=== PATIENT | male | born 1965 | race Caucasian/White ===

== ENCOUNTER 2020-01-05 00:41 | Emergency (ER) | payer MEDICARE, SELFPAY ==
[2020-01-05] VITALS (10 sets, daily range): BP systolic 132–162; BP diastolic 71–84; PULSE 100–125; RESP 18–24; TEMP 36.2–36.7; O2SAT 92–97
--- NOTE | ~2020-01-05 | CT_ITS ---
EXAMINATION: CTA chest PE protocol DATE: 01/05/2020 03:03 INDICATION: Dyspnea. TECHNIQUE: Computed tomography angiography (CTA) of the chest was performed with 100 mL Omnipaque-350 intravenous contrast timed to evaluate the pulmonary arteries. Coronal maximum intensity projection 3D-reconstructions were created by the technologist. Automated exposure control and iterative reconst ruction technique were employed. The dose-length product was 808.66 mGy-cm. COMPARISON: Chest CT 06/11/2018 FINDINGS: There are small pleural effusions, right worse than left. There is mild dependent atelectas is bilaterally. There is diffuse smooth septal thickening in the lungs, consistent with mild pulmonar y edema. There is mild emphysema. Cardiomegaly is noted. There is a small pericardial effusion. There is mild mediastinal and bilateral hilar lymphadenopathy. There is no pulmonary embolus. There are br idging endplate osteophytes at multiple levels in the spine, consistent with diffuse idiopathic skele ludwin hyperostosis (DISH). IMPRESSION: 1. No pulmonary embolus. Sensitivity is mildly decreased by motion artifact. 2. Mild pulmonary edema. 3. Mild emphysema. 4. Small pleural effusions. 5. Cardiomegaly. 6. Small pericardial effusion. 7. Chronic mild mediastinal and bilateral hilar lymphadenopathy, likely reactive. Reviewed, dictated and finalized at location A. IMPRESSION: 1. No pulmonary embolus. Sensitivity is mildly decreased by motion artifact. 2. Mild pulmonary edema. 3. Mild emphysema. 4. Small pleural effusions. 5. Cardiomegaly. 6. Small pericardial effusion. 7. Chronic mild mediastinal and bilateral hilar lymphadenopathy, likely reactiv e.
--- NOTE | ~2020-01-05 | XR_ITS ---
EXAMINATION: XR chest 1V portable DATE: 01/05/2020 01:37 INDICATION: Dyspnea. TECHNIQUE: A single frontal view of the chest was obtained on 2 radiographs. COMPARISON: Chest 2 views 06/11/2018, chest CT 01/05/2020 FINDINGS: There is a diffuse interstitial pattern, consistent with mild pulmonary edema. There is a s mall right pleural effusion. No pneumothorax. Cardiomegaly is noted. IMPRESSION: 1. Mild pulmonary edema. 2. Small right pleural effusion. 3. Cardiomegaly. Reviewed, dictated and finalized at location A.
--- NOTE | 2020-01-05 00:56 | ED.SOB ---
HPI - SOB/Dyspnea General Source: patient <Jl Corcoran MD - Last Filed: 01/05/20 04:19> Mode of arrival: EMS <Jl Corcoran MD - Last Filed: 01/05/20 04:19> Limitations: no limitations <Jl Corcoran MD - Last Filed: 01/05/20 04:19> History of Present Illness HPI Narrative: 54-year-old man with a history of cardiomyopathy, CVA, vascular dementia, COPD, and type 2 diabetes brought into the emergency department by EMS after having reported 2 nights where he wakes up short of breath. Patient states he has no chest pain, nausea, vomiting, fever, cough, sputum production or sore throat. He denies any sick exposures because he does not go out. Patient is a poor historian. Given phone numbers and those on the record are all disconnected. <Jl Corcoran MD - Last Filed: 01/05/20 04:19> MD elicited complaint: shortness of breath <Jl Corcoran MD - Last Filed: 01/05/20 04:19> Pertinent past history: COPD, congestive heart failure and diabetes <Jl Corcoran MD - Last Filed: 01/05/20 04:19> Onset (ago): day(s) (2) <Jl Corcoran MD - Last Filed: 01/05/20 04:19> Timing: intermittent and progressively worsening <Jl Corcoran MD - Last Filed: 01/05/20 04:19> Severity: moderate <Jl Corcoran MD - Last Filed: 01/05/20 04:19> Exacerbating factors: lying flat <Jl Corcoran MD - Last Filed: 01/05/20 04:19> Relieving factors: nothing <Jl Corcoran MD - Last Filed: 01/05/20 04:19> Known history of: COPD, congestive heart failure and diabetes <Jl Corcoran MD - Last Filed: 01/05/20 04:19> Associated symptoms: wheezing <Jl Corcoran MD - Last Filed: 01/05/20 04:19> Treatment prior to arrival: oxygen <Jl Corcoran MD - Last Filed: 01/05/20 04:19> Related Data Home oxygen amount: none <Jl Corcoran MD - Last Filed: 01/05/20 04:19> Home Medications: Home Medications Medication Instructions Recorded Confirmed aspirin 81 mg PO DAILY 01/05/20 01/05/20 atorvastatin 80 mg PO DAILY 01/05/20 01/05/20 carvedilol 6.25 mg PO BID 01/05/20 01/05/20 cetirizine 10 mg PO DAILY 01/05/20 01/05/20 clopidogrel 75 mg PO DAILY 01/05/20 01/05/20 furosemide 40 mg PO DAILY 01/05/20 01/05/20 glipizide 10 mg PO BID 01/05/20 01/05/20 lisinopril 10 mg PO DAILY 01/05/20 01/05/20 metformin 500 mg PO BID 01/05/20 01/05/20 potassium chloride 20 meq PO DAILY 01/05/20 01/05/20 spironolactone 25 mg PO DAILY 01/05/20 01/05/20 <Jl Corcoran MD - Last Filed: 01/05/20 04:19> Allergies/Adverse Reactions: Allergies Allergy/AdvReac Type Severity Reaction Status Date / Time cephalexin Allergy Unknown Anaphylactic Verified 06/11/18 17:21 Shock Sulfa (Sulfonamide Allergy Unknown Anaphylactic Verified 06/11/18 17:21 Antibiotics) Shock <Jl Corcoran MD - Last Filed: 01/05/20 04:19> Review of Systems Constitutional: Constitutional: Denies chills, Denies fatigue, Denies fever(s) and Denies weakness <Jl Corcoran MD - Last Filed: 01/05/20 04:19> Eyes: Eyes: Denies change in vision and Denies photophobia <Jl Corcoran MD - Last Filed: 01/05/20 04:19> ENT: Denies dysphagia, Denies nasal congestion and Denies sore throat <Jl Corcoran MD - Last Filed: 01/05/20 04:19> Cardiovascular: Cardiovascular: Denies chest pain, Reports rapid heart rate and Denies radiating jaw, neck or arm pain <Jl Corcoran MD - Last Filed: 01/05/20 04:19> Respiratory: Respiratory: Reports as per HPI, Reports chest congestion, Denies cough, Reports dyspnea and Reports wheezing <Jl Corcoran MD - Last Filed: 01/05/20 04:19> Gastrointestinal: Gastrointestinal: Denies abdominal pain, Denies diarrhea, Denies nausea and Denies vomiting <Jl Corcoran MD - Last Filed: 01/05/20 04:19> Genitourinary: Genitourinary: Denies hematuria, Denies dysuria and Denies urinary f
--- NOTE | 2020-01-05 01:16 | ECG_ITS ---
Measurements Intervals [place] Rate: 116 P: 57 NC: 141 QRS: 47 QRSD: 102 T: 112 QT: 329 QTc: 459 Interpretive Statements SINUS TACHYCARDIA POSSIBLE LEFT ATRIAL ENLARGEMENT NONSPECIFIC ST & T-WAVE ABNORMALITY- LAT/HIGH LAT LEADS BASELINE ARTIFACT- I, III, V4 ABNORMAL ECG Electronically Signed On 01-05-2020 8:40:09 CDT by Raji Martinez D.O.
[2020-01-05] MEDS: ALBUTEROL SULFATE (*SP) INHALER 4 PUFF INHALATION ×2 (01:27→02:40)
[2020-01-05 01:56] LABS: Basophils Absolute Auto 0.05 K/mm3 (0.00-0.10); Basophils Percent Auto 0.4 % (0.0-1.0); Eosinophils Absolute Auto 0.03 K/mm3 (0.02-0.50); Eosinophils Percent Auto 0.2 % (1.0-6.0); Hematocrit 47.6 % (40.0-54.0); Hemoglobin 15.6 g/dL (14.0-18.0); Immature Granulocyte Absolute 0.13 K/mm3 (0.00-0.00); Immature Granulocyte Percent A 1.1 % (0.0-0.0); Lymphocytes Absolute Auto 0.88 K/mm3 (1.10-4.50); Lymphocytes Percent Auto 7.2 % (18.0-42.0); Mean Corpuscular HGB Conc 32.8 g/dL (32.0-36.0); Mean Corpuscular Hemoglobin 31.6 pg (27.0-31.0); Mean Corpuscular Volume 96.4 fL (78.0-102.0); Mean Platelet Volume 11.2 fl (8.7-11.0); Monocytes Absolute Auto 0.63 K/mm3 (0.10-0.90); Monocytes Percent Auto 5.1 % (2.0-11.0); Neutrophils Absolute Auto 10.6 K/mm3 (1.7-7.2); Platelet Count Result 161 K/mm3 (150-420); Red Blood Count 4.94 M/mm3 (4.70-6.10); White Blood Count 12.3 K/mm3 (4.8-10.8)
[2020-01-05 02:10] LABS: Partial Thromboplastin Time 28.1 SEC (22.3-31.6); Prothrombin Time 10.8 Seconds (9.64-11.0)
[2020-01-05 02:13] LABS: Alanine Aminotransferase 11 U/L (16-63); Albumin Level 2.9 g/dL (3.4-5.0); Alkaline Phosphatase 85 U/L (46-116); Anion Gap 11 mmol/L (8-16); Aspartate Amino Transferase 15 U/L (15-37); Bilirubin,Total 0.7 mg/dL (0.00-1.00); Blood Urea Nitrogen 15 mg/dL (7-18); CRP 3.6 mg/dL (0.0-0.9); Calcium 8.4 mg/dL (8.5-10.1); Carbon Dioxide 23 mmol/L (21-32); Chloride 101 mmol/L (98-108); D Dimer 0.82 mg/L (0.19-0.50); Estimated CRCL calculation 98 ml/min; Estimated Glomerular Filt Rate > 60; Glucose 256 mg/dL (70-99); Magnesium 1.8 mg/dL (1.8-2.4); Osmolality Calculated 289 mOsm/kg (285-295); Potassium 3.8 mmol/L (3.5-5.1); Sodium 135 mmol/L (136-145); Total Protein 6.7 g/dL (6.4-8.2); Troponin I 0.05 ng/mL (0.00-0.056)
[2020-01-05 02:21] LABS: Influenza Control Valid (Valid)
[2020-01-05 02:24] LABS: BNP 269 pg/mL (0-100)
[2020-01-05 02:25] LABS: Lactic Acid Reflex 1.3 mmol/L (0.4-2.0)
[2020-01-05] MEDS: methylPREDNISolone SOD SUCC 40 MG VIAL 80 MG IV PUSH (02:38)
[2020-01-05] MEDS: FUROSEMIDE INJ 40 MG/4 ML VIAL IV PUSH (02:46)
[2020-01-05 04:06] LABS: Add Urine Microscopic? YES; Appearance Urine Clear (Clear); Bilirubin Urine Negative (Negative); Blood Urine 1+ (Negative); Color Urine Yellow (Yellow); Glucose Urine UA 2+ (Negative); Ketones Urine Negative (Negative); Leukocyte Esterase Ur Negative LEU/UL (Negative); Nitrate Urine Negative (Negative); Protein Urine 2+ (Negative); Specific Grav Ur 1.015 (1.010-1.020); Urobilinogen Urine 0.2 mg/dL (0.2-1.0); pH Urine 5.5 (5.0-8.0)
[2020-01-05 04:13] LABS: RBC Urine 0-2 /hpf (0-2)
[2020-01-05 04:14] LABS: Bacteria Urine None seen /hpf; Squamous Epithelial Cell Urine None seen /hpf (Few); WBC Urine 0-3 /hpf (0-3)
--- NOTE | 2020-01-05 04:21 | PC.NURSE ---
PTs. contacted and update given on d/c plan of care for home. states no resources to bring pt. back tomorrow for O/P order of an echo. ERP orders to hold pt,.in ER until echo can be done tomorrow. Xray notified of plan for echocardiogram. Pt. speaking on phone c and aware of plan to stay in ER until further testing is done.
--- NOTE | 2020-01-05 04:37 | PC.NURSE ---
Call placed to Xray and unsure when echo will be done today. Pt. to be an ER Hold until testing can be done. Call placed to 2nd floor for bed. Pt. to go to Rm 212 for ER hold.
--- NOTE | 2020-01-05 06:07 | PC.NURSE ---
0506 Pt to 212 as an ER hold. VS are 98.0, 109, 18, 132/76 and 18. Pt given a sandwich, juice and ice cream per his request.
--- NOTE | 2020-01-05 06:09 | PC.NURSE ---
Pt watching TV and doesnt voice any concerns at this time.
--- NOTE | 2020-01-05 06:53 | PC.NURSE ---
Pt given 2 puffs of albuterol inhaler as ordered.
[2020-01-05] MEDS: ALBUTEROL SULFATE (*SP) INHALER 2 PUFF INHALATION (07:04)
[2020-01-05 07:23] LABS: Troponin I 0.06 ng/mL (0.00-0.056)
--- NOTE | 2020-01-05 07:23 | PC.NURSE ---
Lab called to report a critical troponin of 0.06.
--- NOTE | 2020-01-05 07:27 | PC.NURSE ---
Lab called to report critical troponin value of 0.06.
--- NOTE | 2020-01-05 07:28 | PC.NURSE ---
Dr. Cardenas notified of pt's critical troponin of 0.06; No new orders at this time.
--- NOTE | 2020-01-05 08:20 | PC.NURSE ---
Eating breakfast, no distress, occassional loose non productive cough noted
--- NOTE | 2020-01-05 09:30 | ECHO_ITS ---
Patient Info Name: Ellis Gonzales Age: 54 years : 1965 Gender: Male Ht: 66 in Wt: 248 lbs BSA: 2.34 m2 HR: 110 bpm BP: 133 / 75 mmHg Heart Rhythm: Tachycardia, Sinus Rhythm Technical Quality: Good Exam Date: 01/05/2020 9:11 AM Exam Location: [facility] Patient Status: Emergency Admit Date: 01/05/2020 Staff Ordering Physician: Jl Corcoran MD Director Graphics: Isaias Zuniga RDCS Attending Provider: Jl Corcoran MD Referring Physician: Nilo BHAKTA; Exam Type: CA echo doppler color flow Study Info Indications R06.00 - Dyspnea, unspecified Complete two-dimensional, color flow and Doppler transthoracic echocardiogram is performed. Strain analysis performed. History/Risk Factors Dyspnea; cardiomyopathy, CVA, HTN, DM2, SOB, COPD. Summary 1. Complete two-dimensional, color flow and Doppler transthoracic echocardiogram is performed. 2. Left ventricular chamber dimension is severely enlarged. 3. Left ventricular systolic function is severely reduced, estimated at 30-35%. 4. The left ventricular diastolic function is abnormal. 5. E/e' 24 is significantly elevated. 6. Global longitudinal strain is abnormal at -8.3%. 7. Left atrial chamber dimension is moderately enlarged. 8. There is moderate mitral valve regurgitation. 9. There is trace tricuspid valve regurgitation. 10. Moderate pulmonary hypertension, estimated pulmonary arterial systolic pressure is 59 mmHg. 11. Normal inferior vena cava with <50% collapse upon inspiration consistent with elevated right atrial pressure, 10 mmHg. Left Ventricle E/e' 24 is significantly elevated. Global longitudinal strain is abnormal at -8.3%. Left ventricular chamber dimension is severely enlarged. Left ventricular systolic function is severely reduced, estimated at 30-35%. The left ventricular diastolic function is abnormal. Right Ventricle Right ventricular systolic function is normal and with normal TAPSE at 1.8 cm. Right ventricular chamber dimension is normal. Left Atria Left atrial chamber dimension is moderately enlarged. Right Atria Right atrial chamber dimension is normal. Aortic Valve The aortic valve is probable trileaflet. There is no aortic valve stenosis. There is no aortic valve regurgitation. Pulmonic Valve There is no pulmonic regurgitation. Mitral Valve There is no mitral valve stenosis. There is moderate mitral valve regurgitation. Tricuspid Valve There is trace tricuspid valve regurgitation. Moderate pulmonary hypertension, estimated pulmonary arterial systolic pressure is 59 mmHg. Pericardium/Pleural There is no pericardial effusion. Inferior Vena Cava Normal inferior vena cava with <50% collapse upon inspiration consistent with elevated right atrial pressure, 10 mmHg. Aorta The aortic root size at the sinus of Valsalva is normal. Left Ventricular Outflow Tract Name Value Normal LVOT 2D LVOT Diameter 1.9 cm LVOT Doppler LVOT Peak Velocity 120 cm/s LVOT Peak Gradient 6 mmHg LVOT Mean Gradient 3 mmHg
--- NOTE | 2020-01-05 10:00 | PC.NURSE ---
Echo completed, ER notified and will wait for report prior to discharge home, no covid results at this time, patient notified
--- NOTE | 2020-01-05 10:18 | PC.NURSE ---
Echo report to Dr Cardenas
--- NOTE | 2020-01-05 11:04 | PC.NURSE ---
Discharge instructions received from ER, due to PUI for covid, will remain in isolation until family arrives to pick him up,
[2020-01-05 22:31] LABS: SARS-CoV-2 RNA PCR Negative
== END 2020-01-05 11:49 | disposition home or self-care (01) ==
LOC: CHSED 04:20 → CHS2ND 06:38
PROVIDERS: Emergency Provider Emergency Medicine
DX: J44.1 Chronic obstructive pulmonary disease with (acute) exacerbation (principal); J90 Pleural effusion, not elsewhere classified; I31.3 Pericardial effusion (noninflammatory); Z20.828 Contact with and (suspected) exposure to other viral communicable diseases
CPT/HCPCS: 36415; 36600; 71045; 71275; 80053; 81001; 83605; 83735; 83880; 84484; 85025; 85380; 85610; 85730; 86140; 87040; 87635; 87804; 93005; 93306; 94640; 96374; 96375; 99284; A9270; C9803; J1940; J2920; Q9965; U0003

== ENCOUNTER 2020-01-26 12:20 | Emergency (ER) | payer MEDICARE, SELFPAY ==
--- NOTE | ~2020-01-26 | US_ITS ---
EXAMINATION: US venous doppler [facility] DATE: 01/26/2020 15:22 INDICATION: Shortness of breath. TECHNIQUE: Grayscale ultrasound images without and with compression and Doppler ultrasound images of the bilateral lower extremity veins were obtained. COMPARISON: Ultrasound 06/11/2018 FINDINGS: The visualized portions of right common femoral vein, profunda (deep) femoral vein, femoral vein, pop liteal vein, peroneal veins, posterior tibial veins, and greater saphenous vein outflow are patent. The visualized portions of left common femoral vein, profunda femoral vein, femoral vein, popliteal v ein, peroneal veins, posterior tibial veins, and greater saphenous vein outflow are patent. IMPRESSION: 1. No deep venous thrombosis. Reviewed, dictated and finalized at location A. TEGIC COMMUNICATIONS MANAGER
--- NOTE | ~2020-01-26 | CT_ITS ---
EXAMINATION: CTA chest PE protocol EXAM DATE: 01/26/2020 15:32 INDICATION: Elevated Dimer elevated d-dimer, shortness of breath, cough x 3 days . TECHNIQUE: Spiral CTA of the chest (pulmonary arteries) was performed with 100 cc Omnipaque 350 intr avenous contrast injection. Images were acquired during the pulmonary arterial phase. Coronal maxi mum intensity projection 3D-reconstructions were created by the technologist on dedicated workstation . Axial, coronal and sagittal reformatted images were reviewed. The dose-length product (DLP) for t his examination was 1044.85 mGy-cm. The exposure was tailored according to patient size (auto mA ex posure control), and iterative reconstruction (ASIR) was used as additional dose reduction technique. Comparison is made to prior examination from 01/05/2020. FINDINGS: Pulmonary arteries are well opacified and without intraluminal filling defects. There is m ild cardiomegaly. Mildly dilated pulmonary arteries. There may be mild pulmonary edema. No thoracic a ortic dissection. Moderate right, small to moderate left pleural effusions, some interval increase co mpared to previous examination. There is small to moderate pericardial effusion unchanged. Segmental right basilar, subsegmental left basilar atelectasis. There is mild emphysema. Tracheobronchial tree is patent. Several enlarged mediastinal lymph nodes, precarinal node or [place] conglomerate measurin g 1.2 x 2.4 cm, a prevascular lymph node measuring 2.8 x 1.2 cm. There is no pneumothorax. Heart n ormal in size. There is moderate coronary arterial calcification, arterial sclerosis. Adrenal glan d hyperplasia. There is thoracic spondylosis without osteoblastic or osteolytic lesions identified. Thoracic diffuse idiopathic skeletal hyperostosis. IMPRESSION: 1. Mild cardiomegaly, small to moderate pericardial effusion unchanged. 2. Moderate right, small to moderate left pleural effusions with mild increase compared to last norman h. 3. Possible mild pulmonary edema. 4. Dependent atelectasis, segmental on the right. 5. Mild mediastinal lymphadenopathy probably reactive. 6. Mild emphysema. 7. No pulmonary emboli. Reviewed, dictated and finalized at location B. LING FIELD PROFESSIONAL IMPRESSION: 1. Mild cardiomegaly, small to moderate pericardial effusion unchanged. 2. Moderate right, small to moderate left pleural effusions with mild increase compared to last month. 3. Possible mild pulmonary edema. 4. Dependent atelectasis, segmental on the right. 5. Mild mediastinal lymphadenopathy probably reactive. 6. Mild emphysema. 7. No pulmonary emboli.
--- NOTE | ~2020-01-26 | XR_ITS ---
EXAMINATION: XR chest 2V DATE: 01/26/2020 13:27 INDICATION: 3 days of shortness of breath TECHNIQUE: frontal and lateral views of the chest were obtained. COMPARISON: Chest radiograph and CT dated 01/05/2020 FINDINGS: Small bilateral pleural effusions, right greater than left. Increased interstitial opacities in the b ilateral lower lung zones consistent with combination pulmonary edema and bibasilar atelectasis. No p neumothorax. Enlarged cardiac silhouette. There are bridging osteophytes at multiple levels in the sp ine, consistent with diffuse idiopathic skeletal hyperostosis (DISH). IMPRESSION: 1. Mild pulmonary edema with small bilateral pleural effusions and associated basilar atelectasis, ri ght greater than left. 2. Enlarged cardiac silhouette which appears increased since the prior study at which time was due to both cardiomegaly and a now likely enlarging pericardial effusion. Reviewed, dictated and finalized at location A. CLE SALES PROFESSIONAL IMPRESSION: 1. Mild pulmonary edema with small bilateral pleural effusions and associated b asilar atelectasis, right greater than left. 2. Enlarged cardiac silhouette which appears increased since the prior study at which time was due to both cardiomegaly and a now likely enlarging pericardial effusion.
[2020-01-26 12:30] VITALS: BP 144/88; PULSE 101; PULSE 104; RESP 14; TEMP 36.4; O2SAT 98
--- NOTE | 2020-01-26 12:31 | ECG_ITS ---
Measurements Intervals [place] Rate: 97 P: 72 [place]: 137 QRS: 59 QRSD: 100 T: 108 QT: 348 QTc: 444 Interpretive Statements SINUS RHYTHM POSSIBLE LEFT ATRIAL ENLARGEMENT DELAYED PRECORDIAL R/S TRANSITION LOW QRS VOLTAGE IN LIMB LEADS BORDERLINE ST-T WAVE ABNORMALITY- HIGH LATERAL LEADS BORDERLINE ECG Electronically Signed On 01-26-2020 14:44:16 STANDARD MACHINE STITCHER by Raji Martinez D.O.
[2020-01-26] MEDS: FUROSEMIDE INJ 40 MG/4 ML VIAL IV PUSH (13:00)
[2020-01-26 13:01] LABS: Base Excess ABG 0.1 mmol/L (0-2); HCO3 ABG 23.6 mmol/L (23-29); Oxygen Content ABG 19.4 %vol (16.0-22.0); Oxygen Saturation ABG 94.9 % (95-97); Oxyhemoglobin 88.9 % (94-100); PCO2 ABG 35.3 mmHg (35-45); PO2 ABG 68.7 mmHg (80-90); Total Hemoglobin 15.5 g/dL; pH ABG 7.44 (7.35-7.45)
[2020-01-26 13:03] LABS: Device ROOM AIR; Site Drawn RIGHT BRACHIAL
[2020-01-26 13:05] LABS: Basophils Absolute Auto 0.05 K/mm3 (0.00-0.10); Basophils Percent Auto 0.8 % (0.0-1.0); Eosinophils Percent Auto 1.5 % (1.0-6.0); Hemoglobin 14.8 g/dL (14.0-18.0); Immature Granulocyte Absolute 0.02 K/mm3 (0.00-0.00); Immature Granulocyte Percent A 0.3 % (0.0-0.0); Lymphocytes Percent Auto 18.3 % (18.0-42.0); Mean Corpuscular HGB Conc 32.9 g/dL (32.0-36.0); Mean Corpuscular Hemoglobin 32.2 pg (27.0-31.0); Mean Platelet Volume 11.3 fl (8.7-11.0); Monocytes Absolute Auto 0.48 K/mm3 (0.10-0.90); Monocytes Percent Auto 7.3 % (2.0-11.0); Neutrophils Absolute Auto 4.7 K/mm3 (1.7-7.2); Neutrophils Percent Auto 71.8 % (50.0-70.0); Platelet Count Result 175 K/mm3 (150-420); Red Blood Count 4.59 M/mm3 (4.70-6.10); Red Cell Distribution Width 13.2 % (11.6-14.4); White Blood Count 6.6 K/mm3 (4.8-10.8)
[2020-01-26 13:22] LABS: Alanine Aminotransferase 44 U/L (16-63); Albumin Level 2.7 g/dL (3.4-5.0); Alkaline Phosphatase 94 U/L (46-116); Anion Gap 9 mmol/L (8-16); Aspartate Amino Transferase 28 U/L (15-37); Bilirubin,Total 0.5 mg/dL (0.00-1.00); Blood Urea Nitrogen 18 mg/dL (7-18); Calcium 8.2 mg/dL (8.5-10.1); Carbon Dioxide 25 mmol/L (21-32); Chloride 103 mmol/L (98-108); Estimated CRCL calculation 88 ml/min; Estimated Glomerular Filt Rate > 60; Glucose 269 mg/dL (70-99); Osmolality Calculated 294 mOsm/kg (285-295); Partial Thromboplastin Time 28.3 SEC (22.3-31.6); Potassium 4.1 mmol/L (3.5-5.1); Prothrombin Time 10.8 Seconds (9.64-11.0); Sodium 137 mmol/L (136-145); Total Protein 6.6 g/dL (6.4-8.2); Troponin I 0.05 ng/mL (0.00-0.056)
[2020-01-26 13:26] LABS: D Dimer 0.56 mg/L (0.19-0.50)
[2020-01-26 13:29] LABS: BNP 263 pg/mL (0-100)
[2020-01-26 13:37] LABS: Add Urine Microscopic? YES; Appearance Urine Clear (Clear); Bilirubin Urine Negative (Negative); Blood Urine 1+ (Negative); Color Urine Yellow (Yellow); Glucose Urine UA 2+ (Negative); Ketones Urine Negative (Negative); Leukocyte Esterase Ur Negative LEU/UL (Negative); Nitrate Urine Negative (Negative); Protein Urine 2+ (Negative); Specific Grav Ur 1.025 (1.010-1.020); Urobilinogen Urine 0.2 mg/dL (0.2-1.0)
[2020-01-26 13:44] LABS: Bacteria Urine 1+ /hpf; Squamous Epithelial Cell Urine None seen /hpf (Few); WBC Urine 0-3 /hpf (0-3)
[2020-01-26 14:27] LABS: Influenza Control Valid (Valid)
--- NOTE | 2020-01-26 14:44 | ED.SOB ---
HPI - SOB/Dyspnea General Chief Complaint: Shortness of Breath/Dyspnea Stated Complaint: 55 YO male w/ 3 month h/o SOB after he ran out of his meds and his field agent (DR Judd) was unable to fill them. Patient has been eating and drinking as usual but states he has been unable to sleep lying flat for last 2-3 weeks. Here with his who wants his meds restarted. Related Data Allergies Allergy/AdvReac Type Severity Reaction Status Date / Time cephalexin Allergy Unknown Anaphylactic Verified 06/11/18 17:21 Shock Sulfa (Sulfonamide Allergy Unknown Anaphylactic Verified 06/11/18 17:21 Antibiotics) Shock Review of Systems Review of Systems: All systems reviewed & are unremarkable except as noted in HPI and below Constitutional: Constitutional: Reports no additional constitutional complaints and Reports weakness Eyes: Eyes: Reports no additional eye complaints ENT: Reports system reviewed and no additional complaints, except as documented Cardiovascular: Cardiovascular: Reports no additional cardiovascular complaints and Reports rapid heart rate Respiratory: Respiratory: Denies chest congestion, Denies cough, Reports dyspnea and Denies wheezing Gastrointestinal: Gastrointestinal: Reports no additional gastrointestinal complaints Genitourinary: Genitourinary: Reports no additional male genitourinary complaints Musculoskeletal: Musculoskeletal: Reports no additional musculoskeletal complaints Integumentary/Breasts: Skin/Breast: Reports system reviewed and no additional complaints, except as docu Neurologic: Reports system reviewed and no additional complaints, except as documented and Reports weakness Psychiatric: Psychiatric: Reports no additional psychiatric complaints Endocrine: Endocrine: Reports no additional endocrine complaints Hematologic/Lymphatic: Hematologic/Lymphatic: Reports no additional hematologic/lymphatic complaints Allergic/Immunologic: Allergic/Immunologic: Reports no additional allergic/immunologic complaints [facility] Past Medical History Medical History Cardiomyopathy CHF (congestive heart failure) CVA (cerebral vascular accident) Hyperlipidemia Hypertension Peripheral artery disease Type 2 diabetes mellitus Vascular dementia Social History Social History Smoking status: Current every day smoker Alcohol intake: current Substance use: unknown Exam Const: General: no acute distress and alert; No healthy appearing, confusion or ill appearing Orientation/consciousness: patient oriented x3 Limitations: No altered mental status HENMT: Head: normal to inspection Face and sinus: normal facial exam Eyes: Conjunctivae: conjunctivae normal Pupils: Equal, round and reactive pupils present Neck: Neck: normal visual inspection Chest: Chest palpation & inspection: normal inspection of the chest Resp: Effort & Inspection: normal respiratory effort, not labored, no retractions and not tachypneic Auscultation: not clear to auscultation bilaterally, no rales, rhonchi lower bilaterally and no wheezes Cardio: Rate: regular rate and not bradycardic Rhythm: regular rhythm GI: Inspection: non-distended GI Palp: Yes Soft to palpation, No Tenderness to palpation present (GI) and No Guarding due to palpation present (GI) : General: Yes no CVA tenderness Back/Spine/Pelvis: Back: no CVA tenderness Skin: General skin exam: normal color Neuro: General: patient oriented x3, moves all extremities, no meningeal signs, no focal motor deficits and CN's II-XI intact bilaterally Cranial nerves: Yes Nystagmus not present Speech: normal speech Gait exam (Neuro): Normal gait present Extrem: General: edema (3+) bilateral Psych: Mental Status: mental status grossly normal Affect: normal affect Attitude: cooperative Course Course Emergency Course: 14:30 Patient feels taryn
[2020-01-26] MEDS: metOLazone 2.5 MG TABLET 5 MG PO (15:42)
[2020-01-26 15:47] VITALS: BP 134/74; PULSE 92; RESP 14; O2SAT 97
== END 2020-01-26 16:30 | disposition home or self-care (01) ==
PROVIDERS: Emergency Provider Family Medicine
DX: I50.9 Heart failure, unspecified (principal); F17.200 Nicotine dependence, unspecified, uncomplicated; E11.9 Type 2 diabetes mellitus without complications; I11.0 Hypertensive heart disease with heart failure
CPT/HCPCS: 36415; 36600; 71046; 71275; 80053; 81001; 82805; 83880; 84484; 85025; 85380; 85610; 85730; 87804; 93005; 93970; 96374; 99283; 99284; A9270; J1940; Q9965

== ENCOUNTER 2020-01-31 14:17 | Outpatient (CLI) | payer MEDICARE, SELFPAY ==
[2020-01-31 14:43] LABS: Hemoglobin A1C 8.7 % (<5.7)
[2020-01-31 14:47] LABS: Creatinine Urine 47.37 mg/dL (40-278)
[2020-01-31 14:50] LABS: MALB Creatinine Ratio 769.8 mg/g (0-30); Microalbumin Urine Random 364.7 mg/L
== END 2020-01-31 14:18 | disposition home or self-care (01) ==
LOC: CHSLAB 14:19
PROVIDERS: PCP Family Medicine; Visit Provider Family Medicine
DX: E11.9 Type 2 diabetes mellitus without complications (principal)
CPT/HCPCS: 36415; 82043; 83036

== ENCOUNTER 2020-03-16 13:23 | Emergency (ER) | payer MEDICARE, SELFPAY ==
--- NOTE | ~2020-03-16 | XR_ITS ---
XR chest 2V 03/16/2020 14:36 Indication: Dyspnea Procedure: PA and lateral views of the chest Comparison: 01/26/2020 Findings: There is airspace disease of the mid and lower lung zones bilaterally without change. Bilat eral pleural effusions, right greater than left. There is peribronchial thickening. Cardiomegaly. No pneumothorax. Impression: 1: Persistent airspace disease of the mid and lower lung zones which may represent edema or less like ly pneumonia. 2: Small pleural effusions. Reviewed, dictated and finalized at location A. NGUAL TEACHER AIDE Impression: 1: Persistent airspace disease of the mid and lower lung zones which may repres ent edema or less likely pneumonia. 2: Small pleural effusions.
--- NOTE | 2020-03-16 13:29 | ECG_ITS ---
Measurements Intervals [place] Rate: 109 P: 52 [place]: 137 QRS: 28 QRSD: 97 T: 102 QT: 323 QTc: 435 Interpretive Statements SINUS TACHYCARDIA BORDERLINE ST-T WAVE ABNORMALITY- INF/HIGH LAT LEADS BASELINE ARTIFACT- I, II, III, AVR, AVL, AVF ABNORMAL ECG Electronically Signed On 03-17-2020 7:49:34 CREDIT COORDINATOR by Raji Martinez D.O.
[2020-03-16 13:30] VITALS: BP 147/85; PULSE 110; RESP 20; TEMP 36.6; O2SAT 96
--- NOTE | 2020-03-16 13:32 | ED.CHESTPAIN ---
HPI - Chest Pain General Chief Complaint: Chest Pain Stated Complaint: chest pain, feet swelling, SOB in supine Time Seen by Provider: 03/16/20 13:32 Source: patient and family Mode of arrival: ambulatory Limitations: dementia History of Present Illness HPI narrative: 55-year-old man with a history of congestive heart failure,, COPD, type 2 diabetes, hypertension and dyslipidemia comes in today complaining of shortness of breath. He states that this morning he felt like he had been exerting himself and had chest congestion. His states that he was complaining of chest heaviness. He denies sweating, nausea, lightheadedness, palpitations, vomiting. He was seen here on January 25, treated for CHF, and given prescriptions for 30 days of medication but has not followed up with his primary care doctor so he is currently out of his CHF medications. MD complaint: chest heaviness Pertinent past history: coronary artery disease and other (CHF) Onset (ago): hour(s) (8) Timing of current episode: still present Prior episodes: Yes Onset: awoke with symptoms Pain location: substernal Pain radiation: none Severity: moderate Quality: heaviness Relieving factors: nothing Exacerbating factors: nothing Associated symptoms: leg swelling Treatment prior to arrival: none Risk Factors Coronary artery disease risk factors: diabetes, smoking history, hyperlipidemia and hypertension Related Data Allergies Allergy/AdvReac Type Severity Reaction Status Date / Time cephalexin Allergy Unknown Anaphylactic Verified 01/31/20 08:18 Shock Sulfa (Sulfonamide Allergy Unknown Anaphylactic Verified 01/31/20 08:18 Antibiotics) Shock Review of Systems Constitutional: Constitutional: Denies chills, Denies fever(s) and Denies weakness Eyes: Eyes: Denies change in vision and Denies photophobia ENT: Denies dysphagia, Denies nasal congestion and Denies sore throat Cardiovascular: Cardiovascular: Reports chest pain and Denies radiating jaw, neck or arm pain Respiratory: Respiratory: Reports cough ( He states he always coughs because of smoking.), Reports dyspnea and Denies wheezing Gastrointestinal: Gastrointestinal: Denies abdominal pain, Denies diarrhea, Denies nausea and Denies vomiting Genitourinary: Genitourinary: Denies dysuria and Denies urinary frequency Musculoskeletal: Musculoskeletal: Denies arthralgias and Denies joint swelling Integumentary/Breasts: Skin/Breast: Denies pruritus, Denies erythema and Denies rash Neurologic: Denies vertigo, Denies dizziness and Denies syncope Hematologic/Lymphatic: Hematologic/Lymphatic: Denies easy bleeding and Denies easy bruising Allergic/Immunologic: Allergic/Immunologic: Denies lip swelling and Denies tongue swelling [facility] Past Medical History Medical History Cardiomyopathy CHF (congestive heart failure) COPD (chronic obstructive pulmonary disease) CVA (cerebral vascular accident) Hyperlipidemia Hypertension Peripheral artery disease Type 2 diabetes mellitus Vascular dementia Social History Social History Smoking packs per day: 1 Smoking cigarettes per day: 20.0 Years smoked: 30 Smoking pack-years: 30.00 Smoking status: Current every day smoker Alcohol intake: current Substance use: unknown Additional living arrangements comments: Exam Const: General: no acute distress and alert Nutritional Appearance: obese HENMT: Head: normal to inspection Ears: external ears normal, TM's normal bilaterally and EAC's normal Face and sinus: normal facial exam Mouth: Yes moist mucous membranes Throat: posterior oropharynx normal Eyes: Conjunctivae: conjunctivae normal Pupils: Equal, round and reactive pupils present EOM: EOMs intact bilaterally Resp: Effort & Inspection: normal respiratory effort and not labored Auscultation: clear to auscultation bi
[2020-03-16 13:57] LABS: Basophils Absolute Auto 0.04 K/mm3 (0.00-0.10); Basophils Percent Auto 0.7 % (0.0-1.0); Eosinophils Absolute Auto 0.11 K/mm3 (0.02-0.50); Eosinophils Percent Auto 1.8 % (1.0-6.0); Hematocrit 39.6 % (40.0-54.0); Hemoglobin 12.9 g/dL (14.0-18.0); Immature Granulocyte Absolute 0.01 K/mm3 (0.00-0.00); Immature Granulocyte Percent A 0.2 % (0.0-0.0); Lymphocytes Absolute Auto 1.24 K/mm3 (1.10-4.50); Lymphocytes Percent Auto 20.2 % (18.0-42.0); Mean Corpuscular HGB Conc 32.6 g/dL (32.0-36.0); Mean Corpuscular Hemoglobin 32.3 pg (27.0-31.0); Mean Platelet Volume 10.2 fl (8.7-11.0); Monocytes Absolute Auto 0.41 K/mm3 (0.10-0.90); Monocytes Percent Auto 6.7 % (2.0-11.0); Neutrophils Absolute Auto 4.3 K/mm3 (1.7-7.2); Neutrophils Percent Auto 70.4 % (50.0-70.0); Platelet Count Result 189 K/mm3 (150-420); Red Cell Distribution Width 12.9 % (11.6-14.4); White Blood Count 6.2 K/mm3 (4.8-10.8)
[2020-03-16] MEDS: FUROSEMIDE INJ 40 MG/4 ML VIAL IV PUSH (14:00)
[2020-03-16 14:06] LABS: Add Urine Microscopic? YES; Appearance Urine Clear (Clear); Bilirubin Urine Negative (Negative); Blood Urine 2+ (Negative); Color Urine Yellow (Yellow); Glucose Urine UA Negative (Negative); Ketones Urine Negative (Negative); Leukocyte Esterase Ur Negative LEU/UL (Negative); Nitrate Urine Negative (Negative); Protein Urine 2+ (Negative); Specific Grav Ur >= 1.030 (1.010-1.020); pH Urine 5.5 (5.0-8.0)
[2020-03-16 14:10] LABS: Bacteria Urine None seen /hpf; WBC Urine 0-3 /hpf (0-3)
[2020-03-16 14:12] LABS: Partial Thromboplastin Time 27.1 SEC (23.90-30.70); Prothrombin Time 11.5 Seconds (9.50-12.10)
[2020-03-16 14:14] LABS: D Dimer 0.63 mg/L (0.19-0.50)
[2020-03-16 14:15] LABS: Alanine Aminotransferase 17 U/L (16-63); Alkaline Phosphatase 78 U/L (46-116); Anion Gap 9 mmol/L (8-16); Aspartate Amino Transferase 10 U/L (15-37); Bilirubin,Total 0.4 mg/dL (0.00-1.00); Blood Urea Nitrogen 25 mg/dL (7-18); Calcium 8.4 mg/dL (8.5-10.1); Carbon Dioxide 26 mmol/L (21-32); Chloride 105 mmol/L (98-108); Estimated Glomerular Filt Rate 59; Glucose 97 mg/dL (70-99); Osmolality Calculated 294 mOsm/kg (285-295); Potassium 4.2 mmol/L (3.5-5.1); Sodium 140 mmol/L (136-145); Total Protein 6.9 g/dL (6.4-8.2)
[2020-03-16 14:16] LABS: BNP 487 pg/mL (0-100)
[2020-03-16 15:02] VITALS: BP 133/76; PULSE 101; O2SAT 95
== END 2020-03-16 15:14 | disposition home or self-care (01) ==
PROVIDERS: Emergency Provider Emergency Medicine; PCP Family Medicine
DX: I50.9 Heart failure, unspecified (principal); F17.200 Nicotine dependence, unspecified, uncomplicated
CPT/HCPCS: 36415; 71046; 80053; 81001; 83880; 84484; 85025; 85380; 85610; 85730; 93005; 96374; 99284; J1940

== ENCOUNTER 2020-05-29 12:06 | Outpatient (CLI) | payer MEDICARE, SELFPAY ==
--- NOTE | ~2020-05-29 | XR_ITS ---
EXAMINATION: XR heel LT min 2V EXAM DATE: 05/29/2020 12:34 INDICATION: Type 2 diabetes mellitus, foot ulcer at plantar heel 2wks. TECHNIQUE: Left heel at the plantar, lateral projections. There is no prior study for comparison. FINDINGS: Left calcaneus has small posterior and inferior spurs. There are mild vascular calcificati ons. There is soft tissue ulceration identified over the heel. There is still at least a centimeter o f fat pad between the ulceration on the calcaneus, and no adjacent erosion. Probably some soft tissue swelling, edema. There are no acute fractures identified. IMPRESSION: 1. Soft tissue ulceration. 2. Small left calcaneal spurs. Reviewed, dictated and finalized at location B. RY DECORATOR
== END 2020-05-29 12:07 | disposition home or self-care (01) ==
LOC: CHSIMG 12:09
PROVIDERS: PCP Family Medicine; Visit Provider Nurse Practitioner Family
DX: E11.621 Type 2 diabetes mellitus with foot ulcer (principal); L97.409 Non-pressure chronic ulcer of unspecified heel and midfoot with unspecified severity
CPT/HCPCS: 73650

== ENCOUNTER 2020-07-02 07:44 | Outpatient (RCR) | payer MEDICARE, SELFPAY ==
[2020-06-17 13:00] VITALS: BMI 31.9
--- NOTE | 2020-06-24 13:18 | PCWOUND ---
WOCN NOTE patient's spouse called and left a voicemail cancelling appointment for today. Call was returned to spouse, no answer, left message to call wound clinic back to reschedule.
--- NOTE | 2020-07-11 14:25 | PCWOUND ---
WOCN Note: Patient left message cancelling today's appointment and stated he'll call back to reschedule.
== END 2020-08-28 10:51 | disposition home or self-care (01) ==
LOC: ANHWOC 07:44
PROVIDERS: PCP Family Medicine; Visit Provider Family Medicine
DX: E11.621 Type 2 diabetes mellitus with foot ulcer (principal); L97.409 Non-pressure chronic ulcer of unspecified heel and midfoot with unspecified severity
CPT/HCPCS: 99213; G0463

== ENCOUNTER 2020-08-05 18:40 | Emergency (ER) | payer MEDICARE, SELFPAY ==
--- NOTE | ~2020-08-05 | XR_ITS ---
EXAMINATION: XR foot LT min 3V DATE: 08/05/2020 20:10 INDICATION: Left foot pain TECHNIQUE: Dorsoplantar, lateral, and 2 oblique views of the left foot were obtained. COMPARISON: None. FINDINGS: Four nonstandard views of the left foot are obtained. No fracture is identified. The joint spaces appear normal. There is diffuse soft tissue swelling of the foot. Calcified atherosclerosis is noted. A dorsal calcaneal enthesophyte is noted. There is an ulceration overlying the dorsal/posteri or aspect of the calcaneus with slight worsening since the comparison examination. IMPRESSION: 1. Soft tissue ulceration near the calcaneus with slight worsening since the prior examination. Reviewed, dictated and finalized at location A. IMPRESSION: 1. Soft tissue ulceration near the calcaneus with slight worsening since the pr ior examination.
--- NOTE | ~2020-08-05 | XR_ITS ---
EXAMINATION: XR chest 1V portable DATE: 08/06/2020 00:37 INDICATION: Central line placement. TECHNIQUE: A single frontal view of the chest was obtained. COMPARISON: Chest 2 views 08/05/2020 FINDINGS: There are airspace opacities in the perihilar regions and lower lung zones. No pleural effu nichole or pneumothorax. Cardiomegaly is noted. A right internal jugular central venous catheter is seen with tip at the superior cavoatrial junction. IMPRESSION: 1. Central line tip at superior cavoatrial junction. 2. Airspace opacities in the perihilar regions and lower lung zones, consistent with mild pulmonary e pawel versus pneumonia. 3. Cardiomegaly. Reviewed, dictated and finalized at location A. IMPRESSION: 1. Central line tip at superior cavoatrial junction. 2. Airspace opacities in the perihilar regions and lower lung zones, consistent with mild pulmonary edema versus pneumonia. 3. Cardiomegaly.
--- NOTE | ~2020-08-05 | XR_ITS ---
EXAMINATION: XR chest 2V DATE: 08/05/2020 19:37 INDICATION: Shortness of breath TECHNIQUE: AP and lateral views of the chest are obtained. COMPARISON: 03/16/2020 FINDINGS: There are airspace opacities of the lung bases. There is no pleural effusion or pneumothora x. The heart size is upper limits of normal for technique. There are bridging osteophytes at multiple levels in the spine, consistent with diffuse idiopathic skeletal hyperostosis (DISH). IMPRESSION: 1. Bibasilar airspace opacities, consistent with atelectasis versus pneumonia. Reviewed, dictated and finalized at location A.
[2020-08-05 18:40] VITALS: BP 103/60; PULSE 125; RESP 20; TEMP 37.3; O2SAT 97
--- NOTE | 2020-08-05 18:54 | ECG_ITS ---
Measurements Intervals [place] Rate: 126 P: 75 MI: 125 QRS: 63 QRSD: 92 T: 90 QT: 291 QTc: 423 Interpretive Statements SINUS TACHYCARDIA VENTRICULAR PREMATURE COMPLEX BORDERLINE ST-T WAVE ABNORMALITY- LAT/HIGH LAT LEADS BASELINE ARTIFACT- I, II, III, AVL, AVF, V5-V6 ABNORMAL ECG Electronically Signed On 08-05-2020 19:19:02 CDT by Raji Martinez D.O.
[2020-08-05 19:17] LABS: Hematocrit 34.4 % (40.0-54.0); Hemoglobin 11.8 g/dL (14.0-18.0); Mean Corpuscular HGB Conc 34.3 g/dL (32.0-36.0); Mean Corpuscular Hemoglobin 31.8 pg (27.0-31.0); Mean Corpuscular Volume 92.7 fL (78.0-102.0); Mean Platelet Volume 9.3 fl (8.7-11.0); Platelet Count Result 364 K/mm3 (150-420); Red Blood Count 3.71 M/mm3 (4.70-6.10); Red Cell Distribution Width 13.6 % (11.6-14.4)
[2020-08-05 19:23] LABS: White Blood Count 25.6 K/mm3 (4.8-10.8)
[2020-08-05 19:33] LABS: INR 1.1; Partial Thromboplastin Time 28.8 SEC (23.90-30.70); Prothrombin Time 11.9 Seconds (9.50-12.10)
[2020-08-05 19:36] LABS: Band Neutrophils Percent 0 % (0-6); Basophils Percent Manual 0 % (0-1); Eosinophils Percent Manual 0 % (1-6); Lymphocytes Absolute Manual 0.76 K/mm3 (1.1-4.5); Lymphocytes Percent Manual 3 % (18-44); Monocytes Absolute Manual 0.76 K/mm3 (0.1-0.90); Monocytes Percent Manual 3 % (3-9); Neutrophils Absolute Manual 24.06 K/mm3 (1.3-6.7); Neutrophils Percent Manual 94 % (46-73); Platelet Estimate Adequate (Adequate); Total Cells Counted 100
[2020-08-05 19:38] LABS: Lactic Acid Reflex 3.3 mmol/L (0.4-2.0)
[2020-08-05 19:41] LABS: Alanine Aminotransferase 46 U/L (16-63); Albumin Level 2.2 g/dL (3.4-5.0); Alkaline Phosphatase 76 U/L (46-116); Anion Gap 14 mmol/L (8-16); Aspartate Amino Transferase 94 U/L (15-37); Bilirubin,Total 0.4 mg/dL (0.00-1.00); Blood Urea Nitrogen 74 mg/dL (7-18); Carbon Dioxide 23 mmol/L (21-32); Chloride 93 mmol/L (98-108); Estimated Glomerular Filt Rate 33; Glucose 140 mg/dL (70-99); NT Pro B Type Natriuretic Pept 2077 pg/mL (0-125); Osmolality Calculated 293 mOsm/kg (285-295); Sodium 130 mmol/L (136-145); Total Protein 7.5 g/dL (6.4-8.2)
[2020-08-05 19:47] LABS: CRP > 25.0 mg/dL (0.0-0.9); Troponin I 246.2 ng/L (0.00-60.4)
[2020-08-05] MEDS: ASPIRIN 81 MG CHEWABLE TABLET 324 MG PO (19:56)
--- NOTE | 2020-08-05 20:03 | PC.NURSE ---
CALL TO [facility] FOR TRANSFER, SPOKE WITH ALEM. AWAITING CALL BACK
--- NOTE | 2020-08-05 20:07 | ED.LOWEXIN ---
HPI - Extremity Injury (Lower) General Chief Complaint: Extremity Injury, Lower Stated Complaint: AMB Time Seen by Provider: 08/05/20 18:40 Source: patient and EMS Mode of arrival: EMS Limitations: no limitations History of Present Illness HPI Narrative: 55-year-old man with a history of smoking, type 2 diabetes, congestive heart failure, COPD, and vascular dementia brought to the emergency department today because he is unable to sleep and has left leg pain. Patient states that he has not slept for 3 days and his pain is getting worse. He denies fever, vomiting, chest pain, shortness of breath, dysuria, hematuria, abdominal pain or diarrhea. he states his has been changing the dressings on the wounds on his left foot. Records show that he was seen on July 02 where he was noted to have 1.9 x 2 cm left plantar foot ulcer that was draining as well as a left heel ulcer that was 1.5 x 2 cm that was draining. MD complaint: other ( Left foot and leg pain) Onset (ago): day(s) (3) Severity: severe Relieving factors: rest Exacerbating factors: weight bearing, movement and palpation Context: other ( chronic) Associated symptoms: swelling and unable to bear weight Treatments prior to arrival: bandage Related Data Home Medications Medication Instructions Recorded Confirmed atorvastatin 80 mg PO DAILY 08/05/20 08/05/20 furosemide 20 mg PO DAILY 08/05/20 08/05/20 metformin 1,000 mg PO DAILY 08/05/20 08/05/20 Allergies Allergy/AdvReac Type Severity Reaction Status Date / Time cephalexin Allergy Unknown Anaphylactic Verified 06/19/20 11:24 Shock clindamycin Allergy Unknown Unknown Verified 06/19/20 11:24 Sulfa (Sulfonamide Allergy Unknown Anaphylactic Verified 06/19/20 11:24 Antibiotics) Shock Review of Systems Review of Systems: All systems reviewed & are unremarkable except as noted in HPI and below Constitutional: Constitutional: Denies chills and Denies fever(s) Eyes: Eyes: Denies change in vision and Denies photophobia ENT: Denies dysphagia, Denies nasal congestion and Denies sore throat Cardiovascular: Cardiovascular: Denies chest pain and Denies radiating jaw, neck or arm pain Respiratory: Respiratory: Denies cough and Denies dyspnea Gastrointestinal: Gastrointestinal: Denies abdominal pain, Denies diarrhea, Denies nausea and Denies vomiting Genitourinary: Genitourinary: Denies dysuria and Denies urinary frequency Musculoskeletal: Musculoskeletal: Denies back pain, Denies arthralgias and Reports joint swelling Integumentary/Breasts: Skin/Breast: Denies pruritus, Denies rash and Reports skin ulcer Neurologic: Denies vertigo, Denies dizziness and Denies syncope Hematologic/Lymphatic: Hematologic/Lymphatic: Denies easy bleeding and Denies easy bruising Allergic/Immunologic: Allergic/Immunologic: Denies lip swelling and Denies throat swelling PMFSH Past Medical History Medical History Cardiomyopathy CHF (congestive heart failure) COPD (chronic obstructive pulmonary disease) CVA (cerebral vascular accident) Hyperlipidemia Hypertension Peripheral artery disease Type 2 diabetes mellitus Vascular dementia Family History Family History Father Diabetes mellitus Family history of cardiovascular disease Mother Family history of malignant neoplasm Social History Social History Smoking packs per day: 1 Smoking cigarettes per day: 20.0 Years smoked: 30 Smoking pack-years: 30.00 Smoking status: Current every day smoker Alcohol intake: current Substance use: unknown Additional living arrangements comments: Gender identity (if verbalized by the patient): Male Exam Const: General: healthy appearing, no acute distress and alert Nutritional Appearance: obese Other: Oriented to place
[2020-08-05 20:28] LABS: Add Urine Microscopic? YES; Appearance Urine Clear (Clear); Bilirubin Urine Negative (Negative); Blood Urine Negative (Negative); Color Urine Yellow (Yellow); Glucose Urine UA Negative (Negative); Ketones Urine Negative (Negative); Leukocyte Esterase Ur Negative LEU/UL (Negative); Nitrate Urine Negative (Negative); Protein Urine 1+ (Negative); Urobilinogen Urine 0.2 mg/dL (0.2-1.0); pH Urine 5.5 (5.0-8.0)
[2020-08-05] MEDS: SODIUM CHLORIDE 0.9% IV 500 ML 999 ML IV CONT ×2 (20:34→21:05)
[2020-08-05 20:35] LABS: Amorphous Sediment Urine Few; Bacteria Urine 1+ /hpf; RBC Urine 0-2 /hpf (0-2); WBC Urine 0-3 /hpf (0-3)
[2020-08-05 20:45] VITALS: BP 111/56; PULSE 118; RESP 20; TEMP 38.8; O2SAT 98
--- NOTE | 2020-08-05 21:00 | PC.NURSE ---
PEDAL PULSE PRESENT PER DOPPLER WITH DR VILLARREAL, DR VILLARREAL SPOKE WITH DR CREWS. AWAITING CALL BACK FROM HOSPITALIST
[2020-08-05 21:01] LABS: SARS-CoV-2 Ag Negative (Negative)
[2020-08-05] MEDS: ACETAMINOPHEN 500 MG TABLET 1000 MG PO (21:19)
--- NOTE | 2020-08-05 21:52 | PC.NURSE ---
REPORT TO CARLOS PEDROZA
[2020-08-05 21:58] VITALS: TEMP 37.7
[2020-08-05 22:12] LABS: Reflex Lactic Acid Yes or No Add Lactic
--- NOTE | 2020-08-05 22:32 | PC.NURSE ---
Call back from hospitalist, spoke to ERP and accepting for trtansfer. awaiting call back c bed assignment.
[2020-08-05] MEDS: SODIUM CHLORIDE 0.9% IV 1,000 ML 999 ML IV CONT (22:41)
[2020-08-05 22:46] LABS: Lactic Acid 1.1 mmol/L (0.4-2.0)
[2020-08-05 22:49] LABS: Troponin I 252.2 ng/L (0.00-60.4)
--- NOTE | 2020-08-06 00:01 | PC.NURSE ---
Consent signed verbal consent, for cental line insertion. Pt. prepped using sterile field and protocols for insertion of line per Romulo request prior to transfer.
[2020-08-06 00:42] VITALS: BP 110/67; PULSE 107; RESP 20; TEMP 37.1; O2SAT 97
--- NOTE | 2020-08-06 00:51 | PC.NURSE ---
Report called to Marcelino DONG and GBAAS paged for transfer. Pt stable and resting at this time. VSS.
--- NOTE | 2020-08-06 01:11 | PC.NURSE ---
Report given to mushtaq PEREZ. loaded for transfer.
== END 2020-08-06 01:12 | disposition short-term general hospital (02) ==
PROVIDERS: Emergency Provider Emergency Medicine; PCP Family Medicine
DX: R79.9 Abnormal finding of blood chemistry, unspecified (principal); I96 Gangrene, not elsewhere classified; A41.9 Sepsis, unspecified organism; I50.9 Heart failure, unspecified; J44.9 Chronic obstructive pulmonary disease, unspecified; E11.9 Type 2 diabetes mellitus without complications; F17.200 Nicotine dependence, unspecified, uncomplicated; Z20.822 Contact with and (suspected) exposure to COVID-19
CPT/HCPCS: 36415; 36556; 71045; 71046; 73630; 80053; 81001; 83605; 83880; 84484; 85025; 85610; 85730; 86140; 87040; 87077; 87086; 87426; 93005; 96361; 96365; 96367; 99285; 99291; A9270; C1751; C9803; J0743; J3370; J7030; J7040

== ENCOUNTER 2020-08-06 02:21 | Inpatient (IN) | payer MEDICARE, SELFPAY ==
[2020-08-06] VITALS (14 sets, daily range): BP systolic 117–139; BP diastolic 59–74; PULSE 85–115; RESP 12–20; TEMP 36.1–38.8; O2SAT 94–97; BMI 32.3
--- NOTE | 2020-08-06 | ECHO_ITS ---
Patient Info Name: Ellis Gonzales Age: 55 years : 1965 Gender: Male Ht: 69 in Wt: 219 lbs BSA: 2.23 m2 HR: 105 bpm BP: 124 / 74 mmHg Heart Rhythm: Tachycardia Technical Quality: Good Exam Date: 08/06/2020 1:13 PM Exam Location: [facility] Patient Status: Inpatient Admit Date: 08/06/2020 Staff Ordering Physician: Josh Germain MD Maitre D': Lila Mcgovern RDCS Attending Provider: Josh Germain MD Referring Physician: Jessa SMITH; Exam Type: CA echo doppler color flow Study Info Indications - nectrotic ulcer Complete two-dimensional, color flow and Doppler transthoracic echocardiogram is performed. Summary 1. Complete two-dimensional, color flow and Doppler transthoracic echocardiogram is performed. 2. Left ventricular systolic function is mildly reduced, estimated at 45-50% with akinesis of the mid inferior and inferolateral juarez with relative sparing of the apex and mild hypokinesis at the bases.. 3. Left ventricular chamber dimension is severely enlarged. 4. There is no aortic valve stenosis. 5. There is mild mitral valve regurgitation. Left Ventricle Left ventricular chamber dimension is severely enlarged. Left ventricular systolic function is mildly reduced, estimated at 45-50% with akinesis of the mid inferior and inferolateral juarez with relative sparing of the apex and mild hypokinesis at the bases.. There is no increased left ventricular wall thickness. The left ventricular diastolic function is grade I diastolic dysfunction. Global longitudinal strain is moderately elevated at -10 %. Right Ventricle Right ventricular chamber dimension is normal. Right ventricular systolic function is normal. Left Atria Left atrial chamber dimension is mildly enlarged. Right Atria Right atrial chamber dimension is normal. Aortic Valve The aortic valve is not well visualized. There is no aortic valve stenosis. There is no aortic valve regurgitation. Pulmonic Valve The pulmonic valve is not well visualized. There is trace pulmonic regurgitation. Mitral Valve The mitral valve has thickened leaflets. There is mild mitral valve regurgitation. The mitral valve annulus is moderately calcified. Tricuspid Valve The tricuspid valve leaflets are normal. There is trace tricuspid valve regurgitation. No pulmonary hypertension, estimated pulmonary arterial systolic pressure is 14 mmHg. Pericardium/Pleural The pericardium appears not well visualized. There is small pericardial effusion. Inferior Vena Cava Normal inferior vena cava with >50% collapse upon inspiration consistent with normal right atrial pressure, 5 mmHg. Aorta The aortic root size at the sinus of Valsalva is normal. Left Ventricular Outflow Tract Name Value Normal LVOT 2D LVOT Diameter 1.9 cm LVOT Doppler LVOT Peak Gradient 8 mmHg LVOT Mean Gradient 5 mmHg LVOT VTI 22 cm LVOT VTI/AV VTI Ratio 0.8 LVOT Stroke Volume 66 ml LVOT CO
--- NOTE | ~2020-08-06 | XR_ITS ---
EXAMINATION: XR chest 1V portable DATE: 08/06/2020 05:37 INDICATION: Sepsis. TECHNIQUE: A single frontal view of the chest was obtained on 2 radiographs. COMPARISON: Chest single view at 12:37 AM FINDINGS: There are airspace opacities in the perihilar regions bilaterally. No pleural effusion or p neumothorax. Cardiomegaly is noted. A right internal jugular central venous catheter is seen with tip in the superior vena cava. IMPRESSION: 1. Stable airspace opacities in the perihilar regions, consistent with mild pulmonary edema versus pn eumonia. 2. Cardiomegaly. Reviewed, dictated and finalized at location A. IMPRESSION: 1. Stable airspace opacities in the perihilar regions, consistent with mild pul monary edema versus pneumonia. 2. Cardiomegaly.
--- NOTE | ~2020-08-06 | US_ITS ---
EXAMINATION: US art doppler w gin HERNANDEZ EXAM DATE: 08/06/2020 09:36 INDICATION: Necrotic left foot. TECHNIQUE: Segmental pressures and plethysmographic and Doppler waveforms of the brachial and lower e xtremity arteries were obtained. There is no prior study for comparison. FINDINGS: Right and left brachial artery pressures of 136 mm Hg and 156 mm Hg, respectively, are concordant (no rmal difference <= 30 mmHg). Notation was made by technologist that unable to do high thigh pressure is due to catheter placement lock. RIGHT LEG: The ankle-brachial index (IRAJ) is 0.75 (normal >= 0.9-1). The great toe-brachial index (TBI) is 0.17 (normal >= 0.65). The lower extremity ratios, segmental pressure gradients as follows; Proximal superficial femoral artery:- Could not obtain ( mmHg). Distal superficial femoral artery: ----- 0.60 (94 mmHg). Popliteal: 0.62 (96 mmHg). Dorsalis pedis: 0.44 (69 mmHg). Posterior tibial: 0.75 (117 mmHg). (Normal gradients <= 20-30 mmHg between adjacent levels on the same leg or the same levels on the two legs). Arterial waveforms are diminished and monophasic. LEFT LEG: The ankle-brachial index (IRAJ) is 0.30 (normal >= 0.9-1). The great toe-brachial waveform is absent. The lower extremity ratios, segmental pressure gradients as follows; Proximal superficial femoral artery:- Could not obtain ( mmHg). Distal superficial femoral artery: ----- 0.44 (69 mmHg). Popliteal: 0.37 (57 mmHg). Dorsalis pedis: 0.30 (47 mmHg). Posterior tibial: 0.26 (41 mmHg). (Normal gradients <= 20-30 mmHg between adjacent levels on the same leg or the same levels on the two legs). Arterial waveforms are diminished and monophasic through th e popliteal. Barely discernible posterior tibial waveform, and no waveform identified in the left toe . IMPRESSION: 1. Right ankle-brachial index 0.75, mildly decreased. 2. Left ankle-brachial index 0.30, moderate to severely decreased. 3. No left toe waveform could be identified. Diminished, monophasic waveforms of the arteries. Reviewed, dictated and finalized at location A.
--- NOTE | 2020-08-06 02:25 | ECG_ITS ---
Measurements Intervals Switchback Rate: 108 P: 55 VA: 132 QRS: 29 QRSD: 99 T: 121 QT: 324 QTc: 435 Interpretive Statements SINUS TACHYCARDIA DELAYED PRECORDIAL R/S TRANSITION BORDERLINE ST-T WAVE ABNORMALITY- HIGH LATERAL LEADS BASELINE ARTIFACT- I, II, III, AVR, AVL, AVF, V1 ABNORMAL ECG Electronically Signed On 08-06-2020 10:32:54 CDT by Raji Martinez D.O.
--- NOTE | 2020-08-06 02:40 | PM.IMHP ---
H&P: HPI History of Present Illness Date/Time: 08/06/20 02:40 Chief Complaint: Necrotic ulcer Narrative: This is a 55-year-old male with past medical history significant for type 2 diabetes mellitus, hypertension, dyslipidemia, coronary artery disease, congestive heart failure, chronic left foot diabetic ulcer. The patient came as a transfer from a [facility] DUE TO NECROTIC LEFT 5TH TOE AND NECROTIC LEFT FOOT HEEL ULCER. PATIENT CAN TELL HOW ON THAT THIS HAS BEEN GOING ON HE IS A VERY AVOIDANT NOD COOPERATING WITH QUESTION GIVES SHORT ANSWERS HE HAD A FEVER IN EMERGENCY ROOM OF 103 HOWEVER HE DENIED HAVING ANY FEVERS PATIENT STATES YES TO WEIGHT LOSS BUT CAN'T QUANTIFY CAN'T IN WHAT APPEARED OF TIME. HISTORY STOP TAKING IT IS VERY DIFFICULT PATIENT UNWILLINGNESS TO COOPERATE WITH HISTORY TAKING WHEN ASKED IF HE SMOKES HIS STATES EVERY TIME HE GETS A CHANCE. PATIENT STATES THAT HIS APPETITE HAS BEEN GOOD DENIES ANY NAUSEA OR VOMITING. Review of Systems Review of Systems: Narrative: PATIENT IS A POOR HISTORIAN VERY AVOIDANT AND UNWILLING TO COOPERATE WITH HISTORY TAKING PATIENT PRESENTED [facility] EMERGENCY ROOM AND WAS TRANSFERRED TO OUR [facility]OS[facility]. ROS unobtainable: Yes unobtainable due to medical condition [facility] Past Medical History Medical History Cardiomyopathy CHF (congestive heart failure) COPD (chronic obstructive pulmonary disease) CVA (cerebral vascular accident) Hyperlipidemia Hypertension Peripheral artery disease Type 2 diabetes mellitus Vascular dementia Family History Family History Father Diabetes mellitus Family history of cardiovascular disease Mother Family history of malignant neoplasm Social History Social History Smoking packs per day: 1 Smoking cigarettes per day: 20.0 Years smoked: 30 Smoking pack-years: 30.00 Smoking status: Current every day smoker Tobacco type: cigarettes Alcohol intake: current Drinks per week: 14 Substance use: unknown Substance use type: does not use Additional living arrangements comments: Gender identity (if verbalized by the patient): Male Spiritual care concerns: No Meds Home Medications and Allergies Home Medications Medication Instructions Recorded Confirmed Type glipizide 10 mg tablet 10 mg PO BID #180 tablet 04/09/20 08/06/20 Rx lisinopril 10 mg tablet 10 mg PO DAILY #90 tablet 04/09/20 08/06/20 Rx carvedilol 6.25 mg tablet 6.25 mg PO BID #60 tablet 04/22/20 08/06/20 Rx clopidogrel 75 mg tablet 75 mg PO DAILY #30 tablet 04/22/20 08/06/20 Rx metolazone 5 mg tablet 5 mg PO DAILY #30 tablet 04/22/20 08/06/20 Rx spironolactone 25 mg tablet 25 mg PO DAILY #30 tablet 04/22/20 08/06/20 Rx hydrocodone 5 mg-acetaminophen 325 1 tablet PO Q8H PRN #20 tablet 06/19/20 08/06/20 Rx mg tablet trazodone 100 mg tablet See Rx Instructions .ROUTE 07/23/20 08/06/20 Rx .COMPLEX #90 tablet atorvastatin 80 mg PO DAILY 08/05/20 08/06/20 History furosemide 20 mg PO DAILY 08/05/20 08/06/20 History metformin 1,000 mg PO BID 08/05/20 08/06/20 History Aspir-81 81 mg BYMOUTH DAILY 08/06/20 08/06/20 History cetirizine 10 mg BYMOUTH DAILY 08/06/20 08/06/20 History Allergies Allergy/AdvReac Type Severity Reaction Status Date / Time cephalexin Allergy Unknown Anaphylactic Verified 06/19/20 11:24 Shock clindamycin Allergy Unknown Unknown Verified 06/19/20 11:24 Sulfa (Sulfonamide Allergy Unknown Anaphylactic Verified 06/19/20 11:24 Antibiotics) Shock Vital Signs Vital Signs - 24 hr 08/06/20 02:06 Temperature 97 F L Pulse Rate 85 Respiratory Rate 20 Blood Pressure 117/59 L Pulse Oximetry 94 Exam Narrative: Exam Narrative: PATIENT IS LAYING IN BED IN NO ACUTE DISTRESS Const: General: comfortable, no acute distress, well
[2020-08-06 03:40] LABS: Basophils Absolute Auto 0.1 K/mm3 (0.0-0.1); Basophils Percent Auto 0.3 % (0.2-1.2); Eosinophils Percent Auto 0.1 % (0-4.4); Hemoglobin 10.2 g/dL (14.0-18.0); Immature Granulocyte Absolute 0.31 K/mm3 (0.00-0.031); Immature Granulocyte Percent A 1.2 % (0-0.5); Lymphocytes Percent Auto 3.1 % (18.3-44.2); Mean Corpuscular Hemoglobin 31.9 pg (26-34); Mean Corpuscular Volume 93.8 fl (80-100); Mean Platelet Volume 9.4 fl (7.4-10.4); Monocytes Absolute Auto 1.1 K/mm3 (0.1-0.6); Monocytes Percent Auto 4.3 % (2.6-8.5); Neutrophils Absolute Auto 23.2 K/mm3 (1.3-6.7); Platelet Count Result 314 k/mm3 (150-375); Red Cell Distribution Width 13.6 % (11.5-14.5); White Blood Count 25.6 K/mm3 (4.5-10.0)
[2020-08-06 03:52] LABS: Alanine Aminotransferase 39 U/L (4-50); Alkaline Phosphatase 69 U/L (38-126); Anion Gap 6 mmol/L (8-16); Aspartate Amino Transferase 91 U/L (17-59); Bilirubin,Total 0.4 mg/dL (0.2-1.3); Blood Urea Nitrogen 67 mg/dL (9-20); Calcium 8.4 mg/dL (8.4-10.2); Carbon Dioxide 23 mmol/L (22-30); Chloride 100 mmol/L (98-107); Estimated CRCL calculation 55 ml/min; Estimated Glomerular Filt Rate 45; Glucose 178 mg/dL (75-110); INR 1.2; Magnesium 1.7 mg/dL (1.6-2.3); Phosphorus 3.4 mg/dL (2.5-4.5); Potassium 3.5 mmol/L (3.4-5.0); Prothrombin Time 15.3 Seconds (11.1-14.7); Sodium 129 mmol/L (137-145)
[2020-08-06 03:53] LABS: Lactic Acid Reflex 0.8 mmol/L (0.7-2.1); Partial Thromboplastin Time 37.1 SECONDS (22.3-36.8)
[2020-08-06 04:44] LABS: Hemoglobin A1C 6.4 % (<5.7)
[2020-08-06] MEDS: SODIUM CHLORIDE 0.9% IV 1,000 ML 100 ML IV CONT ×2 (04:55→15:29)
--- NOTE | 2020-08-06 09:17 | PM.CNGS ---
Assessment and Plan Assessment and plan (1) Gangrene of left foot: Code(s): I96 - Gangrene, not elsewhere classified Status: Acute Assessment and Plan: Patient has a gangrenous left 5th toe and left heel ulcer that is likely the source of his sepsis. This is multifactorial with a vascular component due to his peripheral arterial disease. Bilateral arterial dopplers showed moderate to severely decreased left IRAJ of 0.30 and no left toe waveform. The patient ultimately needs to be evaluated by a vascular surgeon urgently, which we do not have at this facility. This would give him the best chance to see if they are able to have vascular intervention to salvage as much of the left lower extremity as possible and promote better inflow for healing. We would be able to offer a below the knee amputation here but this would still have the potential complications of poor wound healing, but would control the infection. Therefore, we would recommend transfer today to a facility that has vascular surgery. I have attempted to discuss this with the Hospitalist as well as relayed this to the nurse. Dr. Darby will also be evaluating the patient separately and speaking with family regarding his care. With the patient's multiple co-morbidities and non-compliance, he is a very high risk surgical candidate but ultimately needs intervention. Keep the patient NPO in case of transfer and possible surgical intervention today by outside facility. Thank you for allowing us to see the patient in consultation and we will continue to follow along with you. (2) Sepsis: Qualifiers: Acute renal failure type: with other specified pathological lesion Sepsis acute organ dysfunction status: with acute organ dysfunction Sepsis type: sepsis due to unspecified organism Severe sepsis acute organ dysfunction type: acute renal failure Severe sepsis shock status: without septic shock Qualified Code(s): A41.9 - Sepsis, unspecified organism; R65.20 - Severe sepsis without septic shock; N17.8 - Other acute kidney failure Code(s): A41.9 - Sepsis, unspecified organism Status: Acute Assessment and Plan: Sepsis criteria met on admission with tachycardia, fever, and leukocytosis. Likely secondary to gangrenous left foot ulcers. Lactic acid 3.3 initially and trending down. Continue broad-spectrum IV antibiotics and IV fluids. Blood cultures pending. See plan above regarding source control. (3) Elevated troponin: Code(s): R77.8 - Other specified abnormalities of plasma proteins Status: Acute Assessment and Plan: Elevated troponin on admission. Could be secondary to sepsis. Trend labs. EKG ordered today. Management per Hospitalist. (4) CHF (congestive heart failure): Qualifiers: Heart failure chronicity: acute on chronic Heart failure type: combined systolic and diastolic Qualified Code(s): I50.43 - Acute on chronic combined systolic (congestive) and diastolic (congestive) heart failure Code(s): I50.9 - Heart failure, unspecified Status: Acute Assessment and Plan: Increases risks for surgery. Last echocardiogram in December 2019 showed EF 30-35%, LV diastolic dysfunction, moderate mitral valve regurg., trace tricuspid valve regurg., and moderate pulm. hypertension. (5) COPD (chronic obstructive pulmonary disease): Code(s): J44.9 - Chronic obstructive pulmonary disease, unspecified Status: Acute Assessment and Plan: Increases risks for surgery. (6) Type 2 diabetes mellitus: Code(s): E11.9 - Type 2 diabetes mellitus without complications Status: Acute Assessment and Plan: Hgb A1C 6.4 on this admission. Needs to continue to have adequate glycemic control for more long-term wound healing. (7) Tobacco abuse: Code(s): Z72.0 - Tobacco use Status: Acute Assessment and Plan: Encouraged cessation, which he is not interested in. (8) Hypertension:
[2020-08-06] MEDS: CENTRAL LINE FLUSH 10 ML IV PUSH ×2 (13:33→20:44)
[2020-08-06] MEDS: HEPARIN SODIUM 5,000 UNITS/ML VIAL 5000 UNITS SUB-Q ×2 (13:38→20:43)
--- NOTE | 2020-08-06 17:16 | PM.TDS ---
Transfer Discharge Sum: Prov Provider Date of admission: 08/06/20 02:21 Primary care physician: Abiel Bean DO Admitting clinician: Josh Germain MD Consults: 08/06/20 Care Coordination Consult Routine Comment: Reason for Consult:: Other Consult to Physician Routine Comment: Consulting Provider: Ellis Stapleton mixer wet pour/MD group to consult: Surgery general. ID Reason for consultation: Necrotic ulcer L foot. Has provider been notified: Yes Consult to Physician Routine Comment: DR STAPLETON NOTIFIED Consulting Provider: Luis Darby mixer wet pour/MD group to consult: Dr. Darby Reason for consultation: gangrenous ulcers left heel, 5th toe Has provider been notified: Yes 08/06/20 07:38 Wound/ET Consult Routine Reason for Consult:: lt necrotic foot wound DS: Admitting Diagnosis Admitting Diagnosis Admitting Diagnosis: Necrotic ulcer DS: Discharge Diagnosis Discharge Diagnosis (1) Sepsis: Qualifiers: Acute renal failure type: with other specified pathological lesion Sepsis acute organ dysfunction status: with acute organ dysfunction Sepsis type: sepsis due to unspecified organism Severe sepsis acute organ dysfunction type: acute renal failure Severe sepsis shock status: without septic shock Qualified Code(s): A41.9 - Sepsis, unspecified organism; R65.20 - Severe sepsis without septic shock; N17.8 - Other acute kidney failure Code(s): A41.9 - Sepsis, unspecified organism Status: Inactive Assessment and Plan: SECONDARY TO DRY GANGRENE OF THE LEFT HEEL AND LEFT 5TH TOE PT STARTED ON VANCOMYCIN AND IMIPENEM BLOOD CULTURES AWAITING IRAJ is 0.3 in the left leg urgent transfer to vascular services [facility] Pt is informed informed of transfer. (2) 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: Code(s): L97.423 - Non-pressure chronic ulcer of left heel and midfoot with necrosis of muscle Status: Acute Assessment and Plan: GENERAL SURGERY CONSULT MRI BILATERAL LOWER EXTREMITY FEET BILATERAL LOWER EXTREMITY VENOUS DOPPLER SEGMEMNTAL IRAJ (3) Necrosis of toe: Code(s): I96 - Gangrene, not elsewhere classified Status: Acute Assessment and Plan: LOCAL CARE BROAD-SPECTRUM ANTIBIOTIC VANCOMYCIN AND IMIPENEM (4) Elevated troponin: Code(s): R77.8 - Other specified abnormalities of plasma proteins Status: Inactive Assessment and Plan: LIKELY SECONDARY TO BE NONISCHEMIC MYOCARDIAL INJURY SECONDARY TO SEPSIS (5) COPD (chronic obstructive pulmonary disease): Code(s): J44.9 - Chronic obstructive pulmonary disease, unspecified Status: Acute Assessment and Plan: PATIENT ACTIVELY WHEEZING ON NO MEDS NON COMPLIANCE (6) CHF (congestive heart failure): Qualifiers: Heart failure chronicity: acute on chronic Heart failure type: combined systolic and diastolic Qualified Code(s): I50.43 - Acute on chronic combined systolic (congestive) and diastolic (congestive) heart failure Code(s): I50.9 - Heart failure, unspecified Status: Acute Assessment and Plan: PATIENT APPEARS EUVOLEMIC HOWEVER HAS BILATERAL LOWER EXTREMITY EDEMA (7) Type 2 diabetes mellitus: Code(s): E11.9 - Type 2 diabetes mellitus without complications Status: Acute Assessment and Plan: NPO CURRENTLY ACCU-CHEKS Q. 6 HOURS INSULIN SLIDING SCALE NEEDED (8) Hypertension: Code(s): I10 - Essential (primary) hypertension Status: Chronic Assessment and Plan: BP CHRONIC AND STABLE (9) Tobacco abuse: Code(s): Z72.0 - Tobacco use Status: Acute Assessment and Plan: NICOTINE PATCH NEEDED Transfer Discharge Sum: Med Medications Active and Home Medications: Home Medications glipizide 10 mg tablet 10 mg PO BID #180 tablet
[2020-08-06] MEDS: TOLNAFTATE 1% POWDER 45 GM BTL 1 APPLIC TOPICAL (20:43)
--- NOTE | 2020-08-06 22:03 | PCNEURO ---
waiting on [facility] to transfer to [facility]. new time is [id number]
--- NOTE | 2020-08-06 23:05 | PC.NURSE ---
still waiting on di[facility] to transfer patient to [facility]. nichole henson at [facility] updated on patients condition and the situation. will inform her when he is picked up.
--- NOTE | 2020-08-06 23:41 | PC.NURSE ---
[facility] here to take patient to [facility]. nichole henson was notified of patients departure.
== END 2020-08-06 23:49 | disposition short-term general hospital (02) | DRG 871 ==
PROVIDERS: Admitting Provider Internal Medicine; PCP Family Medicine; Visit Provider Family Medicine
DX: A41.9 Sepsis, unspecified organism (principal); I50.43 Acute on chronic combined systolic (congestive) and diastolic (congestive) heart failure; N17.8 Other acute kidney failure; L97.423 Non-pressure chronic ulcer of left heel and midfoot with necrosis of muscle; I96 Gangrene, not elsewhere classified; I42.9 Cardiomyopathy, unspecified; R65.20 Severe sepsis without septic shock; E11.621 Type 2 diabetes mellitus with foot ulcer; E11.51 Type 2 diabetes mellitus with diabetic peripheral angiopathy without gangrene; I11.0 Hypertensive heart disease with heart failure; R77.8 Other specified abnormalities of plasma proteins; I25.10 Atherosclerotic heart disease of native coronary artery without angina pectoris; E78.5 Hyperlipidemia, unspecified; J44.9 Chronic obstructive pulmonary disease, unspecified; F01.50 Vascular dementia, unspecified severity, without behavioral disturbance, psychotic disturbance, mood disturbance, and anxiety; F17.210 Nicotine dependence, cigarettes, uncomplicated; Z79.84 Long term (current) use of oral hypoglycemic drugs; Z79.82 Long term (current) use of aspirin; Z79.899 Other long term (current) drug therapy; Z86.73 Personal history of transient ischemic attack (TIA), and cerebral infarction without residual deficits; Z88.1 Allergy status to other antibiotic agents; Z88.2 Allergy status to sulfonamides; Z88.3 Allergy status to other anti-infective agents; Z91.14 Patient's other noncompliance with medication regimen
CPT/HCPCS: 36415; 71045; 80053; 83036; 83605; 83735; 84100; 85025; 85610; 85730; 87040; 93005; 93306; 93923; A9270; J0743; J1644; J3370; J7030

== ENCOUNTER 2020-08-16 20:17 | Inpatient (IN) | payer MEDICARE, SELFPAY ==
[2020-08-16 20:10] VITALS: BP 143/66; PULSE 98; RESP 20; TEMP 36.8; O2SAT 99
--- NOTE | 2020-08-16 21:51 | PM.IMHP ---
H&P: HPI History of Present Illness Date/Time: 08/16/20 21:51 Chief Complaint: Weakness/rehab after L BKA Narrative: 55-year-old man with a history of type 2 diabetes, congestive heart failure, COPD, vascular dementia and peripheral vascular disease admitted to the swing bed today for rehabilitation after a left BKA. Patient presented on August 05 complaining of left leg pain for 3 days that was keeping him awake. Patient was found to be septic and have ischemic necrosis of his left small toe and a diabetic ulcer on his left heel. He states he had fallen few days beforehand. Patient was transferred [facility] for debridement where he was found have insufficient perfusion and sent to [facility] for vascular evaluation. On 08/07 he underwent AIF, amputation of his left 5th toe, debridement of a plantar space abscess, and debridement of the left heel eschar. He underwent a left BKA on 08/09. He completed vancomycin and meropenem on 08/11. On 08/[address] of his right foot showed nondisplaced intra-articular fractures of the right 4th and 5th toe proximal phalanges bases and hematoma without evidence of osteomyelitis. Review of Systems Review of Systems: All systems reviewed & are unremarkable except as noted in HPI and below ROS unobtainable: Yes other ( Poor historian due to dementia) Constitutional: Constitutional: Denies chills, Denies fever(s) and Denies night sweats Eyes: Eyes: Denies change in vision and Denies diplopia ENT: Denies otalgia, Denies nasal congestion, Denies nasal discharge and Denies sore throat Cardiovascular: Cardiovascular: Denies chest pain, Denies chest pain at rest and Denies radiating jaw, neck or arm pain Respiratory: Respiratory: Denies chest congestion, Denies cough and Denies dyspnea Gastrointestinal: Gastrointestinal: Denies abdominal pain, Denies diarrhea, Denies nausea and Denies vomiting Genitourinary: Genitourinary: Denies dysuria and Denies urinary frequency Musculoskeletal: Musculoskeletal: Denies arthralgias and Denies joint swelling Integumentary/Breasts: Skin/Breast: Denies pruritus, Denies erythema and Denies rash Neurologic: Denies vertigo, Denies dizziness, Denies syncope and Denies headache(s) Hematologic/Lymphatic: Hematologic/Lymphatic: Denies easy bleeding and Denies easy bruising Allergic/Immunologic: Allergic/Immunologic: Denies urticaria, Denies throat swelling and Denies tongue swelling [facility] Past Medical History Medical History (Updated 08/16/20 @ 22:22 by Jl Corcoran MD) Cardiomyopathy CHF (congestive heart failure) Last echo in 01/05/20 showed an EF 30-35%, severe LVE, diastolic dysfunction (E/e' 24), mod LAE, mod MR, trace TR, RVSP 59 mmHg. 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 COPD (chronic obstructive pulmonary disease) CVA (cerebral vascular accident) Multiple strokes in the past Gangrene of left foot Heel ulcer due to DM Hyperlipidemia Hypertension Necrosis of toe Peripheral artery disease Toe fracture, right Type 2 diabetes mellitus Vascular dementia Surgical History Surgical History (Updated 08/16/20 @ 22:21 by Jl Corcoran MD) History of left below knee amputation Family History Family History Father Diabetes mellitus Family history of cardiovascular disease Mother Family history of malignant neoplasm Social History Social History Smoking packs per day: 1 Smoking cigarettes per day: 20.0 Years smoked: 30 Smoking pack-years: 30.00 Smoking status: Current every day smoker Tobacco type: cigarettes Alcohol intake: current Drinks per week: 14 Substance use: unknown Substance use type: does not use Additional living arrangements comments: Gender identity (if verbalized by the patient): Male Spiritual care concerns: No Meds Home Medications and Mike
[2020-08-16 23:42] VITALS: PULSE 78
[2020-08-16] MEDS: carvediloL 3.125 MG TABLET PO (23:42)
[2020-08-16] MEDS: DOXYCYCLINE HYCLATE 100 MG TABLET PO (23:42)
[2020-08-17] VITALS: BP 136/67; PULSE 78; RESP 18; TEMP 36.7; O2SAT 97
--- NOTE | 2020-08-17 01:09 | ADMGEN ---
This patient, Ellis Gonzales Jr., was admitted to 2nd Floor Room 207-2. Patient oriented to hospital policies and general routines including ID bracelet, bed and alarms, visiting hours, pain management, procedures, bathroom and other care routines, personal items, smoking policy, room service/diet, call light and visiting hours. Information on how to activate the Rapid Response Team has been discussed. Patient are encouraged to report perceived risks to care and to ask questions if they do not understand what they are told or what they should do. Patient alert and oriented x2 on arrival. Patient pleasant and cooperative. Speech clear. Dressing CDI to left BKA. Patient noted to have multiple wounds to RLE and to buttocks. Areas noted in integumentary section of assessment.
[2020-08-17 01:19] VITALS: BMI 28.7
[2020-08-17 05:26] LABS: Basophils Absolute Auto 0.07 K/mm3 (0.00-0.10); Basophils Percent Auto 0.8 % (0.0-1.0); Eosinophils Absolute Auto 0.19 K/mm3 (0.02-0.50); Eosinophils Percent Auto 2.2 % (1.0-6.0); Hematocrit 27.7 % (40.0-54.0); Hemoglobin 9.1 g/dL (14.0-18.0); Immature Granulocyte Absolute 0.08 K/mm3 (0.00-0.00); Immature Granulocyte Percent A 0.9 % (0.0-0.0); Lymphocytes Absolute Auto 1.23 K/mm3 (1.10-4.50); Lymphocytes Percent Auto 14.5 % (18.0-42.0); Mean Corpuscular HGB Conc 32.9 g/dL (32.0-36.0); Mean Corpuscular Hemoglobin 31.9 pg (27.0-31.0); Mean Corpuscular Volume 97.2 fL (78.0-102.0); Mean Platelet Volume 9.4 fl (8.7-11.0); Monocytes Percent Auto 7.1 % (2.0-11.0); Neutrophils Absolute Auto 6.3 K/mm3 (1.7-7.2); Neutrophils Percent Auto 74.5 % (50.0-70.0); Platelet Count Result 405 K/mm3 (150-420); Red Blood Count 2.85 M/mm3 (4.70-6.10); Red Cell Distribution Width 13.8 % (11.6-14.4); White Blood Count 8.5 K/mm3 (4.8-10.8)
[2020-08-17 05:44] LABS: Alanine Aminotransferase 36 U/L (16-63); Alkaline Phosphatase 83 U/L (46-116); Anion Gap 9 mmol/L (8-16); Aspartate Amino Transferase 17 U/L (15-37); Bilirubin,Total 0.4 mg/dL (0.00-1.00); Blood Urea Nitrogen 30 mg/dL (7-18); Calcium 8.4 mg/dL (8.5-10.1); Carbon Dioxide 27 mmol/L (21-32); Chloride 98 mmol/L (98-108); Estimated CRCL calculation 73 ml/min; Estimated Glomerular Filt Rate > 60; Glucose 178 mg/dL (70-99); Osmolality Calculated 288 mOsm/kg (285-295); Potassium 4.4 mmol/L (3.5-5.1); Sodium 134 mmol/L (136-145); Total Protein 6.5 g/dL (6.4-8.2)
[2020-08-17 05:52] LABS: Lactic Acid Reflex 0.6 mmol/L (0.4-2.0)
[2020-08-17 07:47] LABS: Glucose Point of Care 182 mg/dl (65-105)
[2020-08-17 08:00] VITALS: BP 146/70; PULSE 83; RESP 18; TEMP 36.9; O2SAT 98
[2020-08-17] MEDS: CLOPIDOGREL BISULFATE 75 MG TABLET PO (08:27)
[2020-08-17] MEDS: ATORVASTATIN 40 MG TABLET 80 MG PO (08:27)
[2020-08-17] MEDS: ASPIRIN 81 MG ENTERIC TABLET PO (08:27)
[2020-08-17 08:28] VITALS: PULSE 83
[2020-08-17] MEDS: carvediloL 3.125 MG TABLET PO ×2 (08:28→20:56)
[2020-08-17] MEDS: FUROSEMIDE 20 MG TABLET PO (08:28)
[2020-08-17] MEDS: SPIRONOLACTONE 25 MG TABLET PO (08:28)
[2020-08-17] MEDS: LORATADINE 10 MG TABLET PO (08:28)
[2020-08-17] MEDS: DOXYCYCLINE HYCLATE 100 MG TABLET PO ×2 (08:28→20:55)
[2020-08-17] MEDS: INSULIN GLARGINE (*BKC) 100 UNITS/ML 14 UNITS SUB-Q (08:29)
[2020-08-17] MEDS: HYDROcodone/acetaminophen (*CRX) 5-325 MG TABLET 1 TAB PO ×2 (09:56→18:52)
[2020-08-17 11:53] LABS: Glucose Point of Care 132 mg/dl (65-105)
[2020-08-17 16:00] VITALS: BP 139/70; PULSE 87; RESP 18; TEMP 36.5; O2SAT 98
[2020-08-17 16:55] LABS: Glucose Point of Care 136 mg/dl (65-105)
[2020-08-17 21:12] LABS: Glucose Point of Care 91 mg/dl (65-105)
[2020-08-18] VITALS: BP 132/70; PULSE 84; RESP 18; TEMP 35.9; O2SAT 98
[2020-08-18 07:35] LABS: Glucose Point of Care 151 mg/dl (65-105)
[2020-08-18 08:00] VITALS: BP 133/75; PULSE 90; RESP 16; TEMP 36.8; O2SAT 99
[2020-08-18 08:49] VITALS: PULSE 84
[2020-08-18] MEDS: SPIRONOLACTONE 25 MG TABLET PO (08:49)
[2020-08-18] MEDS: carvediloL 3.125 MG TABLET PO ×2 (08:49→20:52)
[2020-08-18] MEDS: LORATADINE 10 MG TABLET PO (08:49)
[2020-08-18] MEDS: ATORVASTATIN 40 MG TABLET 80 MG PO (08:49)
[2020-08-18] MEDS: FUROSEMIDE 20 MG TABLET PO (08:50)
[2020-08-18] MEDS: DOXYCYCLINE HYCLATE 100 MG TABLET PO ×2 (08:50→20:52)
[2020-08-18] MEDS: ASPIRIN 81 MG ENTERIC TABLET PO (08:50)
[2020-08-18] MEDS: CLOPIDOGREL BISULFATE 75 MG TABLET PO (08:50)
[2020-08-18] MEDS: INSULIN GLARGINE (*BKC) 100 UNITS/ML 14 UNITS SUB-Q (08:50)
[2020-08-18 12:00] LABS: Glucose Point of Care 175 mg/dl (65-105)
[2020-08-18] MEDS: HYDROcodone/acetaminophen (*CRX) 5-325 MG TABLET 1 TAB PO ×2 (12:04→18:29)
[2020-08-18 16:00] VITALS: BP 121/69; PULSE 86; RESP 16; TEMP 36.6; O2SAT 98
[2020-08-18 20:52] VITALS: PULSE 83
[2020-08-18 21:15] LABS: Glucose Point of Care 136 mg/dl (65-105)
[2020-08-18 21:36] LABS: Glucose Point of Care 143 mg/dl (65-105)
[2020-08-19] VITALS: BP 123/62; PULSE 83; RESP 20; TEMP 36.6; O2SAT 99
--- NOTE | 2020-08-19 00:19 | PC.NURSE ---
Stump elevated on one pillow; awake, disoriented to place.
[2020-08-19 08:00] VITALS: BP 134/71; PULSE 88; RESP 18; TEMP 36.7; O2SAT 96
[2020-08-19 08:10] LABS: Glucose Point of Care 161 mg/dl (65-105)
[2020-08-19] MEDS: INSULIN GLARGINE (*BKC) 100 UNITS/ML 14 UNITS SUB-Q (08:54)
[2020-08-19] MEDS: ATORVASTATIN 40 MG TABLET 80 MG PO (09:00)
[2020-08-19] MEDS: ASPIRIN 81 MG ENTERIC TABLET PO (09:00)
[2020-08-19] MEDS: SPIRONOLACTONE 25 MG TABLET PO (09:01)
[2020-08-19] MEDS: DOXYCYCLINE HYCLATE 100 MG TABLET PO ×2 (09:01→20:07)
[2020-08-19] MEDS: FUROSEMIDE 20 MG TABLET PO (09:01)
[2020-08-19] MEDS: carvediloL 3.125 MG TABLET PO ×2 (09:01→20:07)
[2020-08-19] MEDS: CLOPIDOGREL BISULFATE 75 MG TABLET PO (09:01)
[2020-08-19] MEDS: LORATADINE 10 MG TABLET PO (09:01)
[2020-08-19 11:37] LABS: Glucose Point of Care 233 mg/dl (65-105)
[2020-08-19] MEDS: HYDROcodone/acetaminophen (*CRX) 5-325 MG TABLET 1 TAB PO ×2 (14:16→20:06)
[2020-08-19 15:49] VITALS: BP 127/67; PULSE 93; RESP 16; TEMP 36.6; O2SAT 99
[2020-08-19 20:26] LABS: Glucose Point of Care 180 mg/dl (65-105)
[2020-08-19 20:29] LABS: Glucose Point of Care 167 mg/dl (65-105)
[2020-08-20] VITALS: BP 127/60; PULSE 84; RESP 20; TEMP 36.7; O2SAT 100
--- NOTE | 2020-08-20 00:01 | PC.NURSE ---
Pt resting quietly in bed and doesnt voice any c/o discomfort.
--- NOTE | 2020-08-20 01:52 | PC.NURSE ---
Pt resting quietly in bed and watching TV. Stump remains elevated on a pillow and pt doesnt voice any c/o discomfort.
--- NOTE | 2020-08-20 02:20 | PC.NURSE ---
Pt asleep and no signs of discomfort noted.
--- NOTE | 2020-08-20 04:30 | PC.NURSE ---
Pt asleep and no signs of discomfort noted.
--- NOTE | 2020-08-20 06:01 | PC.NURSE ---
Pt voided 325 ml of clear, yellow urine in urinal.
[2020-08-20 07:50] LABS: Glucose Point of Care 184 mg/dl (65-105)
[2020-08-20 08:00] VITALS: BP 132/72; PULSE 105; RESP 16; TEMP 36.6; O2SAT 99
[2020-08-20 08:56] VITALS: PULSE 105
[2020-08-20] MEDS: carvediloL 3.125 MG TABLET PO ×2 (08:56→21:25)
[2020-08-20] MEDS: ATORVASTATIN 40 MG TABLET 80 MG PO (08:56)
[2020-08-20] MEDS: ASPIRIN 81 MG ENTERIC TABLET PO (08:57)
[2020-08-20] MEDS: CLOPIDOGREL BISULFATE 75 MG TABLET PO (08:58)
[2020-08-20] MEDS: FUROSEMIDE 20 MG TABLET PO (08:58)
[2020-08-20] MEDS: LORATADINE 10 MG TABLET PO (08:58)
[2020-08-20] MEDS: DOXYCYCLINE HYCLATE 100 MG TABLET PO ×2 (08:58→21:26)
[2020-08-20] MEDS: SPIRONOLACTONE 25 MG TABLET PO (08:58)
[2020-08-20] MEDS: INSULIN GLARGINE (*BKC) 100 UNITS/ML 14 UNITS SUB-Q (09:30)
[2020-08-20 11:48] LABS: Glucose Point of Care 243 mg/dl (65-105)
[2020-08-20] MEDS: HYDROcodone/acetaminophen (*CRX) 5-325 MG TABLET 1 TAB PO (15:15)
[2020-08-20 15:43] VITALS: BP 128/63; PULSE 98; RESP 16; TEMP 37.1; O2SAT 98
--- NOTE | 2020-08-20 16:45 | PC.NURSE ---
PT WORKING WITH PHYSICAL AND OCCUPATIONAL THERAPY AT THIS TIME.
[2020-08-20 16:46] LABS: Glucose Point of Care 199 mg/dl (65-105)
--- NOTE | 2020-08-20 17:25 | PC.NURSE ---
PT REPORTS THAT PAIN IS INCREASING AGAIN, 11/29, NORCO WAS GIVEN AT APPROX 1515, SEE MAR. UNABLE TO HAVE ADDITIONAL DOSE FOR ANOTHER 2 HOURS. NOTIFIED CHARGE NURSE TO REQUEST ANALGESIC FOR BREAK THROUGH PAIN. DR. SUH ORDERED NORCO 7.5/325 X1 STAT AND THEN Q4-6 HOURS PRN. NORCO 5/325 DISCONTINUED. SEE MAR.
[2020-08-20] MEDS: HYDROcodone/acetaminophen (*CRX) 7.5-325 MG TABLET 1 TAB PO ×2 (17:39→21:26)
[2020-08-20 20:00] VITALS: PULSE 83; RESP 16; O2SAT 97
[2020-08-20 20:54] LABS: Glucose Point of Care 203 mg/dl (65-105)
[2020-08-20 21:25] VITALS: PULSE 95
[2020-08-21] VITALS: BP 119/46; PULSE 84; RESP 20; TEMP 36.6; O2SAT 98
[2020-08-21] MEDS: HYDROcodone/acetaminophen (*CRX) 7.5-325 MG TABLET 1 TAB PO (05:37)
--- NOTE | 2020-08-21 06:34 | PC.NURSE ---
Patient now reports pain level to left leg as 2 on 0-10 scale. Unable to do follow-up on MAY.
[2020-08-21 08:00] VITALS: BP 160/65; PULSE 78; RESP 20; TEMP 36.4; O2SAT 98
[2020-08-21 08:04] LABS: Glucose Point of Care 188 mg/dl (65-105)
[2020-08-21] MEDS: INSULIN GLARGINE (*BKC) 100 UNITS/ML 14 UNITS SUB-Q (08:42)
[2020-08-21] MEDS: ASPIRIN 81 MG ENTERIC TABLET PO (08:43)
[2020-08-21] MEDS: CLOPIDOGREL BISULFATE 75 MG TABLET PO (08:44)
[2020-08-21] MEDS: SPIRONOLACTONE 25 MG TABLET PO (08:45)
[2020-08-21] MEDS: ATORVASTATIN 40 MG TABLET 80 MG PO (08:45)
[2020-08-21] MEDS: carvediloL 3.125 MG TABLET PO ×2 (08:46→20:19)
[2020-08-21] MEDS: LORATADINE 10 MG TABLET PO (08:46)
[2020-08-21] MEDS: DOXYCYCLINE HYCLATE 100 MG TABLET PO ×2 (08:46→20:42)
[2020-08-21] MEDS: FUROSEMIDE 20 MG TABLET PO (08:46)
[2020-08-21 11:30] LABS: Glucose Point of Care 212 mg/dl (65-105)
--- NOTE | 2020-08-21 12:17 | PM.EVENT ---
Event Note Event Note Event Note: Patient notes that his pain medication is not effective and not strong enough adjust his pain medication. He also notes that he did not sleep well overnight. Order labs for tomorrow we will do a full assessment and progress note on 08/24 or 08/25. No obvious distress noted. Wound with clean dry intact dressing
[2020-08-21] MEDS: HYDROcodone/acetaminophen (*CRX) 10-325 MG TABLET 1 TAB PO ×2 (15:05→20:47)
[2020-08-21 16:00] VITALS: BP 130/73; PULSE 85; RESP 18; TEMP 36.9; O2SAT 98
[2020-08-21 16:28] LABS: Glucose Point of Care 99 mg/dl (65-105)
[2020-08-21 20:19] VITALS: PULSE 87
[2020-08-21 20:25] LABS: Glucose Point of Care 192 mg/dl (65-105)
[2020-08-21] MEDS: traZODone HCL 50 MG TABLET PO (22:36)
[2020-08-22 00:30] VITALS: BP 134/73; PULSE 87; RESP 20; TEMP 37.1; O2SAT 94
[2020-08-22 05:29] LABS: Hematocrit 33.3 % (40.0-54.0); Hemoglobin 10.7 g/dL (14.0-18.0); Mean Corpuscular HGB Conc 32.1 g/dL (32.0-36.0); Mean Corpuscular Hemoglobin 31.1 pg (27.0-31.0); Mean Corpuscular Volume 96.8 fL (78.0-102.0); Mean Platelet Volume 9.7 fl (8.7-11.0); Platelet Count Result 346 K/mm3 (150-420); Red Blood Count 3.44 M/mm3 (4.70-6.10); Red Cell Distribution Width 13.7 % (11.6-14.4)
[2020-08-22 05:43] LABS: Alanine Aminotransferase 28 U/L (16-63); Albumin Level 2.6 g/dL (3.4-5.0); Alkaline Phosphatase 103 U/L (46-116); Anion Gap 8 mmol/L (8-16); Aspartate Amino Transferase 17 U/L (15-37); Bilirubin,Total 0.4 mg/dL (0.00-1.00); Blood Urea Nitrogen 39 mg/dL (7-18); Carbon Dioxide 27 mmol/L (21-32); Chloride 100 mmol/L (98-108); Estimated CRCL calculation 59 ml/min; Estimated Glomerular Filt Rate 59; Glucose 150 mg/dL (70-99); Osmolality Calculated 292 mOsm/kg (285-295); Potassium 4.7 mmol/L (3.5-5.1); Sodium 135 mmol/L (136-145); Total Protein 7.4 g/dL (6.4-8.2)
[2020-08-22 07:40] VITALS: BP 127/66; PULSE 99; RESP 18; TEMP 36.5; O2SAT 99
[2020-08-22] MEDS: ASPIRIN 81 MG ENTERIC TABLET PO (08:42)
[2020-08-22] MEDS: FUROSEMIDE 20 MG TABLET PO (08:42)
[2020-08-22] MEDS: SPIRONOLACTONE 25 MG TABLET PO (08:42)
[2020-08-22] MEDS: LORATADINE 10 MG TABLET PO (08:42)
[2020-08-22] MEDS: DOXYCYCLINE HYCLATE 100 MG TABLET PO ×2 (08:43→21:04)
[2020-08-22] MEDS: ATORVASTATIN 40 MG TABLET 80 MG PO (08:43)
[2020-08-22 08:44] VITALS: PULSE 99
[2020-08-22] MEDS: CLOPIDOGREL BISULFATE 75 MG TABLET PO (08:44)
[2020-08-22] MEDS: HYDROcodone/acetaminophen (*CRX) 10-325 MG TABLET 1 TAB PO ×3 (08:44→18:59)
[2020-08-22] MEDS: carvediloL 3.125 MG TABLET PO ×2 (08:44→20:56)
[2020-08-22] MEDS: INSULIN GLARGINE (*BKC) 100 UNITS/ML 14 UNITS SUB-Q (09:04)
--- NOTE | 2020-08-22 09:30 | WPDPN ---
Progress Note: A&P Assessment and Plan (1) Toe fracture, right: Qualifiers: Encounter type: subsequent encounter Toe: lesser toe Fracture type: closed Phalanx: proximal Fracture alignment: nondisplaced Fracture healing: with routine healing Qualified Code(s): S92.514D - Nondisplaced fracture of proximal phalanx of right lesser toe(s), subsequent encounter for fracture with routine healing Code(s): S92.911A - Unspecified fracture of right toe(s), initial encounter for closed fracture Status: Acute Assessment and Plan: CT from outside hospital indicate nondisplaced intra articular fracture of the right fourth and fifth toe proximal phalangeal bases. Dorsal skin thickening with high attenuating collections in the subcutaneous tissue likely representing hematoma. According to notes Dr. Pate from outside hospital indicates no surgical plan. Continue to treat pain Continue PT OT (2) CHF (congestive heart failure): Qualifiers: Heart failure chronicity: acute on chronic Heart failure type: combined systolic and diastolic Qualified Code(s): I50.43 - Acute on chronic combined systolic (congestive) and diastolic (congestive) heart failure Code(s): I50.9 - Heart failure, unspecified Status: Acute Assessment and Plan: Compensated Continue carvedilol and statin with p.o. Lasix and aldactone (3) Vascular dementia: Code(s): F01.50 - Vascular dementia without behavioral disturbance Status: Inactive Assessment and Plan: History of CVA Continue aspirin and statins (4) Type 2 diabetes mellitus: Code(s): E11.9 - Type 2 diabetes mellitus without complications Status: Acute Assessment and Plan: Blood sugar below 200 Continue Accu-Cheks with sliding scale hypoglycemic protocol and home insulin Continue diabetic diet Will adjust medication as needed (5) COPD (chronic obstructive pulmonary disease): Code(s): J44.9 - Chronic obstructive pulmonary disease, unspecified Status: Acute Assessment and Plan: Stable Continue inhalers (6) Tobacco dependence: Code(s): F17.200 - Nicotine dependence, unspecified, uncomplicated Status: Acute Assessment and Plan: Started nicotine patch (7) Below-knee amputation of left lower extremity: Code(s): S88.112A - Complete traumatic amputation at level between knee and ankle, left lower leg, initial encounter Status: Acute Assessment and Plan: Left BKA completed on 08/09 abscess culture with GPO ID recommended the patient complete vancomycin and meropenem Completed on 08/11 Case coordination will contact patient's surgeon to determine when ashlie should be removed and when his follow-up visit will be. (8) Cellulitis of right foot: Code(s): L03.115 - Cellulitis of right lower limb Status: Acute Assessment and Plan: Continue Levaquin until 08/24/2020 Imaging from outside hospital does not indicate osteomyelitis Review of Systems Review of Systems: Narrative: A 14 organ system Review of Systems was performed and pertinent positives included in the HPI, otherwise remaining ROS is negative. Exam Narrative: Exam Narrative: GENERAL: This is a well-nourished, well-developed patient, in no apparent distress. HEAD: normocephalic, atraumatic. EYES: PERRL. Sclera clear/white. Vision is grossly intact. EARS: External ears normal, auditory canals clear and without drainage, TMs normal without perforation. Hearing grossly intact. NOSE: External nose normal with no obvious nasal discharge, nares without redness, no rhinorrhea. THROAT: Mucous membranes moist, posterior pharynx clear. NECK: Neck supple, non-tender without lymphadenopathy, masses or thyromegaly. CARDIOVASCULAR: Regular rate and rhythm without murmurs, gallops, or rubs. RESPIRATORY: Clear to auscultation. Breath sounds equal bilaterally. No wheezes, rales, or rhonchi.
[2020-08-22 11:56] LABS: Glucose Point of Care 197 mg/dl (65-105)
--- NOTE | 2020-08-22 12:54 | PC.NURSE ---
Left stump sutures CD&I. No s/s infection. Well approximated. 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
[2020-08-22 16:00] VITALS: BP 115/66; PULSE 85; RESP 18; TEMP 36.1; O2SAT 99
[2020-08-22 16:26] LABS: Glucose Point of Care 108 mg/dl (65-105)
[2020-08-22 20:56] VITALS: PULSE 87
[2020-08-22] MEDS: traZODone HCL 50 MG TABLET PO (20:56)
[2020-08-22 21:16] LABS: Glucose Point of Care 186 mg/dl (65-105)
[2020-08-23 00:04] VITALS: BP 136/73; PULSE 87; RESP 20; TEMP 36.3; O2SAT 98
[2020-08-23 07:23] LABS: Glucose Point of Care 151 mg/dl (65-105)
[2020-08-23 07:36] VITALS: BP 129/64; PULSE 90; RESP 18; TEMP 37.1; O2SAT 99
[2020-08-23] MEDS: ASPIRIN 81 MG ENTERIC TABLET PO (08:22)
[2020-08-23] MEDS: FUROSEMIDE 20 MG TABLET PO (08:23)
[2020-08-23] MEDS: ATORVASTATIN 40 MG TABLET 80 MG PO (08:23)
[2020-08-23] MEDS: CLOPIDOGREL BISULFATE 75 MG TABLET PO (08:23)
[2020-08-23] MEDS: LORATADINE 10 MG TABLET PO (08:23)
[2020-08-23] MEDS: DOXYCYCLINE HYCLATE 100 MG TABLET PO ×2 (08:24→21:01)
[2020-08-23] MEDS: carvediloL 3.125 MG TABLET PO ×2 (08:24→21:01)
[2020-08-23] MEDS: INSULIN GLARGINE (*BKC) 100 UNITS/ML 14 UNITS SUB-Q (08:24)
[2020-08-23] MEDS: SPIRONOLACTONE 25 MG TABLET PO (08:24)
[2020-08-23] MEDS: HYDROcodone/acetaminophen (*CRX) 10-325 MG TABLET 1 TAB PO ×3 (08:25→21:04)
[2020-08-23 11:23] LABS: Glucose Point of Care 164 mg/dl (65-105)
--- NOTE | 2020-08-23 14:36 | PC.NURSE ---
pt getting cleaned up with therapy, clothes and linen changed
[2020-08-23 16:00] VITALS: BP 126/76; PULSE 76; RESP 18; TEMP 36.6; O2SAT 98
[2020-08-23 17:09] LABS: Glucose Point of Care 134 mg/dl (65-105)
[2020-08-23] MEDS: traZODone HCL 50 MG TABLET PO (21:01)
[2020-08-24] VITALS: BP 125/57; PULSE 80; RESP 18; TEMP 36.5; O2SAT 98
[2020-08-24 04:35] LABS: Glucose Point of Care 81 mg/dl (65-105)
[2020-08-24 07:33] VITALS: BP 107/65; PULSE 97; RESP 16; TEMP 36.7; O2SAT 97
[2020-08-24 07:34] LABS: Glucose Point of Care 154 mg/dl (65-105)
[2020-08-24] MEDS: ATORVASTATIN 40 MG TABLET 80 MG PO (08:26)
[2020-08-24 08:27] VITALS: PULSE 91
[2020-08-24] MEDS: SPIRONOLACTONE 25 MG TABLET PO (08:27)
[2020-08-24] MEDS: ASPIRIN 81 MG ENTERIC TABLET PO (08:27)
[2020-08-24] MEDS: FUROSEMIDE 20 MG TABLET PO (08:27)
[2020-08-24] MEDS: CLOPIDOGREL BISULFATE 75 MG TABLET PO (08:27)
[2020-08-24] MEDS: LORATADINE 10 MG TABLET PO (08:27)
[2020-08-24] MEDS: carvediloL 3.125 MG TABLET PO ×2 (08:27→21:19)
[2020-08-24] MEDS: DOXYCYCLINE HYCLATE 100 MG TABLET PO ×2 (08:27→21:19)
[2020-08-24] MEDS: INSULIN GLARGINE (*BKC) 100 UNITS/ML 14 UNITS SUB-Q (08:31)
[2020-08-24] MEDS: HYDROcodone/acetaminophen (*CRX) 10-325 MG TABLET 1 TAB PO ×2 (08:35→17:13)
[2020-08-24 11:28] LABS: Glucose Point of Care 193 mg/dl (65-105)
[2020-08-24] MEDS: BISACODYL 5 MG TABLET EC 10 MG PO (14:47)
[2020-08-24 16:15] VITALS: BP 128/71; PULSE 87; RESP 16; TEMP 36.4; O2SAT 100
[2020-08-24 17:06] LABS: Glucose Point of Care 150 mg/dl (65-105)
[2020-08-24 21:14] LABS: Glucose Point of Care 120 mg/dl (65-105)
[2020-08-24 21:19] VITALS: PULSE 85
[2020-08-24] MEDS: traZODone HCL 50 MG TABLET PO (21:20)
[2020-08-25] VITALS: BP 114/55; PULSE 85; RESP 20; TEMP 36.4; O2SAT 98
[2020-08-25 07:33] VITALS: BP 115/59; PULSE 89; RESP 18; TEMP 36.4; O2SAT 96
[2020-08-25 07:34] LABS: Glucose Point of Care 152 mg/dl (65-105)
[2020-08-25] MEDS: INSULIN GLARGINE (*BKC) 100 UNITS/ML 14 UNITS SUB-Q (08:15)
[2020-08-25] MEDS: LORATADINE 10 MG TABLET PO (08:18)
[2020-08-25] MEDS: FUROSEMIDE 20 MG TABLET PO (08:18)
[2020-08-25] MEDS: SPIRONOLACTONE 25 MG TABLET PO (08:18)
[2020-08-25] MEDS: ATORVASTATIN 40 MG TABLET 80 MG PO (08:18)
[2020-08-25] MEDS: CLOPIDOGREL BISULFATE 75 MG TABLET PO (08:18)
[2020-08-25 08:19] VITALS: PULSE 89
[2020-08-25] MEDS: ASPIRIN 81 MG ENTERIC TABLET PO (08:19)
[2020-08-25] MEDS: carvediloL 3.125 MG TABLET PO ×2 (08:19→21:46)
[2020-08-25 11:30] LABS: Glucose Point of Care 208 mg/dl (65-105)
[2020-08-25] MEDS: HYDROcodone/acetaminophen (*CRX) 10-325 MG TABLET 1 TAB PO (12:52)
[2020-08-25 16:00] VITALS: BP 132/65; PULSE 86; RESP 18; TEMP 36.6; O2SAT 99
[2020-08-25 16:54] LABS: Glucose Point of Care 131 mg/dl (65-105)
[2020-08-25 20:37] LABS: Glucose Point of Care 155 mg/dl (65-105)
[2020-08-25 21:46] VITALS: PULSE 86
[2020-08-25] MEDS: traZODone HCL 50 MG TABLET PO (21:47)
[2020-08-26] VITALS: BP 126/64; PULSE 86; RESP 18; TEMP 36.4; O2SAT 97
[2020-08-26 07:30] VITALS: BP 126/64; PULSE 86; RESP 18; O2SAT 97
[2020-08-26 07:37] LABS: Glucose Point of Care 142 mg/dl (65-105)
[2020-08-26 08:30] VITALS: BP 132/71; PULSE 82; RESP 16; TEMP 36.6; O2SAT 98
[2020-08-26] MEDS: ASPIRIN 81 MG ENTERIC TABLET PO (09:12)
[2020-08-26] MEDS: ATORVASTATIN 40 MG TABLET 80 MG PO (09:12)
[2020-08-26] MEDS: SPIRONOLACTONE 25 MG TABLET PO (09:13)
[2020-08-26] MEDS: carvediloL 3.125 MG TABLET PO ×2 (09:13→21:23)
[2020-08-26] MEDS: FUROSEMIDE 20 MG TABLET PO (09:13)
[2020-08-26] MEDS: CLOPIDOGREL BISULFATE 75 MG TABLET PO (09:13)
[2020-08-26] MEDS: LORATADINE 10 MG TABLET PO (09:13)
[2020-08-26] MEDS: INSULIN GLARGINE (*BKC) 100 UNITS/ML 14 UNITS SUB-Q (09:14)
[2020-08-26 11:43] LABS: Glucose Point of Care 126 mg/dl (65-105)
[2020-08-26 16:00] VITALS: BP 120/64; PULSE 76; RESP 18; TEMP 36.6; O2SAT 96
[2020-08-26 17:20] LABS: Glucose Point of Care 101 mg/dl (65-105)
[2020-08-26 21:23] VITALS: PULSE 90
[2020-08-26] MEDS: traZODone HCL 50 MG TABLET PO (21:23)
[2020-08-26 21:30] LABS: Glucose Point of Care 110 mg/dl (65-105)
[2020-08-27] VITALS: BP 122/68; PULSE 68; RESP 20; TEMP 36.9; O2SAT 95
[2020-08-27 07:57] LABS: Glucose Point of Care 130 mg/dl (65-105)
[2020-08-27 08:00] VITALS: BP 124/65; PULSE 54; RESP 18; TEMP 36.7; O2SAT 100
[2020-08-27] MEDS: INSULIN GLARGINE (*BKC) 100 UNITS/ML 14 UNITS SUB-Q (08:17)
[2020-08-27 08:18] VITALS: PULSE 54
[2020-08-27] MEDS: ASPIRIN 81 MG ENTERIC TABLET PO (08:18)
[2020-08-27] MEDS: CLOPIDOGREL BISULFATE 75 MG TABLET PO (08:18)
[2020-08-27] MEDS: FUROSEMIDE 20 MG TABLET PO (08:18)
[2020-08-27] MEDS: ATORVASTATIN 40 MG TABLET 80 MG PO (08:18)
[2020-08-27] MEDS: carvediloL 3.125 MG TABLET PO ×2 (08:18→20:40)
[2020-08-27] MEDS: SPIRONOLACTONE 25 MG TABLET PO (08:19)
[2020-08-27] MEDS: LORATADINE 10 MG TABLET PO (08:19)
[2020-08-27] MEDS: HYDROcodone/acetaminophen (*CRX) 10-325 MG TABLET 1 TAB PO ×3 (10:00→19:34)
[2020-08-27 11:34] LABS: Glucose Point of Care 210 mg/dl (65-105)
--- NOTE | 2020-08-27 11:54 | PCOTNOTE ---
On 08/27/20, the student, [ Sharon Juárez], provided care and completed [facility] documentation on this patient. I have reviewed the student's documentation and agree with the findings.
[2020-08-27 16:00] VITALS: BP 120/74; PULSE 64; RESP 64; TEMP 36.8; O2SAT 97
[2020-08-27 16:59] LABS: Glucose Point of Care 79 mg/dl (65-105)
[2020-08-27] MEDS: traZODone HCL 50 MG TABLET PO (20:40)
[2020-08-27 20:46] LABS: Glucose Point of Care 135 mg/dl (65-105)
[2020-08-28] VITALS: BP 123/66; PULSE 76; RESP 18; TEMP 36.6; O2SAT 97
[2020-08-28 08:00] VITALS: BP 140/66; PULSE 78; RESP 18; TEMP 36.9; O2SAT 98
[2020-08-28] MEDS: HYDROcodone/acetaminophen (*CRX) 10-325 MG TABLET 1 TAB PO ×3 (08:01→16:21)
[2020-08-28 08:06] LABS: Hematocrit 31.8 % (40.0-54.0); Hemoglobin 10.6 g/dL (14.0-18.0); Mean Corpuscular HGB Conc 33.3 g/dL (32.0-36.0); Mean Corpuscular Hemoglobin 31.9 pg (27.0-31.0); Mean Corpuscular Volume 95.8 fL (78.0-102.0); Mean Platelet Volume 9.5 fl (8.7-11.0); Platelet Count Result 235 K/mm3 (150-420); Red Blood Count 3.32 M/mm3 (4.70-6.10); Red Cell Distribution Width 13.2 % (11.6-14.4); White Blood Count 8.4 K/mm3 (4.8-10.8)
[2020-08-28 08:08] LABS: Glucose Point of Care 136 mg/dl (65-105)
[2020-08-28 08:15] LABS: Anion Gap 8 mmol/L (8-16); Blood Urea Nitrogen 29 mg/dL (7-18); Calcium 8.9 mg/dL (8.5-10.1); Carbon Dioxide 27 mmol/L (21-32); Chloride 98 mmol/L (98-108); Estimated CRCL calculation 76 ml/min; Estimated Glomerular Filt Rate > 60; Glucose 126 mg/dL (70-99); Osmolality Calculated 283 mOsm/kg (285-295); Potassium 4.7 mmol/L (3.5-5.1); Sodium 133 mmol/L (136-145)
--- NOTE | 2020-08-28 08:24 | P.PNIM_ITS ---
Progress Note: A&P Assessment and Plan (1) Toe fracture, right: Qualifiers: Encounter type: subsequent encounter Fracture alignment: nondisplaced Fracture healing: with routine healing Fracture type: closed Phalanx: proximal Toe: lesser toe Qualified Code(s): S92.514D - Nondisplaced fracture of proximal phalanx of right lesser toe(s), subsequent encounter for fracture with routine healing <Luis ChrissLIA LawlerC - Last Filed: 08/28/20 10:16> Code(s): S92.911A - Unspecified fracture of right toe(s), initial encounter for closed fracture <Luis ChrissSaulo An APN-C - Last Filed: 08/28/20 10:16> Status: Acute <Luis ChrissREGULO Lawler - Last Filed: 08/28/20 10:16> Assessment and Plan: * CT from outside hospital indicate nondisplaced intra articular fracture of the right fourth and fifth toe proximal phalangeal bases. Dorsal skin thickening with high attenuating collections in the subcutaneous tissue likely representing hematoma. * According to notes Dr. Pate from outside hospital indicates no surgical plan. * Continue to treat pain * Continue PT OT 08/28/2020 Pt has normal sensation in his toes, no c/o pain <REGULO Simmons - Last Filed: 08/28/20 10:16> (2) CHF (congestive heart failure): Qualifiers: Heart failure chronicity: acute on chronic Heart failure type: combined systolic and diastolic Qualified Code(s): I50.43 - Acute on chronic combined systolic (congestive) and diastolic (congestive) heart failure <LIA SimmonsC - Last Filed: 08/28/20 10:16> Code(s): I50.9 - Heart failure, unspecified <Luis An APN-C - Last Filed: 08/28/20 10:16> Status: Acute <Luis ChrissREGULO Lawler - Last Filed: 08/28/20 10:16> Assessment and Plan: * Compensated * Continue carvedilol and statin with p.o. Lasix and aldactone 08/28/2020 No SOB or increased WOB, lungs clear, no edema <Luis An APN- C - Last Filed: 08/28/20 10:16> (3) Vascular dementia: Code(s): F01.50 - Vascular dementia without behavioral disturbance <Luis An APN-C - Last Filed: 08/28/20 10:16> Status: Inactive <Luis nA APN-C - Last Filed: 08/28/20 10:16> Assessment and Plan: History of CVA Continue aspirin and statins <Luis An APN-C - Last Filed: 08/28/20 10:16> (4) Type 2 diabetes mellitus: Code(s): E11.9 - Type 2 diabetes mellitus without complications <Luis An APN-C - Last Filed: 08/28/20 10:16> Status: Acute <Luis An APN-C - Last Filed: 08/28/20 10:16> Assessment and Plan: * Blood sugar below 200 * Continue Accu-Cheks with sliding scale hypoglycemic protocol and home insulin * Continue diabetic diet * Will adjust medication as needed 08/28/2020 Glucose levels stable, no need to make changes at this time <Luis An APN-C - Last Filed: 08/28/20 10:16> (5) COPD (chronic obstructive pulmonary disease): Code(s): J44.9 - Chronic obstructive pulmonary disease, unspecified <DAVID SimmonsN-C - Last Filed: 08/28/20 10:16> Status: Acute <Luis An APN-C - Last Filed: 08/28/20 10:16> Assessment and Plan: * Stable * Continue inhalers <Luis An APN-C - Last Filed: 08/28/20 10:16> (6) Tobacco dependence: Code(s): F17.200 - Nicotine dependence, unspecified, uncomplicated <Luis An APN-C - Last Filed: 08/28/20 10:16> Status: Acute <Luis An SLATE SPLITTER-C - Last Filed: 08/28/20 10:16> Assessment and Plan: * Started nicotine patch
--- NOTE | 2020-08-28 08:24 | PM.IMPN ---
Progress Note: A&P Assessment and Plan (1) Toe fracture, right: Qualifiers: Encounter type: subsequent encounter Fracture alignment: nondisplaced Fracture healing: with routine healing Fracture type: closed Phalanx: proximal Toe: lesser toe Qualified Code(s): S92.514D - Nondisplaced fracture of proximal phalanx of right lesser toe(s), subsequent encounter for fracture with routine healing <REGULO Simmons - Last Filed: 08/28/20 10:16> Code(s): S92.911A - Unspecified fracture of right toe(s), initial encounter for closed fracture <LIA SimmonsC - Last Filed: 08/28/20 10:16> Status: Acute <REGULO Simmons - Last Filed: 08/28/20 10:16> Assessment and Plan: CT from outside hospital indicate nondisplaced intra articular fracture of the right fourth and fifth toe proximal phalangeal bases. Dorsal skin thickening with high attenuating collections in the subcutaneous tissue likely representing hematoma. According to notes Dr. Pate from outside hospital indicates no surgical plan. Continue to treat pain Continue PT OT 08/28/2020 Pt has normal sensation in his toes, no c/o pain <REGULO Simmons - Last Filed: 08/28/20 10:16> (2) CHF (congestive heart failure): Qualifiers: Heart failure chronicity: acute on chronic Heart failure type: combined systolic and diastolic Qualified Code(s): I50.43 - Acute on chronic combined systolic (congestive) and diastolic (congestive) heart failure <REGULO Simmons - Last Filed: 08/28/20 10:16> Code(s): I50.9 - Heart failure, unspecified <LIA SimmonsC - Last Filed: 08/28/20 10:16> Status: Acute <REGULO Simmons - Last Filed: 08/28/20 10:16> Assessment and Plan: Compensated Continue carvedilol and statin with p.o. Lasix and aldactone 08/28/2020 No SOB or increased WOB, lungs clear, no edema <LIA SimmonsC - Last Filed: 08/28/20 10:16> (3) Vascular dementia: Code(s): F01.50 - Vascular dementia without behavioral disturbance <Luis AnINGRID-C - Last Filed: 08/28/20 10:16> Status: Inactive <DAVID SimmonsN-C - Last Filed: 08/28/20 10:16> Assessment and Plan: History of CVA Continue aspirin and statins <Luis An STRATEGIC MARKETING MANAGER-C - Last Filed: 08/28/20 10:16> (4) Type 2 diabetes mellitus: Code(s): E11.9 - Type 2 diabetes mellitus without complications <Luis An STRATEGIC MARKETING MANAGER-C - Last Filed: 08/28/20 10:16> Status: Acute <DAVID SimmonsN-C - Last Filed: 08/28/20 10:16> Assessment and Plan: Blood sugar below 200 Continue Accu-Cheks with sliding scale hypoglycemic protocol and home insulin Continue diabetic diet Will adjust medication as needed 08/28/2020 Glucose levels stable, no need to make changes at this time <Luis An STRATEGIC MARKETING MANAGER-C - Last Filed: 08/28/20 10:16> (5) COPD (chronic obstructive pulmonary disease): Code(s): J44.9 - Chronic obstructive pulmonary disease, unspecified <Luis An STRATEGIC MARKETING MANAGER-C - Last Filed: 08/28/20 10:16> Status: Acute <Luis AnINGRID-C - Last Filed: 08/28/20 10:16> Assessment and Plan: Stable Continue inhalers <Luis AnINGRID-C - Last Filed: 08/28/20 10:16> (6) Tobacco dependence: Code(s): F17.200 - Nicotine dependence, unspecified, uncomplicated <Luis AnINGRID-C - Last Filed: 08/28/20 10:16> Status: Acute <Luis AnINGRID-C - Last Filed: 08/28/20 10:16> Assessment and Plan: Started nicotine patch <Luis AnINGRID-C - Last Filed: 08/28/20 10:16> (7) Below-knee amputation of left lower extremity: Code(s): S88.112A - Complete traumatic amputation at level between knee and ankle, left lower leg, initial encounter <REGULO Simmons - Last Filed: 08/28/20 10:16> Status: Acute <Luis
[2020-08-28] MEDS: ATORVASTATIN 40 MG TABLET 80 MG PO (08:41)
[2020-08-28 08:42] VITALS: PULSE 75
[2020-08-28] MEDS: carvediloL 3.125 MG TABLET PO ×2 (08:42→21:21)
[2020-08-28] MEDS: ASPIRIN 81 MG ENTERIC TABLET PO (08:42)
[2020-08-28] MEDS: CLOPIDOGREL BISULFATE 75 MG TABLET PO (08:42)
[2020-08-28] MEDS: LORATADINE 10 MG TABLET PO (08:42)
[2020-08-28] MEDS: FUROSEMIDE 20 MG TABLET PO (08:43)
[2020-08-28] MEDS: INSULIN GLARGINE (*BKC) 100 UNITS/ML 14 UNITS SUB-Q (08:48)
[2020-08-28] MEDS: SPIRONOLACTONE 25 MG TABLET PO (08:59)
[2020-08-28 11:36] LABS: Glucose Point of Care 154 mg/dl (65-105)
--- NOTE | 2020-08-28 11:44 | PCOTNOTE ---
On 08/28/20, the student, [ Sharon Juárez ], provided care and completed [facility] documentation on this patient. I have reviewed the student's documentation and agree with the findings.
[2020-08-28 16:00] VITALS: BP 130/70; PULSE 84; RESP 20; TEMP 36.6; O2SAT 95
[2020-08-28 16:31] LABS: Glucose Point of Care 95 mg/dl (65-105)
[2020-08-28 20:39] LABS: Glucose Point of Care 133 mg/dl (65-105)
[2020-08-28 21:21] VITALS: PULSE 77
[2020-08-28] MEDS: traZODone HCL 50 MG TABLET PO (21:21)
[2020-08-28] MEDS: PREGABALIN (*CRX) 25 MG CAPSULE 75 MG PO (21:22)
[2020-08-29] VITALS: BP 138/69; PULSE 77; RESP 20; TEMP 36.3; O2SAT 100
[2020-08-29] MEDS: HYDROcodone/acetaminophen (*CRX) 10-325 MG TABLET 1 TAB PO ×3 (07:50→16:25)
[2020-08-29 07:55] LABS: Glucose Point of Care 147 mg/dl (65-105)
[2020-08-29 07:57] VITALS: BP 139/88; PULSE 91; RESP 18; TEMP 36.7; O2SAT 100
[2020-08-29] MEDS: INSULIN GLARGINE (*BKC) 100 UNITS/ML 14 UNITS SUB-Q (09:00)
[2020-08-29] MEDS: LORATADINE 10 MG TABLET PO (09:02)
[2020-08-29] MEDS: PREGABALIN (*CRX) 25 MG CAPSULE 75 MG PO ×2 (09:02→21:25)
[2020-08-29] MEDS: CLOPIDOGREL BISULFATE 75 MG TABLET PO (09:03)
[2020-08-29] MEDS: FUROSEMIDE 20 MG TABLET PO (09:03)
[2020-08-29] MEDS: carvediloL 3.125 MG TABLET PO ×2 (09:03→21:25)
[2020-08-29] MEDS: ATORVASTATIN 40 MG TABLET 80 MG PO (09:03)
[2020-08-29] MEDS: SPIRONOLACTONE 25 MG TABLET PO (09:03)
[2020-08-29] MEDS: ASPIRIN 81 MG ENTERIC TABLET PO (09:04)
[2020-08-29 11:32] LABS: Glucose Point of Care 119 mg/dl (65-105)
[2020-08-29 16:00] VITALS: BP 128/80; PULSE 88; RESP 16; TEMP 37.1; O2SAT 99
[2020-08-29 17:10] LABS: Glucose Point of Care 85 mg/dl (65-105)
[2020-08-29 21:25] VITALS: PULSE 76
[2020-08-29] MEDS: traZODone HCL 50 MG TABLET PO (21:25)
[2020-08-29 21:32] LABS: Glucose Point of Care 162 mg/dl (65-105)
[2020-08-30] VITALS: BP 128/64; PULSE 76; RESP 16; TEMP 36.4; O2SAT 99
[2020-08-30 07:49] LABS: Glucose Point of Care 137 mg/dl (65-105)
[2020-08-30 07:58] VITALS: BP 135/70; PULSE 78; RESP 18; TEMP 36.8; O2SAT 99
[2020-08-30] MEDS: PREGABALIN (*CRX) 25 MG CAPSULE 75 MG PO ×2 (08:48→20:06)
[2020-08-30] MEDS: FUROSEMIDE 20 MG TABLET PO (08:48)
[2020-08-30] MEDS: ATORVASTATIN 40 MG TABLET 80 MG PO (08:48)
[2020-08-30] MEDS: carvediloL 3.125 MG TABLET PO ×2 (08:49→20:06)
[2020-08-30] MEDS: SPIRONOLACTONE 25 MG TABLET PO (08:49)
[2020-08-30] MEDS: LORATADINE 10 MG TABLET PO (08:49)
[2020-08-30] MEDS: CLOPIDOGREL BISULFATE 75 MG TABLET PO (08:49)
[2020-08-30] MEDS: INSULIN GLARGINE (*BKC) 100 UNITS/ML 14 UNITS SUB-Q (08:55)
[2020-08-30] MEDS: HYDROcodone/acetaminophen (*CRX) 10-325 MG TABLET 1 TAB PO ×3 (08:57→20:07)
[2020-08-30] MEDS: ASPIRIN 81 MG ENTERIC TABLET PO (09:52)
[2020-08-30 11:33] LABS: Glucose Point of Care 144 mg/dl (65-105)
--- NOTE | 2020-08-30 14:49 | PCOTNOTE ---
On 08/30/20, the student, [ Sharon Juárez], provided care and completed [facility] documentation on this patient. I have reviewed the student's documentation and agree with the findings.
[2020-08-30 16:00] VITALS: BP 134/63; PULSE 73; RESP 18; TEMP 35.7; O2SAT 98
--- NOTE | 2020-08-30 16:15 | PC.NURSE ---
pt in bed, very sleepy and diaphoretic, vital signs obtained and blood sugar
[2020-08-30] MEDS: GLUCOSE ORAL GEL 15 GM OF GLUCSE IN 37.5 GM TUBE PO (16:23)
[2020-08-30 16:28] LABS: Glucose Point of Care < 33 mg/dl (65-105)
--- NOTE | 2020-08-30 16:28 | PC.NURSE ---
MD notified that patient's bedside glucose is <32, patient is sweating, and very tired. Oral glucose given, orange juice given, lab here to draw a blood glucose level.
[2020-08-30 16:41] LABS: Glucose Point of Care < 33 mg/dl (65-105)
[2020-08-30] MEDS: GLUCAGON FOR INJ 1 MG VIAL IM (16:45)
[2020-08-30 16:47] LABS: Glucose 34 mg/dL (70-99)
--- NOTE | 2020-08-30 17:00 | PC.NURSE ---
blood glucose re-taken and within normal limits, meal tray at bedside
[2020-08-30 17:03] LABS: Glucose Point of Care 89 mg/dl (65-105)
[2020-08-30 19:22] LABS: Glucose Point of Care 261 mg/dl (65-105)
[2020-08-30] MEDS: traZODone HCL 50 MG TABLET PO (20:06)
--- NOTE | 2020-08-30 22:00 | PC.NURSE ---
Resting quietly, denies needs, resp non labored, personal items in reach of patient, call light in reach for safety, bed in low locked position
[2020-08-30 22:16] LABS: Glucose Point of Care 325 mg/dl (65-105)
[2020-08-30 23:39] VITALS: BP 130/64; PULSE 81; RESP 20; TEMP 36; O2SAT 98
[2020-08-31 08:00] VITALS: BP 130/58; PULSE 81; RESP 20; TEMP 36.6; O2SAT 100
[2020-08-31 08:00] LABS: Glucose Point of Care 109 mg/dl (65-105)
--- NOTE | 2020-08-31 08:03 | PM.EVENT ---
Event Note Event Note Event Note: Pt had a hypoglycemic event yesterday at approximately 1645 hours. Prior to this the Pt's glucose was controlled. He was started on Lyrica 2 days earlier. According to UpTo[employer] there is a 2-3% chance of Lyrica causing hypoglycemia. Lyrica was DC'ed and Gabapentin ordered for the Pts neuropathy and has a <1% chance of causing hypoglycemia.
[2020-08-31 08:43] VITALS: PULSE 81
[2020-08-31] MEDS: LORATADINE 10 MG TABLET PO (08:43)
[2020-08-31] MEDS: INSULIN GLARGINE (*BKC) 100 UNITS/ML 14 UNITS SUB-Q (08:43)
[2020-08-31] MEDS: ATORVASTATIN 40 MG TABLET 80 MG PO (08:43)
[2020-08-31] MEDS: carvediloL 3.125 MG TABLET PO ×2 (08:43→20:47)
[2020-08-31] MEDS: FUROSEMIDE 20 MG TABLET PO (08:43)
[2020-08-31] MEDS: GABAPENTIN 100 MG CAPSULE PO ×3 (08:43→17:04)
[2020-08-31] MEDS: ASPIRIN 81 MG ENTERIC TABLET PO (08:43)
[2020-08-31] MEDS: CLOPIDOGREL BISULFATE 75 MG TABLET PO (08:43)
[2020-08-31] MEDS: SPIRONOLACTONE 25 MG TABLET PO (08:43)
[2020-08-31] MEDS: HYDROcodone/acetaminophen (*CRX) 10-325 MG TABLET 1 TAB PO ×3 (08:46→21:52)
[2020-08-31 11:58] LABS: Glucose Point of Care 200 mg/dl (65-105)
[2020-08-31] MEDS: traMADol HCL (*CRX) 50 MG TABLET PO (13:40)
[2020-08-31 16:00] VITALS: BP 116/59; PULSE 81; RESP 18; TEMP 36.9; O2SAT 100
[2020-08-31 17:00] LABS: Glucose Point of Care 141 mg/dl (65-105)
[2020-08-31] MEDS: traZODone HCL 50 MG TABLET PO (20:47)
--- NOTE | 2020-08-31 20:48 | PC.NURSE ---
Patients BG this evening was 85. Asymptomatic. Snack and juice were given to patient.
[2020-08-31 20:51] LABS: Glucose Point of Care 85 mg/dl (65-105)
[2020-09-01] VITALS: BP 105/59; PULSE 70; RESP 18; TEMP 35.9; O2SAT 98
[2020-09-01 08:00] VITALS: BP 138/76; PULSE 78; RESP 16; TEMP 36.3; O2SAT 100
[2020-09-01 08:12] LABS: Glucose Point of Care 128 mg/dl (65-105)
[2020-09-01 09:16] VITALS: PULSE 78
[2020-09-01] MEDS: ASPIRIN 81 MG ENTERIC TABLET PO (09:16)
[2020-09-01] MEDS: LORATADINE 10 MG TABLET PO (09:16)
[2020-09-01] MEDS: carvediloL 3.125 MG TABLET PO ×2 (09:16→20:26)
[2020-09-01] MEDS: HYDROcodone/acetaminophen (*CRX) 10-325 MG TABLET 1 TAB PO ×3 (09:17→21:24)
[2020-09-01] MEDS: FUROSEMIDE 20 MG TABLET PO (09:17)
[2020-09-01] MEDS: SPIRONOLACTONE 25 MG TABLET PO (09:17)
[2020-09-01] MEDS: GABAPENTIN 100 MG CAPSULE PO ×3 (09:17→16:52)
[2020-09-01] MEDS: CLOPIDOGREL BISULFATE 75 MG TABLET PO (09:17)
[2020-09-01] MEDS: ATORVASTATIN 40 MG TABLET 80 MG PO (09:17)
[2020-09-01] MEDS: INSULIN GLARGINE (*BKC) 100 UNITS/ML 14 UNITS SUB-Q (09:18)
[2020-09-01 12:07] LABS: Glucose Point of Care 164 mg/dl (65-105)
[2020-09-01] MEDS: traMADol HCL (*CRX) 50 MG TABLET PO (13:12)
[2020-09-01 16:00] VITALS: BP 128/61; PULSE 86; RESP 20; TEMP 36.6; O2SAT 100
[2020-09-01 17:05] LABS: Glucose Point of Care 86 mg/dl (65-105)
[2020-09-01] MEDS: traZODone HCL 50 MG TABLET PO (20:26)
--- NOTE | 2020-09-01 20:28 | PC.NURSE ---
Patient BG was checked at HS and 101. HS snack and drink given.
[2020-09-01 20:31] LABS: Glucose Point of Care 101 mg/dl (65-105)
[2020-09-02] VITALS: BP 116/63; PULSE 76; RESP 18; TEMP 35.7; O2SAT 98
[2020-09-02 05:31] LABS: Hematocrit 29.3 % (40.0-54.0); Hemoglobin 9.9 g/dL (14.0-18.0); Mean Corpuscular HGB Conc 33.8 g/dL (32.0-36.0); Mean Corpuscular Hemoglobin 32.4 pg (27.0-31.0); Mean Corpuscular Volume 95.8 fL (78.0-102.0); Mean Platelet Volume 9.8 fl (8.7-11.0); Platelet Count Result 186 K/mm3 (150-420); Red Blood Count 3.06 M/mm3 (4.70-6.10); Red Cell Distribution Width 13.1 % (11.6-14.4); White Blood Count 5.8 K/mm3 (4.8-10.8)
[2020-09-02 05:43] LABS: Anion Gap 7 mmol/L (8-16); Blood Urea Nitrogen 23 mg/dL (7-18); Calcium 8.6 mg/dL (8.5-10.1); Carbon Dioxide 24 mmol/L (21-32); Chloride 98 mmol/L (98-108); Estimated CRCL calculation 87 ml/min; Estimated Glomerular Filt Rate > 60; Glucose 110 mg/dL (70-99); Osmolality Calculated 272 mOsm/kg (285-295); Potassium 4.6 mmol/L (3.5-5.1); Sodium 129 mmol/L (136-145)
[2020-09-02 08:00] VITALS: BP 125/74; PULSE 96; RESP 18; TEMP 36.6; O2SAT 100
[2020-09-02 08:00] LABS: Glucose Point of Care 139 mg/dl (65-105)
--- NOTE | 2020-09-02 08:04 | PCOTNOTE ---
On 09/02/20, the student, [Sharon Juárez ], provided care and completed [facility] documentation on this patient. I have reviewed the student's documentation and agree with the findings.
[2020-09-02] MEDS: INSULIN GLARGINE (*BKC) 100 UNITS/ML 14 UNITS SUB-Q (08:12)
[2020-09-02 08:30] VITALS: PULSE 78
[2020-09-02] MEDS: SPIRONOLACTONE 25 MG TABLET PO (08:30)
[2020-09-02] MEDS: CLOPIDOGREL BISULFATE 75 MG TABLET PO (08:30)
[2020-09-02] MEDS: HYDROcodone/acetaminophen (*CRX) 10-325 MG TABLET 1 TAB PO ×2 (08:30→17:50)
[2020-09-02] MEDS: GABAPENTIN 100 MG CAPSULE PO ×3 (08:30→17:50)
[2020-09-02] MEDS: FUROSEMIDE 20 MG TABLET PO (08:30)
[2020-09-02] MEDS: ASPIRIN 81 MG ENTERIC TABLET PO (08:30)
[2020-09-02] MEDS: ATORVASTATIN 40 MG TABLET 80 MG PO (08:30)
[2020-09-02] MEDS: carvediloL 3.125 MG TABLET PO ×2 (08:30→20:37)
[2020-09-02] MEDS: LORATADINE 10 MG TABLET PO (08:30)
--- NOTE | 2020-09-02 09:31 | PM.IMPN ---
Progress Note: A&P Assessment and Plan (1) Toe fracture, right: Qualifiers: Encounter type: subsequent encounter Toe: lesser toe Fracture type: closed Phalanx: proximal Fracture alignment: nondisplaced Fracture healing: with routine healing Qualified Code(s): S92.514D - Nondisplaced fracture of proximal phalanx of right lesser toe(s), subsequent encounter for fracture with routine healing Code(s): S92.911A - Unspecified fracture of right toe(s), initial encounter for closed fracture Status: Acute Assessment and Plan: CT from outside hospital indicate nondisplaced intra articular fracture of the right fourth and fifth toe proximal phalangeal bases. Dorsal skin thickening with high attenuating collections in the subcutaneous tissue likely representing hematoma. According to notes Dr. Pate from outside hospital indicates no surgical plan. Continue to treat pain Continue PT OT 08/28/2020 Pt has normal sensation in his toes, no c/o pain 09/02/2020 No pain, normal sensation in toes (2) CHF (congestive heart failure): Qualifiers: Heart failure chronicity: acute on chronic Heart failure type: combined systolic and diastolic Qualified Code(s): I50.43 - Acute on chronic combined systolic (congestive) and diastolic (congestive) heart failure Code(s): I50.9 - Heart failure, unspecified Status: Acute Assessment and Plan: Compensated Continue carvedilol and statin with p.o. Lasix and Aldactone 08/28/2020 No SOB or increased WOB, lungs clear, no edema 09/02/2020 Lungs remain clear, no complaints of SOB, no swelling noticed (3) Vascular dementia: Code(s): F01.50 - Vascular dementia without behavioral disturbance Status: Inactive Assessment and Plan: History of CVA Continue aspirin and statins (4) Type 2 diabetes mellitus: Code(s): E11.9 - Type 2 diabetes mellitus without complications Status: Acute Assessment and Plan: Blood sugar below 200 Continue Accu-Cheks with sliding scale hypoglycemic protocol and home insulin Continue diabetic diet Will adjust medication as needed 08/28/2020 Glucose levels stable, no need to make changes at this time 09/02/2020 Glucose levels stable, Lyrica may have caused a hypoglycemic event, glucose has been good since discontinuing Lyrica (5) COPD (chronic obstructive pulmonary disease): Code(s): J44.9 - Chronic obstructive pulmonary disease, unspecified Status: Acute Assessment and Plan: Stable Continue inhalers (6) Tobacco dependence: Code(s): F17.200 - Nicotine dependence, unspecified, uncomplicated Status: Acute Assessment and Plan: Started nicotine patch (7) Below-knee amputation of left lower extremity: Code(s): S88.112A - Complete traumatic amputation at level between knee and ankle, left lower leg, initial encounter Status: Acute Assessment and Plan: Left BKA completed on 08/09 abscess culture with GPO ID recommended the patient complete vancomycin and meropenem Completed on 08/11 Case coordination will contact patient's surgeon to determine when ashlie should be removed and when his follow-up visit will be. 08/28/2020 Surgical site appears to be healing well, Pt does c/o some phantom pain for which Lyrica 75 mg BID has been started. 09/02/2020 Lyrica DC'ed as noted above, Gabapentin started a couple days ago, Pt does not have any complaints of phantom pain today, surgical site looks good, no drainage, swelling, slight redness without warmth (8) Cellulitis of right foot: Code(s): L03.115 - Cellulitis of right lower limb Status: Acute Assessment and Plan: Continue Levaquin until 08/24/2020 Imaging from outside hospital does not indicate osteomyelitis 08/28/2020 Site appears to be improving. 09/02/2020 Redness at the foot is resolved, no swelling, scab intact without drainage Subjective Date/time seen: 09/02/20 09:31 Pt is e
[2020-09-02 12:03] LABS: Glucose Point of Care 184 mg/dl (65-105)
[2020-09-02] MEDS: traMADol HCL (*CRX) 50 MG TABLET PO (12:07)
[2020-09-02 16:00] VITALS: BP 122/70; PULSE 86; RESP 18; TEMP 36.3; O2SAT 100
[2020-09-02 17:07] LABS: Glucose Point of Care 94 mg/dl (65-105)
[2020-09-02 20:37] VITALS: PULSE 77
[2020-09-02] MEDS: traZODone HCL 50 MG TABLET PO (20:38)
[2020-09-02 20:41] LABS: Glucose Point of Care 99 mg/dl (65-105)
[2020-09-02 23:48] VITALS: BP 122/56; PULSE 77; RESP 20; TEMP 36; O2SAT 100
[2020-09-03 06:17] LABS: Hematocrit 32.1 % (40.0-54.0); Hemoglobin 10.6 g/dL (14.0-18.0); Mean Corpuscular Hemoglobin 31.5 pg (27.0-31.0); Mean Corpuscular Volume 95.5 fL (78.0-102.0); Mean Platelet Volume 10.1 fl (8.7-11.0); Platelet Count Result 207 K/mm3 (150-420); Red Blood Count 3.36 M/mm3 (4.70-6.10); Red Cell Distribution Width 13.2 % (11.6-14.4); White Blood Count 6.7 K/mm3 (4.8-10.8)
[2020-09-03 06:29] LABS: Alanine Aminotransferase 24 U/L (16-63); Albumin Level 2.7 g/dL (3.4-5.0); Alkaline Phosphatase 90 U/L (46-116); Anion Gap 6 mmol/L (8-16); Aspartate Amino Transferase 16 U/L (15-37); Bilirubin,Total 0.4 mg/dL (0.00-1.00); Blood Urea Nitrogen 24 mg/dL (7-18); Calcium 8.9 mg/dL (8.5-10.1); Carbon Dioxide 29 mmol/L (21-32); Chloride 96 mmol/L (98-108); Estimated CRCL calculation 88 ml/min; Estimated Glomerular Filt Rate > 60; Glucose 112 mg/dL (70-99); Osmolality Calculated 277 mOsm/kg (285-295); Potassium 4.6 mmol/L (3.5-5.1); Sodium 131 mmol/L (136-145); Total Protein 6.8 g/dL (6.4-8.2)
[2020-09-03 07:37] LABS: Glucose Point of Care 136 mg/dl (65-105)
[2020-09-03 08:00] VITALS: BP 125/62; PULSE 82; RESP 18; TEMP 36.1; O2SAT 99
[2020-09-03] MEDS: HYDROcodone/acetaminophen (*CRX) 10-325 MG TABLET 1 TAB PO (08:50)
[2020-09-03] MEDS: ATORVASTATIN 40 MG TABLET 80 MG PO (08:51)
[2020-09-03] MEDS: INSULIN GLARGINE (*BKC) 100 UNITS/ML 14 UNITS SUB-Q (08:51)
[2020-09-03] MEDS: GABAPENTIN 100 MG CAPSULE PO (08:51)
[2020-09-03] MEDS: FUROSEMIDE 20 MG TABLET PO (08:51)
[2020-09-03] MEDS: ASPIRIN 81 MG ENTERIC TABLET PO (08:51)
[2020-09-03] MEDS: LORATADINE 10 MG TABLET PO (08:52)
[2020-09-03] MEDS: SPIRONOLACTONE 25 MG TABLET PO (08:52)
[2020-09-03] MEDS: carvediloL 3.125 MG TABLET PO (08:52)
[2020-09-03] MEDS: CLOPIDOGREL BISULFATE 75 MG TABLET PO (08:52)
--- NOTE | 2020-09-03 09:02 | PM.DS ---
DS: Admitting Diagnosis Admitting Diagnosis Admitting Diagnosis: Rehab <WEST Rodriguez - Last Filed: 09/03/20 11:31> DS: Discharge Diagnosis Discharge Diagnosis (1) Toe fracture, right: Qualifiers: Encounter type: subsequent encounter Fracture alignment: nondisplaced Fracture healing: with routine healing Fracture type: closed Phalanx: proximal Toe: lesser toe Qualified Code(s): S92.514D - Nondisplaced fracture of proximal phalanx of right lesser toe(s), subsequent encounter for fracture with routine healing <WEST Rodriguez - Last Filed: 09/03/20 11:31> Code(s): S92.911A - Unspecified fracture of right toe(s), initial encounter for closed fracture <WEST Rodriguez - Last Filed: 09/03/20 11:31> Status: Acute <WEST Rodriguez - Last Filed: 09/03/20 11:31> Assessment and Plan: CT from outside hospital indicate nondisplaced intra articular fracture of the right fourth and fifth toe proximal phalangeal bases. Dorsal skin thickening with high attenuating collections in the subcutaneous tissue likely representing hematoma. According to notes Dr. Pate from outside hospital indicates no surgical plan. Patient will discharge home with outpatient PT OT and <WEST Rodriguez - Last Filed: 09/03/20 11:31> (2) CHF (congestive heart failure): Qualifiers: Heart failure chronicity: acute on chronic Heart failure type: combined systolic and diastolic Qualified Code(s): I50.43 - Acute on chronic combined systolic (congestive) and diastolic (congestive) heart failure <WEST Rodriguez - Last Filed: 09/03/20 11:31> Code(s): I50.9 - Heart failure, unspecified <WEST Rodriguez - Last Filed: 09/03/20 11:31> Status: Acute <WEST Rodriguez - Last Filed: 09/03/20 11:31> Assessment and Plan: Compensated Continue carvedilol and statin with p.o. Lasix and aldactone <WEST Rodriguez - Last Filed: 09/03/20 11:31> (3) Vascular dementia: Code(s): F01.50 - Vascular dementia without behavioral disturbance <Layne GarciaWEST - Last Filed: 09/03/20 11:31> Status: Inactive <Layne GarciaJUSTOC - Last Filed: 09/03/20 11:31> Assessment and Plan: History of CVA Continue aspirin and statins <Timmychristian JessicaWEST Daniels - Last Filed: 09/03/20 11:31> (4) Type 2 diabetes mellitus: Code(s): E11.9 - Type 2 diabetes mellitus without complications <Layne LopezWEST Daniels - Last Filed: 09/03/20 11:31> Status: Acute <Layne GarciaWEST - Last Filed: 09/03/20 11:31> Assessment and Plan: Blood sugar below 200 Patient will discharge home with insulin and instructions to check his blood sugar 3 times a day. Primary care physician will determine whether or not patient will discontinue insulin and start glipizide Continue diabetic diet Will adjust medication as needed <Layne LopezWEST Daniels - Last Filed: 09/03/20 11:31> (5) COPD (chronic obstructive pulmonary disease): Code(s): J44.9 - Chronic obstructive pulmonary disease, unspecified <Layne GarciaJUSTOC - Last Filed: 09/03/20 11:31> Status: Acute <Layne JessicaWEST Daniels - Last Filed: 09/03/20 11:31> Assessment and Plan: Stable Continue inhalers <Layne LopezWEST Daniels - Last Filed: 09/03/20 11:31> (6) Tobacco dependence: Code(s): F17.200 - Nicotine dependence, unspecified, uncomplicated <Timmychristian JessicaWEST Daniels - Last Filed: 09/03/20 11:31> Status: Acute <Layne JessicaWEST Daniels - Last Filed: 09/03/20 11:31> Assessment and Plan: Started nicotine patch <WEST Rodriguez - Last Filed: 09/03/20 11:31> (7) Below-knee amputation of left lower extremity: Code(s): S88.112A - Complete traumatic amputation at level between knee and ankle, left l
--- NOTE | 2020-09-03 10:13 | PC.NURSE ---
OT in with patient getting him cleaned up and dressed
[2020-09-03 11:32] LABS: Glucose Point of Care 148 mg/dl (65-105)
--- NOTE | 2020-09-03 11:50 | PC.NURSE ---
pt assisted to home wheelchair via benja 5 Minutes, pt given discharge instructions verbalized understanding and paper instructions given with notes and highlighted sections for pt family. pt taken downstairs via wheelchair in stable condition to waiting [facility] for transportation home.
--- NOTE | 2020-09-03 13:50 | PCOTNOTE ---
On 09/03/20, the student, [ Sharon Juárez ], provided care and completed [facility] documentation on this patient. I have reviewed the student's documentation and agree with the findings.
--- NOTE | 2020-09-04 09:47 | PC.NURSE ---
Spouse states they received and understood the discharge instructions. Spouse also states thanks the nurses for us, they did a great job .
== END 2020-09-03 11:50 | disposition home health service (06) | DRG 559 ==
PROVIDERS: Emergency Medicine; Nurse Practitioner; Nurse Practitioner Family; Admitting Provider Emergency Medicine; PCP Family Medicine; Visit Provider Emergency Medicine
DX: Z47.81 Encounter for orthopedic aftercare following surgical amputation (principal); A41.9 Sepsis, unspecified organism; I50.20 Unspecified systolic (congestive) heart failure; L03.115 Cellulitis of right lower limb; I42.9 Cardiomyopathy, unspecified; I11.0 Hypertensive heart disease with heart failure; I73.9 Peripheral vascular disease, unspecified; E11.51 Type 2 diabetes mellitus with diabetic peripheral angiopathy without gangrene; E11.649 Type 2 diabetes mellitus with hypoglycemia without coma; E78.5 Hyperlipidemia, unspecified; J44.9 Chronic obstructive pulmonary disease, unspecified; F01.50 Vascular dementia, unspecified severity, without behavioral disturbance, psychotic disturbance, mood disturbance, and anxiety; F17.210 Nicotine dependence, cigarettes, uncomplicated; S92.514D Nondisplaced fracture of proximal phalanx of right lesser toe(s), subsequent encounter for fracture with routine healing; Z89.512 Acquired absence of left leg below knee; Z86.73 Personal history of transient ischemic attack (TIA), and cerebral infarction without residual deficits
CPT/HCPCS: 36415; 80048; 80053; 82947; 82948; 83605; 85025; 85027; 97110; 97162; 97166; 97530; 97535; A9270; J1610; J1815

== ENCOUNTER 2020-10-18 17:05 | Outpatient (NON) | payer MEDICARE, SELFPAY ==
[2020-10-18 17:14] LABS: Basophils Absolute Auto 0.03 K/mm3 (0.00-0.10); Basophils Percent Auto 0.2 % (0.0-1.0); Eosinophils Absolute Auto 0.07 K/mm3 (0.02-0.50); Eosinophils Percent Auto 0.4 % (1.0-6.0); Hematocrit 31.7 % (40.0-54.0); Hemoglobin 10.8 g/dL (14.0-18.0); Immature Granulocyte Absolute 0.09 K/mm3 (0.00-0.00); Immature Granulocyte Percent A 0.5 % (0.0-0.0); Lymphocytes Absolute Auto 0.59 K/mm3 (1.10-4.50); Lymphocytes Percent Auto 3.5 % (18.0-42.0); Mean Corpuscular HGB Conc 34.1 g/dL (32.0-36.0); Mean Corpuscular Hemoglobin 32.1 pg (27.0-31.0); Mean Corpuscular Volume 94.3 fL (78.0-102.0); Mean Platelet Volume 10.6 fl (8.7-11.0); Monocytes Absolute Auto 1.14 K/mm3 (0.10-0.90); Monocytes Percent Auto 6.7 % (2.0-11.0); Neutrophils Absolute Auto 15.1 K/mm3 (1.7-7.2); Neutrophils Percent Auto 88.7 % (50.0-70.0); Platelet Count Result 265 K/mm3 (150-420); Red Blood Count 3.36 M/mm3 (4.70-6.10); Red Cell Distribution Width 12.5 % (11.6-14.4)
[2020-10-18 17:24] LABS: Alanine Aminotransferase 65 U/L (16-63); Albumin Level 2.2 g/dL (3.4-5.0); Alkaline Phosphatase 116 U/L (46-116); Anion Gap 14 mmol/L (8-16); Aspartate Amino Transferase 51 U/L (15-37); Bilirubin,Total 0.3 mg/dL (0.00-1.00); Blood Urea Nitrogen 119 mg/dL (7-18); Carbon Dioxide 23 mmol/L (21-32); Chloride 91 mmol/L (98-108); Estimated Glomerular Filt Rate 33; Glucose 226 mg/dL (70-99); Osmolality Calculated 311 mOsm/kg (285-295); Potassium 3.6 mmol/L (3.5-5.1); Sodium 128 mmol/L (136-145); Total Protein 6.1 g/dL (6.4-8.2)
== END 2020-10-18 17:06 | disposition home or self-care (01) ==
LOC: CHSLAB 17:07
PROVIDERS: PCP Family Medicine; Visit Provider Family Medicine
DX: R19.7 Diarrhea, unspecified (principal)
CPT/HCPCS: 36415; 80053; 85025

== ENCOUNTER 2020-10-21 11:32 | Inpatient (IN) | payer MEDICARE, SELFPAY ==
[2020-10-21] VITALS (7 sets, daily range): BP systolic 86–122; BP diastolic 48–60; PULSE 76–88; RESP 16–20; TEMP 36.6–36.8; O2SAT 96–100; BMI 27.4
--- NOTE | ~2020-10-21 | XR_ITS ---
EXAMINATION: XR chest 1V portable INDICATION: Altered mental status and shortness of breath TECHNIQUE: Portable AP chest at 1229 hours COMPARISON: 08/06/2020 FINDINGS: The lungs are free of acute opacities. There is no pleural effusion or pneumothorax. The ca rdiomediastinal silhouette is normal. Osteoarthritis is noted in the shoulders. IMPRESSION: 1. No acute cardiopulmonary abnormality. Reviewed, dictated and finalized at location A.
--- NOTE | ~2020-10-21 | CT_ITS ---
EXAMINATION: CT knee LT wo con DATE: 10/22/2020 12:05 INDICATION: Infection of a left kdpiq-vrw-esom amputation TECHNIQUE: High resolution computed tomography (CT) of the left knee was performed without intravenou s contrast. Additional sagittal and coronal reconstructions were performed. Automated exposure contro l and iterative reconstruction technique were employed. The dose-length product was 621.48 mGy-cm. COMPARISON: None FINDINGS: There is a left hequz-uka-vvfr amputation. The osteotomy appears sharply delineated thin smooth with no evident osteolysis to suggest ostomy myelitis. Similar there is a sharp distal boundary to the int ramedullary marrow fat attenuation with no high soft tissue or fluid attenuation extending into the b one to suggest ostomy myelitis. There is a large still relatively shallow skin ulceration along the a nteromedial aspect of the stump which remain superficial to the superficial fascia and encroaches no closed and 7 mm from the margin of the bone. No abscess or soft tissue gas to suggest a deeper necrot izing fasciitis. Small marginal osteophytes in all 3 components of the knee without significant joint space narrowing consistent with likely mild tricompartmental osteoarthritis although severity of cabrera nt space narrowing can be on underestimated nonweightbearing imaging. No left knee joint effusion. IMPRESSION: 1. Both a shallow skin ulceration at the anteromedial aspect of the stump of a left xcjmk-mpf-uxdk am putation without evident abscess or osteolysis. Reviewed, dictated and finalized at location A. IMPRESSION: 1. Both a shallow skin ulceration at the anteromedial aspect of the stump of a left xsoqb-qiw-ghks amputation without evident abscess or osteolysis.
--- NOTE | ~2020-10-21 | CT_ITS ---
EXAMINATION: CT brain wo con DATE: 10/22/2020 12:05 INDICATION: Altered mental status TECHNIQUE: Computed tomography (CT) of the head was performed without intravenous contrast. Sagittal and coronal reconstructions were performed. The mA was adjusted according to patient size. Iterative reconstruction technique was employed. The dose-length product was 681.00 mGy-cm. COMPARISON: None FINDINGS: Large region of encephalomalacia in the left middle cerebral artery vascular distribution involving t he left frontal and parietal lobes as well as the anterior insula and caudate nucleus cyst with chron ic infarct. Additional small old lacunar infarct versus prominent perivascular space at the inferior right basal ganglia. No acute intracranial hemorrhage, acute infarction or abnormal extra axial fluid collection. Increased prominence of the sulci and ventricles consistent with mild diffuse volume los s. Additional ex vacuo dilation of the left lateral ventricle resulting from the adjacent infarct. No mass/mass effect. Mild mucosal thickening the left maxillary sinus. Chronic blowout fracture involvi ng a small portion of the medial wall of the right orbit. The orbits are otherwise normal. The mastoi d air cells and middle ear cavities are clear. Intracranial calcified cerebral atherosclerosis is not ed. IMPRESSION: 1. No acute intracranial process. 2. 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 3. Possible additional small old lacunar infarct versus prominent perivascular space at the inferior right basal ganglia. Reviewed, dictated and finalized at location A. IMPRESSION: 1. No acute intracranial process. 2. Large infarct involving the vascular distribution of the middle cerebral art shahram including portions of the left frontal and parietal lobes and left basal ga nglia. 3. Possible additional small old lacunar infarct versus prominent perivascular space at the inferior right basal ganglia.
--- NOTE | 2020-10-21 11:37 | ECG_ITS ---
Measurements Intervals [place] Rate: 78 P: 55 FL: 147 QRS: 32 QRSD: 110 T: 121 QT: 397 QTc: 455 Interpretive Statements SINUS RHYTHM FREQUENT VENTRICULAR PREMATURE COMPLEXES INTRAVENTRICULAR CONDUCTION DELAY MIINIMAL Q WAVES- INFERIOR LEADS BORDERLINE ST-T WAVE ABNORMALITY- HIGH LATERAL LEADS ABNORMAL ECG Electronically Signed On 10-21-2020 12:44:15 CDT by Raji Martinez D.O.
--- NOTE | 2020-10-21 11:42 | ED.AMS ---
HPI - Altered Mental Status General Chief Complaint: Altered Mental Status Stated Complaint: altered mental status Time Seen by Provider: 10/21/20 11:42 History of Present Illness HPI narrative: 55-year-old male patient was brought to the ER by EMS from his home for altered mental status. Apparently patient has had a recent below-knee amputation of the left leg and has been at home recuperating. The patient was initially advised by primary care physician to come in for some abnormal labs but the EMS found the patient to be completely altered. The patient is unable to provide history. He is not unresponsive however he knows that he is at [facility] but is not sure of his age, date and time. He is unable to provide any information about his routine medications. He does not even off of any specific complaints at this time Related Data Home Medications Medication Instructions Recorded Confirmed atorvastatin 80 mg PO DAILY 08/05/20 10/21/20 aspirin 81 mg PO DAILY 08/16/20 10/21/20 carvedilol 6.25 mg PO BID 08/16/20 10/21/20 clopidogrel [Plavix] 75 mg PO DAILY 10/21/20 10/21/20 furosemide 40 mg PO DAILY 10/21/20 10/21/20 metolazone 5 mg PO DAILY 10/21/20 10/21/20 spironolactone 25 mg PO DAILY 10/21/20 10/21/20 Allergies Allergy/AdvReac Type Severity Reaction Status Date / Time cephalexin Allergy Unknown Anaphylactic Verified 09/24/20 07:18 Shock clindamycin Allergy Unknown Unknown Verified 09/24/20 07:18 Sulfa (Sulfonamide Allergy Unknown Anaphylactic Verified 09/24/20 07:18 Antibiotics) Shock Review of Systems Review of Systems: ROS unobtainable: Yes unobtainable due to medical condition and unobtainable due to mental status PMFSH Past Medical History Medical History Cardiomyopathy CHF (congestive heart failure) Last echo in 01/05/20 showed an EF 30-35%, severe LVE, diastolic dysfunction (E/e' 24), mod LAE, mod MR, trace TR, RVSP 59 mmHg. 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 COPD (chronic obstructive pulmonary disease) CVA (cerebral vascular accident) Multiple strokes in the past Gangrene of left foot Heel ulcer due to DM Hyperlipidemia Hypertension Necrosis of toe Peripheral artery disease Toe fracture, right Type 2 diabetes mellitus Vascular dementia Surgical History Surgical History History of left below knee amputation Family History Family History Father Diabetes mellitus Family history of cardiovascular disease Mother Family history of malignant neoplasm Social History Social History Smoking packs per day: 1 Smoking cigarettes per day: 20.0 Years smoked: 48 Smoking pack-years: 48.00 Smoking status: Current every day smoker Tobacco type: cigarettes Second hand tobacco smoke exposure: Yes Alcohol intake: former Drinks per week: 14 Alcohol use details: occasional social drink Substance use: never Substance use type: does not use Additional living arrangements comments: Gender identity (if verbalized by the patient): Male Spiritual care concerns: No Exam Narrative: Patient is alert but appears ill. He is also confused vital signs are noted and the blood pressure is low At 80/60. Pulse rate has been 78. patient is afebrile. SpO2 is 96% on room air and 100% with 2 L of oxygen. HEENT is atraumatic. Tongue is dry and coated. Pupils are midsize and equal and reactive to light. EOMs are intact. Neck is supple. Breath sounds are audible bilaterally. There are no associated rales rhonchi or wheezing. No intercostal retractions are noted. Heart tones are regular. Abdomen is soft and nontender . There is some pressure areas noted on his buttocks as well as the lumbar 0 sacral area bu
[2020-10-21 12:04] LABS: Basophils Absolute Auto 0.04 K/mm3 (0.00-0.10); Basophils Percent Auto 0.3 % (0.0-1.0); Eosinophils Absolute Auto 0.18 K/mm3 (0.02-0.50); Eosinophils Percent Auto 1.2 % (1.0-6.0); Immature Granulocyte Absolute 0.28 K/mm3 (0.00-0.00); Immature Granulocyte Percent A 1.8 % (0.0-0.0); Lymphocytes Absolute Auto 0.97 K/mm3 (1.10-4.50); Lymphocytes Percent Auto 6.4 % (18.0-42.0); Mean Corpuscular HGB Conc 33.3 g/dL (32.0-36.0); Mean Corpuscular Hemoglobin 31.6 pg (27.0-31.0); Mean Corpuscular Volume 94.9 fL (78.0-102.0); Mean Platelet Volume 9.9 fl (8.7-11.0); Monocytes Absolute Auto 1.02 K/mm3 (0.10-0.90); Monocytes Percent Auto 6.7 % (2.0-11.0); Neutrophils Absolute Auto 12.8 K/mm3 (1.7-7.2); Neutrophils Percent Auto 83.6 % (50.0-70.0); Platelet Count Result 363 K/mm3 (150-420); Red Blood Count 3.16 M/mm3 (4.70-6.10); Red Cell Distribution Width 12.6 % (11.6-14.4); White Blood Count 15.3 K/mm3 (4.8-10.8)
[2020-10-21 12:05] LABS: Add Urine Microscopic? NO; Appearance Urine Clear (Clear); Bilirubin Urine Negative (Negative); Blood Urine Negative (Negative); Color Urine Light Yellow (Yellow); Glucose Urine UA Negative (Negative); Ketones Urine Negative (Negative); Leukocyte Esterase Ur Negative LEU/UL (Negative); Nitrate Urine Negative (Negative); Protein Urine Negative (Negative); Specific Grav Ur 1.015 (1.010-1.020); Urobilinogen Urine 0.2 mg/dL (0.2-1.0); pH Urine 5.5 (5.0-8.0)
[2020-10-21 12:18] LABS: Glucose Point of Care 198 mg/dl (65-105)
[2020-10-21 12:19] LABS: Acetone Small (Negative)
[2020-10-21 12:22] LABS: Alanine Aminotransferase 40 U/L (16-63); Alkaline Phosphatase 127 U/L (46-116); Anion Gap 15 mmol/L (8-16); Aspartate Amino Transferase 29 U/L (15-37); Bilirubin,Total 0.3 mg/dL (0.00-1.00); Blood Urea Nitrogen 114 mg/dL (7-18); Calcium 8.6 mg/dL (8.5-10.1); Carbon Dioxide 21 mmol/L (21-32); Chloride 94 mmol/L (98-108); Estimated Glomerular Filt Rate 26; Glucose 205 mg/dL (70-99); Osmolality Calculated 312 mOsm/kg (285-295); Potassium 3.3 mmol/L (3.5-5.1); Sodium 130 mmol/L (136-145); Total Protein 6.8 g/dL (6.4-8.2); Troponin I 38.8 ng/L (0.00-60.4)
[2020-10-21] MEDS: SODIUM CHLORIDE 0.9% IV 1,000 ML 999 ML (12:33)
--- NOTE | 2020-10-21 12:33 | PC.NURSE ---
1ST L NS INFUSED
--- NOTE | 2020-10-21 13:00 | PC.NURSE ---
OPEN INCISION TO LEFT STUMP COVERED WITH GAUZE
[2020-10-21 13:55] LABS: NT Pro B Type Natriuretic Pept 2419 pg/mL (0-125)
--- NOTE | 2020-10-21 14:01 | PM.IMHP ---
H&P: HPI History of Present Illness Date/Time: 10/21/20 14:01 this is a 55-year-old male presented to ED with altered mental status. Patient has a past medical history of cardiomyopathy, congestive heart failure, recent left BKA, COPD, CVA, gangrene of the left foot, heel ulcer due to diabetes, hyperlipidemia, hypertension, necrotic of toe, peripheral artery disease. Patient is a poor historian all information obtained through medical records patient is alert to self only. Blood pressure 92/52, pulse 88, oxygen 99 on 2 L nasal cannula, sodium 130, potassium 3.3, BUN 114, creatinine 2.58, glucose 205, lactic acid 1.0, AST 29, ALT 40, troponin 38.8, BNP 2419, chest x-ray unremarkable, EKG sinus rhythm with a heart rate of 78. Patient being admitted for sepsis encephalopathy/altered mental status/dehydration/acute on chronic kidney injury. Chief Complaint: AMS Review of Systems Review of Systems: ROS unobtainable: Yes unobtainable due to mental status PMFSH Past Medical History Medical History Cardiomyopathy CHF (congestive heart failure) Last echo in 01/05/20 showed an EF 30-35%, severe LVE, diastolic dysfunction (E/e' 24), mod LAE, mod MR, trace TR, RVSP 59 mmHg. 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 COPD (chronic obstructive pulmonary disease) CVA (cerebral vascular accident) Multiple strokes in the past Gangrene of left foot Heel ulcer due to DM Hyperlipidemia Hypertension Necrosis of toe Peripheral artery disease Toe fracture, right Type 2 diabetes mellitus Vascular dementia Surgical History Surgical History History of left below knee amputation Family History Family History Father Diabetes mellitus Family history of cardiovascular disease Mother Family history of malignant neoplasm Social History Social History Smoking packs per day: 1 Smoking cigarettes per day: 20.0 Years smoked: 48 Smoking pack-years: 48.00 Smoking status: Current every day smoker Tobacco type: cigarettes Second hand tobacco smoke exposure: Yes Alcohol intake: never Drinks per week: 14 Alcohol use details: occasional social drink Substance use: never Substance use type: does not use Additional living arrangements comments: Gender identity (if verbalized by the patient): Male Sexual Orientation (if Verbalized by the Patient): Straight or Heterosexual Spiritual care concerns: No Meds Home Medications and Allergies Home Medications Medication Instructions Recorded Confirmed Type atorvastatin 80 mg PO DAILY 08/05/20 10/21/20 History aspirin 81 mg PO DAILY 08/16/20 10/21/20 History carvedilol 6.25 mg PO BID 08/16/20 10/21/20 History blood sugar diagnostic [Blood #100 ea 09/03/20 10/21/20 Rx Glucose Test] blood-glucose meter [Blood Glucose #1 each 09/03/20 10/21/20 Rx Monitoring] insulin syringe-needle U-100 #100 ea 09/03/20 10/21/20 Rx gabapentin 300 mg capsule 600 mg PO TID 90 Days #540 cap 09/24/20 10/21/20 Rx lisinopril 5 mg tablet 5 mg PO DAILY #90 tablet 09/24/20 10/21/20 Rx clopidogrel [Plavix] 75 mg PO DAILY 10/21/20 10/21/20 History furosemide 40 mg PO DAILY 10/21/20 10/21/20 History metolazone 5 mg PO DAILY 10/21/20 10/21/20 History spironolactone 25 mg PO DAILY 10/21/20 10/21/20 History Allergies Allergy/AdvReac Type Severity Reaction Status Date / Time cephalexin Allergy Unknown Anaphylactic Verified 09/24/20 07:18 Shock clindamycin Allergy Unknown Unknown Verified 09/24/20 07:18 Sulfa (Sulfonamide Allergy Unknown Anaphylactic Verified 09/24/20 07:18 Antibiotics) Shock Vital Signs Vital Signs - 24 hr 10/21/20 11:35 10/21/20 13:07 10/21/20 13:43 Temperature 97.9 F Pulse Rate 78 77 88 Respiratory Rate 16 Blood
[2020-10-21] MEDS: KCL 20 MEQ/SW 100 ML 100 ML 50 MEQ IVPB ×2 (14:10→16:10)
[2020-10-21] MEDS: SODIUM CHLORIDE 0.9% IV 1,000 ML 75 ML IV CONT (14:10)
--- NOTE | 2020-10-21 14:55 | PC.NURSE ---
Pt admitted to room 203 from the ER. Pt brought medications to hospital . Medications stored in medication room. Pt is A/O x 3. Pt has several open areas on both cheeks of the buttocks, Left knee stump was necrotic areas and open areas. Photos taken and added to the chart. Pt refuses hopkins catheter at this time. RO
[2020-10-21 15:09] LABS: SARS-CoV-2 RNA PCR Negative (Negative)
[2020-10-21 16:59] LABS: Glucose Point of Care 308 mg/dl (65-105)
[2020-10-21] MEDS: PHARMACIST COMMUNICATION ORDER 1 EACH XX (17:18)
[2020-10-21] MEDS: GABAPENTIN 300 MG CAPSULE 600 MG PO (17:32)
[2020-10-21] MEDS: BUDESONIDE/FORMOTEROL (*SP) 160-4.5 MCG 6 GM INH 2 PUFF INHALATION (17:33)
[2020-10-21] MEDS: COLLAGENASE OINT 30 GM TUBE 1 APPLIC TOPICAL (21:46)
[2020-10-22] VITALS (8 sets, daily range): BP systolic 84–124; BP diastolic 47–66; PULSE 80–98; RESP 18–20; TEMP 36.4–37.6; O2SAT 95–100
[2020-10-22] MEDS: SODIUM CHLORIDE 0.9% IV 1,000 ML 75 ML IV CONT ×2 (00:21→16:14)
--- NOTE | 2020-10-22 04:00 | PC.NURSE ---
Patient's bed drenched with urine and he was also incontinent of a large loose bm. Incontinence care provided with creams applied. Spoke with patient again about hopkins catheter and he agreed to have it put in. Hopkins catheter inserted with 1600ml clear yellow urine returned. IV fluids infusing without difficulty to site in LFA. O2 continues @ 2 lpm/nc. Patient denies pain/complaints/needs @ this time. No distress noted. Call light in reach.
[2020-10-22 05:28] LABS: Hemoglobin 9.7 g/dL (14.0-18.0); Mean Corpuscular HGB Conc 33.4 g/dL (32.0-36.0); Mean Corpuscular Hemoglobin 31.6 pg (27.0-31.0); Mean Corpuscular Volume 94.5 fL (78.0-102.0); Mean Platelet Volume 10.1 fl (8.7-11.0); Platelet Count Result 413 K/mm3 (150-420); Red Blood Count 3.07 M/mm3 (4.70-6.10); Red Cell Distribution Width 12.6 % (11.6-14.4)
[2020-10-22 06:01] LABS: Alanine Aminotransferase 37 U/L (16-63); Albumin Level 1.9 g/dL (3.4-5.0); Alkaline Phosphatase 121 U/L (46-116); Aspartate Amino Transferase 30 U/L (15-37); Bilirubin,Total 0.2 mg/dL (0.00-1.00); Blood Urea Nitrogen 91 mg/dL (7-18); Calcium 8.1 mg/dL (8.5-10.1); Chloride 98 mmol/L (98-108); Estimated CRCL calculation 56 ml/min; Estimated Glomerular Filt Rate 46; Glucose 183 mg/dL (70-99); Hemoglobin A1C 7.6 % (<5.7); Magnesium 1.9 mg/dL (1.8-2.4); NT Pro B Type Natriuretic Pept 1400 pg/mL (0-125); Osmolality Calculated 307 mOsm/kg (285-295); Potassium 3.6 mmol/L (3.5-5.1); Sodium 132 mmol/L (136-145); Total Protein 6.3 g/dL (6.4-8.2)
[2020-10-22] MEDS: BUDESONIDE/FORMOTEROL (*SP) 160-4.5 MCG 6 GM INH 2 PUFF INHALATION ×2 (06:03→18:12)
[2020-10-22 06:05] LABS: Anion Gap 14 mmol/L (8-16); Carbon Dioxide 20 mmol/L (21-32)
[2020-10-22 08:16] LABS: Glucose Point of Care 197 mg/dl (65-105)
[2020-10-22] MEDS: ASPIRIN 81 MG ENTERIC TABLET PO (10:22)
[2020-10-22] MEDS: GABAPENTIN 300 MG CAPSULE 600 MG PO ×2 (10:22→16:36)
[2020-10-22] MEDS: COLLAGENASE OINT 30 GM TUBE 1 APPLIC TOPICAL ×2 (10:23→21:27)
[2020-10-22] MEDS: ATORVASTATIN 40 MG TABLET 80 MG PO (10:23)
[2020-10-22] MEDS: ENOXAPARIN 40 MG/0.4 ML SYRINGE SUB-Q (10:23)
[2020-10-22] MEDS: DOCUSATE SODIUM 100 MG CAPSULE PO ×2 (10:23→16:36)
[2020-10-22] MEDS: CLOPIDOGREL BISULFATE 75 MG TABLET PO (10:23)
[2020-10-22] MEDS: NEOMYCIN/POLYMYXIN/BACITRACIN OINTMENT 15 GM TUBE 1 APPLIC TOPICAL (10:24)
--- NOTE | 2020-10-22 11:34 | P.PNIM_ITS ---
Progress Note: A&P Assessment and Plan (1) Sepsis: Qualifiers: Sepsis acute organ dysfunction status: with acute organ dysfunction Sepsis type: sepsis due to unspecified organism Severe sepsis acute organ dysfunction type: encephalopathy Severe sepsis shock status: unspecified Qualified Code(s): A41.9 - Sepsis, unspecified organism; R65.20 - Severe sepsis without septic shock; G93.40 - Encephalopathy, unspecified <Luis An APN-C - Last Filed: 10/22/20 14:22> Code(s): A41.9 - Sepsis, unspecified organism <Luis ChrissSaulo An APN-C - Last Filed: 10/22/20 14:22> Status: Acute <Luis ChrissSaulo An APN-C - Last Filed: 10/22/20 14:22> Assessment and Plan: * Possibly secondary to wound infection * As evidence of hypotension and leukocytosis * Blood culture pending * Light IV hydration will cautiously administer due to patient's history of congestive heart failure * Lactic acid 1.0 10/22/2020 Currently on Vancomycin, Stool negative for C Diff, Wound Gram Positive Cocci and mixed lyudmila, Blood Cxs NGTD, Pt still with AMS this AM, VSS with low grade tamp at 99.2`F, IVF NS @ 75/h, obtaining CT of left knee r/o osteomyelitis <Luis An APN-C - Last Filed: 10/22/20 14:22> (2) Acute alteration in mental status: Code(s): R41.82 - Altered mental status, unspecified <Luis An APN-C - Last Filed: 10/22/20 14:22> Status: Acute <Luis An APN-C - Last Filed: 10/22/20 14:22> Assessment and Plan: * Possibly secondary to infection versus dementia * Patient is well-known to this facility he is known for his confusion * Will continue neurochecks 10/22/2020 Pt continues to be A&OX1, continue treating with Vancomycin, awaiting Sensitivity, CT Head Radiology IMPRESSION: 1. No acute intracranial process. 2. 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 3. Possible additional small old lacunar infarct versus prominent perivascular space at the inferior right basal ganglia. <LIA SimmonsC - Last Filed: 10/22/20 14:22> (3) Acute dehydration: Code(s): E86.0 - Dehydration <LIA SimmonsC - Last Filed: 10/22/20 14:22> Status: Acute <LIA SimmonsC - Last Filed: 10/22/20 14:22> Assessment and Plan: * Continue IV hydration due to his history of congestive heart failure 10/22/2020 Received 2 L NS in ER and currently NS @ 75/h with PO fluids, renal function improving, BNP coming down <REGULO Simmons - Last Filed: 10/22 14:22> (4) Chronic renal insufficiency: Code(s): N18.9 - Chronic kidney disease, unspecified <LIA SimmonsC - Last Filed: 10/22/20 14:22> Status: Acute <REGULO Simmons - Last Filed: 10/22/20 14:22> Assessment and Plan: * Acute on chronic * Patient's creatinine 2.58 baseline appears to be within normal limits * Possibly secondary to infection versus dehydration * Will cautiously complete a fluid challenge to see if his renal function improves * Renal dose all medication * Avoid nephrotoxic agent 10/22/2020 Vancomycin with pharmacy dosing and following, BNP coming down, Renal function improving <REGULO Simmons - Last Filed: 10/22/20 14:22> (5) Below-knee amputation of left lower extremity: Code(s): S88.112A - Complete traumatic amputation at level between knee and ankle, left lower leg, initial encounter <REGULO Simmons - Last Filed: 10/22/20 14:22> Status: Acute <DAVID Simmons
--- NOTE | 2020-10-22 11:34 | PM.IMPN ---
Progress Note: A&P Assessment and Plan (1) Sepsis: Qualifiers: Sepsis acute organ dysfunction status: with acute organ dysfunction Sepsis type: sepsis due to unspecified organism Severe sepsis acute organ dysfunction type: encephalopathy Severe sepsis shock status: unspecified Qualified Code(s): A41.9 - Sepsis, unspecified organism; R65.20 - Severe sepsis without septic shock; G93.40 - Encephalopathy, unspecified <REGULO Simmons - Last Filed: 10/22/20 14:22> Code(s): A41.9 - Sepsis, unspecified organism <Luis An APN-C - Last Filed: 10/22/20 14:22> Status: Acute <Luis An APN-Paulo - Last Filed: 10/22/20 14:22> Assessment and Plan: Possibly secondary to wound infection As evidence of hypotension and leukocytosis Blood culture pending Light IV hydration will cautiously administer due to patient's history of congestive heart failure Lactic acid 1.0 10/22/2020 Currently on Vancomycin, Stool negative for C Diff, Wound Gram Positive Cocci and mixed lyudmila, Blood Cxs NGTD, Pt still with AMS this AM, VSS with low grade tamp at 99.2`F, IVF NS @ 75/h, obtaining CT of left knee r/o osteomyelitis <REGULO Simmons - Last Filed: 10/22/20 14:22> (2) Acute alteration in mental status: Code(s): R41.82 - Altered mental status, unspecified <REGULO Simmons - Last Filed: 10/22/20 14:22> Status: Acute <Luis An APN-C - Last Filed: 10/22/20 14:22> Assessment and Plan: Possibly secondary to infection versus dementia Patient is well-known to this facility he is known for his confusion Will continue neurochecks 10/22/2020 Pt continues to be A&OX1, continue treating with Vancomycin, awaiting Sensitivity, CT Head Radiology IMPRESSION: 1. No acute intracranial process. 2. 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 3. Possible additional small old lacunar infarct versus prominent perivascular space at the inferior right basal ganglia. <Luis PeacockINGRID martinez-C - Last Filed: 10/22/20 14:22> (3) Acute dehydration: Code(s): E86.0 - Dehydration <Luis AnINGRID-C - Last Filed: 10/22/20 14:22> Status: Acute <Luis AnDAVIDN-C - Last Filed: 10/22/20 14:22> Assessment and Plan: Continue IV hydration due to his history of congestive heart failure 10/22/2020 Received 2 L NS in ER and currently NS @ 75/h with PO fluids, renal function improving, BNP coming down <Luis PeacockINGRID martinez-C - Last Filed: 10/22/20 14:22> (4) Chronic renal insufficiency: Code(s): N18.9 - Chronic kidney disease, unspecified <Luis PeacockINGRID martinez-C - Last Filed: 10/22/20 14:22> Status: Acute <Luis AnINGRID-C - Last Filed: 10/22/20 14:22> Assessment and Plan: Acute on chronic Patient's creatinine 2.58 baseline appears to be within normal limits Possibly secondary to infection versus dehydration Will cautiously complete a fluid challenge to see if his renal function improves Renal dose all medication Avoid nephrotoxic agent 10/22/2020 Vancomycin with pharmacy dosing and following, BNP coming down, Renal function improving <Luis PeacockINGRID martinez-C - Last Filed: 10/22/20 14:22> (5) Below-knee amputation of left lower extremity: Code(s): S88.112A - Complete traumatic amputation at level between knee and ankle, left lower leg, initial encounter <Luis PeacockINGRID martinez-C - Last Filed: 10/22/20 14:22> Status: Acute <Luis PeacockINGRID martinez-C - Last Filed: 10/22/20 14:22> Assessment and Plan: Surgical site with open area in eschar to site area affected Will continue IV antibiotics CT to rule out osteomyelitis 10/22/2020 <Luis BanerjeeSaulo An APN-C - Last Filed: 10/22/20 14:22> (6) Systolic heart failure: Qualifiers:
[2020-10-22 12:04] LABS: Glucose Point of Care 330 mg/dl (65-105)
--- NOTE | 2020-10-22 12:41 | PC.NURSE ---
1200 down and back from xray. use of slide sheets to getinto bed.
--- NOTE | 2020-10-22 16:03 | PC.NURSE ---
zehra doll aware of +blood cult and new ivabt.
[2020-10-22 16:24] LABS: Glucose Point of Care 333 mg/dl (65-105)
[2020-10-22] MEDS: levoFLOXacin 500 MG/D5W 100 ML 500 MG/100 ML BAG 100 MG IVPB (16:38)
[2020-10-22 20:59] LABS: Glucose Point of Care 291 mg/dl (65-105)
[2020-10-23] VITALS (10 sets, daily range): BP systolic 111–123; BP diastolic 58–80; PULSE 76–96; RESP 16–20; TEMP 36.4–36.8; O2SAT 96–98
[2020-10-23 05:14] LABS: Hematocrit 27.3 % (40.0-54.0); Hemoglobin 8.9 g/dL (14.0-18.0); Mean Corpuscular HGB Conc 32.6 g/dL (32.0-36.0); Mean Corpuscular Hemoglobin 31.2 pg (27.0-31.0); Mean Corpuscular Volume 95.8 fL (78.0-102.0); Mean Platelet Volume 9.7 fl (8.7-11.0); Platelet Count Result 438 K/mm3 (150-420); Red Blood Count 2.85 M/mm3 (4.70-6.10); Red Cell Distribution Width 12.7 % (11.6-14.4)
[2020-10-23 05:25] LABS: Anion Gap 13 mmol/L (8-16); Blood Urea Nitrogen 67 mg/dL (7-18); Calcium 8.2 mg/dL (8.5-10.1); Carbon Dioxide 21 mmol/L (21-32); Chloride 100 mmol/L (98-108); Estimated CRCL calculation 63 ml/min; Estimated Glomerular Filt Rate > 60; Glucose 172 mg/dL (70-99); Osmolality Calculated 301 mOsm/kg (285-295); Potassium 3.4 mmol/L (3.5-5.1); Sodium 134 mmol/L (136-145)
[2020-10-23] MEDS: BUDESONIDE/FORMOTEROL (*SP) 160-4.5 MCG 6 GM INH 2 PUFF INHALATION ×2 (05:54→09:39)
[2020-10-23 07:55] LABS: Glucose Point of Care 218 mg/dl (65-105)
--- NOTE | 2020-10-23 08:26 | P.PNIM_ITS ---
Progress Note: A&P Assessment and Plan (1) Sepsis: Qualifiers: Sepsis acute organ dysfunction status: with acute organ dysfunction Sepsis type: sepsis due to unspecified organism Severe sepsis acute organ dysfunction type: encephalopathy Severe sepsis shock status: unspecified Qualified Code(s): A41.9 - Sepsis, unspecified organism; R65.20 - Severe sepsis without septic shock; G93.40 - Encephalopathy, unspecified <Luis BanerjeeSaulo An APN-C - Last Filed: 10/23/20 12:39> Code(s): A41.9 - Sepsis, unspecified organism <Luis BanerjeeSaulo An REFUSE DRIVER-C - Last Filed: 10/23/20 12:39> Status: Acute <Luis BanerjeeSaulo An REFUSE DRIVER-C - Last Filed: 10/23/20 12:39> Assessment and Plan: * Possibly secondary to wound infection * As evidence of hypotension and leukocytosis * Blood culture pending * Light IV hydration will cautiously administer due to patient's history of congestive heart failure * Lactic acid 1.0 10/22/2020 Currently on Vancomycin, Stool negative for C Diff, Wound Gram Positive Cocci and mixed lyudmila, Blood Cxs NGTD, Pt still with AMS this AM, VSS with low grade tamp at 99.2`F, IVF NS @ 75/h, obtaining CT of left knee r/o osteomyelitis 10/23/2020 CT of knee: no osteolysis, abscess, small ulceration, continue with Vancomycin, Levaquin was added yesterday after noticing the Gram Positive Cocci, VSS, normothermic <Luis BanerjeeSaulo An APN-C - Last Filed: 10/23/20 12:39> (2) Acute alteration in mental status: Code(s): R41.82 - Altered mental status, unspecified <Luis BanerjeeSaulo An REFUSE DRIVER-C - Last Filed: 10/23/20 12:39> Status: Acute <Luis BanerjeeSaulo An APN-C - Last Filed: 10/23/20 12:39> Assessment and Plan: * Possibly secondary to infection versus dementia * Patient is well-known to this facility he is known for his confusion * Will continue neurochecks 10/22/2020 Pt continues to be A&OX1, continue treating with Vancomycin, awaiting Sensitivity, CT Head Radiology IMPRESSION: 1. No acute intracranial process. 2. 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 3. Possible additional small old lacunar infarct versus prominent perivascular space at the inferior right basal ganglia. 10/23/2020 No change, started Levaquin yesterday d/t wound Cx results, will continue to monitor mental status, though this Pt is usually confused <REGULO Simmons - Last Filed: 10/23/20 12:39> (3) Acute dehydration: Code(s): E86.0 - Dehydration <REGULO Simmons - Last Filed: 10/23/20 12:39> Status: Acute <Luis Jailene REGULO An - Last Filed: 10/23/20 12:39> Assessment and Plan: * Continue IV hydration due to his history of congestive heart failure 10/22/2020 Received 2 L NS in ER and currently NS @ 75/h with PO fluids, renal function improving, BNP coming down 10/23/2020 Renal function is good, making good amount of urine 2.02 ml/kg/h, DC'ing IVF <REGULO Simmons - Last Filed: 10/23/20 12:39> (4) Chronic renal insufficiency: Code(s): N18.9 - Chronic kidney disease, unspecified <REGULO Simmons - Last Filed: 10/23/20 12:39> Status: Acute <REGULO Simmons - Last Filed: 10/23/20 12:39> Assessment and Plan: * Acute on chronic * Patient's creatinine 2.58 baseline appears to be within normal limits * Possibly secondary to infection versus dehydration * Will cautiously complete a fluid challenge to see if his renal function improves * Renal dose all medication * Avoid nephrotoxic agent 10/22/2020 Vancomycin with pharmacy
--- NOTE | 2020-10-23 08:26 | PM.IMPN ---
Progress Note: A&P Assessment and Plan (1) Sepsis: Qualifiers: Sepsis acute organ dysfunction status: with acute organ dysfunction Sepsis type: sepsis due to unspecified organism Severe sepsis acute organ dysfunction type: encephalopathy Severe sepsis shock status: unspecified Qualified Code(s): A41.9 - Sepsis, unspecified organism; R65.20 - Severe sepsis without septic shock; G93.40 - Encephalopathy, unspecified <Luis An APN-C - Last Filed: 10/23/20 12:39> Code(s): A41.9 - Sepsis, unspecified organism <Luis An APN-C - Last Filed: 10/23/20 12:39> Status: Acute <Luis An APN-C - Last Filed: 10/23/20 12:39> Assessment and Plan: Possibly secondary to wound infection As evidence of hypotension and leukocytosis Blood culture pending Light IV hydration will cautiously administer due to patient's history of congestive heart failure Lactic acid 1.0 10/22/2020 Currently on Vancomycin, Stool negative for C Diff, Wound Gram Positive Cocci and mixed lyudmila, Blood Cxs NGTD, Pt still with AMS this AM, VSS with low grade tamp at 99.2`F, IVF NS @ 75/h, obtaining CT of left knee r/o osteomyelitis 10/23/2020 CT of knee: no osteolysis, abscess, small ulceration, continue with Vancomycin, Levaquin was added yesterday after noticing the Gram Positive Cocci, VSS, normothermic <Luis An APN-C - Last Filed: 10/23/20 12:39> (2) Acute alteration in mental status: Code(s): R41.82 - Altered mental status, unspecified <Luis An APN-C - Last Filed: 10/23/20 12:39> Status: Acute <Luis An APN-C - Last Filed: 10/23/20 12:39> Assessment and Plan: Possibly secondary to infection versus dementia Patient is well-known to this facility he is known for his confusion Will continue neurochecks 10/22/2020 Pt continues to be A&OX1, continue treating with Vancomycin, awaiting Sensitivity, CT Head Radiology IMPRESSION: 1. No acute intracranial process. 2. 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 3. Possible additional small old lacunar infarct versus prominent perivascular space at the inferior right basal ganglia. 10/23/2020 No change, started Levaquin yesterday d/t wound Cx results, will continue to monitor mental status, though this Pt is usually confused <REGULO Simmons - Last Filed: 10/23/20 12:39> (3) Acute dehydration: Code(s): E86.0 - Dehydration <Luis Dent INGRID An-C - Last Filed: 10/23/20 12:39> Status: Acute <Luis Dent REGULO An - Last Filed: 10/23/20 12:39> Assessment and Plan: Continue IV hydration due to his history of congestive heart failure 10/22/2020 Received 2 L NS in ER and currently NS @ 75/h with PO fluids, renal function improving, BNP coming down 10/23/2020 Renal function is good, making good amount of urine 2.02 ml/kg/h, DC'ing IVF <Luis ChrissSaulo An APN-C - Last Filed: 10/23/20 12:39> (4) Chronic renal insufficiency: Code(s): N18.9 - Chronic kidney disease, unspecified <Luis ChrissSaulo An APN-C - Last Filed: 10/23/20 12:39> Status: Acute <Luis BanerjeeREGULO Lawler - Last Filed: 10/23/20 12:39> Assessment and Plan: Acute on chronic Patient's creatinine 2.58 baseline appears to be within normal limits Possibly secondary to infection versus dehydration Will cautiously complete a fluid challenge to see if his renal function improves Renal dose all medication Avoid nephrotoxic agent 10/22/2020 Vancomycin with pharmacy dosing and following, BNP coming down, Renal function improving 10/23/2020 Renal function is good, BUN 67, Cr 1.19, eCrCL 63, cGFR > 60, DC'ing IVF <Luis ChrissSaulo nA APN-C - Last Filed: 10/23/20 12:39> (5) Below-knee amputation of left lower extremity: Code(s): S88.112A - Complete traumatic amputation a
[2020-10-23] MEDS: NEOMYCIN/POLYMYXIN/BACITRACIN OINTMENT 15 GM TUBE 1 APPLIC TOPICAL (09:00)
[2020-10-23] MEDS: ENOXAPARIN 40 MG/0.4 ML SYRINGE SUB-Q (09:36)
[2020-10-23] MEDS: CLOPIDOGREL BISULFATE 75 MG TABLET PO (09:37)
[2020-10-23] MEDS: GABAPENTIN 300 MG CAPSULE 600 MG PO ×2 (09:37→16:52)
[2020-10-23] MEDS: ASPIRIN 81 MG ENTERIC TABLET PO (09:37)
[2020-10-23] MEDS: ATORVASTATIN 40 MG TABLET 80 MG PO (09:38)
[2020-10-23] MEDS: DOCUSATE SODIUM 100 MG CAPSULE PO ×2 (09:39→16:52)
[2020-10-23 11:44] LABS: Glucose Point of Care 269 mg/dl (65-105)
[2020-10-23] MEDS: COLLAGENASE OINT 30 GM TUBE 1 APPLIC TOPICAL ×2 (13:22→22:10)
[2020-10-23] MEDS: traMADol HCL (*CRX) 25 MG TABLET PO (13:24)
[2020-10-23] MEDS: levoFLOXacin 500 MG/D5W 100 ML 500 MG/100 ML BAG 100 MG IVPB (16:53)
[2020-10-23 17:04] LABS: Glucose Point of Care 263 mg/dl (65-105)
[2020-10-23 21:13] LABS: Glucose Point of Care 327 mg/dl (65-105)
[2020-10-24] VITALS: BP 118/71; PULSE 77; RESP 20; TEMP 36.1; O2SAT 97
[2020-10-24 04:20] VITALS: BP 115/69; PULSE 83; PULSE 97; RESP 18; TEMP 36.1; O2SAT 92
[2020-10-24 05:44] LABS: Hematocrit 29.4 % (40.0-54.0); Hemoglobin 9.4 g/dL (14.0-18.0); Mean Corpuscular Hemoglobin 30.7 pg (27.0-31.0); Mean Corpuscular Volume 96.1 fL (78.0-102.0); Mean Platelet Volume 9.2 fl (8.7-11.0); Platelet Count Result 439 K/mm3 (150-420); Red Blood Count 3.06 M/mm3 (4.70-6.10); Red Cell Distribution Width 12.6 % (11.6-14.4); White Blood Count 18.2 K/mm3 (4.8-10.8)
[2020-10-24] MEDS: BUDESONIDE/FORMOTEROL (*SP) 160-4.5 MCG 6 GM INH 2 PUFF INHALATION ×2 (05:45→17:08)
[2020-10-24 06:03] LABS: Anion Gap 10 mmol/L (8-16); Blood Urea Nitrogen 46 mg/dL (7-18); Calcium 8.3 mg/dL (8.5-10.1); Carbon Dioxide 24 mmol/L (21-32); Chloride 100 mmol/L (98-108); Estimated CRCL calculation 73 ml/min; Estimated Glomerular Filt Rate > 60; Glucose 193 mg/dL (70-99); Osmolality Calculated 294 mOsm/kg (285-295); Potassium 4.1 mmol/L (3.5-5.1); Sodium 134 mmol/L (136-145)
[2020-10-24 07:44] LABS: Glucose Point of Care 209 mg/dl (65-105)
[2020-10-24 08:00] VITALS: BP 118/65; PULSE 79; PULSE 83; RESP 18; TEMP 36.9; O2SAT 97
--- NOTE | 2020-10-24 08:18 | PM.IMPN ---
Progress Note: A&P Assessment and Plan (1) Sepsis: Qualifiers: Sepsis acute organ dysfunction status: with acute organ dysfunction Sepsis type: sepsis due to unspecified organism Severe sepsis acute organ dysfunction type: encephalopathy Severe sepsis shock status: unspecified Qualified Code(s): A41.9 - Sepsis, unspecified organism; R65.20 - Severe sepsis without septic shock; G93.40 - Encephalopathy, unspecified Code(s): A41.9 - Sepsis, unspecified organism Status: Acute Assessment and Plan: Possibly secondary to wound infection As evidence of hypotension and leukocytosis Blood culture pending Light IV hydration will cautiously administer due to patient's history of congestive heart failure Lactic acid 1.0 10/22/2020 Currently on Vancomycin, Stool negative for C Diff, Wound Gram Positive Cocci and mixed lyudmila, Blood Cxs NGTD, Pt still with AMS this AM, VSS with low grade tamp at 99.2`F, IVF NS @ 75/h, obtaining CT of left knee r/o osteomyelitis 10/23/2020 CT of knee: no osteolysis, abscess, small ulceration, continue with Vancomycin, Levaquin was added yesterday after noticing the Gram Positive Cocci, VSS, normothermic 10/24/2020 continue with antibiotics, VSS, WBC ^18.2, will debride as much of the eschar as tolerable by the Pt tomorrow. (2) Acute alteration in mental status: Code(s): R41.82 - Altered mental status, unspecified Status: Acute Assessment and Plan: Possibly secondary to infection versus dementia Patient is well-known to this facility he is known for his confusion Will continue neurochecks 10/22/2020 Pt continues to be A&OX1, continue treating with Vancomycin, awaiting Sensitivity, CT Head Radiology IMPRESSION: 1. No acute intracranial process. 2. 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 3. Possible additional small old lacunar infarct versus prominent perivascular space at the inferior right basal ganglia. 10/23/2020 No change, started Levaquin yesterday d/t wound Cx results, will continue to monitor mental status, though this Pt is usually confused 10/24/2020 Pt is at his baseline after talking with staff who know this Pt well (3) Acute dehydration: Code(s): E86.0 - Dehydration Status: Acute Assessment and Plan: Continue IV hydration due to his history of congestive heart failure 10/22/2020 Received 2 L NS in ER and currently NS @ 75/h with PO fluids, renal function improving, BNP coming down 10/23/2020 Renal function is good, making good amount of urine 2.02 ml/kg/h, DC'ing IVF 10/24/2020 taking PO fluids well, 2.75 ml/kg/h (4) Chronic renal insufficiency: Code(s): N18.9 - Chronic kidney disease, unspecified Status: Acute Assessment and Plan: Acute on chronic Patient's creatinine 2.58 baseline appears to be within normal limits Possibly secondary to infection versus dehydration Will cautiously complete a fluid challenge to see if his renal function improves Renal dose all medication Avoid nephrotoxic agent 10/22/2020 Vancomycin with pharmacy dosing and following, BNP coming down, Renal function improving 10/23/2020 Renal function is good, BUN 67, Cr 1.19, eCrCL 63, cGFR > 60, DC'ing IVF 10/24/2020 Cr 1.03, making good urine (5) Below-knee amputation of left lower extremity: Code(s): S88.112A - Complete traumatic amputation at level between knee and ankle, left lower leg, initial encounter Status: Acute Assessment and Plan: Surgical site with open area in eschar to site area affected Will continue IV antibiotics CT to rule out osteomyelitis 10/23/2020 Santyl for wound, added Levaquin 10/24/2020 will debride wounds as much as tolerable by the Pt tomorrow (6) Systolic heart failure: Qualifiers: Heart failure chronicity: acute on chronic Qualified Code(s): I50.23 - Acute on chronic systolic (congestive) h
[2020-10-24] MEDS: NEOMYCIN/POLYMYXIN/BACITRACIN OINTMENT 15 GM TUBE 1 APPLIC TOPICAL (09:06)
[2020-10-24] MEDS: ENOXAPARIN 40 MG/0.4 ML SYRINGE SUB-Q (09:06)
[2020-10-24] MEDS: ATORVASTATIN 40 MG TABLET 80 MG PO (09:07)
[2020-10-24] MEDS: CLOPIDOGREL BISULFATE 75 MG TABLET PO (09:07)
[2020-10-24] MEDS: DOCUSATE SODIUM 100 MG CAPSULE PO ×2 (09:07→17:03)
[2020-10-24] MEDS: GABAPENTIN 300 MG CAPSULE 600 MG PO ×2 (09:07→17:03)
[2020-10-24] MEDS: ASPIRIN 81 MG ENTERIC TABLET PO (09:07)
[2020-10-24] MEDS: COLLAGENASE OINT 30 GM TUBE 1 APPLIC TOPICAL ×2 (09:10→20:19)
[2020-10-24 12:00] VITALS: BP 118/70; PULSE 81; PULSE 84; RESP 18; TEMP 36.6; O2SAT 97
[2020-10-24 12:42] LABS: Glucose Point of Care 254 mg/dl (65-105)
[2020-10-24] MEDS: SACCHAROMYCES BOULARDII 250 MG CAPSULE PO ×2 (12:52→17:16)
[2020-10-24 15:41] VITALS: BP 134/61; PULSE 74; PULSE 77; RESP 18; TEMP 37.1; O2SAT 95
[2020-10-24] MEDS: levoFLOXacin 500 MG/D5W 100 ML 500 MG/100 ML BAG 100 MG IVPB (17:02)
[2020-10-24 17:13] LABS: Glucose Point of Care 196 mg/dl (65-105)
[2020-10-24 17:25] LABS: Vancomycin Trough 11.2 ug/mL (10.0-15.0)
[2020-10-24 20:00] VITALS: BP 122/61; PULSE 76; RESP 18; TEMP 36.9; O2SAT 97
[2020-10-24 20:37] LABS: Glucose Point of Care 326 mg/dl (65-105)
[2020-10-25] VITALS: BP 129/66; PULSE 77; RESP 18; TEMP 37.1; O2SAT 97
[2020-10-25 04:00] VITALS: BP 133/70; PULSE 81; RESP 18; TEMP 36.7; O2SAT 98
[2020-10-25 05:26] LABS: Hematocrit 29.2 % (40.0-54.0); Hemoglobin 9.5 g/dL (14.0-18.0); Mean Corpuscular HGB Conc 32.5 g/dL (32.0-36.0); Mean Corpuscular Hemoglobin 31.3 pg (27.0-31.0); Mean Corpuscular Volume 96.1 fL (78.0-102.0); Platelet Count Result 457 K/mm3 (150-420); Red Blood Count 3.04 M/mm3 (4.70-6.10); Red Cell Distribution Width 12.5 % (11.6-14.4); White Blood Count 15.1 K/mm3 (4.8-10.8)
[2020-10-25] MEDS: BUDESONIDE/FORMOTEROL (*SP) 160-4.5 MCG 6 GM INH 2 PUFF INHALATION ×2 (05:36→17:52)
[2020-10-25 05:38] LABS: Anion Gap 10 mmol/L (8-16); Blood Urea Nitrogen 34 mg/dL (7-18); Calcium 8.4 mg/dL (8.5-10.1); Carbon Dioxide 25 mmol/L (21-32); Chloride 101 mmol/L (98-108); Estimated CRCL calculation 84 ml/min; Estimated Glomerular Filt Rate > 60; Glucose 214 mg/dL (70-99); Osmolality Calculated 295 mOsm/kg (285-295); Potassium 4.3 mmol/L (3.5-5.1); Sodium 136 mmol/L (136-145)
[2020-10-25 08:00] VITALS: BP 133/72; PULSE 85; PULSE 86; RESP 18; TEMP 36.6; O2SAT 96
[2020-10-25 08:26] LABS: Glucose Point of Care 254 mg/dl (65-105)
[2020-10-25] MEDS: ENOXAPARIN 40 MG/0.4 ML SYRINGE SUB-Q (09:11)
[2020-10-25] MEDS: ASPIRIN 81 MG ENTERIC TABLET PO (09:11)
[2020-10-25] MEDS: GABAPENTIN 300 MG CAPSULE 600 MG PO ×2 (09:12→17:48)
[2020-10-25] MEDS: ATORVASTATIN 40 MG TABLET 80 MG PO (09:12)
[2020-10-25] MEDS: DOCUSATE SODIUM 100 MG CAPSULE PO ×2 (09:12→17:48)
[2020-10-25] MEDS: SACCHAROMYCES BOULARDII 250 MG CAPSULE PO ×3 (09:12→17:48)
[2020-10-25] MEDS: CLOPIDOGREL BISULFATE 75 MG TABLET PO (09:12)
[2020-10-25] MEDS: NEOMYCIN/POLYMYXIN/BACITRACIN OINTMENT 15 GM TUBE 1 APPLIC TOPICAL (09:13)
[2020-10-25] MEDS: COLLAGENASE OINT 30 GM TUBE 1 APPLIC TOPICAL (09:18)
[2020-10-25 11:58] LABS: Glucose Point of Care 300 mg/dl (65-105)
[2020-10-25 12:00] VITALS: BP 119/57; PULSE 84; PULSE 89; RESP 18; TEMP 36.6; O2SAT 97
--- NOTE | 2020-10-25 14:50 | PM.IMPN ---
Progress Note: A&P Assessment and Plan (1) Sepsis: Qualifiers: Sepsis acute organ dysfunction status: with acute organ dysfunction Sepsis type: sepsis due to unspecified organism Severe sepsis acute organ dysfunction type: encephalopathy Severe sepsis shock status: unspecified Qualified Code(s): A41.9 - Sepsis, unspecified organism; R65.20 - Severe sepsis without septic shock; G93.40 - Encephalopathy, unspecified <Luis An ACTIVITIES COORDINATOR-C - Last Filed: 10/25/20 15:09> Code(s): A41.9 - Sepsis, unspecified organism <Luis SSaulo An ACTIVITIES COORDINATOR-C - Last Filed: 10/25/20 15:09> Status: Acute <Luis SSaulo An ACTIVITIES COORDINATOR-C - Last Filed: 10/25/20 15:09> Assessment and Plan: Possibly secondary to wound infection As evidence of hypotension and leukocytosis Blood culture pending Light IV hydration will cautiously administer due to patient's history of congestive heart failure Lactic acid 1.0 10/22/2020 Currently on Vancomycin, Stool negative for C Diff, Wound Gram Positive Cocci and mixed lyudmila, Blood Cxs NGTD, Pt still with AMS this AM, VSS with low grade tamp at 99.2`F, IVF NS @ 75/h, obtaining CT of left knee r/o osteomyelitis 10/23/2020 CT of knee: no osteolysis, abscess, small ulceration, continue with Vancomycin, Levaquin was added yesterday after noticing the Gram Positive Cocci, VSS, normothermic 10/24/2020 continue with antibiotics, VSS, WBC ^18.2, will debride as much of the eschar as tolerable by the Pt tomorrow. 10/25/2020 continue Ab, WBC v 15.1, staff unable to get consent from for debridement, will try again later, VSS, afebrile <Luis An ACTIVITIES COORDINATOR-C - Last Filed: 10/25/20 15:09> (2) Acute alteration in mental status: Code(s): R41.82 - Altered mental status, unspecified <Luis An ACTIVITIES COORDINATOR-C - Last Filed: 10/25/20 15:09> Status: Acute <Luis Jailene An ACTIVITIES COORDINATOR-C - Last Filed: 10/25/20 15:09> Assessment and Plan: Possibly secondary to infection versus dementia Patient is well-known to this facility he is known for his confusion Will continue neurochecks 10/22/2020 Pt continues to be A&OX1, continue treating with Vancomycin, awaiting Sensitivity, CT Head Radiology IMPRESSION: 1. No acute intracranial process. 2. 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 3. Possible additional small old lacunar infarct versus prominent perivascular space at the inferior right basal ganglia. 10/23/2020 No change, started Levaquin yesterday d/t wound Cx results, will continue to monitor mental status, though this Pt is usually confused 10/24/2020 Pt is at his baseline after talking with staff who know this Pt well 10/25/2020 No change <REGULO Simmons - Last Filed: 10/25/20 15:09> (3) Acute dehydration: Code(s): E86.0 - Dehydration <REGULO Simmons - Last Filed: 10/25/20 15:09> Status: Acute <REGULO Simmons - Last Filed: 10/25/20 15:09> Assessment and Plan: Continue IV hydration due to his history of congestive heart failure 10/22/2020 Received 2 L NS in ER and currently NS @ 75/h with PO fluids, renal function improving, BNP coming down 10/23/2020 Renal function is good, making good amount of urine 2.02 ml/kg/h, DC'ing IVF 10/24/2020 taking PO fluids well, 2.75 ml/kg/h 10/25/2020 Urinary output 2.52 ml/kg/h, resolved <REGULO Simmons - Last Filed: 10/25/20 15:09> (4) Acute renal failure: Qualifiers: Acute renal failure type: unspecified Qualified Code(s): N17.9 - Acute kidney failure, unspecified <REGULO Simmons - Last Filed: 10/25/20 15:09> Code(s): N17.9 - Acute kidney failure, unspecified <REGULO Simmons - Last Filed: 10/25/20 15:09> Status: Acute <REGULO Simmons - Last Filed: 10/25/20 15:09> Assessment and Plan: 10/22/2020 [facility]
[2020-10-25 16:00] VITALS: BP 121/58; PULSE 75; PULSE 76; RESP 18; TEMP 36.9; O2SAT 99
[2020-10-25 17:35] LABS: Glucose Point of Care 247 mg/dl (65-105)
[2020-10-25] MEDS: levoFLOXacin 500 MG/D5W 100 ML 500 MG/100 ML BAG 100 MG IVPB (17:50)
[2020-10-26] VITALS: BP 127/62; PULSE 74; RESP 18; TEMP 36.3; O2SAT 97
[2020-10-26 00:26] LABS: Glucose Point of Care 214 mg/dl (65-105)
[2020-10-26 05:14] LABS: Hematocrit 29.2 % (40.0-54.0); Hemoglobin 9.8 g/dL (14.0-18.0); Mean Corpuscular HGB Conc 33.6 g/dL (32.0-36.0); Mean Corpuscular Hemoglobin 32.3 pg (27.0-31.0); Mean Corpuscular Volume 96.4 fL (78.0-102.0); Mean Platelet Volume 9.1 fl (8.7-11.0); Platelet Count Result 457 K/mm3 (150-420); Red Blood Count 3.03 M/mm3 (4.70-6.10); Red Cell Distribution Width 12.4 % (11.6-14.4); White Blood Count 13.8 K/mm3 (4.8-10.8)
[2020-10-26 05:26] LABS: Anion Gap 12 mmol/L (8-16); Blood Urea Nitrogen 29 mg/dL (7-18); Calcium 8.3 mg/dL (8.5-10.1); Carbon Dioxide 25 mmol/L (21-32); Chloride 99 mmol/L (98-108); Estimated CRCL calculation 87 ml/min; Estimated Glomerular Filt Rate > 60; Glucose 203 mg/dL (70-99); Osmolality Calculated 293 mOsm/kg (285-295); Potassium 4.3 mmol/L (3.5-5.1); Sodium 136 mmol/L (136-145)
[2020-10-26] MEDS: BUDESONIDE/FORMOTEROL (*SP) 160-4.5 MCG 6 GM INH 2 PUFF INHALATION ×2 (06:05→19:04)
[2020-10-26 07:56] LABS: Glucose Point of Care 224 mg/dl (65-105)
[2020-10-26 08:00] VITALS: BP 125/60; PULSE 75; RESP 20; TEMP 36.6; O2SAT 96
[2020-10-26] MEDS: ENOXAPARIN 40 MG/0.4 ML SYRINGE SUB-Q (09:19)
[2020-10-26] MEDS: SACCHAROMYCES BOULARDII 250 MG CAPSULE PO ×3 (09:20→17:04)
[2020-10-26] MEDS: ATORVASTATIN 40 MG TABLET 80 MG PO (09:20)
[2020-10-26] MEDS: COLLAGENASE OINT 30 GM TUBE 1 APPLIC TOPICAL (09:20)
[2020-10-26] MEDS: CLOPIDOGREL BISULFATE 75 MG TABLET PO (09:20)
[2020-10-26] MEDS: ASPIRIN 81 MG ENTERIC TABLET PO (09:20)
[2020-10-26] MEDS: NEOMYCIN/POLYMYXIN/BACITRACIN OINTMENT 15 GM TUBE 1 APPLIC TOPICAL (09:20)
[2020-10-26] MEDS: GABAPENTIN 300 MG CAPSULE 600 MG PO ×2 (09:20→17:04)
[2020-10-26 12:16] LABS: Glucose Point of Care 328 mg/dl (65-105)
--- NOTE | 2020-10-26 14:55 | WPDPROCEDUR ---
Procedures Other Procedures Procedure 1: Other Procedure: Debridement Left Stump Wound: 1422 hours. Using a number 15 blade the Eschar tissue was removed as much as tolerable for the Pt. A small amount of eschar tissues remains to the medial aspect of the stump wound. Depth approximately 0.4 cm. Less than 1cc blood loss. Sight was then dressed by the bedside nurse. Pt tolerated this well. Debridement of Right Dorsum Foot Wound: 1440 hours. Using a number 15 blade the Eschar tissue was removed from the dorsum of the right foot. Pt tolerated this very well. Depth approximately 0.7cm. Less than 1cc blood loss. Sight was then dressed by the bedside nurse.
[2020-10-26] MEDS: traMADol HCL (*CRX) 25 MG TABLET PO (15:15)
[2020-10-26 16:00] VITALS: BP 114/61; PULSE 91; RESP 16; TEMP 37.1; O2SAT 96
[2020-10-26 16:43] LABS: Glucose Point of Care 253 mg/dl (65-105)
[2020-10-26] MEDS: DOCUSATE SODIUM 100 MG CAPSULE PO (17:04)
[2020-10-26] MEDS: levoFLOXacin 500 MG/D5W 100 ML 500 MG/100 ML BAG 100 MG IVPB (17:47)
[2020-10-26] MEDS: ACETAMINOPHEN 325 MG TABLET 650 MG PO (20:32)
[2020-10-26] MEDS: traZODone HCL 50 MG TABLET PO (20:33)
[2020-10-26 20:46] LABS: Glucose Point of Care 283 mg/dl (65-105)
[2020-10-27] VITALS: BP 116/63; PULSE 66; RESP 18; TEMP 36.2; O2SAT 97
[2020-10-27 05:52] LABS: Hematocrit 29.8 % (40.0-54.0); Hemoglobin 9.6 g/dL (14.0-18.0); Mean Corpuscular HGB Conc 32.2 g/dL (32.0-36.0); Mean Corpuscular Hemoglobin 31.6 pg (27.0-31.0); Mean Platelet Volume 8.9 fl (8.7-11.0); Platelet Count Result 462 K/mm3 (150-420); Red Blood Count 3.04 M/mm3 (4.70-6.10); Red Cell Distribution Width 12.5 % (11.6-14.4); White Blood Count 11.5 K/mm3 (4.8-10.8)
[2020-10-27] MEDS: BUDESONIDE/FORMOTEROL (*SP) 160-4.5 MCG 6 GM INH 2 PUFF INHALATION ×2 (05:57→19:37)
[2020-10-27 08:00] VITALS: BP 108/86; PULSE 110; RESP 22; TEMP 36.8; O2SAT 100
[2020-10-27 08:05] LABS: Glucose Point of Care 205 mg/dl (65-105)
[2020-10-27 09:12] LABS: Potassium 4.4 mmol/L (3.5-5.1); Sodium 131 mmol/L (136-145)
[2020-10-27 09:13] LABS: Anion Gap 5 mmol/L (8-16); Blood Urea Nitrogen 31 mg/dL (7-18); Calcium 8.5 mg/dL (8.5-10.1); Carbon Dioxide 27 mmol/L (21-32); Chloride 99 mmol/L (98-108); Estimated CRCL calculation 92 ml/min; Estimated Glomerular Filt Rate > 60; Glucose 174 mg/dL (70-99); Osmolality Calculated 282 mOsm/kg (285-295)
[2020-10-27] MEDS: COLLAGENASE OINT 30 GM TUBE 1 APPLIC TOPICAL ×3 (09:49→21:01)
[2020-10-27] MEDS: ENOXAPARIN 40 MG/0.4 ML SYRINGE SUB-Q (09:51)
[2020-10-27] MEDS: SACCHAROMYCES BOULARDII 250 MG CAPSULE PO ×3 (09:51→17:04)
[2020-10-27] MEDS: NEOMYCIN/POLYMYXIN/BACITRACIN OINTMENT 15 GM TUBE 1 APPLIC TOPICAL (09:52)
[2020-10-27] MEDS: ASPIRIN 81 MG ENTERIC TABLET PO (09:52)
[2020-10-27] MEDS: CLOPIDOGREL BISULFATE 75 MG TABLET PO (09:52)
[2020-10-27] MEDS: ATORVASTATIN 40 MG TABLET 80 MG PO (09:52)
[2020-10-27] MEDS: GABAPENTIN 300 MG CAPSULE 600 MG PO ×2 (09:52→17:03)
[2020-10-27 11:56] LABS: Glucose Point of Care 284 mg/dl (65-105)
--- NOTE | 2020-10-27 14:19 | PM.IMPN ---
Progress Note: A&P Assessment and Plan (1) Sepsis: Qualifiers: Sepsis acute organ dysfunction status: with acute organ dysfunction Sepsis type: sepsis due to unspecified organism Severe sepsis acute organ dysfunction type: encephalopathy Severe sepsis shock status: unspecified Qualified Code(s): A41.9 - Sepsis, unspecified organism; R65.20 - Severe sepsis without septic shock; G93.40 - Encephalopathy, unspecified <Luis An APN-C - Last Filed: 10/27/20 14:55> Code(s): A41.9 - Sepsis, unspecified organism <Luis An APN-C - Last Filed: 10/27/20 14:55> Status: Acute <Luis An APN-C - Last Filed: 10/27/20 14:55> Assessment and Plan: Possibly secondary to wound infection As evidence of hypotension and leukocytosis Blood culture pending Light IV hydration will cautiously administer due to patient's history of congestive heart failure Lactic acid 1.0 10/22/2020 Currently on Vancomycin, Stool negative for C Diff, Wound Gram Positive Cocci and mixed lyudmila, Blood Cxs NGTD, Pt still with AMS this AM, VSS with low grade tamp at 99.2`F, IVF NS @ 75/h, obtaining CT of left knee r/o osteomyelitis 10/23/2020 CT of knee: no osteolysis, abscess, small ulceration, continue with Vancomycin, Levaquin was added yesterday after noticing the Gram Positive Cocci, VSS, normothermic 10/24/2020 continue with antibiotics, VSS, WBC ^18.2, will debride as much of the eschar as tolerable by the Pt tomorrow. 10/25/2020 continue Ab, WBC v 15.1, staff unable to get consent from for debridement, will try again later, VSS, afebrile 10/26/2020 Continue Levaquin and Vancomycin, WBC v13.8, H/H 9.8/29.2, Consent from for Debridement obtained, VSS, Afebrile 10/27/2020 Continue with Ab, WBC v11.5, H/H 9.6/29.8, VSS, Afebrile <Luis An APN-C - Last Filed: 10/27/20 14:55> (2) Acute alteration in mental status: Code(s): R41.82 - Altered mental status, unspecified <REGULO Simmons - Last Filed: 10/27/20 14:55> Status: Acute <REGULO Simmons - Last Filed: 10/27/20 14:55> Assessment and Plan: Possibly secondary to infection versus dementia Patient is well-known to this facility he is known for his confusion Will continue neurochecks 10/22/2020 Pt continues to be A&OX1, continue treating with Vancomycin, awaiting Sensitivity, CT Head Radiology IMPRESSION: 1. No acute intracranial process. 2. 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 3. Possible additional small old lacunar infarct versus prominent perivascular space at the inferior right basal ganglia. 10/23/2020 No change, started Levaquin yesterday d/t wound Cx results, will continue to monitor mental status, though this Pt is usually confused 10/24/2020 Pt is at his baseline after talking with staff who know this Pt well 10/25/2020 No change 10/26/2020 Pt at baseline 10/27/2020 ... <REGULO Simmons - Last Filed: 10/27/20 14:55> (3) Acute dehydration: Code(s): E86.0 - Dehydration <REGULO Simmons - Last Filed: 10/27/20 14:55> Status: Acute <REGULO Simmons - Last Filed: 10/27/20 14:55> Assessment and Plan: Continue IV hydration due to his history of congestive heart failure 10/22/2020 Received 2 L NS in ER and currently NS @ 75/h with PO fluids, renal function improving, BNP coming down 10/23/2020 Renal function is good, making good amount of urine 2.02 ml/kg/h, DC'ing IVF 10/24/2020 taking PO fluids well, 2.75 ml/kg/h 10/25/2020 Urinary output 2.52 ml/kg/h, resolved 10/26/2020 ... <REGULO Simmons - Last Filed: 10/27/20 14:55> (4) Acute renal failure: Qualifiers: Acute renal failure type: unspecified Qualified Code(s): N17.9 - Acute kidney failure, unspecified <REGULO Simmons - Last Filed: 10/27/20 14:55> Code(s):
--- NOTE | 2020-10-27 14:29 | PM.IMPN ---
Progress Note: A&P Assessment and Plan (1) Sepsis: Qualifiers: Sepsis type: sepsis due to unspecified organism Sepsis acute organ dysfunction status: with acute organ dysfunction Severe sepsis acute organ dysfunction type: encephalopathy Severe sepsis shock status: unspecified Qualified Code(s): A41.9 - Sepsis, unspecified organism; R65.20 - Severe sepsis without septic shock; G93.40 - Encephalopathy, unspecified Code(s): A41.9 - Sepsis, unspecified organism Status: Acute Assessment and Plan: Possibly secondary to wound infection As evidence of hypotension and leukocytosis Blood culture pending Light IV hydration will cautiously administer due to patient's history of congestive heart failure Lactic acid 1.0 10/22/2020 Currently on Vancomycin, Stool negative for C Diff, Wound Gram Positive Cocci and mixed lyudmila, Blood Cxs NGTD, Pt still with AMS this AM, VSS with low grade tamp at 99.2`F, IVF NS @ 75/h, obtaining CT of left knee r/o osteomyelitis 10/23/2020 CT of knee: no osteolysis, abscess, small ulceration, continue with Vancomycin, Levaquin was added yesterday after noticing the Gram Positive Cocci, VSS, normothermic 10/24/2020 continue with antibiotics, VSS, WBC ^18.2, will debride as much of the eschar as tolerable by the Pt tomorrow. 10/25/2020 continue Ab, WBC v 15.1, staff unable to get consent from for debridement, will try again later, VSS, afebrile 10/26/2020 Continue Levaquin and Vancomycin, WBC v13.8, H/H 9.8/29.2, Consent from for Debridement obtained, VSS, Afebrile (2) Acute alteration in mental status: Code(s): R41.82 - Altered mental status, unspecified Status: Acute Assessment and Plan: Possibly secondary to infection versus dementia Patient is well-known to this facility he is known for his confusion Will continue neurochecks 10/22/2020 Pt continues to be A&OX1, continue treating with Vancomycin, awaiting Sensitivity, CT Head Radiology IMPRESSION: 1. No acute intracranial process. 2. 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 3. Possible additional small old lacunar infarct versus prominent perivascular space at the inferior right basal ganglia. 10/23/2020 No change, started Levaquin yesterday d/t wound Cx results, will continue to monitor mental status, though this Pt is usually confused 10/24/2020 Pt is at his baseline after talking with staff who know this Pt well 10/25/2020 No change 10/26/2020 Pt at baseline (3) Acute dehydration: Code(s): E86.0 - Dehydration Status: Acute Assessment and Plan: Continue IV hydration due to his history of congestive heart failure 10/22/2020 Received 2 L NS in ER and currently NS @ 75/h with PO fluids, renal function improving, BNP coming down 10/23/2020 Renal function is good, making good amount of urine 2.02 ml/kg/h, DC'ing IVF 10/24/2020 taking PO fluids well, 2.75 ml/kg/h 10/25/2020 Urinary output 2.52 ml/kg/h, resolved 10/26/2020 ... (4) Acute renal failure: Qualifiers: Acute renal failure type: unspecified Qualified Code(s): N17.9 - Acute kidney failure, unspecified Code(s): N17.9 - Acute kidney failure, unspecified Status: Acute Assessment and Plan: 10/22/2020 Vancomycin with pharmacy dosing and following, BNP coming down, Renal function improving 10/23/2020 Renal function is good, BUN 67, Cr 1.19, eCrCL 63, cGFR > 60, DC'ing IVF 10/24/2020 Cr 1.03, making good urine 10/25/2020 Cr 0.88, very good urinary output, initially this section was under Chronic Renal Failure however this is truely Acute Renal Failure after looking at historical labs, Resolved 10/26/2020 ... (5) Below-knee amputation of left lower extremity: Code(s): S88.112A - Complete traumatic amputation at level between knee and ankle, left lower leg, initial encounter Status: Acute Assessment and Plan: Surgical
[2020-10-27 15:57] VITALS: BP 115/59; PULSE 85; RESP 16; TEMP 36.5; O2SAT 98
[2020-10-27 16:34] LABS: Glucose Point of Care 295 mg/dl (65-105)
[2020-10-27] MEDS: levoFLOXacin 500 MG/D5W 100 ML 500 MG/100 ML BAG 100 MG IVPB (17:04)
[2020-10-27] MEDS: DOCUSATE SODIUM 100 MG CAPSULE PO (17:04)
[2020-10-27] MEDS: ACETAMINOPHEN 325 MG TABLET 650 MG PO (21:00)
[2020-10-27 21:13] LABS: Glucose Point of Care 253 mg/dl (65-105)
[2020-10-28] VITALS: BP 129/68; PULSE 79; RESP 18; TEMP 36.9; O2SAT 98
[2020-10-28] MEDS: BUDESONIDE/FORMOTEROL (*SP) 160-4.5 MCG 6 GM INH 2 PUFF INHALATION ×2 (05:46→19:44)
[2020-10-28 08:00] VITALS: BP 107/60; PULSE 120; RESP 20; TEMP 36.6; O2SAT 99
[2020-10-28 08:01] LABS: Glucose Point of Care 251 mg/dl (65-105)
[2020-10-28] MEDS: COLLAGENASE OINT 30 GM TUBE 1 APPLIC TOPICAL ×2 (08:31→21:55)
[2020-10-28] MEDS: SACCHAROMYCES BOULARDII 250 MG CAPSULE PO ×3 (08:31→17:22)
[2020-10-28] MEDS: ENOXAPARIN 40 MG/0.4 ML SYRINGE SUB-Q (08:31)
[2020-10-28] MEDS: CLOPIDOGREL BISULFATE 75 MG TABLET PO (08:32)
[2020-10-28] MEDS: ATORVASTATIN 40 MG TABLET 80 MG PO (08:32)
[2020-10-28] MEDS: DOCUSATE SODIUM 100 MG CAPSULE PO ×2 (08:32→17:23)
[2020-10-28] MEDS: traMADol HCL (*CRX) 25 MG TABLET PO (08:32)
[2020-10-28] MEDS: ASPIRIN 81 MG ENTERIC TABLET PO (08:32)
[2020-10-28] MEDS: GABAPENTIN 300 MG CAPSULE 600 MG PO ×2 (08:32→17:22)
[2020-10-28] MEDS: NEOMYCIN/POLYMYXIN/BACITRACIN OINTMENT 15 GM TUBE 1 APPLIC TOPICAL (08:35)
[2020-10-28 10:05] LABS: Mean Corpuscular HGB Conc 31.3 g/dL (32.0-36.0); Mean Corpuscular Hemoglobin 31.3 pg (27.0-31.0); Mean Platelet Volume 9.3 fl (8.7-11.0); Platelet Count Result 432 K/mm3 (150-420); Red Cell Distribution Width 12.3 % (11.6-14.4); White Blood Count 18.2 K/mm3 (4.8-10.8)
[2020-10-28 10:46] LABS: Anion Gap 11 mmol/L (8-16); Blood Urea Nitrogen 30 mg/dL (7-18); Calcium 8.3 mg/dL (8.5-10.1); Carbon Dioxide 25 mmol/L (21-32); Chloride 100 mmol/L (98-108); Estimated CRCL calculation 66 ml/min; Estimated Glomerular Filt Rate > 60; Glucose 353 mg/dL (70-99); Osmolality Calculated 302 mOsm/kg (285-295); Potassium 5.5 mmol/L (3.5-5.1); Sodium 136 mmol/L (136-145)
[2020-10-28 10:59] LABS: Estimated CRCL calculation 82 ml/min; Estimated Glomerular Filt Rate > 60
[2020-10-28] MEDS: SODIUM POLYSTYRENE SULFONONATE 15 GM/60 ML BTL PO (12:07)
[2020-10-28 12:17] LABS: Glucose Point of Care 279 mg/dl (65-105)
--- NOTE | 2020-10-28 14:12 | PM.IMPN ---
Progress Note: A&P Assessment and Plan (1) Sepsis: Qualifiers: Sepsis type: sepsis due to unspecified organism Sepsis acute organ dysfunction status: with acute organ dysfunction Severe sepsis acute organ dysfunction type: encephalopathy Severe sepsis shock status: unspecified Qualified Code(s): A41.9 - Sepsis, unspecified organism; R65.20 - Severe sepsis without septic shock; G93.40 - Encephalopathy, unspecified Code(s): A41.9 - Sepsis, unspecified organism Status: Acute Assessment and Plan: Possibly secondary to wound infection As evidence of hypotension and leukocytosis Blood culture pending Light IV hydration will cautiously administer due to patient's history of congestive heart failure Lactic acid 1.0 10/22/2020 Currently on Vancomycin, Stool negative for C Diff, Wound Gram Positive Cocci and mixed lyudmila, Blood Cxs NGTD, Pt still with AMS this AM, VSS with low grade tamp at 99.2`F, IVF NS @ 75/h, obtaining CT of left knee r/o osteomyelitis 10/23/2020 CT of knee: no osteolysis, abscess, small ulceration, continue with Vancomycin, Levaquin was added yesterday after noticing the Gram Positive Cocci, VSS, normothermic 10/24/2020 continue with antibiotics, VSS, WBC ^18.2, will debride as much of the eschar as tolerable by the Pt tomorrow. 10/25/2020 continue Ab, WBC v 15.1, staff unable to get consent from for debridement, will try again later, VSS, afebrile 10/26/2020 Continue Levaquin and Vancomycin, WBC v13.8, H/H 9.8/29.2, Consent from for Debridement obtained, VSS, Afebrile 10/27/2020 Continue with Ab, WBC v11.5, H/H 9.6/29.8, VSS, Afebrile 10/28/2020 Increase in white count 18.2, H/H 10/10, vital signs stable remains afebrile (2) Acute alteration in mental status: Code(s): R41.82 - Altered mental status, unspecified Status: Acute Assessment and Plan: Possibly secondary to infection versus dementia Patient is well-known to this facility he is known for his confusion Will continue neurochecks 10/22/2020 Pt continues to be A&OX1, continue treating with Vancomycin, awaiting Sensitivity, CT Head Radiology IMPRESSION: 1. No acute intracranial process. 2. 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 3. Possible additional small old lacunar infarct versus prominent perivascular space at the inferior right basal ganglia. 10/23/2020 No change, started Levaquin yesterday d/t wound Cx results, will continue to monitor mental status, though this Pt is usually confused 10/24/2020 Pt is at his baseline after talking with staff who know this Pt well 10/25/2020 No change 10/26/2020 Pt at baseline 10/27/2020 ... (3) Acute dehydration: Code(s): E86.0 - Dehydration Status: Acute Assessment and Plan: Continue IV hydration due to his history of congestive heart failure 10/22/2020 Received 2 L NS in ER and currently NS @ 75/h with PO fluids, renal function improving, BNP coming down 10/23/2020 Renal function is good, making good amount of urine 2.02 ml/kg/h, DC'ing IVF 10/24/2020 taking PO fluids well, 2.75 ml/kg/h 10/25/2020 Urinary output 2.52 ml/kg/h, resolved 10/26/2020 ... (4) Acute renal failure: Qualifiers: Acute renal failure type: unspecified Qualified Code(s): N17.9 - Acute kidney failure, unspecified Code(s): N17.9 - Acute kidney failure, unspecified Status: Acute Assessment and Plan: 10/22/2020 Vancomycin with pharmacy dosing and following, BNP coming down, Renal function improving 10/23/2020 Renal function is good, BUN 67, Cr 1.19, eCrCL 63, cGFR > 60, DC'ing IVF 10/24/2020 Cr 1.03, making good urine 10/25/2020 Cr 0.88, very good urinary output, initially this section was under Chronic Renal Failure however this is truely Acute Renal Failure after looking at historical labs, Resolved 10/26/2020 ... (5) Below-knee amputation of left lower extremity: Code(s):
[2020-10-28 16:00] VITALS: BP 113/60; PULSE 87; RESP 16; TEMP 36.9; O2SAT 99
[2020-10-28 17:01] LABS: Glucose Point of Care 246 mg/dl (65-105)
[2020-10-28] MEDS: levoFLOXacin 500 MG/D5W 100 ML 500 MG/100 ML BAG 100 MG IVPB (17:18)
[2020-10-28 17:21] LABS: Vancomycin Trough 11.6 ug/mL (10.0-15.0)
[2020-10-28 22:00] LABS: Glucose Point of Care 255 mg/dl (65-105)
--- NOTE | 2020-10-28 22:56 | PC.NURSE ---
Dr. Corcoran notified that patient has had no urine output since hopkins cath removed earlier today.
[2020-10-29] VITALS: BP 124/65; PULSE 87; RESP 16; TEMP 37.2; O2SAT 98
--- NOTE | 2020-10-29 01:20 | PC.NURSE ---
Patient had BM and urinated on toilet but unable to collect a clean sample for UA
[2020-10-29 02:41] LABS: Add Urine Microscopic? YES; Appearance Urine Clear (Clear); Bilirubin Urine Negative (Negative); Blood Urine 2+ (Negative); Color Urine Light Yellow (Yellow); Glucose Urine UA 1+ (Negative); Ketones Urine Negative (Negative); Leukocyte Esterase Ur Negative (Negative); Nitrate Urine Negative (Negative); Protein Urine Negative (Negative); Specific Grav Ur 1.015 (1.010-1.020); Urobilinogen Urine 0.2 mg/dL (0.2-1.0); pH Urine 5.5 (5.0-8.0)
[2020-10-29 02:46] LABS: Bacteria Urine Trace /hpf; WBC Urine 0-3 /hpf (0-3)
[2020-10-29 05:48] LABS: Hematocrit 26.5 % (40.0-54.0); Hemoglobin 8.2 g/dL (14.0-18.0); Mean Corpuscular HGB Conc 30.9 g/dL (32.0-36.0); Mean Corpuscular Hemoglobin 30.9 pg (27.0-31.0); Mean Platelet Volume 9.6 fl (8.7-11.0); Platelet Count Result 360 K/mm3 (150-420); Red Blood Count 2.65 M/mm3 (4.70-6.10); Red Cell Distribution Width 12.6 % (11.6-14.4); White Blood Count 11.6 K/mm3 (4.8-10.8)
[2020-10-29] MEDS: BUDESONIDE/FORMOTEROL (*SP) 160-4.5 MCG 6 GM INH 2 PUFF INHALATION (05:52)
[2020-10-29 05:57] LABS: Anion Gap 7 mmol/L (8-16); Blood Urea Nitrogen 46 mg/dL (7-18); Calcium 8.2 mg/dL (8.5-10.1); Carbon Dioxide 27 mmol/L (21-32); Chloride 101 mmol/L (98-108); Estimated CRCL calculation 73 ml/min; Estimated Glomerular Filt Rate > 60; Glucose 170 mg/dL (70-99); Osmolality Calculated 295 mOsm/kg (285-295); Potassium 4.7 mmol/L (3.5-5.1); Sodium 135 mmol/L (136-145)
[2020-10-29 08:00] VITALS: BP 120/64; PULSE 98; RESP 18; TEMP 36.6; O2SAT 99
[2020-10-29 08:42] LABS: Glucose Point of Care 230 mg/dl (65-105)
[2020-10-29] MEDS: ATORVASTATIN 40 MG TABLET 80 MG PO (09:08)
[2020-10-29] MEDS: CLOPIDOGREL BISULFATE 75 MG TABLET PO (09:09)
[2020-10-29] MEDS: DOCUSATE SODIUM 100 MG CAPSULE PO (09:09)
[2020-10-29] MEDS: ASPIRIN 81 MG ENTERIC TABLET PO (09:09)
[2020-10-29] MEDS: GABAPENTIN 300 MG CAPSULE 600 MG PO (09:09)
[2020-10-29] MEDS: NEOMYCIN/POLYMYXIN/BACITRACIN OINTMENT 15 GM TUBE 1 APPLIC TOPICAL (09:12)
[2020-10-29] MEDS: COLLAGENASE OINT 30 GM TUBE 1 APPLIC TOPICAL (09:12)
[2020-10-29] MEDS: SACCHAROMYCES BOULARDII 250 MG CAPSULE PO (09:12)
--- NOTE | 2020-10-29 12:05 | PM.DS ---
DS: Admitting Diagnosis Admitting Diagnosis Sepsis, altered mental status, acute on chronic kidney injury <Layne LopezSaulo Garcia STRADDLE BUG-C - Last Filed: 10/29/20 12:18> DS: Discharge Diagnosis Discharge Diagnosis (1) Sepsis: Qualifiers: Sepsis acute organ dysfunction status: with acute organ dysfunction Sepsis type: sepsis due to unspecified organism Severe sepsis acute organ dysfunction type: encephalopathy Severe sepsis shock status: unspecified Qualified Code(s): A41.9 - Sepsis, unspecified organism; R65.20 - Severe sepsis without septic shock; G93.40 - Encephalopathy, unspecified <Layne LopezSaulo Garcia [employer]ADDLE BUG-C - Last Filed: 10/29/20 12:18> Code(s): A41.9 - Sepsis, unspecified organism <Layne LopezSaulo Garcia [employer]ADDLE BUG-C - Last Filed: 10/29/20 12:18> Status: Acute <Layne LopezSaulo Garcia [employer]ADDLE BUG-C - Last Filed: 10/29/20 12:18> Assessment and Plan: Resolved Possibly secondary to wound infection As evidence of hypotension and leukocytosis Blood culture pending Light IV hydration will cautiously administer due to patient's history of congestive heart failure Lactic acid 1.0 10/22/2020 Currently on Vancomycin, Stool negative for C Diff, Wound Gram Positive Cocci and mixed lyudmila, Blood Cxs NGTD, Pt still with AMS this AM, VSS with low grade tamp at 99.2`F, IVF NS @ 75/h, obtaining CT of left knee r/o osteomyelitis 10/23/2020 CT of knee: no osteolysis, abscess, small ulceration, continue with Vancomycin, Levaquin was added yesterday after noticing the Gram Positive Cocci, VSS, normothermic 10/24/2020 continue with antibiotics, VSS, WBC ^18.2, will debride as much of the eschar as tolerable by the Pt tomorrow. 10/25/2020 continue Ab, WBC v 15.1, staff unable to get consent from for debridement, will try again later, VSS, afebrile 10/26/2020 Continue Levaquin and Vancomycin, WBC v13.8, H/H 9.8/29.2, Consent from for Debridement obtained, VSS, Afebrile 10/27/2020 Continue with Ab, WBC v11.5, H/H 9.6/29.8, VSS, Afebrile 10/28/2020 Increase in white count 18.2, H/H 1010, vital signs stable remains afebrile Patient will discharge home with Levaquin 500 mg x 10 days <WEST Rodriguez - Last Filed: 10/29/20 12:18> (2) Acute alteration in mental status: Code(s): R41.82 - Altered mental status, unspecified <WEST Rodriguez - Last Filed: 10/29/20 12:18> Status: Acute <WEST Rodriguez - Last Filed: 10/29/20 12:18> Assessment and Plan: Resolved Possibly secondary to infection versus dementia Patient is well-known to this facility he is known for his confusion Will continue neurochecks 10/22/2020 Pt continues to be A&OX1, continue treating with Vancomycin, awaiting Sensitivity, CT Head Radiology IMPRESSION: 1. No acute intracranial process. 2. 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 3. Possible additional small old lacunar infarct versus prominent perivascular space at the inferior right basal ganglia. 10/23/2020 No change, started Levaquin yesterday d/t wound Cx results, will continue to monitor mental status, though this Pt is usually confused 10/24/2020 Pt is at his baseline after talking with staff who know this Pt well 10/25/2020 No change 10/26/2020 Pt at baseline 10/27/2020 ... Patient is a baseline is day of discharge <WEST Rodriguez - Last Filed: 10/29/20 12:18> (3) Acute dehydration: Code(s): E86.0 - Dehydration <WEST Rodriguez - Last Filed: 10/29/20 12:18> Status: Acute <WEST Rodriguez - Last Filed: 10/29/20 12:18> Assessment and Plan: Resolved Continue IV hydration due to his history of congestive heart failure 10/22/2020 Received 2 L NS in ER and currently NS @ 75/h with PO fluids, renal function improving, BNP coming down 10/23/2020 Renal function is good, making good amount of urine
[2020-10-29 12:06] LABS: Glucose Point of Care 221 mg/dl (65-105)
--- NOTE | 2020-10-29 13:00 | PC.NURSE ---
Patient was discharged home with home health. His family transported him via private vehicle. Patient was medically stable, and was transferred from the wheelchair to the car using the benja steady. Patient was given his home medications, dressing supplies, and the shirt he wore when he was admitted.
== END 2020-10-29 13:00 | disposition home health service (06) | DRG 564 ==
LOC: CHSED 13:25 → CHS2ND 13:28
PROVIDERS: Nurse Practitioner; Nurse Practitioner Family; Admitting Provider Emergency Medicine; Emergency Provider Emergency Medicine; PCP Internal Medicine; Visit Provider Emergency Medicine
DX: T87.44 Infection of amputation stump, left lower extremity (principal); I13.10 Hypertensive heart and chronic kidney disease without heart failure, with stage 1 through stage 4 chronic kidney disease, or unspecified chronic kidney disease; A41.9 Sepsis, unspecified organism; I73.9 Peripheral vascular disease, unspecified; I50.23 Acute on chronic systolic (congestive) heart failure; G93.41 Metabolic encephalopathy; R65.20 Severe sepsis without septic shock; I42.9 Cardiomyopathy, unspecified; N17.9 Acute kidney failure, unspecified; G93.40 Encephalopathy, unspecified; I13.0 Hypertensive heart and chronic kidney disease with heart failure and stage 1 through stage 4 chronic kidney disease, or unspecified chronic kidney disease; I95.9 Hypotension, unspecified; J44.9 Chronic obstructive pulmonary disease, unspecified; N18.9 Chronic kidney disease, unspecified; L89.512 Pressure ulcer of right ankle, stage 2; E87.6 Hypokalemia; E86.0 Dehydration; E11.22 Type 2 diabetes mellitus with diabetic chronic kidney disease; E11.51 Type 2 diabetes mellitus with diabetic peripheral angiopathy without gangrene; E78.5 Hyperlipidemia, unspecified; F01.50 Vascular dementia, unspecified severity, without behavioral disturbance, psychotic disturbance, mood disturbance, and anxiety; F17.210 Nicotine dependence, cigarettes, uncomplicated; Y83.5 Amputation of limb(s) as the cause of abnormal reaction of the patient, or of later complication, without mention of misadventure at the time of the procedure; Z20.822 Contact with and (suspected) exposure to COVID-19; I50.30 Unspecified diastolic (congestive) heart failure; Z86.73 Personal history of transient ischemic attack (TIA), and cerebral infarction without residual deficits; Z89.512 Acquired absence of left leg below knee
CPT/HCPCS: 36415; 51701; 70450; 71045; 73700; 80048; 80053; 80202; 81001; 81003; 82010; 82565; 82948; 83036; 83605; 83735; 83880; 84484; 85025; 85027; 87040; 87070; 87086; 87088; 87147; 87205; 87324; 93005; 96360; 97110; 97162; 97165; 97530; 97535; 99285; A9270; C9803; J1650; J1815; J1956; J3370; J3480; J7030; L1830; U0003; U0005

== ENCOUNTER 2020-11-01 11:35 | Inpatient (IN) | payer MEDICARE, SELFPAY ==
[2020-11-01] VITALS (17 sets, daily range): BP systolic 90–127; BP diastolic 41–112; PULSE 83–108; RESP 18–20; TEMP 36.2–37.3; O2SAT 94–100; BMI 25.2
--- NOTE | ~2020-11-01 | MR_ITS ---
EXAMINATION: MR ankle RT wo con, MR foot RT wo con DATE: 11/06/2020 12:13 INDICATION: Osteomyelitis with remains at the right foot and ankle. TECHNIQUE: 1. Magnetic resonance imaging (MRI) of the right ankle was performed without intravenous contrast. Se quences included sagittal, coronal, and axial PD-weighted FSE and PD-weighted FS FSE. 2. MRI of the right foot was performed. without intravenous contrast. Sequences included sagittal and coronal T1-weighted FSE, coronal PD-weighted FS FSE, coronal PD-weighted FSE and sagittal fluid sens itive FSE STIR. COMPARISON: Radiographs dated 11/01/2020 FINDINGS: Medial ankle ligaments: There is loss of the normally well delineated striated pattern of the deep deltoid ligament with smal l amount of heterotopic ossification along its osseous attachment consistent with scarring related to chronic sprain. Mild thickening of the anterior superficial deltoid ligament without surrounding batool ma also consistent with mild scarring related to chronic sprain. The spring ligament complex is jemal l. Lateral ankle ligaments: The anterior and posterior inferior tibiofibular ligaments are normal. Mild attenuation of the anteri or talofibular ligament with heterotopic ossification at its talar insertion consistent with scarring related to chronic sprain. Calcaneofibular and posterior talofibular ligaments are normal. Tendons: Small Achilles calcaneal spur at the calcaneal insertion of the otherwise normal Achilles tendon. The re is fusiform thickening and mild increased signal of the peroneus longus tendon at the level of the retromalleolar groove consistent with mild tendinopathy without discrete tear. The peroneus brevis t endon is normal. The tibialis anterior and extensor hallucis longus and extensor digitorum longus ten dons are normal. Small amount of fluid surrounding the otherwise normal distal tibialis posterior ten don consistent with mild tenosynovitis. Flexor digitorum longus and flexor hallucis longus tendons ar e normal. Plantar fascia: Tiny Achilles calcaneal spurs at the insertion of the plantar aponeurosis. There is mild thickening a nd minimal increased signal of the proximal plantar aponeurosis without surrounding edema consistent with mild chronic enthesopathy. Bones/other: Bone alignment is normal. There is marrow edema at the base of the first distal phalanx, the base of the fourth proximal phalanx and at the fifth proximal and distal phalanges. There is no immediately o verlying skin ulcerations or corresponding geographic loss of T1 marrow fat signal to more specifical ly suggest osteomyelitis. There appear to be corresponding nondisplaced fractures of both on the MRI images and on correlation with prior radiographs across the base of the first distal phalanx, at the plantar/medial aspects of the base of the fourth and fifth proximal phalanges, across the neck of the fifth proximal phalanx and on MRI across the midportion of the developmentally fused fifth middle/di stal phalanx. There is a shallow skin ulceration dorsal to the necks of the second-fourth metatarsals. The underlyi ng bones are unremarkable. Mild polyarticular osteoarthritis at the first metatarsophalangeal and mul tiple tarsometatarsal and interphalangeal joints. Additional mild osteoarthritis with mild subarticul ar edema at the calcaneocuboid articulation. The Lisfranc ligament complex as well as the collateral ligament complex at the metatarsophalangeal and interphalangeal joints are normal. The flexor and ext ensor tendons in the forefoot are unremarkable. Fluid: Physiologic amount fluid in the joint spaces. No abscess. IMPRESSION: 1. Marrow edema associated with nondisplaced extra articular fracture across the base of the first di stal phalanx, the neck of the fifth proximal phalanx and across the midportion of the fused fifth mid dle/distal phalanx.
--- NOTE | ~2020-11-01 | XR_ITS ---
EXAMINATION: XR chest 1V portable DATE: 11/01/2020 12:52 INDICATION: Shortness of breath. TECHNIQUE: A single frontal view of the chest was obtained. COMPARISON: Chest single view 10/21/2020, chest CT 01/26/2020 FINDINGS: The chest demonstrates clear lungs without pneumonia, pleural effusion, or pneumothorax. Ca rdiomegaly is noted. IMPRESSION: 1. Cardiomegaly. Reviewed, dictated and finalized at location A. IMPRESSION: 1. Cardiomegaly.
--- NOTE | ~2020-11-01 | XR_ITS ---
XR tibia fibula LT 2V DATE: 11/01/2020 12:54 INDICATION: Tremors TECHNIQUE: Portable AP chest on 11/01/2020 at 1250 hours COMPARISON: None FINDINGS: Heart size is borderline. Aortic arch calcification and mild aortic tortuosity. No hilar or mediastinal enlargement. No pulmonary infiltrate or consolidation, pleural effusion or pulmonary congestion or pneumothorax is detected. IMPRESSION: No active pulmonary disease Reviewed, dictated and finalized at location A. IMPRESSION: No active pulmonary disease
--- NOTE | ~2020-11-01 | XR_ITS ---
EXAMINATION: XR foot RT min 3V DATE: 11/01/2020 12:53 INDICATION: Right foot pain and ulceration TECHNIQUE: Dorsoplantar, lateral, and oblique views of the right foot were obtained. COMPARISON: None. FINDINGS: There is dorsal soft tissue ulceration of the foot overlying the distal metatarsals. There is an age-indeterminate fracture at the distal aspect of the fifth proximal phalanx. In addition, the re appears to be fragmentation at the bases of the fourth and fifth proximal phalanges. Calcified ath erosclerosis is noted. IMPRESSION: 1. Dorsal soft tissue ulceration of the foot overlying the distal metatarsals. Changes in the bases o f the fourth and fifth proximal phalanges could reflect fractures versus osteomyelitis. 2. Age indete rminate fracture at the distal aspect of the fifth proximal phalanx. Reviewed, dictated and finalized at location B. IMPRESSION: 1. Dorsal soft tissue ulceration of the foot overlying the distal metatarsals. Changes in the bases of the fourth and fifth proximal phalanges could reflect f ractures versus osteomyelitis. 2. Age indeterminate fracture at the distal aspe ct of the fifth proximal phalanx.
--- NOTE | ~2020-11-01 | MR_ITS ---
EXAMINATION: MR lower leg LT wo con DATE: 11/06/2020 12:13 INDICATION: Infection at the stump of a left euvvs-fao-szto amputation. TECHNIQUE: Magnetic resonance imaging (MRI) of the stump of the left lower leg was performed without intravenous contrast. Sequences included axial, sagittal and coronal T1-weighted FSE and fluid sensit wade FSE STIR. COMPARISON: Radiographs dated 11/01/2020 FINDINGS: Left bxeue-tez-lhud amputation. There is a 10 x 12 x 5 mm hemispherical region of T1 hyperintense and saturating marrow fat along the osteotomy margins at the proximal diaphyseal region of the left tibi a bounded by a double line sign of curvilinear low signal and T2 hyperintense high signal which would be consistent with small region of avascular osteonecrosis resulting from the osteotomy. No other ma rrow signal changes to suggest osteomyelitis at the osteotomy margins which also demonstrated smooth well-defined osteotomy margins with no evident osteolysis on the prior radiographs. Small region of m ild subcutaneous edema along the posterior distal margin of the stump which could be due cellulitis e ither due to infection or mechanical irritation. No evident inflammatory changes in the underlying mu sculature coverage of the stump. No abscess. Mild tricompartmental osteoarthritis at the left knee wi th no left knee joint effusion. IMPRESSION: 1. Small region of likely avascular osteonecrosis along the tibial distal osteotomy margin. No absces s or other findings on MRI or prior radiographs to suggest osteomyelitis at a left [id number]-[id number]-yprl amp utation. Reviewed, dictated and finalized at location A. IMPRESSION: 1. Small region of likely avascular osteonecrosis along the tibial distal osteo rodríguez margin. No abscess or other findings on MRI or prior radiographs to sugges t osteomyelitis at a left cdtvq-ejr-lift amputation.
--- NOTE | ~2020-11-01 | CT_ITS ---
EXAMINATION: CT brain wo con DATE: 11/01/2020 13:43 INDICATION: Confusion TECHNIQUE: Computed tomography (CT) of the head was performed without intravenous contrast. The mA wa s adjusted according to patient size. Iterative reconstruction technique was employed. Exam dose: 60 5.33 mGy-cm total exam DLP. COMPARISON: None FINDINGS: Bilateral carotid siphon internal carotid artery calcifications. There is vertebral basilar artery calcification. There is nonspecific diminished attenuation of cerebral white matter, likely d ue to chronic small vessel ischemic change. There is prominent chronic encephalomalacia of the left cerebrum within the distribution of left midd le cerebral artery consistent with old infarct. There is compensatory dilatation of the left lateral ventricle. No intracranial mass lesion or hemorrhage or recent cerebrovascular accident is evident. No midline s hift or mass effect effect. Cerebral volume loss. No subdural or epidural hematoma. No fracture or bone destruction of the cranial vault. Mucous retention cyst or polyp of left maxillary sinus. The included paranasal sinuses and mastoid ai r cells are otherwise unremarkable. IMPRESSION: Old infarct within the left middle cerebral artery territory Cerebral atherosclerosis and chronic small vessel ischemic changes of the cerebral white matter Reviewed, dictated and finalized at Location A. Reviewed, dictated and finalized at location A. IMPRESSION: Old infarct within the left middle cerebral artery territory Cerebral atherosclerosis and chronic small vessel ischemic changes of the cereb ral white matter
--- NOTE | ~2020-11-01 | CT_ITS ---
EXAMINATION: CT abdomen pelvis w con DATE: 11/01/2020 13:43 INDICATION: Anemia TECHNIQUE: Computed tomography (CT) of the abdomen and pelvis was performed without intravenous contr ast. Automated exposure control and iterative reconstruction technique were employed. Exam dose: 641 .74 mGy-cm total exam DLP. COMPARISON: None. FINDINGS: Mild atelectasis at the lung bases. There is cardiomegaly. There is mild pericardial effusion. There is very prominent dilatation of the gallbladder, measuring up to 9 cm maximal transverse dimens ion, consistent with gallbladder hydrops. Sludge accumulation within the gallbladder. No hepatic, splenic, pancreatic space-occupying mass lesion. There is mild thickening of the adrenal glands. 9 mm right renal probable cyst 10 mm left renal cyst. Occasional bilateral renal calcifications, some arterial, some probably small nonobstructing calculi No ureteral calculus or hydroureteronephrosis. The urinary bladder is distended. There is prostate enlargement. There is extensive calcification of the abdominal aorta but no abdominal aortic aneurysm. No intraperitoneal or retroperitoneal or pelvic mass lesion or adenopathy or ascites. There is prominent fecal material in the colon no bowel obstruction. Normal appendix. Diffuse idiopathic skeletal hyperostosis of the thoracic spine. Moderately severe degenerative disc disease and mild retrolisthesis at L5-S1. No suspicious osteolytic or osteoblastic lesions. IMPRESSION: Gallbladder hydrops Cardiomegaly Mild pericardial effusion Bilateral renal cysts Bilateral nonobstructive nephrolithiasis Reviewed, dictated and finalized at Location A. Reviewed, dictated and finalized at location A.
--- NOTE | 2020-11-01 11:56 | ECG_ITS ---
Measurements Intervals [place] Rate: 101 P: 66 MI: 122 QRS: 56 QRSD: 108 T: 129 QT: 357 QTc: 465 Interpretive Statements SINUS TACHYCARDIA MINIMAL Q WAVES- INFERIOR LEADS ST-T WAVE ABNORMALITY IN HIGH LATERAL LEADS- CONSIDER ISCHEMIA ABNORMAL ECG Electronically Signed On 11-01-2020 13:11:07 CDT by Raji Martinez D.O.
--- NOTE | 2020-11-01 12:11 | ED.AMS ---
HPI - Altered Mental Status General Chief Complaint: Altered Mental Status Stated Complaint: ambulance Time Seen by Provider: 11/01/20 11:38 Source: patient, EMS and RN notes reviewed Mode of arrival: EMS Limitations: no limitations History of Present Illness MD complaint: altered mental status and weakness Onset (ago): day(s) (1) Timing confirmed by: family member Severity: moderate Consistency of symptoms: getting Worse Context: other (recent hospitalization for sepsis with lower limb infected wounds.) Associated symptoms: denies other symptoms Treatments prior to arrival: other (none.) Related Data Home Medications Medication Instructions Recorded Confirmed atorvastatin 80 mg PO DAILY 08/05/20 11/06/20 aspirin 81 mg PO DAILY 08/16/20 11/06/20 carvedilol 6.25 mg PO BID 08/16/20 11/06/20 clopidogrel [Plavix] 75 mg PO DAILY 10/21/20 11/06/20 furosemide 40 mg PO DAILY 10/21/20 11/06/20 metolazone 5 mg PO DAILY 10/21/20 11/06/20 spironolactone 25 mg PO DAILY 10/21/20 11/06/20 bupropion HCl 150 mg PO BID 11/01/20 11/06/20 Allergies Allergy/AdvReac Type Severity Reaction Status Date / Time cephalexin Allergy Unknown Anaphylactic Verified 11/06/20 17:53 Shock clindamycin Allergy Unknown Unknown Verified 11/06/20 17:53 Sulfa (Sulfonamide Allergy Unknown Anaphylactic Verified 11/06/20 17:53 Antibiotics) Shock Review of Systems Review of Systems: All systems reviewed & are unremarkable except as noted in HPI and below Constitutional: Constitutional: Reports as per HPI and Reports no additional constitutional complaints Eyes: Eyes: Reports as per HPI and Reports no additional eye complaints ENT: Reports system reviewed and no additional complaints, except as documented and Reports as per HPI Cardiovascular: Cardiovascular: Reports as per HPI and Reports no additional cardiovascular complaints Respiratory: Respiratory: Reports as per HPI and Reports no additional respiratory complaints Gastrointestinal: Gastrointestinal: Reports as per HPI and Reports no additional gastrointestinal complaints Genitourinary: Genitourinary: Reports no additional male genitourinary complaints and Reports as per HPI Musculoskeletal: Musculoskeletal: Reports no additional musculoskeletal complaints and Reports as per HPI Integumentary/Breasts: Skin/Breast: Reports system reviewed and no additional complaints, except as docu and Reports as per HPI Neurologic: Reports system reviewed and no additional complaints, except as documented and Reports as per HPI Psychiatric: Psychiatric: Reports no additional psychiatric complaints and Reports as per HPI Endocrine: Endocrine: Reports no additional endocrine complaints and Reports as per HPI Hematologic/Lymphatic: Hematologic/Lymphatic: Reports no additional hematologic/lymphatic complaints and Reports as per HPI Allergic/Immunologic: Allergic/Immunologic: Reports no additional allergic/immunologic complaints and Reports as per HPI [facility] Past Medical History Medical History Acute on chronic blood loss anemia Cardiomyopathy CHF (congestive heart failure) Last echo in 01/05/20 showed an EF 30-35%, severe LVE, diastolic dysfunction (E/e' 24), mod LAE, mod MR, trace TR, RVSP 59 mmHg. 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 COPD (chronic obstructive pulmonary disease) CVA (cerebral vascular accident) Multiple strokes in the past Gangrene of left foot Heel ulcer due to DM Hyperlipidemia Hypertension Necrosis of toe Peripheral artery disease Toe fracture, right Type 2 diabetes mellitus Vascular dementia Surgical History Surgical History History of left below knee amputation Family History Family History Father Diabetes mellitus Family history of cardiovascular disease Mother Family
[2020-11-01 12:32] LABS: Basophils Absolute Auto 0.08 K/mm3 (0.00-0.10); Basophils Percent Auto 0.5 % (0.0-1.0); Eosinophils Absolute Auto 0.03 K/mm3 (0.02-0.50); Eosinophils Percent Auto 0.2 % (1.0-6.0); Immature Granulocyte Absolute 0.12 K/mm3 (0.00-0.00); Immature Granulocyte Percent A 0.7 % (0.0-0.0); Lymphocytes Absolute Auto 1.55 K/mm3 (1.10-4.50); Lymphocytes Percent Auto 9.5 % (18.0-42.0); Mean Corpuscular HGB Conc 31.6 g/dL (32.0-36.0); Mean Corpuscular Hemoglobin 32.1 pg (27.0-31.0); Mean Corpuscular Volume 101.3 fL (78.0-102.0); Mean Platelet Volume 9.8 fl (8.7-11.0); Monocytes Absolute Auto 0.76 K/mm3 (0.10-0.90); Monocytes Percent Auto 4.7 % (2.0-11.0); Neutrophils Absolute Auto 13.8 K/mm3 (1.7-7.2); Neutrophils Percent Auto 84.4 % (50.0-70.0); Platelet Count Result 300 K/mm3 (150-420); Red Blood Count 1.56 M/mm3 (4.70-6.10); Red Cell Distribution Width 13.3 % (11.6-14.4); White Blood Count 16.3 K/mm3 (4.8-10.8)
[2020-11-01 12:45] LABS: Alanine Aminotransferase 55 U/L (16-63); Albumin Level 2.1 g/dL (3.4-5.0); Alkaline Phosphatase 95 U/L (46-116); Anion Gap 11 mmol/L (8-16); Aspartate Amino Transferase 31 U/L (15-37); Bilirubin,Total 0.2 mg/dL (0.00-1.00); Blood Urea Nitrogen 83 mg/dL (7-18); Carbon Dioxide 22 mmol/L (21-32); Chloride 101 mmol/L (98-108); Estimated CRCL calculation 61 ml/min; Estimated Glomerular Filt Rate 57; Glucose 287 mg/dL (70-99); Osmolality Calculated 313 mOsm/kg (285-295); Potassium 4.2 mmol/L (3.5-5.1); Sodium 134 mmol/L (136-145)
[2020-11-01 12:47] LABS: Troponin I 177.1 ng/L (0.00-60.4)
[2020-11-01] MEDS: SODIUM CHLORIDE 0.9% IV 500 ML 999 ML IV CONT (12:50)
[2020-11-01] MEDS: levoFLOXacin 500 MG/D5W 100 ML 500 MG/100 ML BAG 100 MG IVPB (12:51)
[2020-11-01 13:01] LABS: Hematocrit 15.8 % (40.0-54.0)
[2020-11-01 13:23] LABS: Lactic Acid Reflex 2.3 mmol/L (0.4-2.0)
[2020-11-01] MEDS: SODIUM CHLORIDE 0.9% IV 250 ML 30 ML IV CONT (14:04)
[2020-11-01 14:32] LABS: Add Urine Microscopic? NO; Appearance Urine Clear (Clear); Bilirubin Urine Negative (Negative); Blood Urine Negative (Negative); Color Urine Light Yellow (Yellow); Glucose Urine UA Negative (Negative); Ketones Urine Negative (Negative); Leukocyte Esterase Ur Negative (Negative); Nitrate Urine Negative (Negative); Protein Urine Negative (Negative); Urobilinogen Urine 0.2 mg/dL (0.2-1.0); pH Urine 5.5 (5.0-8.0)
[2020-11-01 15:27] LABS: Reflex Lactic Acid Yes or No Add Lactic
[2020-11-01 15:34] LABS: Partial Thromboplastin Time 25.1 SEC (23.90-30.70)
[2020-11-01] MEDS: SODIUM CHLORIDE 0.9% IV 1,000 ML 100 ML IV CONT (15:36)
--- NOTE | 2020-11-01 16:21 | ADMGEN ---
This patient, Ellis Gonzales Jr., was admitted to 2nd Floor Room 226-1. Patient/family oriented to hospital policies and general routines including ID bracelet, bed and alarms, visiting hours, pain management, procedures, bathroom and other care routines, personal items, smoking policy, room service/diet, and visiting hours. Information on how to activate the Rapid Response Team has been discussed. care services manager is aware would like placement to [facility] once pt is stable. Blood running, hopkins to gravity Patient/Family are encouraged to report perceived risks to care and to ask questions if they do not understand what they are told or what they should do.
[2020-11-01 16:35] LABS: Glucose Point of Care 201 mg/dl (65-105)
[2020-11-01] MEDS: buPROPion HCL SR (12 HR) 150 MG TAB PO (16:47)
[2020-11-01] MEDS: carvediloL 6.25 MG TABLET PO (16:48)
[2020-11-01] MEDS: GABAPENTIN 300 MG CAPSULE 600 MG PO (16:48)
--- NOTE | 2020-11-01 17:46 | PC.NURSE ---
lab unable to get blood for tests, second tech will be up to try again, can not start second unit until results received
[2020-11-01 18:00] LABS: Hematocrit 21.3 % (40.0-54.0)
[2020-11-01 18:02] LABS: Hemoglobin 6.8 g/dL (14.0-18.0)
[2020-11-01 18:20] LABS: Lactic Acid 1.3 mmol/L (0.4-2.0)
[2020-11-01] MEDS: HYDROcodone/acetaminophen (*CRX) 5-325 MG TABLET 1 TAB PO (20:20)
[2020-11-01 20:21] LABS: Troponin I 317.1 ng/L (0.00-60.4)
[2020-11-01] MEDS: COLLAGENASE OINT 30 GM TUBE 1 APPLIC TOPICAL (21:02)
[2020-11-02] VITALS (15 sets, daily range): BP systolic 98–116; BP diastolic 53–72; PULSE 70–89; RESP 18–20; TEMP 36.4–37.1; O2SAT 96–100
--- NOTE | 2020-11-02 01:12 | PC.NURSE ---
Pt awake and sitting up in bed, answers questions c yes/no answers. Pt requested water, drink given and pt juvencio. well.
[2020-11-02] MEDS: SODIUM CHLORIDE 0.9% IV 1,000 ML 100 ML IV CONT (03:35)
[2020-11-02 06:06] LABS: Basophils Absolute Auto 0.09 K/mm3 (0.00-0.10); Basophils Percent Auto 0.8 % (0.0-1.0); Eosinophils Absolute Auto 0.08 K/mm3 (0.02-0.50); Eosinophils Percent Auto 0.7 % (1.0-6.0); Immature Granulocyte Absolute 0.08 K/mm3 (0.00-0.00); Immature Granulocyte Percent A 0.7 % (0.0-0.0); Lymphocytes Absolute Auto 1.91 K/mm3 (1.10-4.50); Lymphocytes Percent Auto 17.8 % (18.0-42.0); Mean Corpuscular HGB Conc 32.6 g/dL (32.0-36.0); Mean Corpuscular Hemoglobin 31.7 pg (27.0-31.0); Mean Corpuscular Volume 97.4 fL (78.0-102.0); Monocytes Absolute Auto 0.88 K/mm3 (0.10-0.90); Monocytes Percent Auto 8.2 % (2.0-11.0); Neutrophils Absolute Auto 7.7 K/mm3 (1.7-7.2); Neutrophils Percent Auto 71.8 % (50.0-70.0); Platelet Count Result 242 K/mm3 (150-420); Red Blood Count 1.89 M/mm3 (4.70-6.10); Red Cell Distribution Width 14.4 % (11.6-14.4); White Blood Count 10.8 K/mm3 (4.8-10.8)
[2020-11-02 06:09] LABS: Hematocrit 18.4 % (40.0-54.0)
[2020-11-02 06:26] LABS: Alanine Aminotransferase 49 U/L (16-63); Albumin Level 1.9 g/dL (3.4-5.0); Alkaline Phosphatase 78 U/L (46-116); Anion Gap 9 mmol/L (8-16); Aspartate Amino Transferase 29 U/L (15-37); Bilirubin,Total 0.3 mg/dL (0.00-1.00); Blood Urea Nitrogen 58 mg/dL (7-18); CRP 2.5 mg/dL (0.0-0.9); Calcium 7.6 mg/dL (8.5-10.1); Carbon Dioxide 23 mmol/L (21-32); Chloride 104 mmol/L (98-108); Estimated CRCL calculation 77 ml/min; Estimated Glomerular Filt Rate > 60; Glucose 151 mg/dL (70-99); Osmolality Calculated 301 mOsm/kg (285-295); Sodium 136 mmol/L (136-145); Total Protein 5.2 g/dL (6.4-8.2)
[2020-11-02 06:31] LABS: Lactic Acid Reflex 0.4 mmol/L (0.4-2.0)
[2020-11-02 06:38] LABS: Troponin I 370.7 ng/L (0.00-60.4)
--- NOTE | 2020-11-02 07:16 | PC.NURSE ---
Completed beside report and updated board. Patient was resting comfortably. Dressings on stump and top of right foot were clean, dry, and intact.
--- NOTE | 2020-11-02 08:05 | PC.NURSE ---
This nurse attempted to contact Patients to obtain consent for MRI and fill out screening paper. Unable to reach , this nurse will call back.
--- NOTE | 2020-11-02 09:00 | PC.NURSE ---
This nurse attempted to call Patients Cassidy again. Not able to contact , message left with call back number. This nurse will attempt to contact again.
--- NOTE | 2020-11-02 10:00 | PC.NURSE ---
This nurse attempted to reach patients , unable to contact , message left.Will attempt again in 45 minutes.
[2020-11-02] MEDS: ATORVASTATIN 40 MG TABLET 80 MG PO (10:14)
[2020-11-02] MEDS: SPIRONOLACTONE 25 MG TABLET PO (10:14)
[2020-11-02] MEDS: carvediloL 6.25 MG TABLET PO ×2 (10:15→17:53)
[2020-11-02] MEDS: GABAPENTIN 300 MG CAPSULE 600 MG PO ×3 (10:15→17:53)
[2020-11-02] MEDS: DOCUSATE SODIUM 100 MG CAPSULE PO ×2 (10:15→11:30)
[2020-11-02] MEDS: metOLazone 2.5 MG TABLET 5 MG PO (10:15)
[2020-11-02] MEDS: buPROPion HCL SR (12 HR) 150 MG TAB PO ×2 (10:16→17:53)
[2020-11-02] MEDS: lisinopriL 5 MG TABLET PO (10:16)
[2020-11-02] MEDS: BUDESONIDE/FORMOTEROL (*SP) 160-4.5 MCG 6 GM INH 1 PUFF INHALATION (10:17)
[2020-11-02] MEDS: COLLAGENASE OINT 30 GM TUBE 1 APPLIC TOPICAL ×2 (10:18→21:32)
--- NOTE | 2020-11-02 10:45 | PC.NURSE ---
Attempted to contact patients Cassidy, unable to reach her. Message left with call back number. Spoke with SCALE TANK OPERATOR Layne and computer field technician about not being able to obtain consent and info for MRI screening. Layne states understanding.
--- NOTE | 2020-11-02 10:59 | PM.IMHP ---
H&P: HPI History of Present Illness Date/Time: 11/02/20 11:00 this is a 55-year-old male that presented to our hospital and upon admission it was discovered that he was encephalopathy ,anemic and sepsis. Patient has a past medical history of cardiomyopathy, congestive heart failure, COPD, CVA, gangrene of the left foot, heel ulcer due to diabetes, hyperlipidemia, hypertension, necrosis of toes, PAD,, right toe fracture, diabetes, vascular dementia and recent right BKA. Patient was recently discharged on 10/29/2020 for sepsis and altered mental status. At that time patient was discharged home with levofloxacin and home health for wound care. According to the ED staff patient return back to our facility soiled in feces. Patient is a poor historian all information obtained from medical records and staff we were unable to get a hold of his . On admission patient's WBC 16.3, hemoglobin 5.0, hematocrit 15.8, platelets 300, PT 11, INR 1.0, PTT 25.1, sodium 134, potassium 4.2, chloride 101, BUN 83, creatinine 1.32, glucose 287, lactic acid 2.3, liver enzymes within normal limit, troponin 177.1 UA negative, EKG sinus tach with a heart rate of [address]-T high lateral leads, chest x-ray no significant finding, right foot x-ray indicates fracture versus osteomyelitis head CT no new finding CT of the abdomen indicates Gallbladder hydrops, mild pericardial effusion and bilateral nonobstructive nephrolithiasis. While in the ED patient received 2 units of PRBCs Chief Complaint: AMS Review of Systems Review of Systems: ROS unobtainable: Yes unobtainable due to mental status PMFSH Past Medical History Medical History Cardiomyopathy CHF (congestive heart failure) Last echo in 01/05/20 showed an EF 30-35%, severe LVE, diastolic dysfunction (E/e' 24), mod LAE, mod MR, trace TR, RVSP 59 mmHg. 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 COPD (chronic obstructive pulmonary disease) CVA (cerebral vascular accident) Multiple strokes in the past Gangrene of left foot Heel ulcer due to DM Hyperlipidemia Hypertension Necrosis of toe Peripheral artery disease Toe fracture, right Type 2 diabetes mellitus Vascular dementia Surgical History Surgical History History of left below knee amputation Family History Family History Father Diabetes mellitus Family history of cardiovascular disease Mother Family history of malignant neoplasm Social History Social History Smoking packs per day: 1 Smoking cigarettes per day: 20.0 Years smoked: 30 Smoking pack-years: 30.00 Smoking status: Unknown if ever smoked Tobacco type: cigarettes Second hand tobacco smoke exposure: Yes Alcohol intake: unknown Drinks per week: 14 Alcohol use details: occasional social drink Substance use: unknown Substance use type: unknown Additional living arrangements comments: Gender identity (if verbalized by the patient): Male Spiritual care concerns: No Meds Home Medications and Allergies Home Medications Medication Instructions Recorded Confirmed Type atorvastatin 80 mg PO DAILY 08/05/20 11/01/20 History aspirin 81 mg PO DAILY 08/16/20 11/01/20 History carvedilol 6.25 mg PO BID 08/16/20 11/01/20 History Blood Glucose Test #100 ea 09/03/20 11/01/20 Rx blood-glucose meter [Blood Glucose #1 each 09/03/20 11/01/20 Rx Monitoring] insulin syringe-needle U-100 #100 ea 09/03/20 11/01/20 Rx gabapentin 300 mg capsule 600 mg PO TID 90 Days #540 cap 09/24/20 11/01/20 Rx lisinopril 5 mg tablet 5 mg PO DAILY #90 tablet 09/24/20 11/01/20 Rx clopidogrel [Plavix] 75 mg PO DAILY 10/21/20 11/01/20 History furosemide 40 mg PO DAILY 10/21/20 11/01/20 History metolazone 5 mg PO DAILY 10/21/20
[2020-11-02 11:04] LABS: NT Pro B Type Natriuretic Pept 1938 pg/mL (0-125)
[2020-11-02 11:41] LABS: Glucose Point of Care 293 mg/dl (65-105)
[2020-11-02 12:03] LABS: Hematocrit 22.9 % (40.0-54.0); Hemoglobin 7.6 g/dL (14.0-18.0)
[2020-11-02 15:07] LABS: Hemoglobin 7.3 g/dL (14.0-18.0)
[2020-11-02 18:00] LABS: Glucose Point of Care 245 mg/dl (65-105)
[2020-11-02] MEDS: SENNA/DOCUSATE SODIUM TABLET 1 TAB PO (21:32)
[2020-11-02] MEDS: HYDROcodone/acetaminophen (*CRX) 5-325 MG TABLET 1 TAB PO (22:08)
[2020-11-02] MEDS: ALBUTEROL SULFATE (*SP) INHALER 2 PUFF INHALATION (22:09)
[2020-11-02 23:02] LABS: Glucose Point of Care 196 mg/dl (65-105)
[2020-11-03] VITALS (8 sets, daily range): BP systolic 91–115; BP diastolic 48–59; PULSE 69–77; RESP 18; TEMP 35.9–36.6; O2SAT 97–100
[2020-11-03] MEDS: ACETAMINOPHEN 325 MG TABLET 650 MG PO (05:59)
[2020-11-03 06:10] LABS: Hematocrit 24.7 % (40.0-54.0); Mean Corpuscular HGB Conc 32.4 g/dL (32.0-36.0); Mean Corpuscular Hemoglobin 31.3 pg (27.0-31.0); Mean Corpuscular Volume 96.5 fL (78.0-102.0); Mean Platelet Volume 9.9 fl (8.7-11.0); Platelet Count Result 276 K/mm3 (150-420); Red Blood Count 2.56 M/mm3 (4.70-6.10); Red Cell Distribution Width 14.6 % (11.6-14.4); White Blood Count 11.2 K/mm3 (4.8-10.8)
[2020-11-03 06:24] LABS: Lactic Acid Reflex 0.5 mmol/L (0.4-2.0)
[2020-11-03 06:39] LABS: Alanine Aminotransferase 49 U/L (16-63); Alkaline Phosphatase 83 U/L (46-116); Anion Gap 8 mmol/L (8-16); Aspartate Amino Transferase 25 U/L (15-37); Bilirubin,Total 0.3 mg/dL (0.00-1.00); Blood Urea Nitrogen 37 mg/dL (7-18); CRP 1.3 mg/dL (0.0-0.9); Calcium 7.7 mg/dL (8.5-10.1); Carbon Dioxide 24 mmol/L (21-32); Chloride 104 mmol/L (98-108); Estimated CRCL calculation 87 ml/min; Estimated Glomerular Filt Rate > 60; Glucose 152 mg/dL (70-99); Magnesium 1.8 mg/dL (1.8-2.4); Osmolality Calculated 293 mOsm/kg (285-295); Potassium 4.3 mmol/L (3.5-5.1); Sodium 136 mmol/L (136-145); Total Protein 5.5 g/dL (6.4-8.2)
[2020-11-03 06:42] LABS: NT Pro B Type Natriuretic Pept 1702 pg/mL (0-125)
--- NOTE | 2020-11-03 08:28 | P.PN_ITS ---
Progress Note: A&P Assessment and Plan (1) Sepsis: Qualifiers: Sepsis acute organ dysfunction status: with acute organ dysfunction Sepsis type: sepsis due to unspecified organism Severe sepsis acute organ dysfunction type: encephalopathy Severe sepsis shock status: unspecified Qualified Code(s): A41.9 - Sepsis, unspecified organism; R65.20 - Severe sepsis without septic shock; G93.40 - Encephalopathy, unspecified <Layne LopezEVIE DanielsP-C - Last Filed: 11/03/20 08:33> Code(s): A41.9 - Sepsis, unspecified organism <Layne Lozano Jose MINE CAR DISPATCHER-C - Last Filed: 11/03/20 08:33> Status: Acute <Layne LopezEVIE DanielsP-C - Last Filed: 11/03/20 08:33> Assessment and Plan: * Resolved * As evidence of hypotensive, tachypnea and leukocytosis * Continue Levaquin and started vancomycin for possible osteomyelitis will possibly change Levaquin * Blood culture pending * Lactic acid2.3>1.3>0.4 <TimmyELIAS Garcia-C - Last Filed: 11/03/20 08:33> (2) Anemia: Code(s): D64.9 - Anemia, unspecified <Timmychristian JessicaEVIE DanielsP-C - Last Filed: 11/03/20 08:33> Status: Acute <Layne LopezSaulo JoseEVIEP-C - Last Filed: 11/03/20 08:33> Assessment and Plan: * Hemoglobin5.0>6.8>6.0>7.6>7.3>8.0 patient received 3 units of PRBCs * Occult blood negative * Source unknown * It was reported during patient's last visit that he had an excessive amount of bleeding to his area of debridement * Will continue to monitor * Will infuse for a hemoglobin of less than<7.0 * No obvious hemorrhage noted <Layne JessicaELIAS Daniels-C - Last Filed: 11/03/20 08:33> (3) Wound infection: Code(s): T14.8XXA - Other injury of unspecified body region, initial encounter; L08.9 - Local infection of the skin and subcutaneous tissue, unspecified <EVIE RodriguezP-C - Last Filed: 11/03/20 08:33> Status: Acute <Layne GarciaELIASReginoPaulo - Last Filed: 11/03/20 08:33> Assessment and Plan: * CT of the right foot indicates possible osteomyelitis * MRI pending * Started vancomycin renal dose managed by pharmacy * Continue Levaquin * Blood culture pending * WBCs16.3>10.8>11.2 * Lactic acid2.3>1.3>0.4 * CRP2.5>1.3 * Continue wound care as instructed <Layne GarciaWEST - Last Filed: 11/03/20 08:33> (4) Acute alteration in mental status: Code(s): R41.82 - Altered mental status, unspecified <Layne GarciaWEST - Last Filed: 11/03/20 08:33> Status: Acute <Layne GarciaWEST - Last Filed: 11/03/20 08:33> Assessment and Plan: * Secondary to sepsis versus dementia * Patient is well-known to this facility is known for his confusion * Continue neuro check * His CT without new finding * Continue neurochecks <Layne LopezSaulo JoseWEST - Last Filed: 11/03/20 08:33> (5) Acute renal failure: Qualifiers: Acute renal failure type: unspecified Qualified Code(s): N17.9 - Acute kidney failure, unspecified <Layne GarciaWEST - Last Filed: 11/03/20 08:33> Code(s): N17.9 - Acute kidney failure, unspecified <Layne LopezSaulo JoseWEST - Last Filed: 11/03/20 08:33> Status: Acute <Layne GarciaELIASReginoPaulo - Last Filed: 11/03/20 08:33> Assessment and Plan: * On admission creatinine1.32>1.03 >0.91improved is at baseline * Renal dose all medication * Avoid nephrotoxic agent * CMP in a.m. <Timmychristian JessicaWEST Daniels - Last Filed: 11/03/20 08:33> (6) Below-knee amputation of left lower extremity: Code(s): S88.112A - Complete traumatic amputation at level between knee
--- NOTE | 2020-11-03 08:28 | WPDPN ---
Progress Note: A&P Assessment and Plan (1) Sepsis: Qualifiers: Sepsis acute organ dysfunction status: with acute organ dysfunction Sepsis type: sepsis due to unspecified organism Severe sepsis acute organ dysfunction type: encephalopathy Severe sepsis shock status: unspecified Qualified Code(s): A41.9 - Sepsis, unspecified organism; R65.20 - Severe sepsis without septic shock; G93.40 - Encephalopathy, unspecified <ELIAS Rodriguez-C - Last Filed: 11/03/20 08:33> Code(s): A41.9 - Sepsis, unspecified organism <ELIAS Rodriguez-C - Last Filed: 11/03/20 08:33> Status: Acute <ELIAS Rodriguez-C - Last Filed: 11/03/20 08:33> Assessment and Plan: Resolved As evidence of hypotensive, tachypnea and leukocytosis Continue Levaquin and started vancomycin for possible osteomyelitis will possibly change Levaquin Blood culture pending Lactic acid2.3>1.3>0.4 <ELIAS Rodriguez-C - Last Filed: 11/03/20 08:33> (2) Anemia: Code(s): D64.9 - Anemia, unspecified <ELIAS Rodriguez-C - Last Filed: 11/03/20 08:33> Status: Acute <ELIAS Rodriguez-C - Last Filed: 11/03/20 08:33> Assessment and Plan: Hemoglobin5.0>6.8>6.0>7.6>7.3>8.0 patient received 3 units of PRBCs Occult blood negative Source unknown It was reported during patient's last visit that he had an excessive amount of bleeding to his area of debridement Will continue to monitor Will infuse for a hemoglobin of less than<7.0 No obvious hemorrhage noted <ELIAS Rodriguez-C - Last Filed: 11/03/20 08:33> (3) Wound infection: Code(s): T14.8XXA - Other injury of unspecified body region, initial encounter; L08.9 - Local infection of the skin and subcutaneous tissue, unspecified <ELIAS Rodriguez-C - Last Filed: 11/03/20 08:33> Status: Acute <WEST Rodriguez - Last Filed: 11/03/20 08:33> Assessment and Plan: CT of the right foot indicates possible osteomyelitis MRI pending Started vancomycin renal dose managed by pharmacy Continue Levaquin Blood culture pending WBCs16.3>10.8>11.2 Lactic acid2.3>1.3>0.4 CRP2.5>1.3 Continue wound care as instructed <WEST Rodriguez - Last Filed: 11/03/20 08:33> (4) Acute alteration in mental status: Code(s): R41.82 - Altered mental status, unspecified <WEST Rodriguez - Last Filed: 11/03/20 08:33> Status: Acute <WEST Rodriguez - Last Filed: 11/03/20 08:33> Assessment and Plan: Secondary to sepsis versus dementia Patient is well-known to this facility is known for his confusion Continue neuro check His CT without new finding Continue neurochecks <WEST Rodriguez - Last Filed: 11/03/20 08:33> (5) Acute renal failure: Qualifiers: Acute renal failure type: unspecified Qualified Code(s): N17.9 - Acute kidney failure, unspecified <WEST Rodriguez - Last Filed: 11/03/20 08:33> Code(s): N17.9 - Acute kidney failure, unspecified <WEST Rodriguez - Last Filed: 11/03/20 08:33> Status: Acute <WEST Rodriguez - Last Filed: 11/03/20 08:33> Assessment and Plan: On admission creatinine1.32>1.03 >0.91improved is at baseline Renal dose all medication Avoid nephrotoxic agent CMP in a.m. <WEST Rodriguez - Last Filed: 11/03/20 08:33> (6) Below-knee amputation of left lower extremity: Code(s): S88.112A - Complete traumatic amputation at level between knee and ankle, left lower leg, initial encounter <WEST Rodriguez - Last Filed: 11/03/20 08:33> Status: Acute <WEST Rodriguez - Last Filed: 11/03/20 08:33> Assessment and Plan: Recent BKA at [facility] in August Possible source of infection <WEST Rodriguez - Last Filed: 11/03/20 08:33> (7) Systolic heart failure:
[2020-11-03 08:42] LABS: Glucose Point of Care 209 mg/dl (65-105)
[2020-11-03] MEDS: ATORVASTATIN 40 MG TABLET 80 MG PO (09:29)
[2020-11-03] MEDS: lisinopriL 5 MG TABLET PO (09:29)
[2020-11-03] MEDS: metOLazone 2.5 MG TABLET 5 MG PO (09:30)
[2020-11-03] MEDS: NEOMYCIN/POLYMYXIN/BACITRACIN OINTMENT 15 GM TUBE 1 APPLIC TOPICAL (09:30)
[2020-11-03] MEDS: SPIRONOLACTONE 25 MG TABLET PO (09:30)
[2020-11-03] MEDS: buPROPion HCL SR (12 HR) 150 MG TAB PO ×2 (09:30→17:06)
[2020-11-03] MEDS: carvediloL 6.25 MG TABLET PO ×2 (09:30→17:06)
[2020-11-03] MEDS: GABAPENTIN 300 MG CAPSULE 600 MG PO ×3 (09:30→17:06)
[2020-11-03] MEDS: COLLAGENASE OINT 30 GM TUBE 1 APPLIC TOPICAL (09:31)
[2020-11-03] MEDS: DOCUSATE SODIUM 100 MG CAPSULE PO (09:31)
[2020-11-03] MEDS: BUDESONIDE/FORMOTEROL (*SP) 160-4.5 MCG 6 GM INH 1 PUFF INHALATION (09:31)
--- NOTE | 2020-11-03 11:15 | PC.NURSE ---
Patient rounding completed. Patient wanted more ice water, but did not need anything else at this time.
[2020-11-03 11:47] LABS: Glucose Point of Care 255 mg/dl (65-105)
[2020-11-03] MEDS: SODIUM CHLORIDE 0.9% IV 100 ML 33.3 ML (13:15)
[2020-11-03] MEDS: MEROPENEM 2 GM in SODIUM CHLORIDE 0.9% IV 100 ML IVPB (13:18)
[2020-11-03] MEDS: HYDROcodone/acetaminophen (*CRX) 5-325 MG TABLET 1 TAB PO (17:06)
[2020-11-03 17:27] LABS: Glucose Point of Care 205 mg/dl (65-105)
[2020-11-03] MEDS: SENNA/DOCUSATE SODIUM TABLET 1 TAB PO (21:13)
[2020-11-03 21:52] LABS: Glucose Point of Care 232 mg/dl (65-105)
[2020-11-04] VITALS (9 sets, daily range): BP systolic 104–116; BP diastolic 58–66; PULSE 63–80; RESP 16–20; TEMP 35.9–36.9; O2SAT 97–100
[2020-11-04] MEDS: MEROPENEM 2 GM in SODIUM CHLORIDE 0.9% IV 100 ML IVPB (01:25)
--- NOTE | 2020-11-04 02:35 | PC.NURSE ---
IV to left hand, 20g, and RAC, 20g, are leaking and not longer good IV sites. Both discontinued and removed. New IV placed to RFA 22g. Patient tolerated okay. IV ABT currently running at this time.
[2020-11-04 05:51] LABS: Hematocrit 26.1 % (40.0-54.0); Hemoglobin 8.2 g/dL (14.0-18.0); Mean Corpuscular HGB Conc 31.4 g/dL (32.0-36.0); Mean Corpuscular Hemoglobin 30.8 pg (27.0-31.0); Mean Corpuscular Volume 98.1 fL (78.0-102.0); Mean Platelet Volume 9.9 fl (8.7-11.0); Platelet Count Result 308 K/mm3 (150-420); Red Blood Count 2.66 M/mm3 (4.70-6.10); White Blood Count 10.2 K/mm3 (4.8-10.8)
[2020-11-04 06:15] LABS: Alanine Aminotransferase 45 U/L (16-63); Albumin Level 2.1 g/dL (3.4-5.0); Alkaline Phosphatase 86 U/L (46-116); Anion Gap 8 mmol/L (8-16); Aspartate Amino Transferase 18 U/L (15-37); Bilirubin,Total 0.3 mg/dL (0.00-1.00); Blood Urea Nitrogen 28 mg/dL (7-18); Calcium 8.1 mg/dL (8.5-10.1); Carbon Dioxide 26 mmol/L (21-32); Chloride 103 mmol/L (98-108); Estimated CRCL calculation 80 ml/min; Estimated Glomerular Filt Rate > 60; Glucose 160 mg/dL (70-99); NT Pro B Type Natriuretic Pept 1825 pg/mL (0-125); Osmolality Calculated 292 mOsm/kg (285-295); Potassium 4.7 mmol/L (3.5-5.1); Sodium 137 mmol/L (136-145); Total Protein 5.7 g/dL (6.4-8.2)
[2020-11-04 08:00] LABS: Glucose Point of Care 180 mg/dl (65-105)
[2020-11-04] MEDS: BUDESONIDE/FORMOTEROL (*SP) 160-4.5 MCG 6 GM INH 1 PUFF INHALATION (09:41)
[2020-11-04] MEDS: ALBUTEROL SULFATE (*SP) INHALER 2 PUFF INHALATION (09:41)
[2020-11-04] MEDS: metOLazone 2.5 MG TABLET 5 MG PO (09:44)
[2020-11-04] MEDS: carvediloL 6.25 MG TABLET PO ×2 (09:44→17:49)
[2020-11-04] MEDS: GABAPENTIN 300 MG CAPSULE 600 MG PO ×3 (09:44→17:50)
[2020-11-04] MEDS: ATORVASTATIN 40 MG TABLET 80 MG PO (09:45)
[2020-11-04] MEDS: SPIRONOLACTONE 25 MG TABLET PO (09:45)
[2020-11-04] MEDS: COLLAGENASE OINT 30 GM TUBE 1 APPLIC TOPICAL ×2 (09:45→22:14)
[2020-11-04] MEDS: buPROPion HCL SR (12 HR) 150 MG TAB PO ×2 (09:45→17:49)
[2020-11-04] MEDS: lisinopriL 5 MG TABLET PO (09:45)
[2020-11-04] MEDS: DOCUSATE SODIUM 100 MG CAPSULE PO (09:45)
[2020-11-04] MEDS: NEOMYCIN/POLYMYXIN/BACITRACIN OINTMENT 15 GM TUBE 1 APPLIC TOPICAL (09:46)
[2020-11-04 11:43] LABS: Glucose Point of Care 307 mg/dl (65-105)
[2020-11-04] MEDS: MEROPENEM 1 GM in SODIUM CHLORIDE 0.9% IV 100 ML IVPB ×2 (14:18→21:53)
--- NOTE | 2020-11-04 14:19 | P.PN_ITS ---
Progress Note: A&P Assessment and Plan (1) Sepsis: Qualifiers: Sepsis type: sepsis due to unspecified organism Sepsis acute organ dysfunction status: with acute organ dysfunction Severe sepsis acute organ dysfunction type: encephalopathy Severe sepsis shock status: unspecified Qualified Code(s): A41.9 - Sepsis, unspecified organism; R65.20 - Severe sepsis without septic shock; G93.40 - Encephalopathy, unspecified Code(s): A41.9 - Sepsis, unspecified organism Status: Acute Assessment and Plan: * Resolved * As evidence of hypotensive, tachypnea and leukocytosis * Continue meropenem in vancomycin for possible osteomyelitis * Blood culture pending * Lactic acid2.3>1.3>0.4 (2) Anemia: Code(s): D64.9 - Anemia, unspecified Status: Acute Assessment and Plan: * Hemoglobin5.0>6.8>6.0>7.6>7.3>8.0 >8.2 patient received 3 units of PRBCs * Occult blood pending collected today manually * Source unknown * It was reported during patient's last visit that he had an excessive amount of bleeding to his area of debridement * Will continue to monitor * Will infuse for a hemoglobin of less than<7.0 * No obvious hemorrhage noted (3) Wound infection: Code(s): T14.8XXA - Other injury of unspecified body region, initial encounter; L08.9 - Local infection of the skin and subcutaneous tissue, unspecified Status: Acute Assessment and Plan: * CT of the right foot indicates possible osteomyelitis * MRI pending * Started vancomycin renal dose managed by pharmacy * Continue Levaquin * Blood culture pending * WBCs16.3>10.8>11.2>10.2 * Lactic acid2.3>1.3>0.4 * CRP2.5>1.3 * Continue wound care as instructed (4) Acute alteration in mental status: Code(s): R41.82 - Altered mental status, unspecified Status: Acute Assessment and Plan: * Secondary to sepsis versus dementia * Patient is well-known to this facility is known for his confusion * Continue neuro check * His CT without new finding * Continue neurochecks (5) Acute renal failure: Qualifiers: Acute renal failure type: unspecified Qualified Code(s): N17.9 - Acute kidney failure, unspecified Code(s): N17.9 - Acute kidney failure, unspecified Status: Acute Assessment and Plan: * On admission creatinine1.32>1.03 >0.91improved is at baseline * Renal dose all medication * Avoid nephrotoxic agent * CMP in a.m. (6) Below-knee amputation of left lower extremity: Code(s): S88.112A - Complete traumatic amputation at level between knee and ankle, left lower leg, initial encounter Status: Acute Assessment and Plan: * Recent BKA at [facility] in August * Possible source of infection (7) Systolic heart failure: Qualifiers: Heart failure chronicity: acute on chronic Qualified Code(s): I50.23 - Acute on chronic systolic (congestive) heart failure Code(s): I50.20 - Unspecified systolic (congestive) heart failure Status: Acute Assessment and Plan: * [id number] * Chest x-ray did not indicate pulmonary edema * Last echo in 01/05/20 showed an EF 30-35%, severe LVE, diastolic dysfunction (E/e' 24), mod LAE, mod MR, trace TR, RVSP 59 mmHg. * Continue Lasix (8) COPD (chronic obstructive pulmonary disease): Qualifiers: COPD type: unspecified COPD Qualified Code(s): J44.9 - Chronic obstructive pulmonary disease, unspecified Code(s): J44.9 - Chronic obstructive pulmonary disease, unspecified Status: Acute Assessment and Plan: * Stable * Continu
--- NOTE | 2020-11-04 14:19 | WPDPN ---
Progress Note: A&P Assessment and Plan (1) Sepsis: Qualifiers: Sepsis type: sepsis due to unspecified organism Sepsis acute organ dysfunction status: with acute organ dysfunction Severe sepsis acute organ dysfunction type: encephalopathy Severe sepsis shock status: unspecified Qualified Code(s): A41.9 - Sepsis, unspecified organism; R65.20 - Severe sepsis without septic shock; G93.40 - Encephalopathy, unspecified Code(s): A41.9 - Sepsis, unspecified organism Status: Acute Assessment and Plan: Resolved As evidence of hypotensive, tachypnea and leukocytosis Continue meropenem in vancomycin for possible osteomyelitis Blood culture pending Lactic acid2.3>1.3>0.4 (2) Anemia: Code(s): D64.9 - Anemia, unspecified Status: Acute Assessment and Plan: Hemoglobin5.0>6.8>6.0>7.6>7.3>8.0 >8.2 patient received 3 units of PRBCs Occult blood pending collected today manually Source unknown It was reported during patient's last visit that he had an excessive amount of bleeding to his area of debridement Will continue to monitor Will infuse for a hemoglobin of less than<7.0 No obvious hemorrhage noted (3) Wound infection: Code(s): T14.8XXA - Other injury of unspecified body region, initial encounter; L08.9 - Local infection of the skin and subcutaneous tissue, unspecified Status: Acute Assessment and Plan: CT of the right foot indicates possible osteomyelitis MRI pending Started vancomycin renal dose managed by pharmacy Continue Levaquin Blood culture pending WBCs16.3>10.8>11.2>10.2 Lactic acid2.3>1.3>0.4 CRP2.5>1.3 Continue wound care as instructed (4) Acute alteration in mental status: Code(s): R41.82 - Altered mental status, unspecified Status: Acute Assessment and Plan: Secondary to sepsis versus dementia Patient is well-known to this facility is known for his confusion Continue neuro check His CT without new finding Continue neurochecks (5) Acute renal failure: Qualifiers: Acute renal failure type: unspecified Qualified Code(s): N17.9 - Acute kidney failure, unspecified Code(s): N17.9 - Acute kidney failure, unspecified Status: Acute Assessment and Plan: On admission creatinine1.32>1.03 >0.91improved is at baseline Renal dose all medication Avoid nephrotoxic agent CMP in a.m. (6) Below-knee amputation of left lower extremity: Code(s): S88.112A - Complete traumatic amputation at level between knee and ankle, left lower leg, initial encounter Status: Acute Assessment and Plan: Recent BKA at [facility] in August Possible source of infection (7) Systolic heart failure: Qualifiers: Heart failure chronicity: acute on chronic Qualified Code(s): I50.23 - Acute on chronic systolic (congestive) heart failure Code(s): I50.20 - Unspecified systolic (congestive) heart failure Status: Acute Assessment and Plan: [id number] Chest x-ray did not indicate pulmonary edema Last echo in 01/05/20 showed an EF 30-35%, severe LVE, diastolic dysfunction (E/e' 24), mod LAE, mod MR, trace TR, RVSP 59 mmHg. Continue Lasix (8) COPD (chronic obstructive pulmonary disease): Qualifiers: COPD type: unspecified COPD Qualified Code(s): J44.9 - Chronic obstructive pulmonary disease, unspecified Code(s): J44.9 - Chronic obstructive pulmonary disease, unspecified Status: Acute Assessment and Plan: Stable Continue inhalers (9) Type 2 diabetes mellitus: Qualifiers: Diabetes mellitus complication detail: with other circulatory complications Diabetes mellitus complication status: with circulatory complication Diabetes mellitus skilled nursing insulin use: without skilled nursing use Qualified Code(s): E11.59 - Type 2 diabetes mellitus with other circulatory complications Code(s): E11.9 - Type 2 diabetes mellitus without
[2020-11-04 15:04] LABS: Occult Blood Positive (Negative)
[2020-11-04 16:42] LABS: Glucose Point of Care 151 mg/dl (65-105)
[2020-11-04] MEDS: NICOTINE (*PBKC) 21 MG PATCH 1 PATCH TRANSDERM (17:48)
[2020-11-04] MEDS: NICOTINE (*PBKC) 21 MG PATCH 1 PATCH (17:57)
[2020-11-04 17:58] LABS: Vancomycin Trough 14.1 ug/mL (10.0-15.0)
[2020-11-04] MEDS: SENNA/DOCUSATE SODIUM TABLET 1 TAB PO (21:52)
[2020-11-04] MEDS: HYDROcodone/acetaminophen (*CRX) 5-325 MG TABLET 1 TAB PO (21:57)
[2020-11-04 22:27] LABS: Glucose Point of Care 189 mg/dl (65-105)
[2020-11-05] VITALS (9 sets, daily range): BP systolic 91–120; BP diastolic 54–88; PULSE 74–99; RESP 16–18; TEMP 35.9–37.1; O2SAT 96–99
[2020-11-05 05:20] LABS: Hematocrit 26.8 % (40.0-54.0); Hemoglobin 8.4 g/dL (14.0-18.0); Mean Corpuscular HGB Conc 31.3 g/dL (32.0-36.0); Mean Corpuscular Hemoglobin 31.1 pg (27.0-31.0); Mean Corpuscular Volume 99.3 fL (78.0-102.0); Mean Platelet Volume 9.7 fl (8.7-11.0); Platelet Count Result 350 K/mm3 (150-420); Red Cell Distribution Width 15.1 % (11.6-14.4); White Blood Count 8.2 K/mm3 (4.8-10.8)
[2020-11-05 05:39] LABS: Alanine Aminotransferase 41 U/L (16-63); Albumin Level 2.1 g/dL (3.4-5.0); Alkaline Phosphatase 91 U/L (46-116); Anion Gap 7 mmol/L (8-16); Aspartate Amino Transferase 18 U/L (15-37); Bilirubin,Total 0.3 mg/dL (0.00-1.00); Blood Urea Nitrogen 22 mg/dL (7-18); Calcium 8.2 mg/dL (8.5-10.1); Carbon Dioxide 27 mmol/L (21-32); Chloride 104 mmol/L (98-108); Estimated CRCL calculation 93 ml/min; Estimated Glomerular Filt Rate > 60; Glucose 154 mg/dL (70-99); Magnesium 1.7 mg/dL (1.8-2.4); Osmolality Calculated 292 mOsm/kg (285-295); Potassium 4.5 mmol/L (3.5-5.1); Sodium 138 mmol/L (136-145); Total Protein 5.8 g/dL (6.4-8.2)
[2020-11-05] MEDS: MEROPENEM 1 GM in SODIUM CHLORIDE 0.9% IV 100 ML IVPB ×3 (06:11→21:06)
[2020-11-05 07:27] LABS: Glucose Point of Care 181 mg/dl (65-105)
[2020-11-05] MEDS: MAGNESIUM SULF 2 GM/WATER 50ML 2 GM/50 ML BAG IVPB (08:59)
[2020-11-05] MEDS: ALBUTEROL SULFATE (*SP) INHALER 2 PUFF INHALATION (09:04)
[2020-11-05] MEDS: GABAPENTIN 300 MG CAPSULE 600 MG PO ×3 (09:05→16:52)
[2020-11-05] MEDS: carvediloL 6.25 MG TABLET PO ×2 (09:05→16:53)
[2020-11-05] MEDS: metOLazone 2.5 MG TABLET 5 MG PO (09:05)
[2020-11-05] MEDS: buPROPion HCL SR (12 HR) 150 MG TAB PO ×2 (09:06→16:53)
[2020-11-05] MEDS: DOCUSATE SODIUM 100 MG CAPSULE PO (09:06)
[2020-11-05] MEDS: ATORVASTATIN 40 MG TABLET 80 MG PO (09:06)
[2020-11-05] MEDS: SPIRONOLACTONE 25 MG TABLET PO (09:06)
[2020-11-05] MEDS: BUDESONIDE/FORMOTEROL (*SP) 160-4.5 MCG 6 GM INH 1 PUFF INHALATION (09:06)
[2020-11-05] MEDS: lisinopriL 5 MG TABLET PO (09:06)
[2020-11-05] MEDS: COLLAGENASE OINT 30 GM TUBE 1 APPLIC TOPICAL ×2 (09:07→20:46)
[2020-11-05] MEDS: NEOMYCIN/POLYMYXIN/BACITRACIN OINTMENT 15 GM TUBE 1 APPLIC TOPICAL (09:07)
[2020-11-05] MEDS: NICOTINE (*PBKC) 21 MG PATCH 1 PATCH TRANSDERM (09:08)
--- NOTE | 2020-11-05 09:15 | P.PNIM_ITS ---
Progress Note: A&P Assessment and Plan (1) Sepsis: Qualifiers: Sepsis acute organ dysfunction status: with acute organ dysfunction Sepsis type: sepsis due to unspecified organism Severe sepsis acute organ dysfunction type: encephalopathy Severe sepsis shock status: unspecified Qualified Code(s): A41.9 - Sepsis, unspecified organism; R65.20 - Severe sepsis without septic shock; G93.40 - Encephalopathy, unspecified <Luis BanerjeeSaulo Ayushmichelle METER MAKER-C - Last Filed: 11/05/20 12:34> Code(s): A41.9 - Sepsis, unspecified organism <Luis Peacockmichelle METER MAKER-C - Last Filed: 11/05/20 12:34> Status: Acute <Luis An METER MAKER-C - Last Filed: 11/05/20 12:34> Assessment and Plan: * Resolved * As evidence of hypotensive, tachypnea and leukocytosis * Continue meropenem in vancomycin for possible osteomyelitis * Blood culture pending * Lactic acid2.3>1.3>0.4 11/15/2020 Pt comfortable, no fevers, chills, WBC 8.2 <Luis BanerjeeSaulo An METER MAKER-C - Last Filed: 11/05/20 12:34> (2) Anemia: Code(s): D64.9 - Anemia, unspecified <Luis BanerjeeSaulo Ayushmichelle METER MAKER-C - Last Filed: 11/05/20 12:34> Status: Acute <Luis Peacockmichelle METER MAKER-C - Last Filed: 11/05/20 12:34> Assessment and Plan: * Hemoglobin5.0>6.8>6.0>7.6>7.3>8.0 >8.2 patient received 3 units of PRBCs * Occult blood pending collected today manually * Source unknown * It was reported during patient's last visit that he had an excessive amount of bleeding to his area of debridement * Will continue to monitor * Will infuse for a hemoglobin of less than<7.0 * No obvious hemorrhage noted 11/15/2020 H/H 8.4/26.8, noted stool positive for blood a couple days ago. no obvious bleeding, will monitor H/H <Luis BanerjeeSaulo An METER MAKER-C - Last Filed: 11/05/20 12:34> (3) Wound infection: Code(s): T14.8XXA - Other injury of unspecified body region, initial encounter; L08.9 - Local infection of the skin and subcutaneous tissue, unspecified <LIA SimmonsC - Last Filed: 11/05/20 12:34> Status: Acute <Luis BanerjeeLIA LawlerC - Last Filed: 11/05/20 12:34> Assessment and Plan: * CT of the right foot indicates possible osteomyelitis * MRI pending * Started vancomycin renal dose managed by pharmacy * Continue Levaquin * Blood culture pending * WBCs16.3>10.8>11.2>10.2 * Lactic acid2.3>1.3>0.4 * CRP2.5>1.3 * Continue wound care as instructed 11/15/2020 MRI of Left BKA/knee and right foot scheduled for 11/06/2020, Right foot well granulated, healing <REGULO Simmons - Last Filed: 11/05/20 12:34> (4) Acute alteration in mental status: Code(s): R41.82 - Altered mental status, unspecified <LIA SimmonsC - Last Filed: 11/05/20 12:34> Status: Acute <Luis BanerjeeREGULO Lawler - Last Filed: 11/05/20 12:34> Assessment and Plan: * Secondary to sepsis versus dementia * Patient is well-known to this facility is known for his confusion * Continue neuro check * His CT without new finding * Continue neurochecks 11/15/2020 Pt's mental status is at baseline, A&OX1 <LIA SimmonsC - Last Filed: 11/05/20 12:34> (5) Acute renal failure: Qualifiers: Acute renal failure type: unspecified Qualified Code(s): N17.9 - Acute kidney failure, unspecified <LIA SimmonsC - Last Filed: 11/05/20 12:34> Code(s): N17.9 - Acute kidney failure, unspecified <LIA SimmonsC - Last Filed: 11/05/20 12:34> Status: Acute <Luis An, METER MAKER-C - Last Filed: 11/05/20 12:34> Assessment and Plan: * On admissi
--- NOTE | 2020-11-05 09:15 | PM.IMPN ---
Progress Note: A&P Assessment and Plan (1) Sepsis: Qualifiers: Sepsis acute organ dysfunction status: with acute organ dysfunction Sepsis type: sepsis due to unspecified organism Severe sepsis acute organ dysfunction type: encephalopathy Severe sepsis shock status: unspecified Qualified Code(s): A41.9 - Sepsis, unspecified organism; R65.20 - Severe sepsis without septic shock; G93.40 - Encephalopathy, unspecified <Luis BanerjeeSaulo Ayushmichelle, OUTER DIAMETER GRINDER TOOL-C - Last Filed: 11/05/20 12:34> Code(s): A41.9 - Sepsis, unspecified organism <Luis Jailene Peacockmichelle, OUTER DIAMETER GRINDER TOOL-C - Last Filed: 11/05/20 12:34> Status: Acute <Luis Jailene Peacockmichelle, OUTER DIAMETER GRINDER TOOL-C - Last Filed: 11/05/20 12:34> Assessment and Plan: Resolved As evidence of hypotensive, tachypnea and leukocytosis Continue meropenem in vancomycin for possible osteomyelitis Blood culture pending Lactic acid2.3>1.3>0.4 11/15/2020 Pt comfortable, no fevers, chills, WBC 8.2 <Luis BanerjeeSaulo Ayushmichelle, OUTER DIAMETER GRINDER TOOL-C - Last Filed: 11/05/20 12:34> (2) Anemia: Code(s): D64.9 - Anemia, unspecified <Luis ChrissSaulo Ayushmichelle, OUTER DIAMETER GRINDER TOOL-C - Last Filed: 11/05/20 12:34> Status: Acute <Luis ChrissSaulo Ayushmichelle, OUTER DIAMETER GRINDER TOOL-C - Last Filed: 11/05/20 12:34> Assessment and Plan: Hemoglobin5.0>6.8>6.0>7.6>7.3>8.0 >8.2 patient received 3 units of PRBCs Occult blood pending collected today manually Source unknown It was reported during patient's last visit that he had an excessive amount of bleeding to his area of debridement Will continue to monitor Will infuse for a hemoglobin of less than<7.0 No obvious hemorrhage noted 11/15/2020 H/H 8.4/26.8, noted stool positive for blood a couple days ago. no obvious bleeding, will monitor H/H <Luis BanerjeeSaulo An, OUTER DIAMETER GRINDER TOOL-C - Last Filed: 11/05/20 12:34> (3) Wound infection: Code(s): T14.8XXA - Other injury of unspecified body region, initial encounter; L08.9 - Local infection of the skin and subcutaneous tissue, unspecified <LIA SimmonsC - Last Filed: 11/05/20 12:34> Status: Acute <Luis BanerjeeSaulo An APN-C - Last Filed: 11/05/20 12:34> Assessment and Plan: CT of the right foot indicates possible osteomyelitis MRI pending Started vancomycin renal dose managed by pharmacy Continue Levaquin Blood culture pending WBCs16.3>10.8>11.2>10.2 Lactic acid2.3>1.3>0.4 CRP2.5>1.3 Continue wound care as instructed 11/15/2020 MRI of Left BKA/knee and right foot scheduled for 11/06/2020, Right foot well granulated, healing <Luis An APN-C - Last Filed: 11/05/20 12:34> (4) Acute alteration in mental status: Code(s): R41.82 - Altered mental status, unspecified <Luis An APN-C - Last Filed: 11/05/20 12:34> Status: Acute <Luis ChrissSaulo An APN-C - Last Filed: 11/05/20 12:34> Assessment and Plan: Secondary to sepsis versus dementia Patient is well-known to this facility is known for his confusion Continue neuro check His CT without new finding Continue neurochecks 11/15/2020 Pt's mental status is at baseline, A&OX1 <Luis An APN-C - Last Filed: 11/05/20 12:34> (5) Acute renal failure: Qualifiers: Acute renal failure type: unspecified Qualified Code(s): N17.9 - Acute kidney failure, unspecified <Luis An APN-C - Last Filed: 11/05/20 12:34> Code(s): N17.9 - Acute kidney failure, unspecified <Luis An APN-C - Last Filed: 11/05/20 12:34> Status: Acute <Luis An APN-C - Last Filed: 11/05/20 12:34> Assessment and Plan: On admission creatinine1.32>1.03 >0.91improved is at baseline Renal dose all medication Avoid nephrotoxic agent CMP in a.m. 11/15/2020 Resolved, Cr 0.85, eCrCl 93, eGFR > 60 <Luis An APN-C - Last Filed: 11/05/20 12:34> (6) Below-knee amputation of left lower extremity: Code(s): S88.112A - Complete traumatic amputation at level between knee and ankl
[2020-11-05] MEDS: HYDROcodone/acetaminophen (*CRX) 5-325 MG TABLET 1 TAB PO (10:21)
[2020-11-05 12:03] LABS: Glucose Point of Care 301 mg/dl (65-105)
[2020-11-05] MEDS: ACETAMINOPHEN 325 MG TABLET 650 MG PO ×2 (14:37→22:28)
--- NOTE | 2020-11-05 15:19 | PC.NURSE ---
Patient pleasant today some c/o pain and discomfort w/pain meds given as ordered. IV ABT cont. with no adverse reactions. Wound treatments performed and handled well.
[2020-11-05 16:28] LABS: Glucose Point of Care 161 mg/dl (65-105)
[2020-11-05] MEDS: SENNA/DOCUSATE SODIUM TABLET 1 TAB PO (20:46)
[2020-11-05 21:00] LABS: Glucose Point of Care 222 mg/dl (65-105)
[2020-11-06] VITALS: BP 124/76; PULSE 79; RESP 16; TEMP 36.4; O2SAT 97
--- NOTE | 2020-11-06 00:21 | PC.NURSE ---
Dressing to left amputation site came off. Replaced per wound care instructions.
--- NOTE | 2020-11-06 01:11 | PC.NURSE ---
Patient complaining of burning at IV site. Site patent without signs of infiltration. Flow rate for medication slowed.
[2020-11-06 04:00] VITALS: BP 120/74; PULSE 69; PULSE 78; RESP 14; TEMP 36.5; O2SAT 97
[2020-11-06 05:14] LABS: Hematocrit 27.4 % (40.0-54.0); Hemoglobin 8.8 g/dL (14.0-18.0); Mean Corpuscular HGB Conc 32.1 g/dL (32.0-36.0); Mean Corpuscular Hemoglobin 31.4 pg (27.0-31.0); Mean Corpuscular Volume 97.9 fL (78.0-102.0); Mean Platelet Volume 9.5 fl (8.7-11.0); Platelet Count Result 360 K/mm3 (150-420); Red Cell Distribution Width 14.6 % (11.6-14.4); White Blood Count 8.1 K/mm3 (4.8-10.8)
[2020-11-06 05:38] LABS: Anion Gap 5 mmol/L (8-16); Blood Urea Nitrogen 21 mg/dL (7-18); Calcium 8.4 mg/dL (8.5-10.1); Carbon Dioxide 29 mmol/L (21-32); Chloride 103 mmol/L (98-108); Estimated CRCL calculation 90 ml/min; Estimated Glomerular Filt Rate > 60; Glucose 181 mg/dL (70-99); NT Pro B Type Natriuretic Pept 2215 pg/mL (0-125); Osmolality Calculated 292 mOsm/kg (285-295); Potassium 4.9 mmol/L (3.5-5.1); Sodium 137 mmol/L (136-145)
[2020-11-06] MEDS: MEROPENEM 1 GM in SODIUM CHLORIDE 0.9% IV 100 ML IVPB ×2 (05:40→14:31)
[2020-11-06 08:00] VITALS: BP 122/65; PULSE 100; RESP 24; TEMP 37.3; O2SAT 99
[2020-11-06 08:23] LABS: Glucose Point of Care 221 mg/dl (65-105)
[2020-11-06] MEDS: HYDROcodone/acetaminophen (*CRX) 5-325 MG TABLET 1 TAB PO (11:16)
[2020-11-06] MEDS: BUDESONIDE/FORMOTEROL (*SP) 160-4.5 MCG 6 GM INH 1 PUFF INHALATION (11:17)
[2020-11-06] MEDS: NEOMYCIN/POLYMYXIN/BACITRACIN OINTMENT 15 GM TUBE 1 APPLIC TOPICAL (11:18)
[2020-11-06] MEDS: COLLAGENASE OINT 30 GM TUBE 1 APPLIC TOPICAL (11:18)
[2020-11-06] MEDS: NICOTINE (*PBKC) 21 MG PATCH 1 PATCH TRANSDERM (11:19)
[2020-11-06] MEDS: ATORVASTATIN 40 MG TABLET 80 MG PO (11:20)
[2020-11-06 11:21] VITALS: PULSE 76
[2020-11-06] MEDS: SPIRONOLACTONE 25 MG TABLET PO (11:21)
[2020-11-06] MEDS: lisinopriL 5 MG TABLET PO (11:21)
[2020-11-06] MEDS: carvediloL 6.25 MG TABLET PO (11:21)
[2020-11-06] MEDS: GABAPENTIN 300 MG CAPSULE 600 MG PO ×2 (11:21→14:30)
[2020-11-06] MEDS: DOCUSATE SODIUM 100 MG CAPSULE PO (11:21)
[2020-11-06] MEDS: buPROPion HCL SR (12 HR) 150 MG TAB PO (11:21)
[2020-11-06] MEDS: metOLazone 2.5 MG TABLET 5 MG PO (11:21)
[2020-11-06 11:45] LABS: Glucose Point of Care 271 mg/dl (65-105)
--- NOTE | 2020-11-06 13:00 | P.PNIM_ITS ---
Progress Note: A&P Assessment and Plan (1) Sepsis: Qualifiers: Sepsis type: sepsis due to unspecified organism Sepsis acute organ dysfunction status: with acute organ dysfunction Severe sepsis acute organ dysfunction type: encephalopathy Severe sepsis shock status: unspecified Qualified Code(s): A41.9 - Sepsis, unspecified organism; R65.20 - Severe sepsis without septic shock; G93.40 - Encephalopathy, unspecified Code(s): A41.9 - Sepsis, unspecified organism Status: Acute Assessment and Plan: * Resolved * As evidence of hypotensive, tachypnea and leukocytosis * Continue meropenem in vancomycin for possible osteomyelitis * Blood culture pending * Lactic acid2.3>1.3>0.4 11/05/2020 Pt comfortable, no fevers, chills, WBC 8.2 11/06/2020 Blood Cx NGTD, VSS, Afebrile, WBC 8.1 (2) Anemia: Code(s): D64.9 - Anemia, unspecified Status: Acute Assessment and Plan: * Hemoglobin5.0>6.8>6.0>7.6>7.3>8.0 >8.2 patient received 3 units of PRBCs * Occult blood pending collected today manually * Source unknown * It was reported during patient's last visit that he had an excessive amount of bleeding to his area of debridement * Will continue to monitor * Will infuse for a hemoglobin of less than<7.0 * No obvious hemorrhage noted 11/05/2020 H/H 8.4/26.8, noted stool positive for blood a couple days ago. no obvious bleeding, will monitor H/H 11/06/2020 H/H 8.8/27.4, no obvious bleeding, cotninue to monitor (3) Wound infection: Code(s): T14.8XXA - Other injury of unspecified body region, initial encounter; L08.9 - Local infection of the skin and subcutaneous tissue, unspecified Status: Acute Assessment and Plan: * CT of the right foot indicates possible osteomyelitis * MRI pending * Started vancomycin renal dose managed by pharmacy * Continue Levaquin * Blood culture pending * WBCs16.3>10.8>11.2>10.2 * Lactic acid2.3>1.3>0.4 * CRP2.5>1.3 * Continue wound care as instructed 11/05/2020 MRI of Left BKA/knee and right foot scheduled for 11/06/2020, Right foot well granulated, healing 11/06/2020 MRI of [facility] Foot and Ankle: IMPRESSION: 1. Marrow edema associated with nondisplaced extra articular fracture across the base of the first distal phalanx, the neck of the fifth proximal phalanx and across the midportion of the fused fifth middle/distal phalanx. Additional marrow edema along nondisplaced likely intra-articular fracture at the plantar/lateral base of the fourth and fifth proximal phalanges. 2. Shallow skin ulceration over the dorsum of the necks of the second-fourth metatarsals. No abscess or evident cortical erosions or loss of T1 marrow fat signal to suggest osteomyelitis. 3. 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 4. Stigmata of chronic medial and lateral ankle sprains. Pt will need to f/u with Perl Programmer for the Fractures (4) Acute alteration in mental status: Code(s): R41.82 - Altered mental status, unspecified Status: Acute Assessment and Plan: * Secondary to sepsis versus dementia * Patient is well-known to this facility is known for his confusion * Continue neuro check * His CT without new finding * Continue neurochecks 11/05/2020 Pt's mental status is at baseline, A&OX1 11/06/2020 at baseline (5) Acute renal failure: Qualifiers: Acute renal failure type: unspecified Qualified Code(s): N17.9 - Acute kidney failure, unspecified Code(s): N17.9 - Acute kidney failure, unspecified Status: Acute Assessment and Plan: * On admission creatinine1.32>1.03 >0.91improved is at baseline
--- NOTE | 2020-11-06 13:00 | PM.IMPN ---
Progress Note: A&P Assessment and Plan (1) Sepsis: Qualifiers: Sepsis type: sepsis due to unspecified organism Sepsis acute organ dysfunction status: with acute organ dysfunction Severe sepsis acute organ dysfunction type: encephalopathy Severe sepsis shock status: unspecified Qualified Code(s): A41.9 - Sepsis, unspecified organism; R65.20 - Severe sepsis without septic shock; G93.40 - Encephalopathy, unspecified Code(s): A41.9 - Sepsis, unspecified organism Status: Acute Assessment and Plan: Resolved As evidence of hypotensive, tachypnea and leukocytosis Continue meropenem in vancomycin for possible osteomyelitis Blood culture pending Lactic acid2.3>1.3>0.4 11/05/2020 Pt comfortable, no fevers, chills, WBC 8.2 11/06/2020 Blood Cx NGTD, VSS, Afebrile, WBC 8.1 (2) Anemia: Code(s): D64.9 - Anemia, unspecified Status: Acute Assessment and Plan: Hemoglobin5.0>6.8>6.0>7.6>7.3>8.0 >8.2 patient received 3 units of PRBCs Occult blood pending collected today manually Source unknown It was reported during patient's last visit that he had an excessive amount of bleeding to his area of debridement Will continue to monitor Will infuse for a hemoglobin of less than<7.0 No obvious hemorrhage noted 11/05/2020 H/H 8.4/26.8, noted stool positive for blood a couple days ago. no obvious bleeding, will monitor H/H 11/06/2020 H/H 8.8/27.4, no obvious bleeding, cotninue to monitor (3) Wound infection: Code(s): T14.8XXA - Other injury of unspecified body region, initial encounter; L08.9 - Local infection of the skin and subcutaneous tissue, unspecified Status: Acute Assessment and Plan: CT of the right foot indicates possible osteomyelitis MRI pending Started vancomycin renal dose managed by pharmacy Continue Levaquin Blood culture pending WBCs16.3>10.8>11.2>10.2 Lactic acid2.3>1.3>0.4 CRP2.5>1.3 Continue wound care as instructed 11/05/2020 MRI of Left BKA/knee and right foot scheduled for 11/06/2020, Right foot well granulated, healing 11/06/2020 MRI of RT Foot and Ankle: IMPRESSION: 1. Marrow edema associated with nondisplaced extra articular fracture across the base of the first distal phalanx, the neck of the fifth proximal phalanx and across the midportion of the fused fifth middle/distal phalanx. Additional marrow edema along nondisplaced likely intra-articular fracture at the plantar/lateral base of the fourth and fifth proximal phalanges. 2. Shallow skin ulceration over the dorsum of the necks of the second-fourth metatarsals. No abscess or evident cortical erosions or loss of T1 marrow fat signal to suggest osteomyelitis. 3. 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 4. Stigmata of chronic medial and lateral ankle sprains. Pt will need to f/u with Mushroom Cutter for the Fractures (4) Acute alteration in mental status: Code(s): R41.82 - Altered mental status, unspecified Status: Acute Assessment and Plan: Secondary to sepsis versus dementia Patient is well-known to this facility is known for his confusion Continue neuro check His CT without new finding Continue neurochecks 11/05/2020 Pt's mental status is at baseline, A&OX1 11/06/2020 at baseline (5) Acute renal failure: Qualifiers: Acute renal failure type: unspecified Qualified Code(s): N17.9 - Acute kidney failure, unspecified Code(s): N17.9 - Acute kidney failure, unspecified Status: Acute Assessment and Plan: On admission creatinine1.32>1.03 >0.91improved is at baseline Renal dose all medication Avoid nephrotoxic agent CMP in a.m. 11/05/2020 Resolved, Cr 0.85, eCrCl 93, eGFR > 60 11/06/2020 ... (6) Below-knee amputation of left lower extremity: Code(s): S88.112A - Complete traumatic amputation at level between knee and ankle, left lower leg, initial encounter Status: Acute Assessment and Plan: Recent BKA at [facility] in
--- NOTE | 2020-11-06 15:14 | PM.TDS ---
Transfer Discharge Sum: Prov Provider Date of admission: 11/01/20 14:30 Primary care physician: Abiel Bean DO Admitting clinician: Gela Tejeda MD Consults: 11/01/20 Care Coordination Consult Routine Comment: Reason for Consult:: Retirement Placement DS: Admitting Diagnosis Admitting Diagnosis Sepsis, Encephalopathy, Anemia DS: Discharge Diagnosis Discharge Diagnosis (1) Sepsis: Qualifiers: Sepsis acute organ dysfunction status: with acute organ dysfunction Sepsis type: sepsis due to unspecified organism Severe sepsis acute organ dysfunction type: encephalopathy Severe sepsis shock status: unspecified Qualified Code(s): A41.9 - Sepsis, unspecified organism; R65.20 - Severe sepsis without septic shock; G93.40 - Encephalopathy, unspecified Code(s): A41.9 - Sepsis, unspecified organism Status: Acute Assessment and Plan: Resolved As evidence of hypotensive, tachypnea and leukocytosis Continue meropenem in vancomycin for possible osteomyelitis Blood culture pending Lactic acid2.3>1.3>0.4 11/05/2020 Pt comfortable, no fevers, chills, WBC 8.2 11/06/2020 Blood Cx NGTD, VSS, Afebrile, WBC 8.1 (2) Anemia: Code(s): D64.9 - Anemia, unspecified Status: Acute Assessment and Plan: Hemoglobin5.0>6.8>6.0>7.6>7.3>8.0 >8.2 patient received 3 units of PRBCs Occult blood pending collected today manually Source unknown It was reported during patient's last visit that he had an excessive amount of bleeding to his area of debridement Will continue to monitor Will infuse for a hemoglobin of less than<7.0 No obvious hemorrhage noted 11/05/2020 H/H 8.4/26.8, noted stool positive for blood a couple days ago. no obvious bleeding, will monitor H/H 11/06/2020 H/H 8.8/27.4, no obvious bleeding, cotninue to monitor (3) Wound infection: Code(s): T14.8XXA - Other injury of unspecified body region, initial encounter; L08.9 - Local infection of the skin and subcutaneous tissue, unspecified Status: Acute Assessment and Plan: CT of the right foot indicates possible osteomyelitis MRI pending Started vancomycin renal dose managed by pharmacy Continue Levaquin Blood culture pending WBCs16.3>10.8>11.2>10.2 Lactic acid2.3>1.3>0.4 CRP2.5>1.3 Continue wound care as instructed 11/05/2020 MRI of Left BKA/knee and right foot scheduled for 11/06/2020, Right foot well granulated, healing 11/06/2020 MRI of RT Foot and Ankle: IMPRESSION: 1. Marrow edema associated with nondisplaced extra articular fracture across the base of the first distal phalanx, the neck of the fifth proximal phalanx and across the midportion of the fused fifth middle/distal phalanx. Additional marrow edema along nondisplaced likely intra-articular fracture at the plantar/lateral base of the fourth and fifth proximal phalanges. 2. Shallow skin ulceration over the dorsum of the necks of the second-fourth metatarsals. No abscess or evident cortical erosions or loss of T1 marrow fat signal to suggest osteomyelitis. 3. 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 4. Stigmata of chronic medial and lateral ankle sprains. Pt will need to f/u with Ostrich Farmer for the Fractures, contacted [facility] and spoke with Dr. Stapleton regarding surgery for the osteonecrosis and surgical debridement of his wounds. Dr. Stapleton accepted to be consulted on this Pt and Dr. Villa accepted Pt for transfer (4) Acute alteration in mental status: Code(s): R41.82 - Altered mental status, unspecified Status: Acute Assessment and Plan: Secondary to sepsis versus dementia Patient is well-known to this facility is known for his confusion Continue neuro check His CT without new finding Continue neurochecks 11/05/2020 Pt's mental status is at baseline, A&OX1 11/06/2020 at baseline (5) Acute renal failure: Qualifiers: Acute renal failure type: unspecified Qualified Code(s): N1
[2020-11-06 16:00] VITALS: BP 110/64; PULSE 92; RESP 18; TEMP 36.9; O2SAT 98
--- NOTE | 2020-11-06 16:12 | PC.NURSE ---
, Cassidy, notified of transfer to [facility] Room 260.
--- NOTE | 2020-11-06 16:15 | PC.NURSE ---
[facility] notified of need for transfer to [facility] Room 260.
--- NOTE | 2020-11-06 16:40 | PC.NURSE ---
Report called to [facility]. Patient transferring to room 260. [facility] handling patient transfer.
== END 2020-11-06 16:30 | disposition short-term general hospital (02) | DRG 564 ==
LOC: CHSED 11:59 → CHS2ND 11-04 08:39
PROVIDERS: Nurse Practitioner; Nurse Practitioner Family; Admitting Provider Emergency Medicine; Emergency Provider Emergency Medicine; PCP Family Medicine; Visit Provider Emergency Medicine
DX: T87.44 Infection of amputation stump, left lower extremity (principal); A41.9 Sepsis, unspecified organism; R65.20 Severe sepsis without septic shock; G93.41 Metabolic encephalopathy; I50.30 Unspecified diastolic (congestive) heart failure; I50.33 Acute on chronic diastolic (congestive) heart failure; I42.9 Cardiomyopathy, unspecified; N17.9 Acute kidney failure, unspecified; M87.862 Other osteonecrosis, left tibia; I73.9 Peripheral vascular disease, unspecified; L97.519 Non-pressure chronic ulcer of other part of right foot with unspecified severity; F17.210 Nicotine dependence, cigarettes, uncomplicated; I11.0 Hypertensive heart disease with heart failure; Z86.73 Personal history of transient ischemic attack (TIA), and cerebral infarction without residual deficits; J44.9 Chronic obstructive pulmonary disease, unspecified; E78.5 Hyperlipidemia, unspecified; E11.621 Type 2 diabetes mellitus with foot ulcer; E11.51 Type 2 diabetes mellitus with diabetic peripheral angiopathy without gangrene; D64.9 Anemia, unspecified; R77.8 Other specified abnormalities of plasma proteins; S92.424D Nondisplaced fracture of distal phalanx of right great toe, subsequent encounter for fracture with routine healing; S92.514D Nondisplaced fracture of proximal phalanx of right lesser toe(s), subsequent encounter for fracture with routine healing; S92.511D Displaced fracture of proximal phalanx of right lesser toe(s), subsequent encounter for fracture with routine healing; F01.50 Vascular dementia, unspecified severity, without behavioral disturbance, psychotic disturbance, mood disturbance, and anxiety; K82.1 Hydrops of gallbladder; N20.0 Calculus of kidney; Z87.891 Personal history of nicotine dependence; Z89.512 Acquired absence of left leg below knee
CPT/HCPCS: 36415; 36430; 70450; 71045; 73590; 73630; 73718; 73721; 74177; 80048; 80053; 80202; 81003; 82272; 82948; 83605; 83735; 83880; 84484; 85014; 85018; 85025; 85027; 85610; 85730; 86140; 86850; 86900; 86901; 86920; 87040; 93005; 96361; 96365; 97110; 97162; 97166; 97535; 99285; A9270; J1815; J1956; J2185; J3370; J3475; J7030; J7040; J7050; P9016; Q9967

== ENCOUNTER 2020-11-06 20:27 | Inpatient (IN) | payer MEDICARE, SELFPAY ==
--- NOTE | ~2020-11-06 | XR_ITS ---
EXAMINATION: XR chest 1V DATE: 11/08/2020 17:19 INDICATION: Cough TECHNIQUE: frontal view of the chest was obtained. COMPARISON: Chest radiograph dated 11/01/2020 FINDINGS: Small bandlike opacity consistent with discoid atelectasis/scarring at the left costophrenic angle. N o other airspace opacities, pulmonary edema, pleural effusion or pneumothorax. Mild cardiomegaly. Mil d thoracic dextrocurvature with mild spondylosis. IMPRESSION: 1. Mild likely lingular discoid atelectasis at the left costophrenic angle. 2. Mild cardiomegaly. Reviewed, dictated and finalized at location A.
--- NOTE | ~2020-11-06 | CT_ITS ---
EXAMINATION: CT brain wo con DATE: 11/08/2020 17:15 INDICATION: Confusion. Altered mental status. TECHNIQUE: Computed tomography (CT) of the head was performed without intravenous contrast. The mA wa s adjusted according to patient size. Iterative reconstruction technique was employed. Exam dose: 60 5.33 mGy-cm total exam DLP. COMPARISON: 11/01/2020 CT brain FINDINGS: Large left cerebral chronic infarct is again noted, involving left frontal, parietal and oc cipital areas. There is nonspecific diminished attenuation of the cerebral white matter, likely due to chronic small vessel ischemic changes. Bilateral carotid siphon internal carotid artery and vertebral artery calci fications are noted. No intracranial mass lesion or hemorrhage or recent cerebrovascular accident is detected. No midline shift or mass effect effect. No subdural or epidural hematoma. No fracture or bone destruction of the cranial vault. Old blowout fracture of the medial wall of the right orbit. The included paranasal sinuses and the ma stoid air cells are otherwise unremarkable. No fracture or bone destruction of the cranial vault. IMPRESSION: No acute intracranial finding or significant change since 06/01/2020 Reviewed, dictated and finalized at Location [facility]. Reviewed, dictated and finalized at location A.
[2020-11-06 17:10] VITALS: BP 102/54; PULSE 93; RESP 18; TEMP 36.2; O2SAT 100; BMI 30.1
--- NOTE | 2020-11-06 17:10 | ADMGEN ---
This patient, Ellis Gonzales Jr., was admitted to 2 Medical Room 260-01. Patient/family oriented to hospital policies and general routines including ID bracelet, bed and alarms, visiting hours, pain management, procedures, bathroom and other care routines, personal items, smoking policy, room service/diet, and visiting hours. Information on how to activate the Rapid Response Team has been discussed. Patient/Family are encouraged to report perceived risks to care and to ask questions if they do not understand what they are told or what they should do.
--- NOTE | 2020-11-06 17:37 | PC.NURSE ---
Hospitalist, Dr. Villa, notified of patient admission.
--- NOTE | 2020-11-06 17:59 | PC.NURSE ---
Addendum entered by Ely Lu RN 11/06/20 19:18: Med list was obtained from prior admission, July 2020. Original Note: Admission questions obtained per medical records/transfer documentation due to patients altered mental status. Patient able to provide limited history. Medication list was obtained from prior admission, October 2020. I attempted to call patients to verify medications, and was unsuccessful.
[2020-11-06 18:28] VITALS: RESP 18; O2SAT 100
--- NOTE | 2020-11-06 20:09 | PM.IMHP ---
H&P: HPI History of Present Illness Date/Time: 11/06/20 20:09 Chief Complaint: Wound infection Narrative: Ellis Gonzales Jr. is a 55 year old male who initially presented to the [facility] on November 01 with Sepsis, Anemia, AMS, ARF, Infected wounds Right dorsum of foot and Left BKA surgical closure site. He has underlying history of cardiomyopathy, congestive heart failure, COPD, CVA, gangrene of the left foot, he also did diabetes, hyperlipidemia, hypertension, necrosis of toes, peripheral artery disease, right toe fracture, diabetes, vascular dementia, recent left BKA. Patient is a poor historian most of the history is taken from the medical records. He was treated in the [facility] with vancomycin and meropenem. His WBC count has been normal and his acute renal failure resolved. Anemia has been stable. MRI of the left BKA and right foot and ankle were obtained to rule out osteomyelitis and was negative for osteomyelitis however showed osteonecrosis identified in the left distal tibial stump. For this case was discussed with the general surgeon here and was transferred here for need for surgical debridement of the left BKA wound. Review of Systems Review of Systems: - CONSTITUTIONAL: Denies weight loss, fever and chills. - HEENT: Denies changes in vision and hearing - RESPIRATORY: Denies SOB and cough. - CV: Denies palpitations and CP. - GI: Denies abdominal pain, nausea, vomiting and diarrhea. - : Denies dysuria and urinary frequency. - MSK: Denies myalgia and joint pain. - SKIN: Denies rash and pruritus. - NEUROLOGICAL: Denies headache and syncope. - PSYCHIATRIC: Denies recent changes in mood. Denies anxiety and depression. All systems reviewed & are unremarkable except as noted in HPI and below Constitutional: Constitutional: Reports fatigue and Reports weakness Neurologic: Reports weakness Endocrine: Endocrine: Reports fatigue [facility] Past Medical History Medical History Cardiomyopathy CHF (congestive heart failure) Last echo in 01/05/20 showed an EF 30-35%, severe LVE, diastolic dysfunction (E/e' 24), mod LAE, mod MR, trace TR, RVSP 59 mmHg. 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 COPD (chronic obstructive pulmonary disease) CVA (cerebral vascular accident) Multiple strokes in the past Gangrene of left foot Heel ulcer due to DM Hyperlipidemia Hypertension Necrosis of toe Peripheral artery disease Toe fracture, right Type 2 diabetes mellitus Vascular dementia Surgical History Surgical History History of left below knee amputation Family History Family History Father Diabetes mellitus Family history of cardiovascular disease Mother Family history of malignant neoplasm Social History Social History Smoking packs per day: 1 Smoking cigarettes per day: 20.0 Years smoked: 17 Smoking pack-years: 17.00 Smoking status: Current every day smoker Tobacco type: cigarettes Second hand tobacco smoke exposure: Yes Alcohol intake: current Drinks per week: 6 Alcohol use details: occasional social drink Substance use: never Substance use type: does not use Additional living arrangements comments: Gender identity (if verbalized by the patient): Male Spiritual care concerns: No Meds Home Medications and Allergies Home Medications Medication Instructions Recorded Confirmed Type atorvastatin 80 mg PO DAILY 08/05/20 11/06/20 History aspirin 81 mg PO DAILY 08/16/20 11/06/20 History carvedilol 6.25 mg PO BID 08/16/20 11/06/20 History Blood Glucose Test #100 ea 09/03/20 11/06/20 Rx blood-glucose meter [Blood Glucose #1 each 09/03/20 11/06/20 Rx Monitoring] insulin syringe-needle U-100 #
[2020-11-06 21:03] LABS: Basophils Absolute Auto 0.1 K/mm3 (0.0-0.1); Basophils Percent Auto 0.8 % (0.2-1.2); Eosinophils Absolute Auto 0.2 K/mm3 (0-0.3); Eosinophils Percent Auto 2.1 % (0-4.4); Hematocrit 27.1 % (42.0-52.0); Hemoglobin 8.6 g/dL (14.0-18.0); Immature Granulocyte Absolute 0.06 K/mm3 (0.00-0.031); Immature Granulocyte Percent A 0.7 % (0-0.5); Lymphocytes Absolute Auto 1.35 K/mm3 (0.9-3.2); Lymphocytes Percent Auto 15.8 % (18.3-44.2); Mean Corpuscular HGB Conc 31.7 g/dl (32-36); Mean Corpuscular Hemoglobin 30.9 pg (26-34); Mean Corpuscular Volume 97.5 fl (80-100); Mean Platelet Volume 9.5 fl (7.4-10.4); Monocytes Absolute Auto 0.9 K/mm3 (0.1-0.6); Monocytes Percent Auto 10.3 % (2.6-8.5); Neutrophils Percent Auto 70.3 % (45.5-73.1); Platelet Count Result 354 k/mm3 (150-375); Red Blood Count 2.78 M/mm3 (4.6-6.20); Red Cell Distribution Width 14.8 % (11.5-14.5); White Blood Count 8.6 K/mm3 (4.5-10.0)
[2020-11-06 21:16] LABS: Alanine Aminotransferase 32 U/L (4-50); Albumin Level 2.8 g/dL (3.5-5.1); Alkaline Phosphatase 94 U/L (38-126); Anion Gap 3 mmol/L (8-16); Aspartate Amino Transferase 27 U/L (17-59); Bilirubin,Total 0.3 mg/dL (0.2-1.3); Blood Urea Nitrogen 23 mg/dL (9-20); Calcium 8.4 mg/dL (8.4-10.2); Carbon Dioxide 25 mmol/L (22-30); Chloride 101 mmol/L (98-107); Estimated CRCL calculation 93 ml/min; Estimated Glomerular Filt Rate > 60; Glucose 175 mg/dL (65-110); Magnesium 1.9 mg/dL (1.6-2.3); Phosphorus 3.5 mg/dL (2.5-4.5); Potassium 5.2 mmol/L (3.4-5.0); Sodium 129 mmol/L (137-145)
[2020-11-06 21:17] LABS: Lactic Acid Reflex 0.9 mmol/L (0.7-2.1)
[2020-11-06 21:18] LABS: Hemoglobin A1C 6.8 % (<5.7)
[2020-11-06 21:21] LABS: Prothrombin Time 13.1 Seconds (11.1-14.7)
[2020-11-06 21:22] LABS: Partial Thromboplastin Time 28.6 SECONDS (22.3-36.8)
[2020-11-06 22:00] VITALS: BP 109/66; PULSE 90; RESP 21; TEMP 36.2; O2SAT 100
[2020-11-06] MEDS: GABAPENTIN 300 MG CAPSULE 600 MG PO (22:17)
[2020-11-06] MEDS: HEPARIN SODIUM 5,000 UNITS/ML VIAL 5000 UNITS SUB-Q (22:18)
[2020-11-06] MEDS: DOCUSATE SODIUM 100 MG CAPSULE PO (22:18)
[2020-11-06] MEDS: COLLAGENASE OINT 30 GM TUBE 1 APPLIC TOPICAL (22:18)
[2020-11-06] MEDS: HYDROcodone/acetaminophen (*CRX) 5-325 MG TABLET 1 TAB PO (22:28)
[2020-11-06 22:32] LABS: Glucose Point of Care 182 mg/dl (65-105)
[2020-11-06 23:46] LABS: Vancomycin Trough 22.1 ug/mL (10.0-20.0)
[2020-11-07] VITALS (10 sets, daily range): BP systolic 108–117; BP diastolic 56–62; PULSE 81–92; RESP 20–21; TEMP 36–36.3; O2SAT 99–100
--- NOTE | 2020-11-07 | PC.NURSE ---
vancomycin trough resulted at 22.1, drug non administered, pharmacy notified and sent back.
[2020-11-07 04:29] LABS: Add Urine Microscopic? NO; Appearance Urine Clear (Clear); Bilirubin Urine Negative (Negative); Blood Urine Negative (Negative); Color Urine Yellow (Yellow); Glucose Urine UA Negative (Negative); Ketones Urine Negative (Negative); Leukocyte Esterase Ur Negative LEU/UL (Negative); Nitrate Urine Negative (Negative); Protein Urine Negative (Negative); Specific Grav Ur 1.008 (1.001-1.035); Urobilinogen Urine Negative mg/dL (<2.0)
--- NOTE | 2020-11-07 09:38 | PCOTNOTE ---
Attempted evaluation. Pt. is on active bedrest orders. Spoke with DATA ENTRY MACHINE OPERATOR and nurse. Will follow-up with eval at later time when appropriate.
[2020-11-07] MEDS: GABAPENTIN 300 MG CAPSULE 600 MG PO ×3 (10:47→18:25)
[2020-11-07] MEDS: buPROPion HCL SR (12 HR) 150 MG TAB PO ×2 (10:48→18:25)
[2020-11-07] MEDS: carvediloL 6.25 MG TABLET PO ×2 (10:48→18:25)
[2020-11-07] MEDS: ASPIRIN 81 MG ENTERIC TABLET PO (10:48)
[2020-11-07] MEDS: SPIRONOLACTONE 25 MG TABLET PO (10:48)
[2020-11-07] MEDS: FUROSEMIDE 40 MG TABLET PO (10:48)
[2020-11-07] MEDS: DOCUSATE SODIUM 100 MG CAPSULE PO ×2 (10:48→18:25)
[2020-11-07] MEDS: ATORVASTATIN 40 MG TABLET 80 MG PO (10:48)
[2020-11-07] MEDS: lisinopriL 5 MG TABLET PO (10:48)
[2020-11-07] MEDS: HEPARIN SODIUM 5,000 UNITS/ML VIAL 5000 UNITS SUB-Q ×2 (10:49→20:39)
[2020-11-07] MEDS: COLLAGENASE OINT 30 GM TUBE 1 APPLIC TOPICAL ×2 (10:49→20:39)
[2020-11-07 11:50] LABS: Glucose Point of Care 221 mg/dl (65-105)
--- NOTE | 2020-11-07 16:37 | PM.IMPN ---
Progress Note: A&P Assessment and Plan (1) Sepsis: Qualifiers: Sepsis type: sepsis due to unspecified organism Sepsis acute organ dysfunction status: with acute organ dysfunction Severe sepsis acute organ dysfunction type: encephalopathy Severe sepsis shock status: unspecified Qualified Code(s): A41.9 - Sepsis, unspecified organism; R65.20 - Severe sepsis without septic shock; G93.40 - Encephalopathy, unspecified Code(s): A41.9 - Sepsis, unspecified organism Status: Acute (2) Wound infection: Code(s): T14.8XXA - Other injury of unspecified body region, initial encounter; L08.9 - Local infection of the skin and subcutaneous tissue, unspecified Status: Acute (3) Below-knee amputation of left lower extremity: Code(s): S88.112A - Complete traumatic amputation at level between knee and ankle, left lower leg, initial encounter Status: Acute (4) Acute alteration in mental status: Code(s): R41.82 - Altered mental status, unspecified Status: Acute (5) CVA (cerebral vascular accident): Code(s): I63.9 - Cerebral infarction, unspecified Status: Acute (6) Antiplatelet or antithrombotic long-term use: Code(s): Z79.02 - custodial (current) use of antithrombotics/antiplatelets Status: Acute (7) Systolic heart failure: Qualifiers: Heart failure chronicity: acute on chronic Qualified Code(s): I50.23 - Acute on chronic systolic (congestive) heart failure Code(s): I50.20 - Unspecified systolic (congestive) heart failure Status: Acute (8) COPD (chronic obstructive pulmonary disease): Qualifiers: COPD type: unspecified COPD Qualified Code(s): J44.9 - Chronic obstructive pulmonary disease, unspecified Code(s): J44.9 - Chronic obstructive pulmonary disease, unspecified Status: Acute (9) CHF (congestive heart failure): Qualifiers: Heart failure chronicity: acute on chronic Heart failure type: combined systolic and diastolic Qualified Code(s): I50.43 - Acute on chronic combined systolic (congestive) and diastolic (congestive) heart failure Code(s): I50.9 - Heart failure, unspecified Status: Acute (10) Type 2 diabetes mellitus: Qualifiers: Diabetes mellitus complication detail: with other circulatory complications Diabetes mellitus complication status: with circulatory complication Diabetes mellitus senior living insulin use: without senior living use Qualified Code(s): E11.59 - Type 2 diabetes mellitus with other circulatory complications Code(s): E11.9 - Type 2 diabetes mellitus without complications Status: Acute (11) Hypertension: Qualifiers: Hypertension type: primary hypertension Qualified Code(s): I10 - Essential (primary) hypertension Code(s): I10 - Essential (primary) hypertension Status: Chronic (12) Hyperlipidemia: Qualifiers: Hyperlipidemia type: other hyperlipidemia Qualified Code(s): E78.49 - Other hyperlipidemia Code(s): E78.5 - Hyperlipidemia, unspecified Status: Acute (13) Acute renal failure: Qualifiers: Acute renal failure type: unspecified Qualified Code(s): N17.9 - Acute kidney failure, unspecified Code(s): N17.9 - Acute kidney failure, unspecified Status: Acute (14) Elevated troponin: Code(s): R77.8 - Other specified abnormalities of plasma proteins Status: Acute (15) Positive occult stool blood test: Code(s): R19.5 - Other fecal abnormalities Status: Acute (16) Osteonecrosis: Code(s): M87.9 - Osteonecrosis, unspecified Status: Acute (17) Osteomyelitis: Code(s): M86.9 - Osteomyelitis, unspecified Status: Acute Additional Plan # Sepsis on presentation to [facility] now resolved treated with vancomycin and meropenem an [facility] will continue same. Blood cultures has been negative # Lactic acid
[2020-11-07 17:02] LABS: Glucose Point of Care 226 mg/dl (65-105)
[2020-11-07] MEDS: INSULIN ASPART (*BKC) 100 UNITS/ML SUB-Q (17:32)
[2020-11-07 17:54] LABS: Glucose Point of Care 196 mg/dl (65-105)
--- NOTE | 2020-11-07 18:01 | PM.CNGS ---
Assessment and Plan Assessment and plan (1) Below-knee amputation of left lower extremity: Code(s): S88.112A - Complete traumatic amputation at level between knee and ankle, left lower leg, initial encounter Status: Chronic Assessment and Plan: right BKA wound looks surprisingly good. The area of slough is very superficial. It will likely respond to enzymatic debridement with Santyl dressing changes. He is receiving these already. I do not feel he has any osteomyelitis or significant problem with the amputation that will not heal with time. He may develop further complications in which case I would likely recommend an above knee amputation. At this time however continue only Santyl dressing changes twice a day and avoid injury to the BK stump. (2) Right foot ulcer: Code(s): L97.519 - Non-pressure chronic ulcer of other part of right foot with unspecified severity Status: Chronic Assessment and Plan: This is also surprisingly good shape. There was no black and areas or obvious gangrene. The ulcer does have some slough but I think this will improve with Santyl dressing changes which he is receiving. I do not plan any surgery for either leg. I believe the patient could be discharged from a surgical standpoint and followed up simply in our wound clinic. We will follow along peripherally. (3) Anemia: Code(s): D64.9 - Anemia, unspecified Status: Acute Assessment and Plan: Stable, etiology unclear (4) CVA (cerebral vascular accident): Code(s): I63.9 - Cerebral infarction, unspecified Status: Chronic Assessment and Plan: vascular dementia as well (5) COPD (chronic obstructive pulmonary disease): Qualifiers: COPD type: unspecified COPD Qualified Code(s): J44.9 - Chronic obstructive pulmonary disease, unspecified Code(s): J44.9 - Chronic obstructive pulmonary disease, unspecified Status: Chronic (6) CHF (congestive heart failure): Qualifiers: Heart failure chronicity: acute on chronic Heart failure type: combined systolic and diastolic Qualified Code(s): I50.43 - Acute on chronic combined systolic (congestive) and diastolic (congestive) heart failure Code(s): I50.9 - Heart failure, unspecified Status: Chronic (7) Type 2 diabetes mellitus: Qualifiers: Diabetes mellitus complication detail: with other circulatory complications Diabetes mellitus complication status: with circulatory complication Diabetes mellitus fci insulin use: without tank terminal gauger use Qualified Code(s): E11.59 - Type 2 diabetes mellitus with other circulatory complications Code(s): E11.9 - Type 2 diabetes mellitus without complications Status: Chronic Assessment and Plan: with peripheral vascular complications and cerebrovascular complications. History of Present Illness Consult details Consult date: 11/07/20 Reason for consult: wound care ( Right foot metatarsal dorsal ulcer, open wound left below-knee amputation stump) Requesting physician: Luis An APN-C Narrative: the patient is a 55-year-old man who has numerous medical ailments largely as a consequence of long-time smoking and diabetes. He has vascular dementia and history of several strokes. He has COPD and type 2 diabetes with severe peripheral vascular disease. He also has cardiomyopathy and congestive heart failure with most recent echo showing an ejection fraction of around 30%. The patient was seen by General surgery in July. He had ischemic ulcers on his left leg primarily and evidence of significant peripheral vascular disease. arterial segmental Dopplers in July showed a left IRAJ of 0.3 with no waveforms to the toe. The right IRAJ was 0.75. with the changes in the left leg and evidence of severe vascular impairment, he was transferred to [facility] for vascular evaluation and possible revascularization. Details of
[2020-11-08] VITALS (12 sets, daily range): BP systolic 104–128; BP diastolic 56–69; PULSE 62–93; RESP 16–20; TEMP 35.8–36.7; O2SAT 93–100
[2020-11-08 00:03] LABS: Glucose Point of Care 127 mg/dl (65-105)
[2020-11-08] MEDS: SPIRONOLACTONE 25 MG TABLET PO (08:04)
[2020-11-08] MEDS: ASPIRIN 81 MG ENTERIC TABLET PO (08:04)
[2020-11-08] MEDS: ATORVASTATIN 40 MG TABLET 80 MG PO (08:04)
[2020-11-08] MEDS: FUROSEMIDE 40 MG TABLET PO (08:04)
[2020-11-08] MEDS: buPROPion HCL SR (12 HR) 150 MG TAB PO ×2 (08:04→16:46)
[2020-11-08] MEDS: GABAPENTIN 300 MG CAPSULE 600 MG PO ×3 (08:04→16:46)
[2020-11-08] MEDS: lisinopriL 5 MG TABLET PO (08:04)
[2020-11-08] MEDS: DOCUSATE SODIUM 100 MG CAPSULE PO ×2 (08:04→16:46)
[2020-11-08] MEDS: HEPARIN SODIUM 5,000 UNITS/ML VIAL 5000 UNITS SUB-Q ×2 (08:05→21:37)
[2020-11-08] MEDS: carvediloL 6.25 MG TABLET PO ×2 (08:05→16:46)
[2020-11-08 08:24] LABS: Estimated CRCL calculation 82 ml/min; Estimated Glomerular Filt Rate > 60
[2020-11-08 08:49] LABS: Glucose Point of Care 192 mg/dl (65-105)
[2020-11-08] MEDS: COLLAGENASE OINT 30 GM TUBE 1 APPLIC TOPICAL ×2 (09:59→21:38)
[2020-11-08 11:48] LABS: Glucose Point of Care 242 mg/dl (65-105)
[2020-11-08] MEDS: INSULIN ASPART (*BKC) 100 UNITS/ML SUB-Q (11:53)
--- NOTE | 2020-11-08 12:43 | P.DS_ITS ---
DS: Summary Time Spent with Patient Time attestation: Total time spent providing and/or coordinating discharge ser vices: DS: Data Data Completed and Pending Labs on day of discharge: Labs from last 24 hours 11/08/20 11/08/20 11/08/20 11:33 08:46 05:07 Creatinine 0.90 Estim Creat Clear Calc 82 Estimated GFR > 60 POC Capillary Glucose 242 H 192 H 11/07/20 11/07/20 11/07/20 23:40 16:59 08:43 Creatinine Estim Creat Clear Calc Estimated GFR POC Capillary Glucose 127 H 226 H 196 H Discharge Plan Discharge Attending physician on discharge: Lynne Villa Consulting providers: Ellis Stapleton Discharging Clinician: Lynne Villa Patient Disposition: Home Health Service Activity: as tolerated Diet: as tolerated Discharge Instructions: Per Care Coordination, patient to discharge with [facility] ([phone]) for PT and nursing home services. Please fax discharge instructions and medication sheets to . Patient to follow up with his primary care provider as soon possible, patient is instructed if any symptoms get worsen to go to nearest ER. Patient Instructions: Antibiotic Form, Heart Failure (IP), Osteomyelitis (IP), Pain Management (DC), Debridement (GEN) Stand Alone Forms: General Discharge Information Follow-up/Referrals: Abiel Bean DO [Primary Care Provider] - Ellis Stapleton MD [Physician] - Discharge Medications: Continued atorvastatin 40 mg tablet 80 mg PO DAILY RF: 0 furosemide 40 mg tablet 40 mg PO DAILY RF: 0 metolazone 5 mg Tablet 5 mg PO DAILY RF: 0 clopidogrel [Plavix] 75 mg Tablet 75 mg PO DAILY RF: 0 spironolactone 25 mg tablet 25 mg PO DAILY RF: 0 albuterol sulfate [Proventil HFA] 90 mcg/actuation Hfa Aerosol Inhaler 2 puff inhalation QIDRT PRN (Reason: Shortness Of Breath) 30 Days Qty: 6.7 RF: 0 budesonide-formoterol [Symbicort] 160-4.5 mcg/actuation Hfa Aerosol Inhaler 2 puff inhalation Q12HRT 30 Days Qty: 10.2 RF: 0 docusate sodium 100 mg Capsule 100 mg PO BID Qty: 60 RF: 0 Santyl 250 unit/gram Ointment 1 applic topical Q12HR 30 Days Qty: 90 RF: 0 bupropion HCl 150 mg tablet sustained-release 12 hr 150 mg PO BID RF: 0 aspirin 81 mg Tablet,Delayed Release (Dr/Ec) 81 mg PO DAILY RF: 0 carvedilol 3.125 mg Tablet 6.25 mg PO BID RF: 0 (DME) blood-glucose meter [Blood Glucose Monitoring] Kit See Rx Instructions .ROUTE .MEDSUPPLY Qty: 1 RF: 0 (DME) insulin syringe-needle U-100 1 mL 28 gauge syringe See Rx Instructions .Route Qty: 100 RF: 0 (DME) Blood Glucose Test Strip See Rx Instructions .ROUTE .MEDSUPPLY Qty: 100 RF: 0 gabapentin 300 mg capsule 600 mg PO TID 90 Days Qty: 540 RF: 0 lisinopril 5 mg tablet 5 mg PO DAILY Qty: 90 RF: 0 Date of admission: 11/06/20 20:27 Primary Care Provider: Abiel Bean Admitting Provider: Lynne Villa Attending physician on admission: Lynne Villa
[2020-11-08 13:56] LABS: IFOB Positive Control Positive; Immunochemical Fecal Occult Bl Positive (N)
--- NOTE | 2020-11-08 14:07 | PM.IMPN ---
Progress Note: A&P Assessment and Plan (1) Sepsis: Qualifiers: Sepsis type: sepsis due to unspecified organism Sepsis acute organ dysfunction status: with acute organ dysfunction Severe sepsis acute organ dysfunction type: encephalopathy Severe sepsis shock status: unspecified Qualified Code(s): A41.9 - Sepsis, unspecified organism; R65.20 - Severe sepsis without septic shock; G93.40 - Encephalopathy, unspecified Code(s): A41.9 - Sepsis, unspecified organism Status: Acute (2) Wound infection: Code(s): T14.8XXA - Other injury of unspecified body region, initial encounter; L08.9 - Local infection of the skin and subcutaneous tissue, unspecified Status: Acute (3) Below-knee amputation of left lower extremity: Code(s): S88.112A - Complete traumatic amputation at level between knee and ankle, left lower leg, initial encounter Status: Chronic (4) Acute alteration in mental status: Code(s): R41.82 - Altered mental status, unspecified Status: Acute (5) CVA (cerebral vascular accident): Code(s): I63.9 - Cerebral infarction, unspecified Status: Chronic (6) Antiplatelet or antithrombotic long-term use: Code(s): Z79.02 - predatory animal exterminator (current) use of antithrombotics/antiplatelets Status: Acute (7) Systolic heart failure: Qualifiers: Heart failure chronicity: acute on chronic Qualified Code(s): I50.23 - Acute on chronic systolic (congestive) heart failure Code(s): I50.20 - Unspecified systolic (congestive) heart failure Status: Acute (8) COPD (chronic obstructive pulmonary disease): Qualifiers: COPD type: unspecified COPD Qualified Code(s): J44.9 - Chronic obstructive pulmonary disease, unspecified Code(s): J44.9 - Chronic obstructive pulmonary disease, unspecified Status: Chronic (9) CHF (congestive heart failure): Qualifiers: Heart failure chronicity: acute on chronic Heart failure type: combined systolic and diastolic Qualified Code(s): I50.43 - Acute on chronic combined systolic (congestive) and diastolic (congestive) heart failure Code(s): I50.9 - Heart failure, unspecified Status: Chronic (10) Type 2 diabetes mellitus: Qualifiers: Diabetes mellitus complication detail: with other circulatory complications Diabetes mellitus complication status: with circulatory complication Diabetes mellitus alf insulin use: without terminal supervisor use Qualified Code(s): E11.59 - Type 2 diabetes mellitus with other circulatory complications Code(s): E11.9 - Type 2 diabetes mellitus without complications Status: Chronic (11) Hypertension: Qualifiers: Hypertension type: primary hypertension Qualified Code(s): I10 - Essential (primary) hypertension Code(s): I10 - Essential (primary) hypertension Status: Chronic (12) Hyperlipidemia: Qualifiers: Hyperlipidemia type: other hyperlipidemia Qualified Code(s): E78.49 - Other hyperlipidemia Code(s): E78.5 - Hyperlipidemia, unspecified Status: Acute (13) Acute renal failure: Qualifiers: Acute renal failure type: unspecified Qualified Code(s): N17.9 - Acute kidney failure, unspecified Code(s): N17.9 - Acute kidney failure, unspecified Status: Acute (14) Elevated troponin: Code(s): R77.8 - Other specified abnormalities of plasma proteins Status: Acute (15) Positive occult stool blood test: Code(s): R19.5 - Other fecal abnormalities Status: Acute (16) Osteonecrosis: Code(s): M87.9 - Osteonecrosis, unspecified Status: Acute (17) Osteomyelitis: Code(s): M86.9 - Osteomyelitis, unspecified Status: Acute Additional Plan # Sepsis on presentation to [facility] now resolved treated with vancomycin and meropenem an [facility] will continue same. Blood cultures has been negative # L
[2020-11-08 16:54] LABS: Glucose Point of Care 154 mg/dl (65-105)
[2020-11-08 21:28] LABS: Glucose Point of Care 163 mg/dl (65-105)
[2020-11-08] MEDS: ALBUTEROL SULFATE (*SP) AEROSOL 1 PUFF 2 PUFF INHALATION (21:45)
[2020-11-09] VITALS (10 sets, daily range): BP systolic 78–115; BP diastolic 52–58; PULSE 81–92; RESP 14–18; TEMP 36–36.2; O2SAT 97–100
[2020-11-09 08:21] LABS: Hematocrit 30.7 % (42.0-52.0); Hemoglobin 9.6 g/dL (14.0-18.0)
[2020-11-09 08:34] LABS: Anion Gap 6 mmol/L (8-16); Blood Urea Nitrogen 34 mg/dL (9-20); Calcium 8.6 mg/dL (8.4-10.2); Carbon Dioxide 24 mmol/L (22-30); Chloride 99 mmol/L (98-107); Estimated CRCL calculation 92 ml/min; Estimated Glomerular Filt Rate > 60; Glucose 143 mg/dL (65-110); Sodium 129 mmol/L (137-145)
[2020-11-09 08:45] LABS: Glucose Point of Care 156 mg/dl (65-105)
[2020-11-09] MEDS: SPIRONOLACTONE 25 MG TABLET PO (08:48)
[2020-11-09] MEDS: buPROPion HCL SR (12 HR) 150 MG TAB PO ×2 (08:48→16:58)
[2020-11-09] MEDS: DOCUSATE SODIUM 100 MG CAPSULE PO ×2 (08:48→16:58)
[2020-11-09] MEDS: ASPIRIN 81 MG ENTERIC TABLET PO (08:48)
[2020-11-09] MEDS: FUROSEMIDE 40 MG TABLET PO (08:49)
[2020-11-09] MEDS: lisinopriL 5 MG TABLET PO (08:49)
[2020-11-09] MEDS: ATORVASTATIN 40 MG TABLET 80 MG PO (08:49)
[2020-11-09] MEDS: HEPARIN SODIUM 5,000 UNITS/ML VIAL 5000 UNITS SUB-Q ×2 (08:49→20:07)
[2020-11-09] MEDS: GABAPENTIN 300 MG CAPSULE 600 MG PO ×3 (08:49→16:58)
[2020-11-09] MEDS: carvediloL 6.25 MG TABLET PO (08:50)
[2020-11-09] MEDS: COLLAGENASE OINT 30 GM TUBE 1 APPLIC TOPICAL ×2 (08:53→20:07)
--- NOTE | 2020-11-09 10:40 | PM.IMPN ---
Progress Note: A&P Assessment and Plan (1) Positive occult stool blood test: Code(s): R19.5 - Other fecal abnormalities Status: Acute Assessment and Plan: EPISODE OF DARK STOOL THAT WAS HEME POSITIVE 11/08 HOLD ASA F/U H/H 11/10 HGB 9.6 (UP FROM 8.6) GI EVALUATION PENDING (2) Wound infection: Code(s): T14.8XXA - Other injury of unspecified body region, initial encounter; L08.9 - Local infection of the skin and subcutaneous tissue, unspecified Status: Acute Assessment and Plan: RESOLVED CONTINUE WOUND CARE (3) Below-knee amputation of left lower extremity: Code(s): S88.112A - Complete traumatic amputation at level between knee and ankle, left lower leg, initial encounter Status: Chronic (4) Acute alteration in mental status: Code(s): R41.82 - Altered mental status, unspecified Status: Acute (5) CVA (cerebral vascular accident): Qualifiers: CVA mechanism: unspecified Qualified Code(s): I63.9 - Cerebral infarction, unspecified Code(s): I63.9 - Cerebral infarction, unspecified Status: Chronic (6) Antiplatelet or antithrombotic long-term use: Code(s): Z79.02 - [facility] (current) use of antithrombotics/antiplatelets Status: Acute Assessment and Plan: HOLD ASA (7) Systolic heart failure: Qualifiers: Heart failure chronicity: acute on chronic Qualified Code(s): I50.23 - Acute on chronic systolic (congestive) heart failure Code(s): I50.20 - Unspecified systolic (congestive) heart failure Status: Acute (8) COPD (chronic obstructive pulmonary disease): Qualifiers: COPD type: unspecified COPD Qualified Code(s): J44.9 - Chronic obstructive pulmonary disease, unspecified Code(s): J44.9 - Chronic obstructive pulmonary disease, unspecified Status: Chronic (9) CHF (congestive heart failure): Qualifiers: Heart failure chronicity: acute on chronic Heart failure type: combined systolic and diastolic Qualified Code(s): I50.43 - Acute on chronic combined systolic (congestive) and diastolic (congestive) heart failure Code(s): I50.9 - Heart failure, unspecified Status: Chronic (10) Type 2 diabetes mellitus: Qualifiers: Diabetes mellitus complication detail: with other circulatory complications Diabetes mellitus complication status: with circulatory complication Diabetes mellitus care home insulin use: without technician terminal and repeater use Qualified Code(s): E11.59 - Type 2 diabetes mellitus with other circulatory complications Code(s): E11.9 - Type 2 diabetes mellitus without complications Status: Chronic Assessment and Plan: 11/10 FBS 156 STABLE (11) Hypertension: Qualifiers: Hypertension type: primary hypertension Qualified Code(s): I10 - Essential (primary) hypertension Code(s): I10 - Essential (primary) hypertension Status: Chronic Assessment and Plan: 11/10 BP REVIEWED AND STABLE (12) Hyperlipidemia: Qualifiers: Hyperlipidemia type: other hyperlipidemia Qualified Code(s): E78.49 - Other hyperlipidemia Code(s): E78.5 - Hyperlipidemia, unspecified Status: Acute (13) Acute renal failure: Qualifiers: Acute renal failure type: unspecified Qualified Code(s): N17.9 - Acute kidney failure, unspecified Code(s): N17.9 - Acute kidney failure, unspecified Status: Acute Assessment and Plan: RESOLVED (14) Elevated troponin: Code(s): R77.8 - Other specified abnormalities of plasma proteins Status: Acute (15) Osteonecrosis: Code(s): M87.9 - Osteonecrosis, unspecified Status: Acute Assessment and Plan: DISTAL STUMP (16) Sepsis: Qualifiers: Sepsis type: sepsis due to unspecified organism Sepsis acute organ dysfunction status: with acute organ dysfunction Severe sepsis acute organ dysfunction type: enceph
[2020-11-09] MEDS: HYDROcodone/acetaminophen (*CRX) 5-325 MG TABLET 1 TAB PO (11:12)
[2020-11-09 12:16] LABS: Glucose Point of Care 253 mg/dl (65-105)
[2020-11-09] MEDS: INSULIN ASPART (*BKC) 100 UNITS/ML SUB-Q (12:20)
--- NOTE | 2020-11-09 15:56 | WPDGICN ---
Assessment and Plan Assessment and plan (1) Positive occult stool blood test: Code(s): R19.5 - Other fecal abnormalities Status: Acute Assessment and Plan: on admission required blood transfusion and hb low but stable he is agreeable to proceed with egd and colonoscopy Wednesday he has multiple reasons to have anemia (if scopes unremarkable) (2) Acute on chronic blood loss anemia: Code(s): D62 - Acute posthemorrhagic anemia Status: Acute (3) Osteomyelitis: Code(s): M86.9 - Osteomyelitis, unspecified Status: Acute Assessment and Plan: on iv antibiotics treated with sepsis and improving (4) Right foot ulcer: Code(s): L97.519 - Non-pressure chronic ulcer of other part of right foot with unspecified severity Status: Chronic Assessment and Plan: surgery and wound care on board (5) Sepsis: Qualifiers: Sepsis type: sepsis due to unspecified organism Sepsis acute organ dysfunction status: with acute organ dysfunction Severe sepsis acute organ dysfunction type: encephalopathy Severe sepsis shock status: unspecified Qualified Code(s): A41.9 - Sepsis, unspecified organism; R65.20 - Severe sepsis without septic shock; G93.40 - Encephalopathy, unspecified Code(s): A41.9 - Sepsis, unspecified organism Status: Acute (6) Wound infection: Code(s): T14.8XXA - Other injury of unspecified body region, initial encounter; L08.9 - Local infection of the skin and subcutaneous tissue, unspecified Status: Acute (7) CVA (cerebral vascular accident): Qualifiers: CVA mechanism: unspecified Qualified Code(s): I63.9 - Cerebral infarction, unspecified Code(s): I63.9 - Cerebral infarction, unspecified Status: Chronic (8) CHF (congestive heart failure): Qualifiers: Heart failure chronicity: acute on chronic Heart failure type: combined systolic and diastolic Qualified Code(s): I50.43 - Acute on chronic combined systolic (congestive) and diastolic (congestive) heart failure Code(s): I50.9 - Heart failure, unspecified Status: Chronic Assessment and Plan: chronic (9) Type 2 diabetes mellitus: Qualifiers: Diabetes mellitus complication detail: with other circulatory complications Diabetes mellitus complication status: with circulatory complication Diabetes mellitus parts counterman insulin use: without penitentiary use Qualified Code(s): E11.59 - Type 2 diabetes mellitus with other circulatory complications Code(s): E11.9 - Type 2 diabetes mellitus without complications Status: Chronic GI Consult Note Consult date/time: 11/09/20 15:56 Reason for consult: brbpr, acute on chronic anemia HPI: Ellis Gonzales Jr. is a 55 year old male with multiple medical problems including history of cardiomyopathy with systolic congestive heart failure, COPD, CVA, gangrene of the left foot, heel ulcer, diabetes, vascular dementia and recent right BKA. He was recently discharged on 10/29/2020 for sepsis and altered mental status with oral antibiotics but readmitted after he was confused and found to be soiled in feces. He was seeing in [facility] and transferred here few days ago. Initial labs at [facility] showed WBC 16.3, hemoglobin 5.0, platelets 300, INR 1.0, PTT 25.1, sodium 134, potassium 4.2, chloride 101, BUN 83, creatinine 1.32, glucose 287, lactic acid 2.3, liver enzymes within normal limit. He was treated with sepsis on presentation and transferred with blood transfusion. Patient says that had one episode of BRBPR and never had scopes. He had MRI right foot and ankle that was reviewed, marrow edema associated with non displaced extra-articular fracture across the base of 1st distal phalanx the neck of 5th proximal phalanx and across the midportion of the fused 5th middle/distal phalanx. Also had mild elevated troponin and due to severe anemia defer any cardiac intervention. Hb has been relatively stable a
[2020-11-09] MEDS: SODIUM CHLORIDE 0.9% IV 500 ML 999 ML IV CONT (16:19)
[2020-11-09 16:56] LABS: Glucose Point of Care 174 mg/dl (65-105)
[2020-11-09] MEDS: PANTOPRAZOLE 40 MG TABLET PO (20:07)
[2020-11-09 20:51] LABS: Glucose Point of Care 226 mg/dl (65-105)
[2020-11-10 06:13] LABS: Hematocrit 28.2 % (42.0-52.0); Hemoglobin 8.9 g/dL (14.0-18.0); Mean Corpuscular HGB Conc 31.6 g/dl (32-36); Mean Corpuscular Volume 98.3 fl (80-100); Mean Platelet Volume 9.6 fl (7.4-10.4); Platelet Count Result 382 k/mm3 (150-375); Red Blood Count 2.87 M/mm3 (4.6-6.20); Red Cell Distribution Width 14.3 % (11.5-14.5); White Blood Count 6.9 K/mm3 (4.5-10.0)
[2020-11-10 06:17] LABS: Anion Gap 5 mmol/L (8-16); Blood Urea Nitrogen 38 mg/dL (9-20); Calcium 8.4 mg/dL (8.4-10.2); Carbon Dioxide 24 mmol/L (22-30); Chloride 96 mmol/L (98-107); Estimated CRCL calculation 68 ml/min; Estimated Glomerular Filt Rate > 60; Glucose 138 mg/dL (65-110); Potassium 4.2 mmol/L (3.4-5.0); Sodium 125 mmol/L (137-145)
[2020-11-10 07:32] VITALS: BP 111/56; PULSE 82; RESP 18; TEMP 36.1; O2SAT 100
[2020-11-10 08:00] VITALS: BP 112/54; PULSE 80; RESP 16; TEMP 36; O2SAT 100
[2020-11-10 08:00] LABS: Glucose Point of Care 141 mg/dl (65-105)
[2020-11-10 08:07] VITALS: PULSE 82; RESP 16
[2020-11-10] MEDS: GABAPENTIN 300 MG CAPSULE 600 MG PO (08:38)
[2020-11-10] MEDS: buPROPion HCL SR (12 HR) 150 MG TAB PO ×2 (08:38→17:32)
[2020-11-10] MEDS: ATORVASTATIN 40 MG TABLET 80 MG PO (08:38)
[2020-11-10] MEDS: PANTOPRAZOLE 40 MG TABLET PO ×2 (08:38→20:47)
[2020-11-10] MEDS: DOCUSATE SODIUM 100 MG CAPSULE PO ×2 (08:38→17:33)
[2020-11-10] MEDS: HEPARIN SODIUM 5,000 UNITS/ML VIAL 5000 UNITS SUB-Q ×2 (08:38→20:46)
[2020-11-10] MEDS: COLLAGENASE OINT 30 GM TUBE 1 APPLIC TOPICAL ×2 (08:39→20:46)
--- NOTE | 2020-11-10 08:52 | WPDGIPROGNO ---
Progress Note: A&P Assessment and Plan (1) Acute on chronic blood loss anemia: Code(s): D62 - Acute posthemorrhagic anemia Status: Acute Assessment and Plan: hb low but has been stable since transfusion egd and colonoscopy to assess if gi blood loss source (2) Positive occult stool blood test: Code(s): R19.5 - Other fecal abnormalities Status: Acute (3) Right foot ulcer: Code(s): L97.519 - Non-pressure chronic ulcer of other part of right foot with unspecified severity Status: Chronic Assessment and Plan: wound care and on iv antibiotic (4) Osteomyelitis: Code(s): M86.9 - Osteomyelitis, unspecified Status: Acute (5) Sepsis: Qualifiers: Sepsis type: sepsis due to unspecified organism Sepsis acute organ dysfunction status: with acute organ dysfunction Severe sepsis acute organ dysfunction type: encephalopathy Severe sepsis shock status: unspecified Qualified Code(s): A41.9 - Sepsis, unspecified organism; R65.20 - Severe sepsis without septic shock; G93.40 - Encephalopathy, unspecified Code(s): A41.9 - Sepsis, unspecified organism Status: Acute Assessment and Plan: resolved, on iv antibiotics (6) Antiplatelet or antithrombotic long-term use: Code(s): Z79.02 - athletic director (current) use of antithrombotics/antiplatelets Status: Acute Assessment and Plan: plavix on hold Subjective Date/time seen: 11/10/20 08:52 Interval history: no new events, denies more bleeding in stools Review of Systems Review of Systems: All systems reviewed & are unremarkable except as noted in HPI and below Exam Const: General: comfortable, no acute distress and ill appearing chronically HENMT: General nose exam: Normal nares present Eyes: Sclera: sclerae normal Neck: Neck: supple Resp: Auscultation: rhonchi and diminished lung sounds Cardio: Rate: regular rate GI: Inspection: non-distended GI Palp: Yes Soft to palpation and No Tenderness to palpation present (GI) Auscultation: normal bowel sounds Skin: General skin exam: no rashes or lesions noted Neuro: Speech: normal speech Extrem: Other: Right lower extremity: foot (Dorsum shows 3.5 x 3.5 cm ulcer) Left lower extremity: lower leg (left BKA stump shows 7 x 3.5 cm wound medially with 30% slough) Psych: Affect: normal affect Objective Data Vital Signs Vital Signs: Vital Signs - 24 hr 11/09/20 15:00 11/09/20 16:11 11/09/20 17:03 Temperature 97.2 F L Pulse Rate 86 Respiratory Rate 14 Blood Pressure 87/52 L 78/54 L 106/58 L Pulse Oximetry 100 11/09/20 21:50 11/10/20 07:32 11/10/20 08:07 Temperature 96.8 F L 96.9 F L Pulse Rate 81 82 82 Respiratory Rate 18 18 16 Blood Pressure 114/58 L 111/56 L Pulse Oximetry 97 100 Intake/Output Intake/Output: Intake & Output 11/07/20 11/08/20 11/09/20 11/10/20 23:59 23:59 23:59 23:59 Intake Total 1000 4020 2410 250 Output Total 4250 4300 1550 900 Balance -3250 -280 860 -650 Meds/Results Medications: Active Medications Generic Name Dose Route Start Last Admin Trade Name Freq PRN Reason Stop Dose Admin Acetaminophen 650 mg 11/06/20 20:27 Acetaminophen 325 Mg Tablet PO Q4H PRN Mild Pain (1-3) or Fever Hydrocodone Bitart/Acetaminophen 1 tab 11/06/20 20:27 11/09/20 11:12 Hydrocodone/Acetaminophen (*Crx) 5-325 Mg Tablet PO 1 tab Q4H PRN Administration Moderate Pain (4-6) Albuterol 2 puff 11/06/20 20:32 11/08/20 21:45 Albuterol Sulfate (*Sp) Aerosol 1 Puff INHALATION 2 puff QIDRT PRN Administration Shortness Of Breath Aspirin 81 mg 11/07/20 09:00 11/09/20 08:48 Aspirin 81 Mg Enteric Tablet PO 81 mg DAILY ELVA Administration Atorvastatin Calcium 80 mg 11/07/20 09:00 11/10/20 08:38 Atorvastatin 40 Mg Tablet PO 80 mg DAILY ELVA Administration Bisacodyl 20 mg 11/10/20 17:00 Bisacodyl 5 Mg Tablet Ec PO 11/10/20
--- NOTE | 2020-11-10 09:54 | PM.IMPN ---
Progress Note: A&P Assessment and Plan (1) Positive occult stool blood test: Code(s): R19.5 - Other fecal abnormalities Status: Acute Assessment and Plan: EPISODE OF DARK STOOL THAT WAS HEME POSITIVE 11/08 HOLD ASA F/U H/H 11/09 HGB 9.6 (UP FROM 8.6), 11/10 8.9 GI EVALUATION IN PROGRESS (2) Wound infection: Code(s): T14.8XXA - Other injury of unspecified body region, initial encounter; L08.9 - Local infection of the skin and subcutaneous tissue, unspecified Status: Acute Assessment and Plan: RESOLVED CONTINUE WOUND CARE (3) Below-knee amputation of left lower extremity: Code(s): S88.112A - Complete traumatic amputation at level between knee and ankle, left lower leg, initial encounter Status: Chronic Assessment and Plan: PHANTOM PAIN NOT CONTROLLED 11/10 INCREASE GABAPENTIN TO 800MG TID AND ADD DULOXETINE 30MG DAILY (4) Acute alteration in mental status: Code(s): R41.82 - Altered mental status, unspecified Status: Acute Assessment and Plan: RESOLVED (5) CVA (cerebral vascular accident): Qualifiers: CVA mechanism: unspecified Qualified Code(s): I63.9 - Cerebral infarction, unspecified Code(s): I63.9 - Cerebral infarction, unspecified Status: Chronic (6) Antiplatelet or antithrombotic long-term use: Code(s): Z79.02 - long-term (current) use of antithrombotics/antiplatelets Status: Acute Assessment and Plan: HOLD ASA (7) Systolic heart failure: Qualifiers: Heart failure chronicity: acute on chronic Qualified Code(s): I50.23 - Acute on chronic systolic (congestive) heart failure Code(s): I50.20 - Unspecified systolic (congestive) heart failure Status: Acute Assessment and Plan: NO EVIDENCE FOR VOLUME OVERLOAD WITH SOFT BP AND HYPONATREMIA, HE MAY BE A BIT VOLUME DEPLETED 11/10 DIURETICS, LISINOPRIL, AND CARVEDILOL ON HOLD (8) COPD (chronic obstructive pulmonary disease): Qualifiers: COPD type: unspecified COPD Qualified Code(s): J44.9 - Chronic obstructive pulmonary disease, unspecified Code(s): J44.9 - Chronic obstructive pulmonary disease, unspecified Status: Chronic (9) Type 2 diabetes mellitus: Qualifiers: Diabetes mellitus complication detail: with other circulatory complications Diabetes mellitus complication status: with circulatory complication Diabetes mellitus custodial insulin use: without long filler cigar roller machine use Qualified Code(s): E11.59 - Type 2 diabetes mellitus with other circulatory complications Code(s): E11.9 - Type 2 diabetes mellitus without complications Status: Chronic Assessment and Plan: 11/10 FBS 141 STABLE (10) Hypertension: Qualifiers: Hypertension type: primary hypertension Qualified Code(s): I10 - Essential (primary) hypertension Code(s): I10 - Essential (primary) hypertension Status: Chronic Assessment and Plan: 11/10 BP SOFT, MEDS ON HOLD (11) Acute renal failure: Qualifiers: Acute renal failure type: unspecified Qualified Code(s): N17.9 - Acute kidney failure, unspecified Code(s): N17.9 - Acute kidney failure, unspecified Status: Acute Assessment and Plan: RESOLVED (12) Elevated troponin: Code(s): R77.8 - Other specified abnormalities of plasma proteins Status: Acute (13) Osteonecrosis: Code(s): M87.9 - Osteonecrosis, unspecified Status: Acute Assessment and Plan: DISTAL STUMP (14) Sepsis: Qualifiers: Sepsis type: sepsis due to unspecified organism Sepsis acute organ dysfunction status: with acute organ dysfunction Severe sepsis acute organ dysfunction type: encephalopathy Severe sepsis shock status: unspecified Qualified Code(s): A41.9 - Sepsis, unspecified organism; R65.20 - Severe sepsis without septic shock; G93.40 - Encephalopathy, unspecified Code(s): A41.9
[2020-11-10] MEDS: ACETAMINOPHEN 325 MG TABLET 650 MG PO ×2 (10:56→17:34)
[2020-11-10] MEDS: DULoxetine HCL 30 MG CAPSULE.DR PO (10:56)
[2020-11-10 12:18] LABS: Glucose Point of Care 249 mg/dl (65-105)
[2020-11-10] MEDS: INSULIN ASPART (*BKC) 100 UNITS/ML SUB-Q (12:22)
[2020-11-10] MEDS: GABAPENTIN 400 MG CAPSULE 800 MG PO ×2 (12:22→17:33)
[2020-11-10 14:32] LABS: Urea Random Urine 287 MG/DL
[2020-11-10 16:00] VITALS: BP 115/56; PULSE 79; RESP 16; TEMP 35.9; O2SAT 98
[2020-11-10 16:41] LABS: Glucose Point of Care 181 mg/dl (65-105)
[2020-11-10] MEDS: BISACODYL 5 MG TABLET EC 20 MG PO (17:32)
[2020-11-10] MEDS: polyethylene glycoL 3350 238 GM BOTTLE PO (17:33)
[2020-11-10 17:49] LABS: Creatinine Urine 23.2 mg/dL
[2020-11-10 20:15] LABS: Glucose Point of Care 187 mg/dl (65-105)
[2020-11-10 21:06] VITALS: PULSE 821; RESP 14
[2020-11-10 21:52] VITALS: BP 142/71; PULSE 100; RESP 18; TEMP 36.1; O2SAT 100
[2020-11-11] VITALS (9 sets, daily range): BP systolic 83–136; BP diastolic 47–73; PULSE 90–102; RESP 16–21; TEMP 35.9–36.7; O2SAT 99–100
[2020-11-11] MEDS: MAGNESIUM CITRATE 300 ML BTL PO (04:35)
[2020-11-11 05:56] LABS: Hematocrit 28.9 % (42.0-52.0); Hemoglobin 9.4 g/dL (14.0-18.0); Mean Corpuscular HGB Conc 32.5 g/dl (32-36); Mean Corpuscular Hemoglobin 30.6 pg (26-34); Mean Corpuscular Volume 94.1 fl (80-100); Mean Platelet Volume 9.6 fl (7.4-10.4); Platelet Count Result 395 k/mm3 (150-375); Red Blood Count 3.07 M/mm3 (4.6-6.20); Red Cell Distribution Width 13.9 % (11.5-14.5); White Blood Count 8.4 K/mm3 (4.5-10.0)
[2020-11-11 06:32] LABS: Anion Gap 6 mmol/L (8-16); Blood Urea Nitrogen 26 mg/dL (9-20); Calcium 8.5 mg/dL (8.4-10.2); Carbon Dioxide 23 mmol/L (22-30); Chloride 100 mmol/L (98-107); Estimated CRCL calculation 92 ml/min; Estimated Glomerular Filt Rate > 60; Glucose 132 mg/dL (65-110); Potassium 3.9 mmol/L (3.4-5.0); Sodium 129 mmol/L (137-145)
[2020-11-11 08:03] LABS: Glucose Point of Care 148 mg/dl (65-105)
--- NOTE | 2020-11-11 08:33 | PM.IMPN ---
Progress Note: A&P Assessment and Plan (1) Hyponatremia: Code(s): E87.1 - Hypo-osmolality and hyponatremia Status: Acute Assessment and Plan: FRACTIONAL EXCRETION OF UREA 35.8%, NEAR VOLUME DEPLETION RANGE (<35%) WHILE NPO WILL GIVE IV NS FOR ONE LITER NEED ENOUGH VOLUME AND PRESSURE TO RESUME CARVEDILOL AND LISINOPRIL F/U LAB (2) Positive occult stool blood test: Code(s): R19.5 - Other fecal abnormalities Status: Acute Assessment and Plan: EPISODE OF DARK STOOL THAT WAS HEME POSITIVE 11/08 HOLD ASA F/U H/H 11/09 HGB 9.6 (UP FROM 8.6), 11/10 8.9 GI EVALUATION IN PROGRESS WITH EGD AND COLON TODAY (3) Systolic heart failure: Qualifiers: Heart failure chronicity: acute on chronic Qualified Code(s): I50.23 - Acute on chronic systolic (congestive) heart failure Code(s): I50.20 - Unspecified systolic (congestive) heart failure Status: Acute Assessment and Plan: NO EVIDENCE FOR VOLUME OVERLOAD WITH SOFT BP AND HYPONATREMIA, HE MAY BE A BIT VOLUME DEPLETED 11/10 DIURETICS, LISINOPRIL, AND CARVEDILOL ON HOLD (4) Wound infection: Code(s): T14.8XXA - Other injury of unspecified body region, initial encounter; L08.9 - Local infection of the skin and subcutaneous tissue, unspecified Status: Acute Assessment and Plan: RESOLVED CONTINUE WOUND CARE (5) Below-knee amputation of left lower extremity: Code(s): S88.112A - Complete traumatic amputation at level between knee and ankle, left lower leg, initial encounter Status: Chronic Assessment and Plan: PHANTOM PAIN NOT CONTROLLED 11/10 INCREASED GABAPENTIN TO 800MG TID AND ADDED DULOXETINE 30MG DAILY (6) Acute alteration in mental status: Code(s): R41.82 - Altered mental status, unspecified Status: Acute Assessment and Plan: RESOLVED (7) CVA (cerebral vascular accident): Qualifiers: CVA mechanism: unspecified Qualified Code(s): I63.9 - Cerebral infarction, unspecified Code(s): I63.9 - Cerebral infarction, unspecified Status: Chronic (8) Antiplatelet or antithrombotic long-term use: Code(s): Z79.02 - termite exterminator (current) use of antithrombotics/antiplatelets Status: Acute Assessment and Plan: HOLD ASA (9) COPD (chronic obstructive pulmonary disease): Qualifiers: COPD type: unspecified COPD Qualified Code(s): J44.9 - Chronic obstructive pulmonary disease, unspecified Code(s): J44.9 - Chronic obstructive pulmonary disease, unspecified Status: Chronic (10) Type 2 diabetes mellitus: Qualifiers: Diabetes mellitus complication detail: with other circulatory complications Diabetes mellitus complication status: with circulatory complication Diabetes mellitus middle or intermediate school principal insulin use: without middle or intermediate school principal use Qualified Code(s): E11.59 - Type 2 diabetes mellitus with other circulatory complications Code(s): E11.9 - Type 2 diabetes mellitus without complications Status: Chronic Assessment and Plan: 11/10 FBS 141 STABLE (11) Hypertension: Qualifiers: Hypertension type: primary hypertension Qualified Code(s): I10 - Essential (primary) hypertension Code(s): I10 - Essential (primary) hypertension Status: Chronic Assessment and Plan: 11/10 BP SOFT, MEDS ON HOLD (12) Acute renal failure: Qualifiers: Acute renal failure type: unspecified Qualified Code(s): N17.9 - Acute kidney failure, unspecified Code(s): N17.9 - Acute kidney failure, unspecified Status: Acute Assessment and Plan: RESOLVED (13) Elevated troponin: Code(s): R77.8 - Other specified abnormalities of plasma proteins Status: Acute (14) Osteonecrosis: Code(s): M87.9 - Osteonecrosis, unspecified Status: Acute Assessment and Plan: DISTAL STUMP (15) Sepsis: Qualifiers: Sepsis type: sepsis due to unspeci
[2020-11-11] MEDS: DEXTROSE 5%/0.9% SOD CHL 1,000 ML 100 ML IV CONT (09:10)
[2020-11-11] MEDS: ATORVASTATIN 40 MG TABLET 80 MG PO (09:11)
[2020-11-11] MEDS: GABAPENTIN 400 MG CAPSULE 800 MG PO ×3 (09:11→16:53)
[2020-11-11] MEDS: buPROPion HCL SR (12 HR) 150 MG TAB PO ×2 (09:11→16:53)
[2020-11-11] MEDS: PANTOPRAZOLE 40 MG TABLET PO ×2 (09:11→21:13)
[2020-11-11] MEDS: COLLAGENASE OINT 30 GM TUBE 1 APPLIC TOPICAL ×2 (09:11→21:13)
[2020-11-11] MEDS: DULoxetine HCL 30 MG CAPSULE.DR PO (09:11)
--- NOTE | 2020-11-11 10:12 | PC.NURSE ---
Patient to GI lab per stretcher.
[2020-11-11 10:31] LABS: Glucose Point of Care 175 mg/dl (65-105)
[2020-11-11] MEDS: LACTATED RINGERS 1,000 ML 150 ML IV CONT (10:31)
--- NOTE | 2020-11-11 10:35 | PCPTNOTE ---
Attempted to see patient for PT at this time, however unable to due to patient out of room.
--- NOTE | 2020-11-11 10:36 | WPDANESEPPF ---
Anes - Initial Pre Proc Eval Procedure: Operation Date: 11/11/20 13:15 Proposed Procedures p Esophagogastroduodenoscopy & Colonoscopy - Pavel Gallegos MD Date/Time: 11/11/20 10:36 Surgeon: Lynne Villa MD Pre Op Diagnosis: osteonecrosis Patient Data Age: 55 Gender: M Height: 1.75 m Weight: 79.5 kg Last Vital Signs Temp 35.9 C L 11/11/20 10:26 Pulse 95 11/11/20 10:26 Resp 18 11/11/20 10:26 BP 129/69 11/11/20 10:26 Pulse Ox 99 11/11/20 10:26 Allergies Allergy/AdvReac Type Severity Reaction Status Date / Time cephalexin Allergy Unknown Anaphylactic Verified 11/11/20 10:25 Shock clindamycin Allergy Unknown Unknown Verified 11/11/20 10:25 Sulfa (Sulfonamide Allergy Unknown Anaphylactic Verified 11/11/20 10:25 Antibiotics) Shock Home Medications Medication Instructions Recorded Confirmed Type atorvastatin 80 mg PO DAILY 08/05/20 11/06/20 History aspirin 81 mg PO DAILY 08/16/20 11/06/20 History carvedilol 6.25 mg PO BID 08/16/20 11/06/20 History Blood Glucose Test #100 ea 09/03/20 11/06/20 Rx blood-glucose meter [Blood Glucose #1 each 09/03/20 11/06/20 Rx Monitoring] insulin syringe-needle U-100 #100 ea 09/03/20 11/06/20 Rx gabapentin 300 mg capsule 600 mg PO TID 90 Days #540 cap 09/24/20 11/06/20 Rx lisinopril 5 mg tablet 5 mg PO DAILY #90 tablet 09/24/20 11/06/20 Rx clopidogrel [Plavix] 75 mg PO DAILY 10/21/20 11/06/20 History furosemide 40 mg PO DAILY 10/21/20 11/06/20 History metolazone 5 mg PO DAILY 10/21/20 11/06/20 History spironolactone 25 mg PO DAILY 10/21/20 11/06/20 History Santyl 1 applic TOPICAL Q12HR 30 Days #90 10/29/20 11/06/20 Rx g albuterol sulfate [Proventil HFA] 2 puff INHALATION QIDRT PRN 30 10/29/20 11/06/20 Rx Days #6.7 g budesonide-formoterol [Symbicort] 2 puff INHALATION Q12HRT 30 Days 10/29/20 11/06/20 Rx #10.2 g docusate sodium 100 mg PO BID #60 cap 10/29/20 11/06/20 Rx bupropion HCl 150 mg PO BID 11/01/20 11/06/20 History Laboratory Tests 11/10/20 11/10/20 11/10/20 11:37 11:37 12:11 WBC RBC Hgb Hct MCV MCH MCHC RDW Plt Count MPV Sodium Potassium Chloride Carbon Dioxide Anion Gap BUN Creatinine Estim Creat Clear Calc Estimated GFR Glucose POC Capillary Glucose 249 mg/dl H mg/dl (65-105) Calcium Ur Random Urea 287 MG/DL MG/DL Urine Creatinine 23.2 mg/dL mg/dL 11/10/20 11/10/20 11/11/20 16:28 20:10 05:25 WBC 8.4 K/mm3 K/mm3 (4.5-10.0) RBC 3.07 M/mm3 L M/mm3 (4.6-6.20) Hgb 9.4 g/dL L g/dL (14.0-18.0) Hct 28.9 % L % (42.0-52.0) MCV 94.1 fl fl (80-100) MCH 30.6 pg pg (26-34) MCHC 32.5 g/dl g/dl (32-36) RDW 13.9 % % (11.5-14.5) Plt Count 395 k/mm3 H k/mm3 (150-375) MPV 9.6 fl fl (7.4-10.4) Sodium Potassium Chloride Carbon Dioxide Anion Gap BUN Creatinine Estim Creat Clear Calc Estimated GFR Glucose POC Capillary Glucose 181 mg/dl H mg/dl 187 mg/dl H mg/dl (65-105) (65-105) Calcium Ur Random Urea Urine Creatinine 11/11/20 11/11/20 11/11/20 05:25 07:59 10:29 WBC RBC Hgb Hct MCV MCH MCHC RDW Plt Count MPV Sodium 129 mmol/L L mmol/L (137-145) Potassium 3.9 mmol/L mmol/L (3.4-5.0) Chloride 100 mmol/L mmol/L (98-107) Carbon Dioxide 23 mmol/L mmol/L (22-30) Anion Gap
[2020-11-11] MEDS: SODIUM CHLORIDE 0.9% IV 1,000 ML 100 ML IV CONT (12:17)
--- NOTE | 2020-11-11 12:20 | PC.NURSE ---
Patient returned from GI lab.
[2020-11-11 13:17] LABS: Glucose Point of Care 141 mg/dl (65-105)
[2020-11-11 16:38] LABS: Glucose Point of Care 209 mg/dl (65-105)
[2020-11-11] MEDS: DOCUSATE SODIUM 100 MG CAPSULE PO (16:53)
[2020-11-11] MEDS: INSULIN ASPART (*BKC) 100 UNITS/ML SUB-Q (17:26)
[2020-11-11 20:48] LABS: Glucose Point of Care 195 mg/dl (65-105)
[2020-11-11] MEDS: HEPARIN SODIUM 5,000 UNITS/ML VIAL 5000 UNITS SUB-Q (21:13)
[2020-11-12 05:58] LABS: Hematocrit 25.1 % (42.0-52.0); Hemoglobin 8.1 g/dL (14.0-18.0); Mean Corpuscular HGB Conc 32.3 g/dl (32-36); Mean Corpuscular Hemoglobin 30.2 pg (26-34); Mean Corpuscular Volume 93.7 fl (80-100); Platelet Count Result 339 k/mm3 (150-375); Red Blood Count 2.68 M/mm3 (4.6-6.20); Red Cell Distribution Width 13.9 % (11.5-14.5); White Blood Count 6.9 K/mm3 (4.5-10.0)
[2020-11-12 06:00] VITALS: BP 115/59; PULSE 83; RESP 20; TEMP 36.3; O2SAT 98
[2020-11-12 06:13] LABS: Anion Gap 3 mmol/L (8-16); Blood Urea Nitrogen 22 mg/dL (9-20); Carbon Dioxide 25 mmol/L (22-30); Chloride 102 mmol/L (98-107); Estimated CRCL calculation 92 ml/min; Estimated Glomerular Filt Rate > 60; Glucose 137 mg/dL (65-110); Potassium 4.2 mmol/L (3.4-5.0); Sodium 130 mmol/L (137-145)
[2020-11-12 06:53] LABS: Glucose Point of Care 137 mg/dl (65-105)
[2020-11-12] MEDS: ATORVASTATIN 40 MG TABLET 80 MG PO (07:47)
[2020-11-12] MEDS: GABAPENTIN 400 MG CAPSULE 800 MG PO (07:47)
[2020-11-12] MEDS: buPROPion HCL SR (12 HR) 150 MG TAB PO (07:47)
[2020-11-12] MEDS: DOCUSATE SODIUM 100 MG CAPSULE PO (07:47)
[2020-11-12] MEDS: DULoxetine HCL 30 MG CAPSULE.DR PO (07:47)
[2020-11-12] MEDS: PANTOPRAZOLE 40 MG TABLET PO (07:47)
[2020-11-12] MEDS: HEPARIN SODIUM 5,000 UNITS/ML VIAL 5000 UNITS SUB-Q (07:47)
[2020-11-12] MEDS: COLLAGENASE OINT 30 GM TUBE 1 APPLIC TOPICAL (07:48)
--- NOTE | 2020-11-12 09:32 | PM.DS ---
DS: Admitting Diagnosis Admitting Diagnosis SEPSIS DUE TO WOUND INFECTION DS: Discharge Diagnosis Discharge Diagnosis (1) Hyponatremia: Code(s): E87.1 - Hypo-osmolality and hyponatremia Status: Acute Assessment and Plan: FRACTIONAL EXCRETION OF UREA 35.8%, NEAR VOLUME DEPLETION RANGE (<35%) WHILE NPO GAVE IV NS FOR ONE LITER 11/12 Na 130 F/u with PCP as outpatient (2) Positive occult stool blood test: Code(s): R19.5 - Other fecal abnormalities Status: Acute Assessment and Plan: EPISODE OF DARK STOOL THAT WAS HEME POSITIVE 11/08 HOLD ASA F/U H/H 11/09 HGB 9.6 (UP FROM 8.6), 11/10 8.9, 11/12 8.1 EGD AND COLON with esophagitis, gastritis, internal hemorrhoids, polyps (3) Systolic heart failure: Qualifiers: Heart failure chronicity: acute on chronic Qualified Code(s): I50.23 - Acute on chronic systolic (congestive) heart failure Code(s): I50.20 - Unspecified systolic (congestive) heart failure Status: Acute Assessment and Plan: NO EVIDENCE FOR VOLUME OVERLOAD 11/10 DIURETICS, LISINOPRIL, AND CARVEDILOL ON HOLD 11/12 DISCHARGE MEDS ORDERED (4) Wound infection: Code(s): T14.8XXA - Other injury of unspecified body region, initial encounter; L08.9 - Local infection of the skin and subcutaneous tissue, unspecified Status: Acute Assessment and Plan: RESOLVED CONTINUE WOUND CARE (5) Below-knee amputation of left lower extremity: Code(s): S88.112A - Complete traumatic amputation at level between knee and ankle, left lower leg, initial encounter Status: Chronic Assessment and Plan: PHANTOM PAIN NOT CONTROLLED 11/10 INCREASED GABAPENTIN TO 800MG TID (6) Acute alteration in mental status: Code(s): R41.82 - Altered mental status, unspecified Status: Acute Assessment and Plan: RESOLVED (7) CVA (cerebral vascular accident): Qualifiers: CVA mechanism: unspecified Qualified Code(s): I63.9 - Cerebral infarction, unspecified Code(s): I63.9 - Cerebral infarction, unspecified Status: Chronic (8) Antiplatelet or antithrombotic long-term use: Code(s): Z79.02 - senior care (current) use of antithrombotics/antiplatelets Status: Acute Assessment and Plan: HOLD ASA (9) COPD (chronic obstructive pulmonary disease): Qualifiers: COPD type: unspecified COPD Qualified Code(s): J44.9 - Chronic obstructive pulmonary disease, unspecified Code(s): J44.9 - Chronic obstructive pulmonary disease, unspecified Status: Chronic (10) Type 2 diabetes mellitus: Qualifiers: Diabetes mellitus complication detail: with other circulatory complications Diabetes mellitus complication status: with circulatory complication Diabetes mellitus chcf insulin use: without intermodal truck driver use Qualified Code(s): E11.59 - Type 2 diabetes mellitus with other circulatory complications Code(s): E11.9 - Type 2 diabetes mellitus without complications Status: Chronic Assessment and Plan: 11/10 FBS 141 STABLE, 11/12 137 (11) Hypertension: Qualifiers: Hypertension type: primary hypertension Qualified Code(s): I10 - Essential (primary) hypertension Code(s): I10 - Essential (primary) hypertension Status: Chronic Assessment and Plan: 11/12 BP soft but improved after IVF (12) Acute renal failure: Qualifiers: Acute renal failure type: unspecified Qualified Code(s): N17.9 - Acute kidney failure, unspecified Code(s): N17.9 - Acute kidney failure, unspecified Status: Acute Assessment and Plan: RESOLVED (13) Elevated troponin: Code(s): R77.8 - Other specified abnormalities of plasma proteins Status: Acute (14) Osteonecrosis: Code(s): M87.9 - Osteonecrosis, unspecified Status: Acute Assessment and Plan: DISTAL STUMP (15) Sepsis: Code(s): A41.9 - Sepsis, unsp
--- NOTE | 2020-11-12 10:21 | WPDANESPN ---
Anes - Prog Note Post-Op Date/Time: 11/12/20 10:21 Cardiovascular status: normal Respiratory status: normal Airway patency: baseline Mental status: baseline Post-Op hydration status: normal Vital Signs: Last Vital Signs Temp 36.3 C L 11/12/20 06:00 Pulse 83 11/12/20 06:00 Resp 20 11/12/20 06:00 BP 115/59 L 11/12/20 06:00 Pulse Ox 98 11/12/20 06:00 Pain Score (VAS): 0 I/O: Intake & Output 11/11/20 11/12/20 11/12/20 23:59 07:59 15:59 Intake Total 1080 1500 240 Output Total 1800 1000 550 Balance -720 500 -310 Laboratory Tests 11/12/20 05:12 11/12/20 05:12 11/11/20 11/11/20 11/11/20 10:29 13:02 16:22 WBC RBC Hgb Hct MCV MCH MCHC RDW Plt Count MPV Sodium Potassium Chloride Carbon Dioxide Anion Gap BUN Creatinine Estim Creat Clear Calc Estimated GFR Glucose POC Capillary Glucose 175 H 141 H 209 H Calcium 11/11/20 11/12/20 11/12/20 20:44 05:12 05:12 WBC 6.9 RBC 2.68 L Hgb 8.1 L Hct 25.1 L MCV 93.7 MCH 30.2 MCHC 32.3 RDW 13.9 Plt Count 339 MPV 10.0 Sodium 130 L Potassium 4.2 Chloride 102 Carbon Dioxide 25 Anion Gap 3 L BUN 22 H Creatinine 0.80 Estim Creat Clear Calc 92 Estimated GFR > 60 Glucose 137 H POC Capillary Glucose 195 H Calcium 8.0 L 11/12/20 06:45 WBC RBC Hgb Hct MCV MCH MCHC RDW Plt Count MPV Sodium Potassium Chloride Carbon Dioxide Anion Gap BUN Creatinine Estim Creat Clear Calc Estimated GFR Glucose POC Capillary Glucose 137 H Calcium Post-procedural complaints: none Patient Feedback: Patient satisfied with anesthetic care.
== END 2020-11-12 12:00 | disposition home health service (06) | DRG 871 ==
PROVIDERS: Family Medicine; Internal Medicine Gastroenterology; Admitting Provider Internal Medicine; PCP Family Medicine; Visit Provider Internal Medicine
PROC: 0DJ08ZZ Inspection of Upper Intestinal Tract, Via Natural or Artificial Opening Endoscopic (ICD-10-PCS; CPT 43235; principal; 2020-11-11 13:15)
DX: A41.9 Sepsis, unspecified organism (principal); G93.41 Metabolic encephalopathy; I50.23 Acute on chronic systolic (congestive) heart failure; N17.9 Acute kidney failure, unspecified; I42.9 Cardiomyopathy, unspecified; E87.1 Hypo-osmolality and hyponatremia; R19.5 Other fecal abnormalities; D50.0 Iron deficiency anemia secondary to blood loss (chronic); K21.00 Gastro-esophageal reflux disease with esophagitis, without bleeding; K29.70 Gastritis, unspecified, without bleeding; K63.5 Polyp of colon; K64.8 Other hemorrhoids; R65.20 Severe sepsis without septic shock; E11.51 Type 2 diabetes mellitus with diabetic peripheral angiopathy without gangrene; E11.621 Type 2 diabetes mellitus with foot ulcer; L97.519 Non-pressure chronic ulcer of other part of right foot with unspecified severity; E11.59 Type 2 diabetes mellitus with other circulatory complications; T87.89 Other complications of amputation stump; L98.499 Non-pressure chronic ulcer of skin of other sites with unspecified severity; G54.6 Phantom limb syndrome with pain; Z89.512 Acquired absence of left leg below knee; I11.0 Hypertensive heart disease with heart failure; F17.210 Nicotine dependence, cigarettes, uncomplicated; J44.9 Chronic obstructive pulmonary disease, unspecified; E78.49 Other hyperlipidemia; R77.8 Other specified abnormalities of plasma proteins; F01.50 Vascular dementia, unspecified severity, without behavioral disturbance, psychotic disturbance, mood disturbance, and anxiety; Z86.73 Personal history of transient ischemic attack (TIA), and cerebral infarction without residual deficits; Z79.02 Long term (current) use of antithrombotics/antiplatelets; Z79.4 Long term (current) use of insulin; Z79.82 Long term (current) use of aspirin; Z79.899 Other long term (current) drug therapy
CPT/HCPCS: 36415; 70450; 71045; 80048; 80053; 80202; 81003; 82274; 82565; 82570; 82948; 83036; 83605; 83735; 84100; 84540; 85014; 85018; 85025; 85027; 85610; 85730; 88305; 94640; 97110; 97161; 97166; 97535; A9270; J0743; J1644; J1815; J2001; J2704; J3370; J7030; J7040; J7042; J7120

== ENCOUNTER 2020-11-13 12:01 | Emergency (ER) | payer MEDICARE, SELFPAY ==
[2020-11-13 12:15] VITALS: BP 112/65; PULSE 75; RESP 20; TEMP 36.8; O2SAT 100
--- NOTE | 2020-11-13 12:22 | ED.GENADULT ---
HPI - General Adult General Chief complaint: Unspecified Stated complaint: AMBULANCE Source: patient Mode of arrival: EMS History of Present Illness HPI narrative: Pt states that he is here to go to rehab. He had an amputation and was released yesterday to home, he said he is here so he can get rehab. he apparently had bka, and wound care at [facility]. He was going to get home health, but apparently that isnt enough because he is still having problems caring for himself. Relieving factors: none Exacerbating factors: none Associated symptoms: denies other symptoms Treatments prior to arrival: none Related Data Home Medications Medication Instructions Recorded Confirmed atorvastatin 80 mg PO DAILY 08/05/20 11/06/20 aspirin 81 mg PO DAILY 08/16/20 11/06/20 carvedilol 6.25 mg PO BID 08/16/20 11/06/20 clopidogrel [Plavix] 75 mg PO DAILY 10/21/20 11/06/20 furosemide 40 mg PO DAILY 10/21/20 11/06/20 spironolactone 25 mg PO DAILY 10/21/20 11/06/20 bupropion HCl 150 mg PO BID 11/01/20 11/06/20 Allergies Allergy/AdvReac Type Severity Reaction Status Date / Time cephalexin Allergy Unknown Anaphylactic Verified 11/13/20 12:35 Shock clindamycin Allergy Unknown Unknown Verified 11/13/20 12:35 Sulfa (Sulfonamide Allergy Unknown Anaphylactic Verified 11/13/20 12:35 Antibiotics) Shock Review of Systems Review of Systems: All systems reviewed & are unremarkable except as noted in HPI and below PMFSH Past Medical History Medical History Acute on chronic blood loss anemia Cardiomyopathy CHF (congestive heart failure) Last echo in 01/05/20 showed an EF 30-35%, severe LVE, diastolic dysfunction (E/e' 24), mod LAE, mod MR, trace TR, RVSP 59 mmHg. 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 COPD (chronic obstructive pulmonary disease) CVA (cerebral vascular accident) Multiple strokes in the past Gangrene of left foot Heel ulcer due to DM Hyperlipidemia Hypertension Necrosis of toe Peripheral artery disease Toe fracture, right Type 2 diabetes mellitus Vascular dementia Surgical History Surgical History History of left below knee amputation Family History Family History Father Diabetes mellitus Family history of cardiovascular disease Mother Family history of malignant neoplasm Social History Social History Smoking packs per day: 1 Smoking cigarettes per day: 20.0 Years smoked: 17 Smoking pack-years: 17.00 Smoking status: Current every day smoker Tobacco type: cigarettes Second hand tobacco smoke exposure: Yes Alcohol intake: current Drinks per week: 6 Alcohol use details: occasional social drink Substance use: never Substance use type: does not use Additional living arrangements comments: Gender identity (if verbalized by the patient): Male Spiritual care concerns: No Exam Const: General: cooperative Orientation/consciousness: oriented to person and oriented to place Resp: Effort & Inspection: normal respiratory effort and able to speak in complete sentences Auscultation: clear to auscultation bilaterally Cardio: Jugular venous distension: no JVD Rate: regular rate Rhythm: regular rhythm GI: Inspection: normal to inspection GI Palp: No abdominal tenderness Auscultation: normal bowel sounds Back/Spine/Pelvis: Back: no CVA tenderness Skin: General skin exam: normal color Wounds: wound noted (recent surgical wounds on bilat LE) Neuro: General: oriented to person and oriented to place Psych: Appearance: grossly normal Affect: normal affect Thought process: Normal thought process present Course Course Emergency Course: discharge planning here to eval pt for rehab placement, however, pt has n
--- NOTE | 2020-11-13 13:37 | PC.NURSE ---
pt evaluated by nurse placement and dr navarro came over from his office to evaluate pt and help with understanding pt care
[2020-11-13 13:39] VITALS: BP 112/59; PULSE 65; RESP 20; O2SAT 100
--- NOTE | 2020-11-13 13:42 | PC.NURSE ---
Was called down to speak with patient and regarding [facility] placement r/t not managing well at home since discharge yesterday from [facility]. Patient and hesitant about this r/t to on having only 3 days of Medicare part A left longterm facility of 20 and has no supplement. Prior transfer to [facility] for surgical consult on wounds was here in acute bed and plan in works was to go to [facility] in [place] and they would help apply for Medicaid. [facility] Petty reports he really shouldn't go back home r/t they are not managing his care well. Spoke to Anali at [facility]. Faxed updates from [facility] stay for her to look at to see they would still accept. In mean while awaiting for Dr. Bean (patient's PCP) to come over to speak with and patient about needing to go to [facility] for awhile.
--- NOTE | 2020-11-13 14:50 | PC.NURSE ---
11/13/20 Anali from [facility] will accept pending rapid covid. ED to run rapid covid. A wheelchair van driver will be able to come around 1630 with van and wc to pick patient up. and are numbers to [facility]. Autumn BARCENAS RN notified of arrangements and will fax covid results to above number. Dr. Bean notified above.
[2020-11-13 15:03] LABS: SARS-CoV-2 Ag Negative (Negative)
[2020-11-13 17:00] VITALS: BP 101/63; PULSE 71; RESP 20; TEMP 36.7; O2SAT 100
--- NOTE | 2020-11-13 17:23 | ED.GENADULT ---
HPI - General Adult General Chief complaint: Unspecified Stated complaint: AMBULANCE Source: patient Mode of arrival: EMS History of Present Illness HPI narrative: pt presents here because he wants to get admitted for rehab. He had proceedures at [facility], and was released to home yesterday. Home health felt pt was not doing well at home. Relieving factors: none Exacerbating factors: none Associated symptoms: denies other symptoms Treatments prior to arrival: none Related Data Home Medications Medication Instructions Recorded Confirmed atorvastatin 80 mg PO DAILY 08/05/20 11/13/20 aspirin 81 mg PO DAILY 08/16/20 11/13/20 carvedilol 6.25 mg PO BID 08/16/20 11/13/20 clopidogrel [Plavix] 75 mg PO DAILY 10/21/20 11/13/20 furosemide 40 mg PO DAILY 10/21/20 11/13/20 spironolactone 25 mg PO DAILY 10/21/20 11/13/20 bupropion HCl 150 mg PO BID 11/01/20 11/13/20 Allergies Allergy/AdvReac Type Severity Reaction Status Date / Time cephalexin Allergy Unknown Anaphylactic Verified 11/13/20 12:35 Shock clindamycin Allergy Unknown Unknown Verified 11/13/20 12:35 Sulfa (Sulfonamide Allergy Unknown Anaphylactic Verified 11/13/20 12:35 Antibiotics) Shock Review of Systems Review of Systems: All systems reviewed & are unremarkable except as noted in HPI and below Constitutional: Constitutional: Reports no additional constitutional complaints PMFSH Past Medical History Medical History Acute on chronic blood loss anemia Cardiomyopathy CHF (congestive heart failure) Last echo in 01/05/20 showed an EF 30-35%, severe LVE, diastolic dysfunction (E/e' 24), mod LAE, mod MR, trace TR, RVSP 59 mmHg. 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 COPD (chronic obstructive pulmonary disease) CVA (cerebral vascular accident) Multiple strokes in the past Gangrene of left foot Heel ulcer due to DM Hyperlipidemia Hypertension Necrosis of toe Peripheral artery disease Toe fracture, right Type 2 diabetes mellitus Vascular dementia Surgical History Surgical History History of left below knee amputation Family History Family History Father Diabetes mellitus Family history of cardiovascular disease Mother Family history of malignant neoplasm Social History Social History Smoking packs per day: 1 Smoking cigarettes per day: 20.0 Years smoked: 17 Smoking pack-years: 17.00 Smoking status: Current every day smoker Tobacco type: cigarettes Second hand tobacco smoke exposure: Yes Alcohol intake: current Drinks per week: 6 Alcohol use details: occasional social drink Substance use: never Substance use type: does not use Additional living arrangements comments: Gender identity (if verbalized by the patient): Male Spiritual care concerns: No Exam Const: General: cooperative and healthy appearing Orientation/consciousness: oriented to person and oriented to place HENMT: Head: normal to inspection Eyes: General: appearance normal, both eyes and all related structures Neck: Neck: normal visual inspection Chest: Chest palpation & inspection: normal inspection of the chest Resp: Effort & Inspection: normal respiratory effort Auscultation: clear to auscultation bilaterally Cardio: Rate: regular rate Rhythm: regular rhythm GI: Inspection: normal to inspection GI Palp: No abdominal tenderness Auscultation: normal bowel sounds Back/Spine/Pelvis: Back: no CVA tenderness Skin: General skin exam: normal color Neuro: General: oriented to person and oriented to place Extrem: Other: post op bandages still in place Psych: Appearance: grossly normal Course Vital Signs Vital signs: Vital Signs Temperature 36.8 C
== END 2020-11-13 17:00 | disposition home or self-care (01) ==
PROVIDERS: Emergency Provider Emergency Medicine; PCP Family Medicine
DX: Z76.89 Persons encountering health services in other specified circumstances (principal); Z20.822 Contact with and (suspected) exposure to COVID-19; Z89.512 Acquired absence of left leg below knee; I50.9 Heart failure, unspecified; J44.9 Chronic obstructive pulmonary disease, unspecified; E78.5 Hyperlipidemia, unspecified; I10 Essential (primary) hypertension; E11.9 Type 2 diabetes mellitus without complications; F17.200 Nicotine dependence, unspecified, uncomplicated
CPT/HCPCS: 87426; 99282; 99283; C9803